=== PATIENT | female | born 1940 | race Caucasian/White ===

== ENCOUNTER 2020-05-26 18:16 | Observation (INO) | payer BC, OTHER ==
[2020-05-26 20:57] LABS: Absolute Lymphocytes (CBC) 1.5 K/uL (0.7-4.9); Basophils % 0.8 % (0-1.3); Hematocrit 36.3 % (36.0-45.0); MPV 7.6 fL (7.6-11.3); RBC Red Blood Cell Count 4.29 M/uL (3.86-4.86)
[2020-05-26 21:16] LABS: Albumin 3.5 g/dL (3.4-5.0); Bilirubin Direct 0.1 mg/dL (0-0.2); Bilirubin Total 0.4 mg/dL (0.2-1.0); Protein, Total 8.2 g/dL (6.4-8.2)
[2020-05-26 21:19] LABS: Potassium 2.5 mmol/L (3.5-5.1)
--- NOTE | 2020-05-26 21:36 | RAD REPORT ---
EXAM DESCRIPTION: RAD - Chest Single View - 05/26/2020 9:27 pm CLINICAL HISTORY: AMS Chest pain. COMPARISON: No comparisons FINDINGS: Portable technique limits examination quality. The lungs are emphysematous but grossly clear. The heart is normal in size. No displaced fractures. IMPRESSION: No acute intrathoracic process suspected.
[2020-05-26] MEDS ORDERED: POTASSIUM 25 MEQ EFFERV TAB ONE (21:40)
[2020-05-26] MEDS ORDERED: NA CHLORIDE 0.9% 500 ML ONE (21:41)
[2020-05-26] MEDS ORDERED: KCL 20 MEQ/100 mL IVPB 20 MEQ/100 ML BAG IV ONE (21:41)
[2020-05-26] MEDS ORDERED: carvediloL 6.25 MG TAB ONE (23:05)
[2020-05-26 23:08] LABS: Urine Blood TRACE (NEG); Urine Glucose NEGATIVE (NEG); Urine Protein TRACE (NEG); Urine Specific Gravity 1.025 (1.005-1.030)
[2020-05-26 23:11] LABS: Calcium Oxalate Crystals- Ur FEW (NONE SEEN); Urine Bacteria >50 /HPF (<20); Urine Culture Reflex Order REFLEXED; Urine Urothelial Cells <5 /HPF (NONE SEEN)
--- NOTE | 2020-05-26 23:26 | ER ---
Nurse's Notes [facility] Name: Jennifer Herrera Age: 79 yrs Sex: Female : 1940 Arrival Date: 05/26/2020 Time: 18:20 Bed 13 Private MD: Diagnosis: Hypokalemia;Urinary tract infection, site not specified;Altered mental status, unspecified Presentation: 05/26 18:43 Chief complaint: Patient states: Confusion, agitation for 3 weeks. Can't concentrate, ll1 unstable on feet, CRABTREE. Potassium 2.4 yesterday. Brought in by daughter. Coronavirus screen: Client denies travel out of the [place] in the last 14 days. At this time, the client does not indicate any symptoms associated with coronavirus-19. Ebola Screen: Patient denies travel to an Ebola-affected area in the 21 days before illness onset. Initial Sepsis Screen: Does the patient meet any 2 criteria? No. Patient's initial sepsis screen is negative. Does the patient have a suspected source of infection? No. Patient's initial sepsis screen is negative. Risk Assessment: Do you want to hurt yourself or someone else? Patient reports no desire to harm self or others. Onset of symptoms was May 07, 2020. 18:43 Method Of Arrival: Ambulatory ll1 18:43 Acuity: LATONIA 2 ll1 Historical: - Allergies: 18:48 Levaquin; ll1 - PMHx: 18:48 Anemia; Hypertension; narcolepsy; ll1 - PSHx: 18:48 ; cataract sx; ll1 - Immunization history:: Flu vaccine is not up to date. - Social history:: Smoking status: Patient denies any tobacco usage or history of. Screenin:15 Abuse screen: Denies threats or abuse. Denies injuries from another. Nutritional rr5 screening: No deficits noted. Tuberculosis screening: No symptoms or risk factors identified. Fall Risk IV access (20 points). Total Madrigal Fall Scale indicates No Risk (0-24 pts). Assessment: 20:15 General: Appears in no apparent distress. comfortable, Behavior is calm, cooperative, rr5 appropriate for age. 20:15 Pain: Denies pain. Neuro: Level of Consciousness is awake, alert, Oriented to person, rr5 place, time. Cardiovascular: Capillary refill < 3 seconds Patient's skin is warm and dry. Respiratory: Airway is patent Respiratory effort is even, unlabored, Respiratory pattern is regular, symmetrical. GI: Parent/caregiver reports the patient having epigastric pain, since K 2.4 MEQ result yesterday K 2.4. : No signs and/or symptoms were reported regarding the genitourinary system. EENT: No deficits noted. Derm: Skin is fragile, is thin, Skin temperature is warm. Musculoskeletal: Capillary refill < 3 seconds. 21:30 Reassessment: Patient appears in no apparent distress at this time. Patient is alert, rr5 oriented x 3, equal unlabored respirations, skin warm/dry/pink. awaiting for results. Vital Signs: 18:43 BP 203 / 105; Pulse 78; Resp 17; Temp 98.2; Pulse Ox 95% on R/A; Weight 43.09 kg; ll1 Height 5 ft. 4 in. (162.56 cm); Pain 0/10; 20:00 BP 195 / 101; Pulse 79; Resp 20; Pulse Ox 98% ; rr5 20:45 BP 201 / 112; Pulse 79; Resp 19; Pulse Ox 98% ; rr5 22:00 BP 201 / 97; Pulse 62; Resp 16; Pulse Ox 98% ; rr5 23:00 BP 173 / 82; Pulse 78; Resp 15; Pulse Ox 98% ; rr5 23:37 BP 169 / 90; Pulse 75; Resp 16; Pulse Ox 99% ; rr5 05/27 00:48 BP 154 / 89; Pulse 75; Resp 16; Pulse Ox 98% ; rr5 05/26 18:43 Body Mass Index 16.31 (43.09 kg, 162.56 cm) ll1 ED Course: 05/26 18:20 Patient arrived in ED. ds1 18:47 Triage completed. ll1 18:48 Arm band placed on. ll1 18:53 Notified Charge Nurse of confusion/low NA. em 20:05 Kike Sheffield, POPPY is Primary Nurse. rr5 20:05 Christofer Murillo NP is PHCP. pm1 20:05 Gary Schwarz MD is Attending Physician. pm1 20:55 Inserted saline lock: 20 gauge in left antecubital area, using aseptic technique. Blood jb5 collected. 21:03 Basic Metabolic Panel Sent. jb5 21:04 LFT's Sent. jb5 21:04 Magnesium Sent. jb5 21:14 Patient has correct armband on for positive identification. Bed in low position. Call rv light in reach. 21:14 Pulse ox on. NIBP on. rv 21:19 Notified Nurse Practitioner and/or Physician Circulation Representative of a critical lab result(s), dm5 Potassium 2.5. 21:27 XRAY Chest (1 view) In Process Unspecified. EDMS 21:35 CT Head Brain wo Cont In Process Unspecified. EDMS 23:25 Ramos Angel is Hospitalizing Provider. pm1 05/27 00:04 covid. rr5 03:00 No provider procedures requiring assistance completed. Patient admitted, IV remains in wh place. Administered Medications: 05/26 21:37 Drug: Potassium Effervescent Tablet 50 mEq Route: PO; rr5 22:30 Follow up: Response: No adverse reaction rr5 21:37 Drug: Potassium Chloride 20 mEq Route: IV; Rate: calculated rate; Site: left rr5 antecubital; 05/27 00:00 Follow up: Response: No adverse reaction; IV Status: Completed infusion; IV Intake: rr5 100ml 05/26 23:04 Drug: carvedilol 12.5 mg Route: PO; rr5 05/27 00:05 Follow up: Response: No adverse reaction; Blood pressure is lowered rr5 05/26 23:37 Drug: Rocephin 1 grams Route: IV; Rate: calculated rate; Site: left antecubital; rr5 05/27 00:30 Follow up: Response: No adverse reaction; IV Status: Completed infusion; IV Intake: [id number] Intake: 00:00 IV: 100ml; Total: 100ml. rr5 00:30 IV: 10ml; Total: 110ml. rr5 Outcome: 05/26 23:25 Decision to Hospitalize by Provider. pm1 05/27 03:00 Admitted to ER Hold. Please see [facility] for further documentation. Condition: stable Instructed on the need for admit. 14:56 Patient left the ED. em Addendum: 05/31/2020 14:16 Addendum: Culture Results: Positive urine culture. Bacteria is resistant to, has s v intermediate sensitivity, or is not tested against prescribed antibiotics. Report given to MATILDA for further evaluation and then to street cleaning equipment operator for follow up with patient. Phone call Attempt #1 left voicemail. 14:43 Addendum: Culture Results: No further action required. Phone call Attempt #2 pt called s v back and stated that she feels better and has f/u with Dr Cordova with no new prescriptions. Signatures: Dispatcher [employer] Ginger Kohler RN RN dm5 Jaja Brush RN Luigi Marshall RN RN em Sanford, Demi ds1 Christofer Murillo, RYLEY NOTCH GRINDER pm1 Ronel Motta jb5 Ada Alexander Ronaldo RN Kike Ahuja RN RN rr5 Gerda Almeida RN RN ll1
--- NOTE | 2020-05-26 23:26 | EDPHYS ---
Physician Documentation [facility] Name: Jennifer Herrera Age: 79 yrs Sex: Female : 1940 Arrival Date: 05/26/2020 Time: 18:20 Bed 13 Private MD: ED Physician Gary Schwarz HPI: 05/26 20:32 This 79 yrs old Female presents to ER via Ambulatory with complaints of Low pm1 Potassium. 20:32 Patient has been acting more irritated and altered for the past few days according to pm1 daughter. She got blood work last night that showed potassium 2.4 so she brought her to the ER for evaluation and treatment. She had a similar presentation the last time she was in the hospital many years ago and she had hypokalemia and a UTI. Onset: The symptoms/episode began/occurred 3 day(s) ago. Severity of symptoms: in the emergency department the symptoms are worse. The patient has experienced a previous episode, many years ago. The patient has not recently seen a physician, the patient's primary care provider is Dr. Cordova. Historical: - Allergies: 18:48 Levaquin; ll1 - PMHx: 18:48 Anemia; Hypertension; narcolepsy; ll1 - PSHx: 18:48 ; cataract sx; ll1 - Immunization history:: Flu vaccine is not up to date. - Social history:: Smoking status: Patient denies any tobacco usage or history of. ROS: 20:32 Constitutional: Negative for fever, chills, and weight loss, Eyes: Negative for injury, pm1 pain, redness, and discharge, ENT: Negative for injury, pain, and discharge, Neck: Negative for injury, pain, and swelling, Cardiovascular: Negative for chest pain, palpitations, and edema, Respiratory: Negative for shortness of breath, cough, wheezing, and pleuritic chest pain, Abdomen/GI: Negative for abdominal pain, nausea, vomiting, diarrhea, and constipation, Back: Negative for injury and pain, MS/Extremity: Negative for injury and deformity, Skin: Negative for injury, rash, and discoloration. 20:32 Neuro: Positive for altered mental status. 20:32 Psych: Positive for irritability. Exam: 20:32 Constitutional: This is a well developed, well nourished patient who is awake, alert, pm1 and in no acute distress. Head/Face: Normocephalic, atraumatic. Back: No spinal tenderness. No costovertebral tenderness. Full range of motion. Skin: Warm, dry with normal turgor. Normal color with no rashes, no lesions, and no evidence of cellulitis. MS/ Extremity: Pulses equal, no cyanosis. Neurovascular intact. Full, normal range of motion. 20:32 Cardiovascular: Exam negative for acute changes, Rate: normal, Rhythm: regular, Pulses: no pulse deficits are appreciated. 20:32 Respiratory: Exam negative for acute changes, respiratory distress, shortness of breath. 20:32 Abdomen/GI: Exam negative for acute changes, Inspection: abdomen appears normal, Palpation: abdomen is soft and non-tender, in all quadrants. Vital Signs: 18:43 BP 203 / 105; Pulse 78; Resp 17; Temp 98.2; Pulse Ox 95% on R/A; Weight 43.09 kg; ll1 Height 5 ft. 4 in. (162.56 cm); Pain 0/10; 20:00 BP 195 / 101; Pulse 79; Resp 20; Pulse Ox 98% ; rr5 20:45 BP 201 / 112; Pulse 79; Resp 19; Pulse Ox 98% ; rr5 22:00 BP 201 / 97; Pulse 62; Resp 16; Pulse Ox 98% ; rr5 23:00 BP 173 / 82; Pulse 78; Resp 15; Pulse Ox 98% ; rr5 23:37 BP 169 / 90; Pulse 75; Resp 16; Pulse Ox 99% ; rr5 05/27 00:48 BP 154 / 89; Pulse 75; Resp 16; Pulse Ox 98% ; rr5 05/26 18:43 Body Mass Index 16.31 (43.09 kg, 162.56 cm) ll1 MDM: 05/26 20:09 Patient medically screened. [facility] 23:23 Data reviewed: vital signs. Data interpreted: Pulse oximetry: on room air is 95 %. pm1 Interpretation: normal. Counseling: I had a detailed discussion with the patient and/or guardian regarding: the historical points, exam findings, and any diagnostic results supporting the discharge/admit diagnosis, lab results, radiology results, the need for further work-up and treatment in the hospital. 23:23 Physician consultation: Matt SHERMAN was called at 23:24, was contacted at 23:24, pm1 regarding admission, patient's condition, and will see patient admit observation to [facility]. 05/26 20:22 Order name: Basic Metabolic Panel; Complete Time: 22:36 pm1 05/26 20:22 Order name: CBC with Diff; Complete Time: 21:17 pm1 05/26 20:22 Order name: LFT's; Complete Time: 22:36 pm1 05/26 20:22 Order name: Magnesium; Complete Time: 22:36 pm1 05/26 20:22 Order name: Urine Microscopic Only; Complete Time: 23:13 pm1 05/26 22:31 Order name: Urine Dipstick--Ancillary (enter results); Complete Time: 23:13 mt 05/26 20:22 Order name: XRAY Chest (1 view); Complete Time: 22:36 pm1 05/26 23:12 Order name: Urine Culture EDNH 05/26 23:39 Order name: COVID-19 rr5 05/27 05:48 Order name: CBC with Automated Diff EDMS 05/27 06:06 Order name: Basic Metabolic Panel EDMS 05/27 06:06 Order name: T4 Free EDMS 05/27 06:06 Order name: Magnesium EDMS 05/27 06:06 Order name: Thyroid Stimulating Hormone EDMS 05/26 20:22 Order name: EKG; Complete Time: 20:23 pm1 05/26 20:22 Order name: Cardiac monitoring; Complete Time: 00:59 pm1 05/26 20:22 Order name: EKG - Nurse/Tech; Complete Time: 21:03 pm1 05/26 20:22 Order name: IV Saline Lock; Complete Time: 21:03 pm1 05/26 20:22 Order name: Labs collected and sent; Complete Time: 21:04 pm1 05/26 20:22 Order name: Urine Dipstick-Ancillary (obtain specimen); Complete Time: 23:34 pm1 05/26 21:18 Order name: CT Head Brain wo Cont pm1 Administered Medications: 21:37 Drug: Potassium Effervescent Tablet 50 mEq Route: PO; rr5 22:30 Follow up: Response: No adverse reaction rr5 21:37 Drug: Potassium Chloride 20 mEq Route: IV; Rate: calculated rate; Site: left rr5 antecubital; 05/27 00:00 Follow up: Response: No adverse reaction; IV Status: Completed infusion; IV Intake: rr5 100ml 05/26 23:04 Drug: carvedilol 12.5 mg Route: PO; rr5 05/27 00:05 Follow up: Response: No adverse reaction; Blood pressure is lowered rr5 05/26 23:37 Drug: Rocephin 1 grams Route: IV; Rate: calculated rate; Site: left antecubital; rr5 05/27 00:30 Follow up: Response: No adverse reaction; IV Status: Completed infusion; IV Intake: [id number] Disposition: 05/28 08:42 Co-signature as Attending Physician, Gary Schwarz MD I agree with the assessment and reji plan of care. Disposition: 05/26/20 23:25 Hospitalization ordered by Ramos nAgel for Observation. Preliminary diagnosis are Hypokalemia, Urinary tract infection, site not specified, Altered mental status, unspecified. - Bed requested for [facility] ER HOLD. - Status is Observation. em - Condition is Stable. - Problem is new. - Symptoms have improved. Signatures: Dispatcher [employer] Gary Dawson MD MD cha Munoz, Edgar, Jessica Mujica RN, RN RN cg Marinas, Patrick, RYLEY HEEL CEMENTER pm1 Kike Sheffield RN RN rr5 Gerda Almeida RN RN ll1 Corrections: (The following items were deleted from the chart) 05/27 01:11 05/26 23:25 Hospitalization Ordered by Ramos Angel for Observation. Preliminary cg diagnosis is Hypokalemia; Urinary tract infection, site not specified; Altered mental status, unspecified. Bed requested for Telemetry/MedSurg (observation). Status is Observation. Condition is Stable. Problem is new. Symptoms have improved. pm1 05/27 14:56 01:11 05/26/2020 23:25 Hospitalization Ordered by Ramos Angel for Observation. em Preliminary diagnosis is Hypokalemia; Urinary tract infection, site not specified; Altered mental status, unspecified. Bed requested for [facility] ER HOLD. Status is Observation. Condition is Stable. Problem is new. Symptoms have improved. cg
[2020-05-26] MEDS ORDERED: CEFTRIAXONE/SWI 1gm 1 GM/10 ML SYR ONE (23:35)
--- NOTE | 2020-05-27 00:22 | P.HP ---
Certification for Inpatient Patient admitted to: Observation With expected LOS: <2 Midnights Patient will require the following post-hospital care: None Practitioner: I am a practitioner with admitting privileges, knowledge of patient current condition, hospital course, and medical plan of care. Services: Services provided to patient in accordance with Admission requirements found in Title 42 Section 412.3 of the Code of Federal Regulations <Matt Wilkinson - Last Filed: 05/27/20 00:18> Patient History Date of Service: 05/27/20 Primary Care Provider: Dr. Cordova Reason for admission: UTI, hypokalemia History of Present Illness: 71-year-old female with history of hypertension, narcolepsy presents emergency department for reported altered mental status, weakness, unsteady gait. The family reports that patient had outpatient blood draw-a potassium of 2.4. Patient brought to the ER for further evaluation. During patient's evaluation in the emergency department patient was found to have urinary tract infection with mildly elevated white blood cell count at 11.8 and was hypokalemic with potassium 2.5. Family reports that patient has made multiple comments incorrectly identifying family members and they are concerned about her mental status as well. During my examination patient was alert, oriented x3, reports that she feels unsteady on her feet. ED provider wishes to admit patient under observation. - Past Medical/Surgical History Diabetic: No -: hypertension -: Narcolepsy -: 2 C sections -: catarct surgery bilaterally Psychosocial/ Personal History: Patient lives at home with her family - Family History Father -: Heart disease, Hypertension Notes: at 54, smoker Mother -: Hypertension, Kidney disease, Other (see notes) Notes: failure to thrive; lived to be 72, did not go to doctor regularly Brother Notes: no significant medical history Sister -: Cancer, Other (see notes) Notes: of a brain tumor - Social History Smoking Status: Never smoker Alcohol use: No CD- Drugs: No Caffeine use: Yes Place of Residence: Home <Matt Wilkinson - Last Filed: 05/27/20 00:18> Date of Service: 05/27/20 <klaudia mei - Last Filed: 05/27/20 11:49> Allergies No Known Drug Allergies Allergy (Verified 10/07/16 04:13) Unknown Home Medications: Benazepril HCl [Lotensin*] 20 mg PO DAILY 10/07/16 Dextroamphetamine/Amphetamine [Dextroamp-Amphet ER 5 mg Cap] 15 mg PO DAILY 10/07/16 Ferrous Sulfate [Iron] 325 mg PO DAILY 10/07/16 Vits A,C,E/Lutein/Minerals [Ocuvite with Lutein Tablet] 1 each PO DAILY 10/07/16 Potassium Chloride 10 meq PO DAILY #30 tablet.er 10/09/16 Cefdinir [Omnicef] 300 mg PO BID #14 capsule 05/27/20 Review of Systems 10-point ROS is otherwise unremarkable Genitourinary: Frequency <Matt Wilkinson - Last Filed: 05/27/20 00:18> Physical Examination - Physical Exam General: Alert, In no apparent distress, Oriented x3 HEENT: Atraumatic, Normocephalic, Other (Mucous membranes dry) Respiratory: Clear to auscultation bilaterally, Normal air movement Cardiovascular: Regular rate/rhythm, Normal S1 S2 Capillary refill: <2 Seconds Gastrointestinal: Normal bowel sounds, Hypoactive, Soft and benign Musculoskeletal: No contractures, No erythema, No tenderness Integumentary: No significant lesion, No tenderness/swelling, No erythema Neurological: Normal speech, Normal strength at 5/5 x4 extr, Normal tone, Sensation intact - Studies Laboratory Data (last 24 hrs) 05/26/20 20:42: WBC 11.8 H, Hgb 12.1, Hct 36.3, Plt Count 420 H 05/26/20 20:42: Sodium 144, Potassium 2.5 L*, BUN 15, Creatinine 0.91, Glucose 99, Magnesium 2.0, Total Bilirubin 0.4, AST 16, ALT 17, Alkaline Phosphatase 101 <Matt Wilkinson - Last Filed: 05/27/20 00:18> - Studies Laboratory Data (last 24 hrs) 05/26/20 20:42: WBC 11.8 H, Hgb 12.1, Hct 36.3, Plt Count 420 H 05/26/20 20:42: Sodium 144, Potassium 2.5 L*, BUN 15, Creatinine 0.91, Glucose 99, Magnesium 2.0, Total Bilirubin 0.4, AST 16, ALT 17, Alkaline Phosphatase 101 <klaudia mei - Last Filed: 05/27/20 11:49> Assessment and Plan - Plan Assessment Metabolic encephalopathy secondary to urinary tract infection Hypokalemia Hypertension Narcolepsy Fall risk Plan Metabolic encephalopathy secondary to urinary tract infection: Urine culture obtained, continue Rocephin at this time. Family reports mentation has improved to some degree already, on my exam patient was oriented x3. Patient does report feeling unsteady on her feet. DVT prophylaxis Lovenox 40 mg subcutaneous once daily. Hypokalemia: Potassium and magnesium protocol in place. Hypertension: Obtain and continue home medications, will need to see if patient is on diuretic, may need potassium supplementation. Narcolepsy: Obtain and continue home meds Fall risk: Will have patient evaluated by physical therapy. Discharge Plan: Home Plan to discharge in: 24 Hours - Advance Directives Does patient have a Living Will: No Does patient have a Durable POA for Healthcare: Yes - Code Status/Comfort Care Code Status Assessed: Yes (Full code) Critical Care: No Time Spent Managing Pts Care (In Minutes): 55 <Matt Wilkinson - Last Filed: 05/27/20 00:18> Physician Review: Patient Assessed, Agree with Above Assessment and Plan Physician Review Additional Text: UTI. Metabolic encephalopathy. Plan: Patient mental status is currently clear. Continue IV antibiotics. PT to assess. <klaudia mei - Last Filed: 05/27/20 11:49>
[2020-05-27 02:00] VITALS: BMI 16.2
[2020-05-27] MEDS ORDERED: ACETAMINOPHEN 500 MG TAB PO PRN (02:49)
[2020-05-27] MEDS ORDERED: ONDANSETRON 4 MG/2 ML VIAL IV PRN (02:49)
[2020-05-27] MEDS ORDERED: NA CHLORIDE 0.9% 1,000 ML IV SCH (02:49)
[2020-05-27] MEDS ORDERED: NA CHLORIDE 0.9% 1,000 ML ONE (03:41)
[2020-05-27 05:44] LABS: Absolute Lymphocytes (CBC) 1.5 K/uL (0.7-4.9); Basophils % 1.2 % (0-1.3); Hematocrit 30.5 % (36.0-45.0); Lymphocytes % 13.5 % (15.3-44.8); MPV 7.6 fL (7.6-11.3); RBC Red Blood Cell Count 3.63 M/uL (3.86-4.86)
[2020-05-27 06:02] LABS: Magnesium 1.8 mg/dL (1.8-2.4); Potassium 3.2 mmol/L (3.5-5.1); Thyroid Stimulating Hormone 1.17 uIU/mL (0.360-3.740)
[2020-05-27] MEDS ORDERED: MAGNESIUM SULFATE 1 gm IVPB 1 GM/100 ML BAG IV ONE ×2 (06:35→07:00)
[2020-05-27] MEDS ORDERED: POTASSIUM CL SA 10 MEQ TAB PO ONE ×2 (06:35→07:00)
[2020-05-27] MEDS ORDERED: CEFEPIME 1 GM/10 ML SYR IV ONE (09:00)
[2020-05-27] MEDS ORDERED: CEFTRIAXONE 1 GM/NS 50 ML 1 GM/50 ML BAG IV SCH (09:00)
[2020-05-27] MEDS: CEFTRIAXONE/SWI 1gm 1 GM/10 ML SYR IV SCH ×2 (09:00)
[2020-05-27] MEDS ORDERED: ENOXAPARIN 40 MG/0.4 ML SQ SCH (09:00)
[2020-05-27] MEDS ORDERED: PNEUMOCOCCAL VACCINE 0.5 ML IMVAC ONE (09:00)
[2020-05-27] MEDS: CEFEPIME 1 GM/10 ML SYR IV ONE ×2 (09:00→11:13)
[2020-05-27] MEDS ORDERED: ENOXAPARIN 40 MG/0.4 ML SQ ONE (09:12)
--- NOTE | 2020-05-27 11:47 | RAD REPORT ---
EXAM DESCRIPTION: CT - Head Brain Wo Cont - 05/27/2020 6:41 am CLINICAL HISTORY: 71-year-old female with headache. COMPARISON: None. TECHNIQUE: CT brain without contrast. This exam was performed according to our departmental dose opt imization program which includes use of automated exposure control, adjustment of the mA and/or kV ac cording to patient size and/or use of iterative reconstruction technique. FINDINGS: Multifocal regions of patchy hypoattenuation are present in a subcortical and periventricu lar deep white matter distribution, nonspecific; however, most likely represent small vessel ischemic disease, age indeterminate. The ventricles, and sulci are prominent compatible with underlying volume loss. The melgoza-white kaylee er differentiation is preserved. There is no mass effect, midline shift, intra- or extra-axial flui d collection/acute hemorrhage. The osseous structures are unremarkable. The paranasal sinuses and mastoid air cells are clear. IMPRESSION: 1. No acute intracranial abnormalities. Nonspecific white matter change most likely sm all vessel ischemic disease, age indeterminate. 2. CT is insensitive for early evaluation of acute stroke. If there is clinical concern for acute ischemia, an MRI may be considered. Electronically signed by: Krystle Ibrahim MD 05/26/2020 9:57 PM [facility] Due to temporary technical issues with the PACS/Fluency reporting system, reports are being signed by the in house radiologists without review as a courtesy to insure prompt reporting. The interpreting radiologist is fully responsible for the content of the report.
--- NOTE | 2020-05-27 11:58 | P.DS ---
Admission Date: 05/27/20 Discharge Date: 05/27/20 Primary Care Provider: Dr. Cordova Disposition: DC HOME/HOME HEALTH CARE Discharge Condition: FAIR Reason for Admission: UTI, hypokalemia Consultations: None Procedures: None Brief History of Present Illness: 79-year-old woman with a history of narcolepsy was brought to the emergency department with the concern for altered mental status and unsteady gait. Patient's potassium was 2.5 on presentation. UA suggested the presence of UTI. Patient mental status was clear on presentation per report. Urine and blood cultures were obtained. Patient was started on antibiotics hospitalized for further management. Hospital Course: Patient was given a shot of IV cefepime and treated with IV hydration. Her mental status was clear during the hospital stay. She did not meet criteria for sepsis. Her potassium level is now 3.2 after replacement. Patient is currently at baseline and will be discharged with oral antibiotics for UTI. Also recommended home health for PT and nursing. Vital Signs/Physical Exam: Temp Pulse Resp BP Pulse Ox 97.5 F 68 18 170/82 H 99 05/27/20 07:41 05/27/20 07:41 05/27/20 07:41 05/27/20 07:41 05/27/20 07:41 General: Alert, In no apparent distress HEENT: Mucous membr. moist/pink Neck: Supple, JVD not distended Respiratory: Clear to auscultation bilaterally, Normal air movement Cardiovascular: No edema, Regular rate/rhythm, Normal S1 S2 Gastrointestinal: Normal bowel sounds, Soft and benign, No tenderness Musculoskeletal: No swelling Integumentary: No rashes Neurological: Other (Nonfocal) Laboratory Data at Discharge: WBC 11.3 K/uL (4.3-10.9) H 05/27/20 05:20 Hgb 10.3 g/dL (12.0-15.0) L 05/27/20 05:20 Hct 30.5 % (36.0-45.0) L D 05/27/20 05:20 Plt Count 345 K/uL (152-406) 05/27/20 05:20 Sodium 144 mmol/L (136-145) 05/27/20 05:20 Potassium 3.2 mmol/L (3.5-5.1) L 05/27/20 05:20 BUN 15 mg/dL (7-18) 05/27/20 05:20 Creatinine 0.79 mg/dL (0.55-1.3) 05/27/20 05:20 Glucose 101 mg/dL (74-106) 05/27/20 05:20 Magnesium 1.8 mg/dL (1.8-2.4) 05/27/20 05:20 Total Bilirubin 0.4 mg/dL (0.2-1.0) 05/26/20 20:42 AST 16 U/L (15-37) 05/26/20 20:42 ALT 17 U/L (12-78) 05/26/20 20:42 Alkaline Phosphatase 101 U/L (45-117) 05/26/20 20:42 Home Medications: Benazepril HCl [Lotensin*] 20 mg PO DAILY 10/07/16 Dextroamphetamine/Amphetamine [Dextroamp-Amphet ER 5 mg Cap] 15 mg PO DAILY 10/07/16 Ferrous Sulfate [Iron] 325 mg PO DAILY 10/07/16 Vits A,C,E/Lutein/Minerals [Ocuvite with Lutein Tablet] 1 each PO DAILY 10/07/16 Potassium Chloride 10 meq PO DAILY #30 tablet.er 10/09/16 Cefdinir [Omnicef] 300 mg PO BID #14 capsule 05/27/20 New Medications: Cefdinir [Omnicef] 300 mg PO BID #14 capsule Diet: AHA Activity: Fall precautions Followup: Nathanael Cordova MD [Primary Care Provider] - 1 Week (Call to schedule an appointment)
--- NOTE | 2020-05-27 12:34 | EKG ---
Test Date: 2020-05-26 Test Time: 20:58:37 Industrial Plant Custodian: DIANA MEASUREMENT RESULTS: Intervals: Rate: 74 ME: 188 QRSD: 88 QT: 420 QTc: 466 [place]: P: 70 ME: 188 QRS: -43 T: 66 INTERPRETIVE STATEMENTS: Normal sinus rhythm Possible Left atrial enlargement Left axis deviation Left ventricular hypertrophy Abnormal ECG Compared to ECG 01/01/2015 16:29:37 Left-axis deviation now present T-wave abnormality no longer present Electronically Signed On 05-27-20 12:33:06 [employer] ATTENDANT by Dylan Lyon
[2020-05-27 14:20] VITALS: BP 149/61; TEMP 98.9
[2020-05-27 21:58] VITALS: O2SAT 98
== END 2020-05-27 14:17 | disposition home health service (06) ==
LOC: ER 18:16 → ERHOLD 05-27 00:05
PROVIDERS: ADMIT Internal Medicine; ATTEND Internal Medicine
DX: N39.0 Urinary tract infection, site not specified (principal); G93.41 Metabolic encephalopathy; E87.6 Hypokalemia; G47.419 Narcolepsy without cataplexy; I10 Essential (primary) hypertension; Z20.828 Contact with and (suspected) exposure to other viral communicable diseases; R94.31 Abnormal electrocardiogram [ECG] [EKG]
CPT/HCPCS: 96365; 93005; 87088; 85025 ×2; 87086; 80048 ×2; 36415; 83735 ×2; 80076; 84443; 87077 ×2; 87186 ×2; 84439; 70450; 71045; 99285; 96366; U0002; J3480; J1650; J3475; J0696; J0692; J7040; J7030; 81003; 81015

== ENCOUNTER 2020-07-24 21:10 | Inpatient (IN) | payer BC ==
[2020-07-24 21:54] VITALS: BMI 16.0
[2020-07-24] MEDS ORDERED: ACETAMINOPHEN 500 MG TAB PO PRN (22:17)
[2020-07-24] MEDS ORDERED: ONDANSETRON 4 MG/2 ML VIAL IV PRN (22:17)
[2020-07-24] MEDS: NA CHLORIDE 0.9% 1,000 ML IV SCH (22:59)
[2020-07-24] MEDS: HYDRALAZINE HCL 20 MG/ML VIAL IV PRN (22:59)
[2020-07-24 23:19] LABS: Absolute Lymphocytes (CBC) 1.5 K/uL (0.7-4.9); Basophils % 0.6 % (0-1.3); Hematocrit 31.7 % (36.0-45.0); Lymphocytes % 14.6 % (15.3-44.8); MPV 8.1 fL (7.6-11.3); RBC Red Blood Cell Count 3.71 M/uL (3.86-4.86)
[2020-07-24] MEDS ORDERED: Meropenem 1 GM/100 ML BAG ONE (23:43)
[2020-07-24] MEDS: Meropenem 1000 MG/VIAL IV SCH (23:46)
[2020-07-24 23:57] LABS: Potassium 2.6 mmol/L (3.5-5.1)
[2020-07-25] MEDS ORDERED: KCL 20 MEQ/100 mL IVPB 20 MEQ/100 ML BAG IV SCH (00:05)
[2020-07-25] MEDS: Meropenem 1000 MG/VIAL IV SCH (00:29)
[2020-07-25 00:43] LABS: Urine Appearance CLOUDY; Urine Bilirubin NEGATIVE (NEG); Urine Blood 3+ (NEG); Urine Color YELLOW; Urine Glucose NEGATIVE (NEG); Urine Protein 1+ (NEG); Urine Specific Gravity 1.015 (1.005-1.030)
[2020-07-25 00:58] LABS: Urine Bacteria LOADED /HPF (<20); Urine Mucus 1+ /HPF (NONE SEEN); Urine RBC TNTC /HPF (NONE SEEN)
--- NOTE | 2020-07-25 02:04 | P.HP ---
Certification for Inpatient Patient admitted to: Observation With expected LOS: <2 Midnights Patient will require the following post-hospital care: Home Health Services Practitioner: I am a practitioner with admitting privileges, knowledge of patient current condition, hospital course, and medical plan of care. Services: Services provided to patient in accordance with Admission requirements found in Title 42 Section 412.3 of the Code of Federal Regulations Patient History Date of Service: 07/25/20 Primary Care Provider: Art Reason for admission: ESBL- E. coli urinary tract infection History of Present Illness: This is a 80-year-old female that was direct admitted by myself after being consulted for a urinary tract infection that has been going on since mid May that has been resistant to antibiotics. Patient has had several cultures done reporting ESBL related E. coli. Patient has been complaining of urgency and increased agitation and periods of confusion. Patient has been seen by her primary care physician and was started on antibiotics initially and then re-cultured with a negative result but then continued to have problems and so was cultured again at outpatient lab facility where she again showed ESBL. Patient now admitted at this time to [facility] floor for antibiotic administration and PICC line placement for continued antibiotics over the next several days for beta lactamase resistant E. coli Allergies No Known Drug Allergies Allergy (Verified 10/07/16 04:13) Unknown Home medications list reviewed: Yes Home Medications: Benazepril HCl [Lotensin*] 20 mg PO DAILY 10/07/16 Dextroamphetamine/Amphetamine [Dextroamp-Amphet ER 5 mg Cap] 15 mg PO DAILY 10/07/16 Ferrous Sulfate [Iron] 325 mg PO DAILY 10/07/16 Vits A,C,E/Lutein/Minerals [Ocuvite with Lutein Tablet] 1 each PO DAILY 10/07/16 Potassium Chloride 10 meq PO DAILY #30 tablet.er 10/09/16 Cefdinir [Omnicef] 300 mg PO BID #14 capsule 05/27/20 - Past Medical/Surgical History Has patient received pneumonia vaccine in the past: Yes Diabetic: No -: Hypertension -: Narcolepsy -: Anemia -: Hypokalemia -: 2 C sections -: cataract surgery bilaterally Psychosocial/ Personal History: Patient lives at home with her family - Family History Father -: Heart disease, Hypertension Notes: at 54, smoker Mother -: Hypertension, Kidney disease, Other (see notes) Notes: failure to thrive; lived to be 72, did not go to doctor regularly Brother Notes: no significant medical history Sister -: Cancer, Other (see notes) Notes: of a brain tumor - Social History Smoking Status: Never smoker Smoking therapy provided: No Alcohol use: No CD- Drugs: No Caffeine use: No Place of Residence: Home Review of Systems General: Unremarkable Eyes: Unremarkable ENT: Unremarkable Respiratory: Unremarkable Cardiovascular: Unremarkable Gastrointestinal: Unremarkable Genitourinary: Urgency Musculoskeletal: Unremarkable Integumentary: Unremarkable Neurological: As per HPI Lymphatics: Unremarkable Physical Examination - Vital Signs Temperature: 97.5 F Blood Pressure: 170/90 Pulse: 80 Respirations: 16 Pulse Ox (%): 99 - Physical Exam General: Alert, In no apparent distress, Oriented x3, Cooperative HEENT: Mucous membr. moist/pink, EOMI Neck: Supple, 2+ carotid pulse no bruit, JVD not distended Respiratory: Clear to auscultation bilaterally, Normal air movement Cardiovascular: No edema, Normal pulses, Regular rate/rhythm, Normal S1 S2, Systolic murmur (Grade 2 systolic murmur over the aortic region present) Capillary refill: <2 Seconds Gastrointestinal: Normal bowel sounds, Soft and benign, Non-distended, No ascites, No tenderness, No masses, No rebound, No guarding Musculoskeletal: No clubbing, No swelling, No contractures, No erythema, No tenderness, No warmth Integumentary: No rashes, No breakdown, No significant lesion, No tenderness/swelling, No erythema, No warmth, No cyanosis Neurological: Normal speech, Normal strength at 5/5 x4 extr, Normal tone, Sensation intact, Cranial nerves 3-12 intact, Normal affect Lymphatics: No axilla or inguinal lymphadenopathy - Studies Laboratory Data (last 24 hrs) 07/24/20 22:46: Sodium 145, Potassium 2.6 L*, BUN 20 H, Creatinine 0.92, Glucose 86 07/24/20 22:46: WBC 10.0, Hgb 10.6 L, Hct 31.7 L, Plt Count 318 Assessment and Plan - Problems (Diagnosis) (1) ESBL (extended spectrum beta-lactamase) producing bacteria infection Current Visit: Yes Status: Acute (2) HTN (hypertension) Current Visit: No Status: Chronic Qualifiers: Hypertension type: essential hypertension (3) Hypokalemia Onset Date: 10/07/16 Current Visit: No Status: Acute (4) UTI (urinary tract infection) Onset Date: 10/07/16 Current Visit: No Status: Acute Qualifiers: Urinary tract infection type: acute cystitis Hematuria presence: without hematuria Qualified Code(s): N30.00 - Acute cystitis without hematuria - Plan 1. Patient admitted to [facility] floor we will continue to monitor her over the next 24 hr. 2. Labs will be drawn daily to assess stability of her hypokalemia 3. Patient put on potassium protocol and given potassium now 4. Patient be started on meropenem which is sensitive to her current infection. PICC line will be placed in the morning for continuation of outpatient antibiotics. Will consult social welfare research worker for outpatient administration of antibiotics via home health services Discharge Plan: Home Plan to discharge in: 24 Hours - Advance Directives Does patient have a Living Will: Yes Does patient have a Durable POA for Healthcare: Yes - Code Status/Comfort Care Code Status Assessed: No Critical Care: No Time Spent Managing Pts Care (In Minutes): 70
[2020-07-25] MEDS: KCL 20 MEQ/100 mL IVPB 20 MEQ/100 ML BAG IV SCH ×2 (03:51→06:22)
[2020-07-25] MEDS: HYDRALAZINE HCL 20 MG/ML VIAL IV PRN ×2 (06:54→16:12)
[2020-07-25] MEDS ORDERED: Meropenem 1,000 MG in NA CHLORIDE 0.9% 100 ML IV SCH (09:00)
[2020-07-25] MEDS ORDERED: Meropenem 1000 MG/VIAL IV SCH (09:00)
[2020-07-25] MEDS: NA CHLORIDE 0.9% 1,000 ML IV SCH (12:56)
[2020-07-25] MEDS: ERTAPENEM NA 0.5 GM in NA CHLORIDE 0.9% 100 ML IVPB SCH (13:37)
[2020-07-25] MEDS ORDERED: POTASSIUM CL SA 10 MEQ TAB PO ONE ×2 (14:00→20:25)
[2020-07-25] MEDS ORDERED: ERTAPENEM SODIUM 1 GM VIAL IVPB SCH (15:00)
[2020-07-25] MEDS ORDERED: DEXTROAMPHETAMINE PO SCH (21:00)
[2020-07-25] MEDS ORDERED: AMPHETAMINE PO SCH (21:00)
[2020-07-26] MEDS: NA CHLORIDE 0.9% 1,000 ML IV SCH ×3 (03:44→21:22)
[2020-07-26] MEDS: HOME MED 1 EA UNK PO SCH (05:16)
[2020-07-26 06:15] LABS: Absolute Lymphocytes (CBC) 1.2 K/uL (0.7-4.9); Basophils % 0.7 % (0-1.3); Hematocrit 33.1 % (36.0-45.0); Lymphocytes % 12.2 % (15.3-44.8); MPV 7.9 fL (7.6-11.3); RBC Red Blood Cell Count 3.85 M/uL (3.86-4.86)
[2020-07-26 06:30] LABS: Phosphorus 2.1 mg/dL (2.5-4.9); Potassium 3.7 mmol/L (3.5-5.1)
[2020-07-26] MEDS ORDERED: POTASSIUM CL SA 10 MEQ TAB PO ONE (08:00)
[2020-07-26] MEDS: FERROUS SULFATE 325 MG TAB PO SCH (08:53)
[2020-07-26] MEDS: VITAMIN D 1000 UNIT TAB PO SCH (08:53)
[2020-07-26] MEDS: CYANOCOBALAMIN 1,000 MCG TAB PO SCH (08:53)
[2020-07-26] MEDS: BENAZEPRIL 20 MG TAB PO SCH (08:53)
[2020-07-26] MEDS ORDERED: CYANOCOBALAMIN 2500 MCG SL SCH (09:00)
[2020-07-26] MEDS ORDERED: HOME MED 1 EA UNK PO SCH (09:00)
[2020-07-26] MEDS ORDERED: DEXTROAMPHETAMINE PO SCH (09:00)
[2020-07-26] MEDS ORDERED: AMPHETAMINE PO SCH (09:00)
[2020-07-26] MEDS ORDERED: HOME MED 1 EA UNK (Cyanocobalamin (Vitamin B-12) [Vitamin B12] 2,500 MCG Tab.Chew) SL SCH (09:00)
--- NOTE | 2020-07-26 09:38 | P.PN ---
Subjective Date of Service: 07/25/20 Patient is doing well with no new complaints. Awaiting for PICC line placement and then discharge home. Review of Systems 10-point ROS is otherwise unremarkable Physical Examination - Vital Signs Temperature: 98.4 F Blood Pressure: 143/76 Pulse: 78 Respirations: 18 Pulse Ox (%): 98 - Physical Exam General: Alert, In no apparent distress, Oriented x3 Respiratory: Clear to auscultation bilaterally, Normal air movement Cardiovascular: Regular rate/rhythm, Normal S1 S2, No murmurs Gastrointestinal: Normal bowel sounds, Soft and benign, Non-distended, No tenderness Musculoskeletal: No clubbing, No swelling, No tenderness Integumentary: No rashes Neurological: Sensation intact, Cranial nerves 3-12 intact - Studies Laboratory Data (last 24 hrs) 07/26/20 05:58: Sodium 144, Potassium 3.7, BUN 13, Creatinine 0.74, Glucose 90, Phosphorus 2.1 L, Magnesium 2.0 07/26/20 05:58: WBC 9.9, Hgb 11.1 L, Hct 33.1 L, Plt Count 332 07/25/20 19:12: Potassium 3.7 07/25/20 12:09: Potassium 3.1 L Microbiology Data (last 24 hrs): 07/25/20 00:05 Nasopharnyx Coronavirus COVID-19 PCR - Final Medications List Reviewed: Yes Assessment & Plan - Problems (Diagnosis) (1) ESBL (extended spectrum beta-lactamase) producing bacteria infection Current Visit: Yes Status: Acute (2) Weakness generalized Current Visit: No Status: Acute (3) HTN (hypertension) Current Visit: No Status: Chronic Qualifiers: Hypertension type: essential hypertension - Plan Plan: 1. PICC line placement 2. Outpatient IV antibiotics 3. Anticipate discharge home with home health 4. Outpatient Urology follow-up 5. GI and DVT prophylaxis Discharge Plan: Home Plan to discharge in: Greater than 2 days - Advance Directives Does patient have a Living Will: Yes Does patient have a Durable POA for Healthcare: Yes - Code Status/Comfort Care Code Status Assessed: Yes Code Status: Full Code Critical Care: No Time Spent Managing PTS Care (In Minutes): 30
[2020-07-26] MEDS ORDERED: NA CHLORIDE 0.9% 50 ML ONE (11:54)
--- NOTE | 2020-07-26 13:44 | RAD REPORT ---
EXAM DESCRIPTION: RAD - Chest Single View - 07/26/2020 1:18 pm CLINICAL HISTORY: PICC placement COMPARISON: Chest Single View dated 05/26/2020 FINDINGS: Portable chest was obtained following placement of a right upper extremity PICC line. The catheter tip projects over the SVC.
[2020-07-26] MEDS: ERTAPENEM NA 0.5 GM in NA CHLORIDE 0.9% 100 ML IVPB SCH (15:42)
[2020-07-26] MEDS: HYDRALAZINE HCL 20 MG/ML VIAL IV PRN (21:13)
[2020-07-27] MEDS: NA CHLORIDE 0.9% 1,000 ML IV SCH (02:55)
[2020-07-27 05:08] LABS: Potassium 3.7 mmol/L (3.5-5.1)
[2020-07-27] MEDS: HOME MED 1 EA UNK PO SCH (05:43)
[2020-07-27] MEDS ORDERED: POTASSIUM CL SA 10 MEQ TAB PO ONE (09:00)
[2020-07-27] MEDS: CYANOCOBALAMIN 1,000 MCG TAB PO SCH (09:02)
[2020-07-27] MEDS: BENAZEPRIL 20 MG TAB PO SCH (09:02)
[2020-07-27] MEDS: VITAMIN D 1000 UNIT TAB PO SCH (09:02)
[2020-07-27] MEDS: FERROUS SULFATE 325 MG TAB PO SCH (09:02)
[2020-07-27] MEDS: ERTAPENEM NA 0.5 GM in NA CHLORIDE 0.9% 100 ML IVPB SCH (14:30)
[2020-07-27 22:59] VITALS: O2SAT 99
[2020-07-28] MEDS: HOME MED 1 EA UNK PO SCH (06:00)
--- NOTE | 2020-07-28 07:12 | P.PN ---
Date of Service: 07/26/20 Subjective Patient is doing well with no new complaints. Awaiting for PICC line placement and then discharge home. Review of Systems 10-point ROS is otherwise unremarkable Physical Examination - Vital Signs REVIEWED - Physical Exam General: Alert, In no apparent distress, Oriented x3 Respiratory: Clear to auscultation bilaterally, Normal air movement Cardiovascular: Regular rate/rhythm, Normal S1 S2, No murmurs Gastrointestinal: Normal bowel sounds, Soft and benign, Non-distended, No tenderness Musculoskeletal: No clubbing, No swelling, No tenderness Integumentary: No rashes Neurological: Sensation intact, Cranial nerves 3-12 intact Assessment & Plan - Problems (Diagnosis) (1) ESBL (extended spectrum beta-lactamase) producing bacteria infection Current Visit: Yes Status: Acute (2) Weakness generalized Current Visit: No Status: Acute (3) HTN (hypertension) Current Visit: No Status: Chronic Qualifiers: Hypertension type: essential hypertension - Plan Plan: 1. PICC line placement today 2. Outpatient IV antibiotics arrangements 3. Anticipate discharge home with home health 4. Outpatient Urology follow-up 5. GI and DVT prophylaxis
--- NOTE | 2020-07-28 07:13 | P.PN ---
Date of Service: 07/27/20 Subjective Patient with no new complaints. Awaiting for arrangements with home health and she can be discharged for 10 more days of iv antibiotics Review of Systems 10-point ROS is otherwise unremarkable Physical Examination - Vital Signs REVIEWED - Physical Exam General: Alert, In no apparent distress, Oriented x3 Respiratory: Clear to auscultation bilaterally, Normal air movement Cardiovascular: Regular rate/rhythm, Normal S1 S2, No murmurs Gastrointestinal: Normal bowel sounds, Soft and benign, Non-distended, No tenderness Musculoskeletal: No clubbing, No swelling, No tenderness Integumentary: No rashes Neurological: Sensation intact, Cranial nerves 3-12 intact Assessment & Plan - Problems (Diagnosis) (1) ESBL (extended spectrum beta-lactamase) producing bacteria infection Current Visit: Yes Status: Acute (2) Weakness generalized Current Visit: No Status: Acute (3) HTN (hypertension) Current Visit: No Status: Chronic Qualifiers: Hypertension type: essential hypertension - Plan Plan: 1. PICC line done 2. Outpatient IV antibiotics arrangements 3. Anticipate discharge home with home health once completed-trying [facility] 4. Outpatient Urology follow-up 5. GI and DVT prophylaxis
--- NOTE | 2020-07-28 08:58 | P.DS ---
Admission Date: 07/25/20 Discharge Date: 07/28/20 Primary Care Provider: Dr. Cordova Disposition: ROUTINE DISCHARGE Discharge Condition: GOOD Reason for Admission: ESBL- E. coli urinary tract infection Consultations: none Procedures: Medical problem list: UTI, Urine culture positive for E. Coli-ESBL, failed outpatient therapy HTN History of narcolepsy Brief History of Present Illness: 80-year-old female presented to the emergency room as a direct admission due to failed outpatient therapy for UTI. Patient recently found to have urine culture positive for ESBL. Patient requires admission for treatment. Hospital Course: Patient presented to the hospital as a direct admission due to failed outpatient therapy for UTI. Patient was positive for E coli-ESBL. This was confirmed by culture. Patient was started on IV antibiotic therapy. Patient improved. PICC line was placed for outpatient IV antibiotic therapy. Arrangements for home IV antibiotic therapy was arranged. At discharge she is without significant complaints. Repeat urine culture was obtained prior to discharge. At discharge patient will continue with meropenem 1000 mg IV twice daily for 4 more days. Recommend to recheck lab-BMP twice this coming week. This can be done by [facility]. Recommend follow up with PCP within 1 week. At that time recommend to recheck urine culture. If urine culture negative then PICC line can be discontinued. UTI prevention and education provided. Patient with history of hypertension. This has remained stable. At discharge patient will continue with benazepril 20 mg pill daily. Recommend to maintain blood pressure less than 130/80. Further adjustment can be done by her PCP. Patient with history of narcolepsy. At discharge patient will continue with Adderall as directed. Patient will continue her other home medications including vitamin D3, vitamin-B 12, potassium supplementation, iron daily, and multi vitamin daily. Vital Signs/Physical Exam: Temp Pulse Resp BP Pulse Ox 98 F 88 20 143/81 H 99 07/28/20 08:00 07/28/20 08:00 07/28/20 08:00 07/28/20 08:00 07/28/20 08:00 General: Alert, In no apparent distress, Oriented x3, Cooperative HEENT: Atraumatic Neck: Supple Respiratory: Clear to auscultation bilaterally, Normal air movement Cardiovascular: Normal pulses, Regular rate/rhythm Gastrointestinal: No guarding Neurological: Normal speech, Normal strength at 5/5 x4 extr, Normal tone, Normal affect Laboratory Data at Discharge: WBC 9.9 K/uL (4.3-10.9) 07/26/20 05:58 Hgb 11.1 g/dL (12.0-15.0) L 07/26/20 05:58 Hct 33.1 % (36.0-45.0) L 07/26/20 05:58 Plt Count 332 K/uL (152-406) 07/26/20 05:58 Sodium 143 mmol/L (136-145) 07/27/20 04:40 Potassium 3.7 mmol/L (3.5-5.1) 07/27/20 04:40 BUN 13 mg/dL (7-18) 07/27/20 04:40 Creatinine 0.69 mg/dL (0.55-1.3) 07/27/20 04:40 Glucose 92 mg/dL (74-106) 07/27/20 04:40 Phosphorus 2.1 mg/dL (2.5-4.9) L 07/26/20 05:58 Magnesium 2.0 mg/dL (1.8-2.4) 07/26/20 05:58 Home Medications: Benazepril HCl [Lotensin*] 20 mg PO DAILY 10/07/16 Dextroamphetamine/Amphetamine [Dextroamp-Amphet ER 5 mg Cap] 5 mg PO TID 10/07/16 Ferrous Sulfate [Iron] 325 mg PO DAILY 10/07/16 Vits A,C,E/Lutein/Minerals [Ocuvite with Lutein Tablet] 1 each PO DAILY 10/07/16 Cholecalciferol (Vitamin D3) [Vitamin D3] 1 tab PO DAILY 07/25/20 Cyanocobalamin (Vitamin B-12) [Vitamin B12] 1,000 mcg PO DAILY 07/25/20 Potassium Gluconate [Potassium] 1 tab PO DAILY 07/25/20 Patient Discharge Instructions: Recommend follow up with PCP within 1 week to follow up this hospitalization. Patient presented to the hospital as a direct admission due to failed outpatient therapy for UTI. Patient was positive for E coli-ESBL. This was confirmed by culture. Patient was started on IV antibiotic therapy. Patient improved. PICC line was placed for outpatient IV antibiotic therapy. Arrangements for home IV antibiotic therapy was arranged. At discharge she is without significant complaints. Repeat urine culture was obtained prior to discharge. At discharge patient will continue with meropenem 1000 mg IV twice daily for 4 more days. Recommend to recheck lab-BMP twice this coming week. This can be done by [facility]. Recommend follow up with PCP within 1 week. At that time recommend to recheck urine culture. If urine culture negative then PICC line can be discontinued. UTI prevention and education provided. Patient with history of hypertension. This has remained stable. At discharge patient will continue with benazepril 20 mg pill daily. Recommend to maintain blood pressure less than 130/80. Further adjustment can be done by her PCP. Patient with history of narcolepsy. At discharge patient will continue with Adderall as directed. Patient will continue her other home medications including vitamin D3, vitamin-B 12, potassium supplementation, iron daily, and multi vitamin daily. Diet: AHA Activity: Fall precautions Followup: Nathanael Cordova MD [Primary Care Provider] - Time spent managing pt's care (in minutes): 55
[2020-07-28] MEDS: BENAZEPRIL 20 MG TAB PO SCH (10:07)
[2020-07-28] MEDS: FERROUS SULFATE 325 MG TAB PO SCH (10:08)
[2020-07-28] MEDS: CYANOCOBALAMIN 1,000 MCG TAB PO SCH (10:08)
[2020-07-28] MEDS: VITAMIN D 1000 UNIT TAB PO SCH (10:08)
[2020-07-28] MEDS: ERTAPENEM NA 0.5 GM in NA CHLORIDE 0.9% 100 ML IVPB SCH (11:08)
[2020-07-28 14:56] VITALS: BP 163/84; TEMP 97.4
== END 2020-07-28 15:23 | disposition home health service (06) | DRG 690 ==
LOC: INTOOBSV 21:10 → 2ND 21:10 → OBSVTOIN 07-25 11:22
PROVIDERS: ADMIT Hospitalist; ATTEND Family Medicine
PROC: 02HV33Z Insertion of Infusion Device into Superior Vena Cava, Percutaneous Approach (ICD-10-PCS; principal; 2020-07-26)
DX: N30.00 Acute cystitis without hematuria (principal); Z16.12 Extended spectrum beta lactamase (ESBL) resistance; Z16.20 Resistance to unspecified antibiotic; I10 Essential (primary) hypertension; E87.6 Hypokalemia; B96.20 Unspecified Escherichia coli [E. coli] as the cause of diseases classified elsewhere; Z79.899 Other long term (current) drug therapy; Z20.822 Contact with and (suspected) exposure to COVID-19
CPT/HCPCS: 36415; 36569; 71045; 80048; 81001; 83735; 83880; 84100; 84132; 84145; 85025; 87077; 87086; 87088; 87186; J0360; J1335; J2185; J3480; J7030; U0002

== ENCOUNTER 2020-12-09 17:30 | Inpatient (IN) | payer BC ==
[2020-12-09 21:31] LABS: Absolute Lymphocytes (CBC) 1.5 K/uL (0.7-4.9); Basophils % 0.6 % (0-1.3); Lymphocytes % 18.5 % (15.3-44.8); MPV 7.6 fL (7.6-11.3); RBC Red Blood Cell Count 3.44 M/uL (3.86-4.86)
[2020-12-09 21:32] LABS: Protime INR 1.06
[2020-12-09 21:52] LABS: ALT/SGPT 14 U/L (12-78); AST/SGOT 14 U/L (15-37); Albumin 3.6 g/dL (3.4-5.0); Alkaline Phosphatase 94 U/L (45-117); BUN Blood Urea Nitrogen 19 mg/dL (7-18); Bicarbonate 26 mmol/L (21-32); Bilirubin Direct < 0.1 mg/dL (0-0.2); Bilirubin Total 0.3 mg/dL (0.2-1.0); Glucose Level 105 mg/dL (74-106); Magnesium 1.9 mg/dL (1.8-2.4); NT PRO-BNP 1583 pg/mL (<450); Potassium 3.4 mmol/L (3.5-5.1); Protein, Total 7.5 g/dL (6.4-8.2); Sodium Level 143 mmol/L (136-145); Troponin (Emerg Dept Use Only) < 0.02 ng/mL (0.0-0.045)
[2020-12-09 23:02] LABS: Urine Blood 1+ (Negative); Urine Glucose Negative (Negative); Urine Protein 2+ (Negative); Urine Specific Gravity >=1.030 (1.005-1.030); Urine pH 5.5 (5.0-7.0)
[2020-12-09] MEDS ORDERED: NA CHLORIDE 0.9% 1,000 ML ONE (23:14)
[2020-12-09 23:21] LABS: Urine Bacteria >50 /HPF (<20)
[2020-12-09 23:22] LABS: Calcium Oxalate Crystals- Ur MODERATE (NONE SEEN); Urine RBC <5 /HPF (NONE SEEN)
--- NOTE | 2020-12-10 00:15 | ER ---
Nurse's Notes [facility] Name: Jennifer Herrera Age: 80 yrs Sex: Female : 1940 Arrival Date: 12/09/2020 Time: 17:54 Bed 25 Private MD: Diagnosis: Urinary tract infection, site not specified;Weakness Presentation: 12/09 18:43 Chief complaint: Patient's son or daughter states: UTI since May, epigastric pain jl7 and generalized weakness x 2 weeks and low potassium. Coronavirus screen: Client denies travel out of the [place] in the last 14 days. At this time, the client does not indicate any symptoms associated with coronavirus-19. Ebola Screen: No symptoms or risks identified at this time. Initial Sepsis Screen: Does the patient meet any 2 criteria? No. Patient's initial sepsis screen is negative. Does the patient have a suspected source of infection? No. Patient's initial sepsis screen is negative. Risk Assessment: Do you want to hurt yourself or someone else? Patient reports no desire to harm self or others. Onset of symptoms is unknown. Care prior to arrival: None. 18:43 Method Of Arrival: Ambulatory jl7 18:43 Acuity: LATONIA 3 jl7 Historical: - Allergies: 18:46 Levaquin; jl7 - PMHx: 18:46 Anemia; Hypertension; narcolepsy; jl7 - PSHx: 18:46 ; cataract sx; jl7 - Immunization history:: Adult Immunizations unknown, Client reports receiving the 2nd dose of the Covid vaccine. - Social history:: Smoking status: Patient denies any tobacco usage or history of. Screenin:18 Abuse screen: Denies threats or abuse. Nutritional screening: No deficits noted. vg1 Tuberculosis screening: No symptoms or risk factors identified. Fall Risk No fall in past 12 months (0 pts). No secondary diagnosis (0 pts). IV access (20 points). Ambulatory Aid- None/Bed Rest/Nurse Assist (0 pts). Gait- Normal/Bed Rest/Wheelchair (0 pts) Mental Status- Oriented to own ability (0 pts). Total Madrigal Fall Scale indicates No Risk (0-24 pts). Assessment: 21:00 General: Appears in no apparent distress. comfortable, Behavior is calm, cooperative. vg1 Pain: Denies pain. Complains of pain in Under the Right should that wraps around to the ABD near Epigastric area Pain currently is 0 out of 10 on a pain scale. Neuro: Level of Consciousness is awake, alert, obeys commands, Oriented to person, place, time, situation. Cardiovascular: Patient's skin is warm and dry. Respiratory: Airway is patent Respiratory effort is even, unlabored. GI: No signs and/or symptoms were reported involving the gastrointestinal system. : No signs and/or symptoms were reported regarding the genitourinary system. EENT: No signs and/or symptoms were reported regarding the EENT system. Derm: Skin is intact, Skin is pink, warm \T\ dry. Musculoskeletal: Circulation, motion, and sensation intact. 23:06 General: patient states that she visited dr Cordova's office, where she had a UA done. His ap3 office called her today and told her that her cultures were positive and to seek medical attention at the ER due to their offices being closed at this time. . 23:23 Reassessment: Patient and/or family updated on plan of care and expected duration. Pain ap3 level reassessed. Patient is alert, oriented x 3, equal unlabored respirations, skin warm/dry/pink. family member is at bedside. . 12/10 01:00 Reassessment: Patient appears in no apparent distress at this time. Patient and/or wh family updated on plan of care and expected duration. Pain level reassessed. Patient is alert, oriented x 3, equal unlabored respirations, skin warm/dry/pink. 02:30 Reassessment: Patient appears in no apparent distress at this time. Patient and/or wh family updated on plan of care and expected duration. Pain level reassessed. Patient is alert, oriented x 3, equal unlabored respirations, skin warm/dry/pink. Vital Signs: 12/09 18:43 BP 180 / 97; Pulse 85; Resp 17; Temp 97.9; Pulse Ox 100% ; Weight 38.56 kg (R); Pain jl7 0/10; 21:17 BP 166 / 87; Pulse 77; Resp 14; Pulse Ox 100% on R/A; vg1 23:27 Pulse 84; Pulse Ox 100% on R/A; Pain 0/10; ap3 23:30 BP 185 / 96 RA Sitting (auto/); ap3 12/10 01:00 BP 170 / 113; Pulse 83; Resp 18; Pulse Ox 98% on R/A; 03:00 BP 170 / 96; Pulse 81; Resp 18; Pulse Ox 100% on R/A; ED Course: 12/09 17:54 Patient arrived in ED. ds1 18:46 Triage completed. jl7 18:46 Arm band placed on right wrist. Patient placed in waiting room, Patient notified of jl7 wait time. 19:33 Chadwick Silva MD is Attending Physician. rn 19:35 Jordyn Cordova RN is Primary Nurse. ea 20:44 Gary Byers PA is PHCP. cp 20:44 Chadwick Silva MD is Attending Physician. cp 20:59 Primary Nurse role handed off by Jordyn Cordova RN vg1 20:59 Rosalba Euceda RN is Primary Nurse. vg1 21:14 Initial lab(s) drawn, by ED staff, sent to lab. Inserted saline lock: 22 gauge in left vg1 antecubital area, using aseptic technique. Blood collected. 21:18 Patient has correct armband on for positive identification. Bed in low position. Call vg1 light in reach. 21:42 XRAY Chest (1 view) In Process Unspecified. EDMS 12/10 00:11 CT Aorta for Dissection In Process Unspecified. EDMS 00:14 Ramos Angel is Hospitalizing Provider. cp 00:39 Liane Gottlieb MD is Hospitalizing Provider. cp 03:28 No provider procedures requiring assistance completed. Patient admitted, IV remains in place. 03:40 Primary Nurse role handed off by Rosalba Euceda RN 2 04:09 Ada Alexander RN is Primary Nurse. Administered Medications: 12/09 23:24 Drug: NS 0.9% 250 ml Route: IV; Rate: bolus; Site: left antecubital; [facility] 12/10 03:29 Follow up: Response: No adverse reaction; IV Status: Completed infusion 00:56 Drug: fentaNYL (PF) 25 mcg {Note: RASS 0.} Route: IVP; Site: right forearm; 03:29 Follow up: Response: No adverse reaction; Pain is decreased; RASS: Alert and Calm (0) 00:58 Drug: Potassium Effervescent Tablet 50 mEq Route: PO; 03:29 Follow up: Response: No adverse reaction 01:00 Drug: Meropenem 500 mg Route: IV; Rate: calculated rate; Site: right forearm; 03:29 Follow up: Response: No adverse reaction; IV Status: Completed infusion Outcome: 00:15 Decision to Hospitalize by Provider. 03:28 Admitted to ER Hold. Please see [facility] for further documentation. 03:28 Condition: stable 03:28 Instructed on the need for admit. 11:21 Patient left the ED. aa5 Signatures: Dispatcher [employer] EDNY Sandra Ramsay ds1 Chadwick Silva MD MD rn Calderon, Audri, RN RN aa5 Gary Byers PA PA cp Leal, Jahala, RN RN jl7 Jordyn Cordova, RN RN Ada Barron, RN POPPY Julieta Salomon RN RN ap3 [address]ie Lr 2 Rosalba Euceda, RN RN vg1
--- NOTE | 2020-12-10 00:16 | EDPHYS ---
Physician Documentation [facility] Name: Jennifer Herrera Age: 80 yrs Sex: Female : 1940 Arrival Date: 12/09/2020 Time: 17:54 Bed 25 Private MD: ED Physician Chadwick Silva HPI: 12/09 21:05 This 80 yrs old Female presents to ER via Ambulatory with complaints of cp Weakness. 21:05 The patient presents to the emergency department with weakness of the entire body, cp generalized weakness, that is mild. 21:05 Onset: The symptoms/episode began/occurred gradually, 2 week(s) ago. cp 21:05 Associated signs and symptoms: Pertinent negatives: fever. Severity of symptoms: in the cp emergency department the symptoms are unchanged despite home interventions. Patient's baseline: Neuro: alert and fully oriented, Motor: no deficits, Ambulation: walks without assistance, Speech: normal. Patient reports previously when she had similar symptoms of general weakness, mid back pain, epigastric pain she was diagnosed with low potassium level and uti. Patient reports she been leaving urine samples at primary care physician's office to check for infection, but has not received call concerning results. Historical: - Allergies: 18:46 Levaquin; jl7 - PMHx: 18:46 Anemia; Hypertension; narcolepsy; jl7 - PSHx: 18:46 ; cataract sx; jl7 - Immunization history:: Adult Immunizations unknown, Client reports receiving the 2nd dose of the Covid vaccine. - Social history:: Smoking status: Patient denies any tobacco usage or history of. ROS: 21:10 Constitutional: Negative for fever, poor PO intake. cp 21:10 Eyes: Negative for injury, pain, redness, and discharge. cp 21:10 ENT: Negative for ear pain, sore throat, difficulty swallowing, difficulty handling secretions. 21:10 Cardiovascular: Negative for chest pain, palpitations. 21:10 Respiratory: Negative for cough, shortness of breath, wheezing. 21:10 Abdomen/GI: Positive for abdominal pain, of the epigastric area, Negative for vomiting, diarrhea, constipation, black/tarry stool, rectal bleeding. 21:10 Back: Positive for pain at rest, of the mid back area. 21:10 : Negative for burning with urination. 21:10 Skin: Negative for cellulitis, rash. 21:10 Neuro: Positive for weakness, Negative for altered mental status, headache, syncope. 21:10 All other systems are negative. Exam: 21:06 ECG was reviewed by the Attending Physician. cp 21:15 Constitutional: The patient appears in no acute distress, alert, awake, cp non-diaphoretic, non-toxic, well developed, frail. 21:15 Head/Face: Normocephalic, atraumatic. cp 21:15 Eyes: Periorbital structures: appear normal, Conjunctiva: normal, no exudate, no injection, Sclera: no appreciated abnormality, Lids and lashes: appear normal, bilaterally. 21:15 ENT: External ear(s): are unremarkable, Nose: is normal, Mouth: Lips: moist, Oral mucosa: moist, Posterior pharynx: Airway: no evidence of obstruction, patent. 21:15 Neck: ROM/movement: is normal, is supple, without pain, no range of motions limitations. 21:15 Chest/axilla: Inspection: normal, Palpation: is normal, no crepitus, no tenderness. 21:15 Cardiovascular: Rate: normal, Rhythm: regular. 21:15 Respiratory: the patient does not display signs of respiratory distress, Respirations: normal, no use of accessory muscles, no retractions, labored breathing, is not present, Breath sounds: are clear throughout, no decreased breath sounds. 21:15 Abdomen/GI: Inspection: abdomen appears normal, Palpation: soft, in all quadrants, mild abdominal tenderness, in the epigastric area, rebound tenderness, is not appreciated, involuntary guarding, is not appreciated. 21:15 Back: CVA tenderness, is absent. 21:15 Skin: no rash present. 21:15 Neuro: Orientation: to person, place \T\ time. Mentation: is normal, Motor: moves all fours, strength is normal, Gait: is steady. Vital Signs: 18:43 BP 180 / 97; Pulse 85; Resp 17; Temp 97.9; Pulse Ox 100% ; Weight 38.56 kg (R); Pain jl7 0/10; 21:17 BP 166 / 87; Pulse 77; Resp 14; Pulse Ox 100% on R/A; vg1 23:27 Pulse 84; Pulse Ox 100% on R/A; Pain 0/10; ap3 23:30 BP 185 / 96 RA Sitting (auto/); ap3 02 01:00 BP 170 / 113; Pulse 83; Resp 18; Pulse Ox 98% on R/A; wh 03:00 BP 170 / 96; Pulse 81; Resp 18; Pulse Ox 100% on R/A; wh MDM: 12/09 19:33 Patient medically screened. rn 23:55 Data reviewed: vital signs, nurses notes, lab test result(s), EKG, radiologic studies, cp plain films, I have discussed the patient's presentation/case with the attending Emergency Department Physician;. 12/10 00:10 Physician consultation: Ramon SIBLEY was contacted at 00:10, regarding admission, to the medical/surgical unit. patient reports in the past she was treated for ESBL infection of urine with IV antibiotics through PICC line. Patient reports daughter received call from office of pcp earlier today that recent urine sample returned positive for ESBL bacteria. 12/09 20:45 Order name: Basic Metabolic Panel; Complete Time: 22:36 cp 12/09 22:36 Interpretation: Normal except: K 3.4; CL 111; BUN 19; GFR 65. cp 12/09 20:45 Order name: CBC with Diff; Complete Time: 21:51 cp 12/09 21:51 Interpretation: Normal except: RBC 3.44; HGB 10.1; HCT 30.0; RDW 16.2. cp 12/09 20:45 Order name: LFT's; Complete Time: 22:36 cp 12/09 20:45 Order name: Magnesium; Complete Time: 22:36 cp 12/09 20:45 Order name: NT PRO-BNP; Complete Time: 22:36 cp 12/09 20:45 Order name: PT-INR; Complete Time: 21:51 cp 12/09 21:51 Interpretation: Reviewed. cp 12/09 20:45 Order name: Troponin (emerg Dept Use Only); Complete Time: 22:36 cp 12/09 20:46 Order name: Urine Microscopic Only; Complete Time: 23:50 cp 12/09 23:50 Interpretation: Normal except: UWBC 10-20; UBACT >50; CAOX MODERATE. cp 12/09 23:01 Order name: Urine Dipstick-Ancillary; Complete Time: 23:09 EDMS 12/09 23:09 Interpretation: Normal except: UBLD 1+; UPROT 2+. / 23:24 Order name: Urine Culture EDMS 12/10 00:14 Order name: Blood Culture Adult (2) cp 12/10 00:14 Order name: Procalcitonin cp 12/10 00:14 Order name: Lactate 12/09 20:45 Order name: XRAY Chest (1 view) 12/09 20:45 Order name: EKG; Complete Time: 20:46 cp 12/09 20:45 Order name: Cardiac monitoring; Complete Time: 23:02 cp 12/09 20:45 Order name: EKG - Nurse/Tech; Complete Time: 21:02 cp 12/09 20:45 Order name: IV Saline Lock; Complete Time: 21:17 cp 12/09 20:45 Order name: Labs collected and sent; Complete Time: 21:17 cp 12/09 20:45 Order name: O2 Per Protocol; Complete Time: 20:46 cp 12/09 20:45 Order name: O2 Sat Monitoring; Complete Time: 20:46 12/09 22:37 Order name: CT Aorta for Dissection 12/10 02:36 Order name: SARS-COV-2 RT PCR EDMS 12/10 05:47 Order name: CBC with Automated Diff EDMS 12/10 05:53 Order name: Comprehensive Metabolic Panel EDMS 12/09 20:46 Order name: Urine Dipstick-Ancillary (obtain specimen); Complete Time: 23:02 cp EC/01 21:06 Rate is 78 beats/min. Rhythm is regular. NV interval is normal. QRS interval is normal. cp QT interval is normal. Interpreted by me. Reviewed by me. Administered Medications: 23:24 Drug: NS 0.9% 250 ml Route: IV; Rate: bolus; Site: left antecubital; ap3 02 03:29 Follow up: Response: No adverse reaction; IV Status: Completed infusion wh 00:56 Drug: fentaNYL (PF) 25 mcg {Note: RASS 0.} Route: IVP; Site: right forearm; 03:29 Follow up: Response: No adverse reaction; Pain is decreased; RASS: Alert and Calm (0) 00:58 Drug: Potassium Effervescent Tablet 50 mEq Route: PO; 03:29 Follow up: Response: No adverse reaction 01:00 Drug: Meropenem 500 mg Route: IV; Rate: calculated rate; Site: right forearm; 03:29 Follow up: Response: No adverse reaction; IV Status: Completed infusion Disposition: 19:07 Co-signature as Attending Physician, Chadwick Silva MD. rn Disposition: 12/10/20 00:15 Hospitalization ordered by Liane Gottlieb for Inpatient Admission. Preliminary diagnosis are Urinary tract infection, site not specified, Weakness. - Bed requested for Telemetry/MedSurg (Inpatient). - Status is Inpatient Admission. aa5 - Condition is Stable. - Problem is new. - Symptoms have improved. Signatures: Dispatcher [employer] ED[facility] Loly Bone Roman, MD MD rn Serjio, Negin, RN RN aa5 Gary Byers PA PA cp Garcia, Cindy, RN RN cg Leal, Jahala, RN RN jl7 Ada Alexander RN RN Julieta Salomon RN RN ap3 Corrections: (The following items were deleted from the chart) 00:39 00:15 Hospitalization Ordered by Ramos Angel for Inpatient Admission. Preliminary cp diagnosis is Urinary tract infection, site not specified; Weakness. Bed requested for Telemetry/MedSurg (Inpatient). Status is Inpatient Admission. Condition is Stable. Problem is new. Symptoms have improved. cp 01:54 00:15 CORONAVIRUS+MR.LAB.BRZ ordered. [facility] ED[facility] 02:27 00:39 12/10/2020 00:15 Hospitalization Ordered by Liane Gottlieb MD for Inpatient cg Admission. Preliminary diagnosis is Urinary tract infection, site not specified; Weakness. Bed requested for Telemetry/MedSurg (Inpatient). Status is Inpatient Admission. Condition is Stable. Problem is new. Symptoms have improved. cp 10:45 02:27 12/10/2020 00:15 Hospitalization Ordered by Liane Gottlieb MD for Inpatient bd Admission. Preliminary diagnosis is Urinary tract infection, site not specified; Weakness. Bed requested for [facility] ER HOLD. Status is Inpatient Admission. Condition is Stable. Problem is new. Symptoms have improved. cg 11:21 10:45 12/10/2020 00:15 Hospitalization Ordered by Liane Gottlieb MD for Inpatient aa5 Admission. Preliminary diagnosis is Urinary tract infection, site not specified; Weakness. Bed requested for Telemetry/MedSurg (Inpatient). Status is Inpatient Admission. Condition is Stable. Problem is new. Symptoms have improved. bd
[2020-12-10] MEDS ORDERED: POTASSIUM 25 MEQ EFFERV TAB ONE (01:46)
[2020-12-10] MEDS ORDERED: Meropenem 500 MG/100 ML BAG ONE (01:46)
[2020-12-10] MEDS ORDERED: FENTANYL CITR 100 MCG/2 ML ONE (01:46)
--- NOTE | 2020-12-10 04:22 | P.HP ---
Certification for Inpatient Patient admitted to: Inpatient With expected LOS: >2 Midnights Patient will require the following post-hospital care: None Practitioner: I am a practitioner with admitting privileges, knowledge of patient current condition, hospital course, and medical plan of care. Services: Services provided to patient in accordance with Admission requirements found in Title 42 Section 412.3 of the Code of Federal Regulations <Ramon Jackson - Last Filed: 12/10/20 04:17> Patient History Date of Service: 12/10/20 Primary Care Provider: Art Reason for admission: ESBL UTI History of Present Illness: Ms. Herrera is a 80 yo F with HTN, narcolepsy here today for ESBL + UTI. She said she had a feeling her UTI had returned because she was feeling dizzy, her BP was high, and she felt rundown and not interested in doing anything. She saidthe color of her urine changed to an orange almost rust color. She took a urine sample to her PCP and it returned positive for ESBL E coli today. She denies fever, N/V, dysuria, frequency, urgency. She had ESBL UTI in July and was treated with meropenem via PICC line. K 3.4. BNP 1583. Urine + for 1+ blood, 10- 20 WBCs, >50bcteria. - Past Medical/Surgical History Diabetic: No -: Hypertension -: Narcolepsy -: Anemia -: Hypokalemia -: 2 C sections -: cataract surgery bilaterally Psychosocial/ Personal History: Patient lives at home with her family - Family History Father -: Heart disease, Hypertension Notes: at 54, smoker Mother -: Hypertension, Kidney disease, Other (see notes) Notes: failure to thrive; lived to be 72, did not go to doctor regularly Brother Notes: no significant medical history Sister -: Cancer, Other (see notes) Notes: of a brain tumor - Social History Smoking Status: Never smoker Alcohol use: No CD- Drugs: No Caffeine use: No Place of Residence: Home <Oneida Jacksonjim Vazquez - Last Filed: 12/10/20 04:17> Date of Service: 12/10/20 <Liane Gottlieb - Last Filed: 12/12/20 10:33> Allergies No Known Drug Allergies Allergy (Verified 10/07/16 04:13) Unknown Home Medications: Benazepril HCl [Lotensin*] 40 mg PO DAILY 10/07/16 Dextroamphetamine/Amphetamine [Dextroamp-Amphet ER 5 mg Cap] 5 mg PO DAILY 10/07/16 Review of Systems 10-point ROS is otherwise unremarkable <Ramon Jackson - Last Filed: 12/10/20 04:17> Physical Examination - Physical Exam General: Alert, In no apparent distress, Oriented x3, Cooperative, Cachectic HEENT: Atraumatic, Normocephalic, PERRLA, Mucous membr. moist/pink, EOMI, Sclerae nonicteric Neck: Supple, 2+ carotid pulse no bruit, JVD not distended, No Thyromegaly, No LAD Respiratory: Clear to auscultation bilaterally, Normal air movement Cardiovascular: No edema, Normal pulses, Regular rate/rhythm, Normal S1 S2, No gallops, No rubs, No murmurs Capillary refill: <2 Seconds Gastrointestinal: Normal bowel sounds, Soft and benign, Non-distended, No ascites, No tenderness, No masses, No rebound, No guarding Musculoskeletal: No clubbing, No swelling, No contractures, No erythema, No tenderness, No warmth Integumentary: No rashes, No breakdown, No significant lesion, No te nderness/swelling, No erythema, No warmth, No cyanosis Neurological: Normal speech, Normal strength at 5/5 x4 extr, Normal tone, Sensation intact, Cranial nerves 3-12 intact, Normal affect Lymphatics: No axilla or inguinal lymphadenopathy - Studies Laboratory Data (last 24 hrs) 12/09/20 21:14: PT 12.2, INR 1.06 12/09/20 21:14: WBC 7.90, Hgb 10.1 L, Hct 30.0 L, Plt Count 365 12/09/20 21:14: Sodium 143, Potassium 3.4 L, BUN 19 H, Creatinine 0.84, Glucose 105, Magnesium 1.9, Total Bilirubin 0.3, AST 14 L, ALT 14, Alkaline Phosphatase 94 <Ramon Jackson - Last Filed: 12/10/20 04:17> - Studies Microbiology Data (last 24 hrs): 12/09/20 23:00 Clean Catch Urine [place] Count - Final >100,000 CFU/ML. 12/09/20 23:00 Clean Catch Urine - Final Klebsiella Pneumoniae Esbl Gram Neg Madhu <Liane Gottlieb - Last Filed: 12/12/20 10:33> Assessment and Plan - Plan Assessment ESBL ecoli UTI hypokalemia HTN narcolepsy Plan start IV meropenem, PICC line placement potassium replacement protocol reconcile and continue home medications IV hydalazine PRN for BP spikes pain management as needed repeat urine culture with sensitivities pendinig Discharge Plan: Home Plan to discharge in: 48 Hours - Advance Directives Does patient have a Living Will: Yes Does patient have a Durable POA for Healthcare: Yes - Code Status/Comfort Care Code Status Assessed: Yes (full code) Critical Care: No Time Spent Managing Pts Care (In Minutes): 70 <Ramon Jackson - Last Filed: 12/10/20 04:17> Date of Service: 12/10/20 Agree with plan of care as mentioned above. Continue IV antibiotic therapy Physical Examination Vitals: Afebrile vital signs are stable Cardiovascular: Regular rate rhythm no murmur Lungs: Clear bilaterally Abdomen: Soft, minimal tenderness on the right upper quadrant, nondistended Neuro: No focal deficits Diagnostic data has been reviewed ASST: 1. Multi-drug resistant urinary tract infection with the ESBL E coli 2. Abdominal discomfort PLAN: 1. Continue with current plan of care 2. Merrem IV in arrange for an is at discharge 3. Repeat UA with microscopy 4. Abdominal x-ray 5. GI and DVT prophylaxis <Liane Gottlieb - Last Filed: 12/12/20 10:33>
[2020-12-10 05:36] VITALS: BMI 15.4
[2020-12-10 05:47] LABS: Absolute Lymphocytes (CBC) 1.5 K/uL (0.7-4.9); Basophils % 0.8 % (0-1.3); Hematocrit 29.1 % (36.0-45.0); Lymphocytes % 17.8 % (15.3-44.8)
[2020-12-10 05:53] LABS: Albumin 3.2 g/dL (3.4-5.0); Bilirubin Total 0.3 mg/dL (0.2-1.0); Potassium 4.1 mmol/L (3.5-5.1)
--- NOTE | 2020-12-10 08:24 | RAD REPORT ---
EXAM DESCRIPTION: RAD - Chest Single View - 12/09/2020 9:42 pm CLINICAL HISTORY: general weakness Chest pain. COMPARISON: Chest Single View dated 07/26/2020; Chest Single View dated 05/26/2020 FINDINGS: Portable technique limits examination quality. The lungs are mildly emphysematous but grossly clear. The heart is normal in size. No displaced fract ures. IMPRESSION: Mild COPD.
[2020-12-10] MEDS: BENAZEPRIL 20 MG TAB PO SCH (08:39)
[2020-12-10] MEDS: Meropenem 1,000 MG in NA CHLORIDE 0.9% 100 ML IV SCH ×2 (08:39→20:51)
[2020-12-10] MEDS ORDERED: PNEUMOCOCCAL VACCINE 0.5 ML IMVAC ONE (09:00)
[2020-12-10] MEDS ORDERED: Meropenem 1000 MG/VIAL IV SCH (09:00)
--- NOTE | 2020-12-10 11:22 | RAD REPORT ---
EXAM DESCRIPTION: Angio Aorta For Dissection RadLex: CT CHEST ABDOMEN PELVIS ANGIOGRAPHY WITH IV CONTRAST CLINICAL HISTORY: Epigastric/back pain. COMPARISON: None. TECHNIQUE: CTA of the abdomen and pelvis was performed following intravenous administration of iodin ated contrast. Oral contrast was not administered. Axial, coronal, and sagittal soft tissue window re constructions were created and sent to PACS. 3D reconstructions were created on an independent workstation and sent to PACS for evaluation. This exam was performed according to our departmental dose-optimization program, which includes autom ated exposure control, adjustment of the mA and/or kV according to patient size and/or use of iterati ve reconstruction technique. FINDINGS: Vascular: No abdominal aortic aneurysm. No evidence of dissection. Mild to moderate athero sclerosis. The major visceral vessels are patent. Incidentally noted origin of the superior gastric a rtery directly from the aorta. Thoracic: No significant abnormality. Hepatobiliary: Tiny superior left hepatic lobe hypodensity, likely a cyst. No concerning hepatic lesi on identified. The hepatic and portal veins are patent. The gallbladder is unremarkable. No biliary d uctal dilatation. Pancreas: Unremarkable. Spleen: Unremarkable. Gastrointestinal: No evidence of bowel obstruction or perienteric inflammation. The appendix is roman l. Moderate to large amount of fecal material throughout the colon. Moderate sigmoid colon diverticul osis. Skin and soft tissue thickening about the uterus and urethra. No fluid collections identified. Adrenals: No abnormality identified in either adrenal gland. Renal: Mild diffuse renal cortical thinning. Bilateral renal hypodensities, the largest of which is a t the inferior pole of the left kidney, and measures 4.2 cm, with thin peripheral mural calcification s (Bosniak II). Nonobstructive calculus at the superior pole of the left kidney measures 0.5 cm. No c oncerning parenchymal abnormality in either kidney. No hydronephrosis bilaterally. Bladder/Reproductive: Unremarkable appearance of the urinary bladder by CT technique. Small rounded f luid structure measuring approximately 2.5 cm, with small posterior calcifications, located in the re gion of the urethra. Lymphatics: No lymphadenopathy identified by CT size criteria. Musculoskeletal: No concerning osseous lesion identified. Lumbar spine degenerative changes, most pro minent at L4-5. Osteopenia. Left proximal femur hardware. Fluid / peritoneum: No significant free fluid. No free intraperitoneal air identified. IMPRESSION: 1. No abdominal aortic aneurysm or dissection. Mild to moderate atherosclerosis. The m ajor visceral vessels are patent. 2. Skin and soft tissue thickening about the uterus and urethra. No fluid collections identified. C orrelate for infection/inflammation, possibly chronic. 3. Small rounded fluid structure in the region of the urethra. Correlate for a urethral diverticulu m, containing small stones versus posterior mural calcifications. 4. Moderate to large amount of fecal material throughout the colon. Moderate sigmoid colon divertic ulosis without evidence of acute diverticulitis. 5. Bilateral renal cysts. Nonobstructive left renal calculus. Electronically signed by: Eleanor Lewis MD 12/10/2020 12:54 AM CDT Due to temporary technical issues with the PACS/Fluency reporting system, reports are being signed by the in house radiologist without review as a courtesy to ensure prompt reporting. The interpreting r adiologist is fully responsible for the content of the report.
--- NOTE | 2020-12-10 11:55 | EKG ---
Test Date: 2020-12-09 Test Time: 20:57:30 Outside Upholsterer: ALEX MEASUREMENT RESULTS: Intervals: Rate: 78 OK: 180 QRSD: 86 QT: 384 QTc: 437 [place]: P: 71 OK: 180 QRS: -41 T: 46 INTERPRETIVE STATEMENTS: Normal sinus rhythm Left axis deviation Minimal voltage criteria for LVH, may be normal variant Cannot rule out Anterior infarct, age undetermined Abnormal ECG Compared to ECG 05/26/2020 20:58:37 Myocardial infarct finding now present Electronically Signed On 12-10-20 11:53:41 CDT by Dylan Lyon
[2020-12-10] MEDS: HYDRALAZINE HCL 20 MG/ML VIAL IV PRN (12:53)
[2020-12-10] MEDS ORDERED: Meropenem 1,000 MG in NA CHLORIDE 0.9% 100 ML IV SCH (13:00)
[2020-12-11 05:38] LABS: Hematocrit 30.3 % (36.0-45.0); RBC Red Blood Cell Count 3.44 M/uL (3.86-4.86)
[2020-12-11 05:39] LABS: Absolute Lymphocytes (CBC) 1.4 K/uL (0.7-4.9); Basophils % 0.9 % (0-1.3); Lymphocytes % 17.9 % (15.3-44.8); MPV 7.9 fL (7.6-11.3)
[2020-12-11 05:46] LABS: Albumin 3.2 g/dL (3.4-5.0); Bilirubin Total 0.4 mg/dL (0.2-1.0); Phosphorus 3.1 mg/dL (2.5-4.9); Potassium 3.7 mmol/L (3.5-5.1); Protein, Total 6.9 g/dL (6.4-8.2)
[2020-12-11 07:14] LABS: Urine Appearance CLOUDY (Clear); Urine Bilirubin NEGATIVE (Negative); Urine Blood NEGATIVE (Negative); Urine Color YELLOW (Yellow); Urine Glucose NEGATIVE (Negative); Urine Protein TRACE (Negative); Urine pH 7.5 (5.0-7.0)
[2020-12-11 07:22] LABS: Urine Microscopic Reflex ORDER UMIC
[2020-12-11 07:29] LABS: Urine Bacteria 20-50 /HPF (<20); Urine RBC <5 /HPF (NONE SEEN)
[2020-12-11 07:30] LABS: Urine Amorphous Sediment 2+ /HPF (NONE SEEN)
[2020-12-11] MEDS: ACETAMINOPHEN 500 MG TAB PO PRN ×2 (08:31→20:23)
[2020-12-11] MEDS: BENAZEPRIL 20 MG TAB PO SCH (08:31)
[2020-12-11] MEDS: Meropenem 1,000 MG in NA CHLORIDE 0.9% 100 ML IV SCH ×2 (08:32→20:23)
[2020-12-11] MEDS ORDERED: POTASSIUM CL SA 10 MEQ TAB PO ONE (09:00)
[2020-12-11] MEDS: MORPHINE 2 MG/ML SYR IV PRN (13:59)
[2020-12-11] MEDS ORDERED: MAGNES/ALUMIN/SIMET 30ML UCUP PO ONE (16:00)
[2020-12-11] MEDS ORDERED: HYDROMORPHONE HCL 0.5 MG/0.5 ML INJ IV ONE ×2 (16:00→21:22)
--- NOTE | 2020-12-11 16:15 | RAD REPORT ---
EXAM DESCRIPTION: RAD - Abdomen 1 View (KUB) - 12/11/2020 4:06 pm CLINICAL HISTORY: Abdominal pain Pain COMPARISON: <Comparisons> FINDINGS: There is a large amount of stool in the colon. Pneumoperitoneum not suspected. No suspicio us calcifications. Hardware is present proximal left femur. IMPRESSION: Severe constipation.
[2020-12-11] MEDS ORDERED: ENSURE ENLIVE 237 ML CAN PO SCH (17:00)
[2020-12-11] MEDS: ONDANSETRON 4 MG/2 ML VIAL IV PRN (20:23)
[2020-12-11] MEDS: HYDRALAZINE HCL 20 MG/ML VIAL IV PRN (20:51)
[2020-12-12] MEDS: MORPHINE 2 MG/ML SYR IV PRN ×3 (00:14→18:26)
[2020-12-12] MEDS ORDERED: POLYETHYL GLY 3350 17 GM/DOSE PO ONE (00:39)
[2020-12-12] MEDS ORDERED: HYDROCODONE/APAP 5/325 MG TAB PO ONE (00:43)
[2020-12-12] MEDS: HYDRALAZINE HCL 20 MG/ML VIAL IV PRN ×3 (00:45→19:25)
[2020-12-12] MEDS ORDERED: HYDROMORPHONE HCL 0.5 MG/0.5 ML INJ IV PRN (01:30)
[2020-12-12] MEDS: ONDANSETRON 4 MG/2 ML VIAL IV PRN ×2 (02:14→19:25)
[2020-12-12] MEDS: DEXTROAMPHETAMINE PO SCH (09:00)
[2020-12-12] MEDS: AMPHETAMINE PO SCH (09:00)
[2020-12-12] MEDS: BENAZEPRIL 20 MG TAB PO SCH (09:27)
[2020-12-12] MEDS: Meropenem 1,000 MG in NA CHLORIDE 0.9% 100 ML IV SCH ×2 (09:27→21:00)
--- NOTE | 2020-12-12 10:36 | P.PN ---
Subjective Date of Service: 12/11/20 Subjective: No new changes, No C/O voiced, Improving Review of Systems 10-point ROS is otherwise unremarkable Physical Examination - Vital Signs Temperature: 97 F Blood Pressure: 130/72 Pulse: 104 Respirations: 18 Pulse Ox (%): 99 - Physical Exam General: Alert, In no apparent distress, Oriented x3 Respiratory: Clear to auscultation bilaterally, Normal air movement Cardiovascular: Regular rate/rhythm, Normal S1 S2, No murmurs Gastrointestinal: Normal bowel sounds, Soft and benign, Non-distended, No tenderness Musculoskeletal: No clubbing, No swelling, No tenderness Neurological: Sensation intact, Cranial nerves 3-12 intact - Studies Microbiology Data (last 24 hrs): 12/09/20 23:00 Clean Catch Urine [place] Count - Final >100,000 CFU/ML. 12/09/20 23:00 Clean Catch Urine - Final Klebsiella Pneumoniae Esbl Gram Neg Madhu Medications List Reviewed: Yes Assessment & Plan - Problems (Diagnosis) (1) Abdominal pain Current Visit: Yes Status: Acute (2) ESBL (extended spectrum beta-lactamase) producing bacteria infection Current Visit: No Status: Acute (3) UTI (urinary tract infection) Onset Date: 10/07/16 Current Visit: No Status: Acute Qualifiers: Urinary tract infection type: acute cystitis Hematuria presence: without hematuria Qualified Code(s): N30.00 - Acute cystitis without hematuria (4) Weakness generalized Current Visit: No Status: Acute (5) HTN (hypertension) Current Visit: No Status: Chronic Qualifiers: Hypertension type: essential hypertension - Plan Plan: 1. Continue with IV antibiotics 2. Awaiting PICC line placement arrangement for outpatient antibiotics 3. KUB 4. Monitor hemodynamics 5. Pain control 6. GI and DVT prophylaxis Discharge Plan: Home Plan to discharge in: Greater than 2 days - Advance Directives Does patient have a Living Will: Yes Does patient have a Durable POA for Healthcare: Yes - Code Status/Comfort Care Code Status Assessed: Yes Code Status: Full Code Critical Care: No Time Spent Managing PTS Care (In Minutes): 35
[2020-12-12] MEDS ORDERED: MAGNESIUM CITRATE 300 ML BOT PO SCH (11:00)
--- NOTE | 2020-12-12 16:22 | P.PN ---
Date of Service: 12/12/20 Subjective Subjective: Patient abdominal pain has worsened. We did get the PICC line placed and are arranging for outpatient antibiotics today. However her and abdominal complaint are quite significant and we will get CT scan or x-ray to further evaluate Review of Systems 10-point ROS is otherwise unremarkable Physical Examination - Vital Signs reviewed - Physical Exam General: Alert, In no apparent distress, Oriented x3 Respiratory: Clear to auscultation bilaterally, Normal air movement Cardiovascular: Regular rate/rhythm, Normal S1 S2, No murmurs Gastrointestinal: Normal bowel sounds, Soft and benign, Non-distended, No tenderness Musculoskeletal: No clubbing, No swelling, No tenderness Neurological: Sensation intact, Cranial nerves 3-12 intact Assessment & Plan - Problems (Diagnosis) (1) Abdominal pain Current Visit: Yes Status: Acute (2) ESBL (extended spectrum beta-lactamase) producing bacteria infection Current Visit: No Status: Acute (3) UTI (urinary tract infection) Onset Date: 10/07/16 Current Visit: No Status: Acute Urinary tract infection type: acute cystitis Hematuria presence: without hematuria Qualified Code(s): N30.00 - Acute cystitis without hematuria (4) Weakness generalized Current Visit: No Status: Acute (5) HTN (hypertension) Current Visit: No Status: Chronic Qualifiers: Hypertension type: essential hypertension - Plan Plan: 1. Continue with IV antibiotics-invanz 1g daily 2. Will continue with laxatives 3. KUB 4. Monitor hemodynamics 5. Pain control 6. CT scan of the abdomen and pelvis 7. GI and DVT prophylaxis
--- NOTE | 2020-12-12 17:24 | RAD REPORT ---
EXAM DESCRIPTION: RAD - Chest Single View - 12/12/2020 4:59 pm CLINICAL HISTORY: Device placement PICC line placement . IMPRESSION: PICC line with its tip in the superior vena cava
[2020-12-12] MEDS: HYDROMORPHONE HCL 1 MG/ML INJ IV PRN (19:25)
[2020-12-13] MEDS: HYDROMORPHONE HCL 1 MG/ML INJ IV PRN ×2 (02:12→15:19)
[2020-12-13 06:50] LABS: Absolute Lymphocytes (CBC) 1.6 K/uL (0.7-4.9); Basophils % 0.4 % (0-1.3); Hematocrit 30.4 % (36.0-45.0); Lymphocytes % 11.8 % (15.3-44.8); MPV 7.8 fL (7.6-11.3); RBC Red Blood Cell Count 3.45 M/uL (3.86-4.86)
[2020-12-13 07:02] LABS: Potassium 4.4 mmol/L (3.5-5.1)
[2020-12-13] MEDS: DEXTROAMPHETAMINE PO SCH ×2 (08:36→09:25)
[2020-12-13] MEDS: AMPHETAMINE PO SCH ×2 (08:36→09:25)
[2020-12-13] MEDS: BENAZEPRIL 20 MG TAB PO SCH (08:45)
[2020-12-13] MEDS: Meropenem 1,000 MG in NA CHLORIDE 0.9% 100 ML IV SCH (08:50)
[2020-12-13 10:45] LABS: Blood Morphology Comment NOTED (NOT SEEN); Platelet Estimate ADEQ; Rouleau SLIGHT; White Blood Cell Scan OK (OK)
[2020-12-13] MEDS ORDERED: ERTAPENEM NA 1 GM in NA CHLORIDE 0.9% 100 ML IVPB ONE (14:00)
[2020-12-13] MEDS ORDERED: ERTAPENEM SODIUM 1 GM VIAL IVPB ONE (15:00)
[2020-12-13] MEDS: ONDANSETRON 4 MG/2 ML VIAL IV PRN (16:35)
--- NOTE | 2020-12-13 17:31 | RAD REPORT ---
EXAM DESCRIPTION: CTAbdomen Pelvis W Contrast - 12/13/2020 4:49 pm CLINICAL HISTORY: Abdominal pain. Abd pain COMPARISON: CT ABD PELVIS W CONTRAST dated 01/01/2015; Angio Aorta For Dissection dated 12/09/2020 TECHNIQUE: Biphasic CT imaging of the abdomen and pelvis was performed with 100 ml non-ionic IV cont rast. All CT scans are performed using dose optimization technique as appropriate and may include automated exposure control or mA/KV adjustment according to patient size. FINDINGS: The lower lung pichardo are emphysematous.Evidence of mild edema/ thickening of the distal e sophagus present. A hiatal hernia may be present. Small liver cyst is present in the left lobe. No aggressive liver lesion or biliary dilatation. The s pleen, adrenal glands and pancreas are within normal limits. Bilateral renal cysts are present with a small nonobstructing left renal calculus. No bowel obstruction, free air, free fluid or abscess. Quite significant fecal retention is present. Diverticulosis coli is noted throughout the sigmoid colon. The appendix is normal. No evidence of si gnificant lymphadenopathy. Hardware is noted in the proximal left femur. IMPRESSION: Advanced fecal retention throughout the colon. Mild edema of the distal esophagus noted with small hiatal hernia. Esophagitis would be a possibility . Nonobstructing left renal calculus.
[2020-12-13] MEDS ORDERED: MINERAL OIL 30 ML UCUP PO ONE (17:32)
[2020-12-14] MEDS: DOCUSATE NA 100 MG CAP PO PRN (01:37)
[2020-12-14] MEDS: HYDROMORPHONE HCL 1 MG/ML INJ IV PRN ×2 (01:37→22:31)
[2020-12-14] MEDS: ONDANSETRON 4 MG/2 ML VIAL IV PRN ×2 (01:38→20:44)
[2020-12-14] MEDS: BENAZEPRIL 20 MG TAB PO SCH (08:29)
[2020-12-14] MEDS: AMPHETAMINE PO SCH (08:30)
[2020-12-14] MEDS: DEXTROAMPHETAMINE PO SCH (08:30)
--- NOTE | 2020-12-14 13:50 | P.PN ---
Date of Service: 12/13/20 Subjective Subjective: Patient still having abdominal pain. I have done a CT scan which continues to show fecal impaction. However on exam patient had a rectal prolapse and will get General surgery evaluation. Review of Systems 10-point ROS is otherwise unremarkable Physical Examination - Vital Signs reviewed - Physical Exam General: Alert, In no apparent distress, Oriented x3 Respiratory: Clear to auscultation bilaterally, Normal air movement Cardiovascular: Regular rate/rhythm, Normal S1 S2, No murmurs Gastrointestinal: Normal bowel sounds, Soft and benign, Non-distended, bilateral lower quadrant tenderness; rectal prolapse Musculoskeletal: No clubbing, No swelling, No tenderness Neurological: Sensation intact, Cranial nerves 3-12 intact Assessment & Plan - Problems (Diagnosis) (1) Abdominal pain Current Visit: Yes Status: Acute (2) ESBL (extended spectrum beta-lactamase) producing bacteria infection Current Visit: No Status: Acute (3) UTI (urinary tract infection) Onset Date: 10/07/16 Current Visit: No Status: Acute Urinary tract infection type: acute cystitis Hematuria presence: without hematuria Qualified Code(s): N30.00 - Acute cystitis without hematuria (4) Weakness generalized Current Visit: No Status: Acute (5) HTN (hypertension) Current Visit: No Status: Chronic Qualifiers: Hypertension type: essential hypertension - Plan Plan: 1. Continue with IV antibiotics; arrange for Invanz as an outpatient 2. CT scan with findings as mentioned above. Continue with laxatives and will also give mineral oil 3. Rectal prolapse and will Consult general surgery 4. Monitor hemodynamics 5. Pain control 6. GI and DVT prophylaxis
--- NOTE | 2020-12-14 14:09 | P.PN ---
Date of Service: 12/14/20 Subjective Subjective: Patient is having some difficulty with her bowel movements. Continue mineral oil 30 cc every 12 hr. Will continue until patient has a bowel movement. Complain of dysphagia and difficulty swallowing so will get a CT of her neck and chest. Review of Systems 10-point ROS is otherwise unremarkable Physical Examination - Vital Signs reviewed - Physical Exam General: Alert, In no apparent distress, Oriented x3 Respiratory: Clear to auscultation bilaterally, Normal air movement Cardiovascular: Regular rate/rhythm, Normal S1 S2, No murmurs Gastrointestinal: Normal bowel sounds, Soft and benign, Non-distended, No tenderness Musculoskeletal: No clubbing, No swelling, No tenderness Neurological: Sensation intact, Cranial nerves 3-12 intact Assessment & Plan - Problems (Diagnosis) (1) Abdominal pain Current Visit: Yes Status: Acute (2) ESBL (extended spectrum beta-lactamase) producing bacteria infection Current Visit: No Status: Acute (3) UTI (urinary tract infection) Onset Date: 10/07/16 Current Visit: No Status: Acute Urinary tract infection type: acute cystitis Hematuria presence: without hematuria Qualified Code(s): N30.00 - Acute cystitis without hematuria (4) Weakness generalized Current Visit: No Status: Acute (5) HTN (hypertension) Current Visit: No Status: Chronic Qualifiers: Hypertension type: essential hypertension - Plan Plan: 1. Continue with IV antibiotics-invanz 1g daily 2. Will continue with laxatives 3. CT of the chest & the thorax 4. Monitor hemodynamics 5. Pain control 6. CT scan of the abdomen and pelvis showed fecal retention and we have been giving laxatives for assistance 7. GI and DVT prophylaxis
--- NOTE | 2020-12-14 16:57 | P.CNS ---
Date of Consult: 12/14/20 S: I have been asked to see this patient restarts to a prolapse of her rectum. O: Patient was not examined A: Apparently the bowel has been reduced. PE: I discussed this case with the hospitalist. He told me I did no longer require Dc the patient he just reduce the colon back in to the patient. I told him I would be available should he have any questions or problems.
--- NOTE | 2020-12-14 17:58 | RAD REPORT ---
EXAM DESCRIPTION: CT - Soft Tissue Neck Wo Contr - 12/14/2020 5:12 pm CLINICAL HISTORY: Dysphagia COMPARISON: None TECHNIQUE: Computed axial tomography of the neck was obtained. IV contrast was not requested. Coron al and sagittal reconstruction was performed. All CT scans are performed using dose optimization technique as appropriate and may include automated exposure control or mA/KV adjustment according to patient size. FINDINGS: The pharynx, tongue base, larynx and subglottic trachea appear unremarkable The parotid, submandibular and thyroid glands appear unremarkable. No lymphadenopathy is seen Fluid within the sinuses/mastoids is not seen. The esophagus is dilated Slight anterior subluxation C3 on C4. Mild posterior subluxation C4 on C5 IMPRESSION: Dilated esophagus. Please refer to the CT chest report on the same
--- NOTE | 2020-12-14 17:58 | RAD REPORT ---
EXAM DESCRIPTION: CT - Thorax Wo Gallo - 12/14/2020 5:12 pm CLINICAL HISTORY: Dysphagia COMPARISON: none TECHNIQUE: Computed axial tomography of the chest was obtained. Contrast was not requested. All CT scans are performed using dose optimization technique as appropriate and may include automated exposure control or mA/KV adjustment according to patient size. FINDINGS: The evaluation of mediastinum, christina and vessels is limited secondary to lack of IV contras t administration. The lungs are clear. Lungs are moderately hyperaerated. No mediastinal or hilar lymphadenopathy is seen. Minimal left pleural effusion. No pericardial effusion. Wall of the distal esophagus is markedly thickened. Remainder of the esophagus is dilated. IMPRESSION: Marked thickening of the wall of the distal esophagus with the remainder of the esophagu s being dilated. This may be an esophageal neoplasm. Direct visualization recommended
[2020-12-14] MEDS: POLYETHYL GLY 3350 17 GM/DOSE PO PRN (20:44)
[2020-12-14] MEDS ORDERED: ERTAPENEM SODIUM 1 GM VIAL IVPB SCH (22:00)
[2020-12-14] MEDS ORDERED: ERTAPENEM SODIUM 1 GM VIAL ONE (23:12)
[2020-12-14] MEDS ORDERED: NA CHLORIDE 0.9% 100 ML ONE (23:38)
[2020-12-14] MEDS ORDERED: SODIUM CHLORIDE 0.9% 10ML INJ IV PRN (23:48)
[2020-12-15 04:58] LABS: Absolute Lymphocytes (CBC) 1.5 K/uL (0.7-4.9); Basophils % 0.7 % (0-1.3); Hematocrit 28.3 % (36.0-45.0); Lymphocytes % 15.5 % (15.3-44.8); MPV 8.4 fL (7.6-11.3); RBC Red Blood Cell Count 3.21 M/uL (3.86-4.86)
[2020-12-15 05:07] LABS: Magnesium 2.6 mg/dL (1.8-2.4); Potassium 4.1 mmol/L (3.5-5.1)
[2020-12-15] MEDS: BENAZEPRIL 20 MG TAB PO SCH (07:40)
[2020-12-15] MEDS: DEXTROAMPHETAMINE PO SCH (07:41)
[2020-12-15] MEDS: AMPHETAMINE PO SCH (07:41)
[2020-12-15] MEDS: PANTOPRAZOLE 40 MG INJ IVP SCH ×2 (07:42→20:02)
--- NOTE | 2020-12-15 09:19 | RAD REPORT ---
EXAM DESCRIPTION: RAD - Abdomen 1 View (KUB) - 12/15/2020 9:07 am CLINICAL HISTORY: Abdomen pain. FINDINGS: The bowel gas pattern is unremarkable. Large amount of stool is present throughout the colon. Contrast from a previous CT scan is present th roughout the colon.
[2020-12-15] MEDS: LACTULOSE 20 GM/30 ML UCUP PO PRN ×2 (12:02→20:09)
[2020-12-15] MEDS: DOCUSATE NA 100 MG CAP PO PRN (12:02)
[2020-12-15] MEDS: POLYETHYL GLY 3350 17 GM/DOSE PO PRN (12:02)
--- NOTE | 2020-12-15 13:19 | P.PN ---
Subjective Date of Service: 12/15/20 Primary Care Provider: Art Chief Complaint: ESBL UTI Subjective: Improving, Other (Still with no significant bowel movement.) Physical Examination - Vital Signs Temperature: 97.9 F Blood Pressure: 110/58 Pulse: 92 Respirations: 16 Pulse Ox (%): 98 - Studies Microbiology Data (last 24 hrs): 12/10/20 00:43 Blood - Blood Aerobic Blood Culture - Final No growth in 5 days. 12/10/20 00:43 Blood - Blood Anaerobic Blood Culture - Final No growth in 5 days. 12/10/20 00:50 Blood - Blood Aerobic Blood Culture - Final No growth in 5 days. 12/10/20 00:50 Blood - Blood Anaerobic Blood Culture - Final No growth in 5 days. Medications List Reviewed: Yes Assessment & Plan Discharge Plan: Home Plan to discharge in: 48 Hours Physician Review Additional Text: Physical exam: Patient alert, cooperative. Heart: Regular rate rhythm Lungs: Clear to auscultation Abdomen: Soft nontender nondistended. No significant pain with palpation. Extremities: Good range of motion to upper lower extremities Impression: UTI, urine culture positive for Klebsiella-ESBL Hypertension Abdominal pain secondary to constipation with noted rectal prolapse, reduced Plan: UTI, urine culture positive for Klebsiella ESBL: Continue with in advance for 7 days. Arrangements for IV antibiotic therapy at home has been arranged to continue for 7 days. Anticipate home once patient able to have good bowel movement. Likely within the next 1-2 days. Hypertension: Continue medication Abdominal pain secondary to constipation with noted rectal prolapse, reduced: Rectal prolapse was reduced by surgery. Continue with medication for constipation. Once with good bowel movement then will plan for discharge. DVT prophylaxis: Lovenox Code status: Patient full code Advanced care planning:-30 min: Home with IV antibiotic therapy for treatment of ESBL at discharge. Time Spent Managing Pts Care (In Minutes): 55
[2020-12-15] MEDS ORDERED: ERTAPENEM NA 1 GM in NA CHLORIDE 0.9% 100 ML IVPB SCH (17:00)
[2020-12-16 06:40] VITALS: BP 106/58; TEMP 97.4
[2020-12-16] MEDS: LACTULOSE 20 GM/30 ML UCUP PO PRN (07:34)
[2020-12-16] MEDS: DOCUSATE NA 100 MG CAP PO PRN (07:34)
[2020-12-16] MEDS: POLYETHYL GLY 3350 17 GM/DOSE PO PRN (07:34)
[2020-12-16] MEDS: DEXTROAMPHETAMINE PO SCH (07:36)
[2020-12-16] MEDS: PANTOPRAZOLE 40 MG INJ IVP SCH (07:36)
[2020-12-16] MEDS: BENAZEPRIL 20 MG TAB PO SCH (07:36)
[2020-12-16] MEDS: AMPHETAMINE PO SCH (07:36)
--- NOTE | 2020-12-16 07:59 | P.DS ---
Admission Date: 12/10/20 Discharge Date: 12/16/20 Primary Care Provider: Dr. Cordova Disposition: DC HOME/HOME HEALTH CARE Discharge Condition: GOOD Reason for Admission: ESBL UTI Consultations: Surgery-Dr. Coleman Procedures: COVID: Negative CT Dissection: FINDINGS: Vascular: No abdominal aortic aneurysm. No evidence of dissection. Mild to moderate atherosclerosis. The major visceral vessels are patent. Incidentally noted origin of the superior gastric artery directly from the aorta. Thoracic: No significant abnormality. Hepatobiliary: Tiny superior left hepatic lobe hypodensity, likely a cyst. No concerning hepatic lesion identified. The hepatic and portal veins are patent. The gallbladder is unremarkable. No biliary ductal dilatation. Pancreas: Unremarkable. Spleen: Unremarkable. Gastrointestinal: No evidence of bowel obstruction or perienteric inflammation. The appendix is normal. Moderate to large amount of fecal material throughout the colon. Moderate sigmoid colon diverticulosis. Skin and soft tissue thickening about the uterus and urethra. No fluid collections identified. Adrenals: No abnormality identified in either adrenal gland. Renal: Mild diffuse renal cortical thinning. Bilateral renal hypodensities, the largest of which is at the inferior pole of the left kidney, and measures 4.2 cm, with thin peripheral mural calcifications (Bosniak II). Nonobstructive calculus at the superior pole of the left kidney measures 0.5 cm. No concerning parenchymal abnormality in either kidney. No hydronephrosis bilaterally. Bladder/Reproductive: Unremarkable appearance of the urinary bladder by CT technique. Small rounded fluid structure measuring approximately 2.5 cm, with small posterior calcifications, located in the region of the urethra. Lymphatics: No lymphadenopathy identified by CT size criteria. Musculoskeletal: No concerning osseous lesion identified. Lumbar spine degenerative changes, most prominent at L4-5. Osteopenia. Left proximal femur hardware. Fluid / peritoneum: No significant free fluid. No free intraperitoneal air identified. IMPRESSION: 1. No abdominal aortic aneurysm or dissection. Mild to moderate atherosclerosis. The major visceral vessels are patent. 2. Skin and soft tissue thickening about the uterus and urethra. No fluid collections identified. Correlate for infection/inflammation, possibly chronic. 3. Small rounded fluid structure in the region of the urethra. Correlate for a urethral diverticulum, containing small stones versus posterior mural calcifications. 4. Moderate to large amount of fecal material throughout the colon. Moderate sigmoid colon diverticulosis without evidence of acute diverticulitis. 5. Bilateral renal cysts. Nonobstructive left renal calculus. CT Ab: FINDINGS: The lower lung pichardo are emphysematous.Evidence of mild edema/ thickening of the distal esophagus present. A hiatal hernia may be present. Small liver cyst is present in the left lobe. No aggressive liver lesion or biliary dilatation. The spleen, adrenal glands and pancreas are within normal limits. Bilateral renal cysts are present with a small nonobstructing left renal calculus. No bowel obstruction, free air, free fluid or abscess. Quite significant fecal retention is present. Diverticulosis coli is noted throughout the sigmoid colon. The appendix is normal. No evidence of significant lymphadenopathy. Hardware is noted in the proximal left femur. IMPRESSION: Advanced fecal retention throughout the colon. Mild edema of the distal esophagus noted with small hiatal hernia. Esophagitis would be a possibility. Nonobstructing left renal calculus. CT Chest: FINDINGS: The evaluation of mediastinum, christina and vessels is limited secondary to lack of IV contrast administration. The lungs are clear. Lungs are moderately hyperaerated. No mediastinal or hilar lymphadenopathy is seen. Minimal left pleural effusion. No pericardial effusion. Wall of the distal esophagus is markedly thickened. Remainder of the esophagus is dilated. IMPRESSION: Marked thickening of the wall of the distal esophagus with the remainder of the esophagus being dilated. This may be an esophageal neoplasm. Direct visualization recommended CT Neck: FINDINGS: The pharynx, tongue base, larynx and subglottic trachea appear unremarkable The parotid, submandibular and thyroid glands appear unremarkable. No lymphadenopathy is seen Fluid within the sinuses/mastoids is not seen. The esophagus is dilated Slight anterior subluxation C3 on C4. Mild posterior subluxation C4 on C5 IMPRESSION: Dilated esophagus. 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 Patient with prior UTIs in the past. Urine culture positive recently with PCP showed ESBL in July. She was treated with meropenem at that time. Patient admitted for further evaluation and treatment. Hospital Course: Patient presented with UTI. Patient with prior history of ESBL. Patient admitted for further treatment. Patient found to have urine culture positive for KlebsiellaESBL. 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 Patient has done well. PICC line was placed for outpatient IV antibiotic therapy. Social work has arranged for IV antibiotic therapyInvanz 1 g daily for 7 days. At discharge she will continue with Invanz 1 g daily IV for 7 days. Patient will also continue with lactobacillus 1 pill 3 times a day. Repeat urine culture obtained. Recommend follow-up with PCP within 1 week to follow-up hospitalization. Case discussed with her PCP prior to discharge. If urine culture negative then PICC line and antibiotics can be discontinued. 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 Patient with underlying hypertension. This is remained stable. At discharge she will continue with benazepril 40 mg daily. Recommend to maintain blood pressure less than 130/80. Further adjustment can be done by her PCP. Patient with narcolepsy. Patient takes dextroamphetamine/amphetamine 5 mg daily. Recommend follow-up with her PCP to further monitor and adjust medication. Patient with abdominal pain. Patient found to have increased stool. Patient had mild rectal prolapse. This was reduced without difficulty. At discharge patient may continue with docusate daily as a stool softener. Patient may continue with lactulose twice daily as needed for constipation. Encourage oral intake. Patient will be provided Ensure 1 can 3 times a day to ensure hydration. Recommend follow-up with GI as an outpatient to further monitor and evaluate further. Patient would benefit with colonoscopy as an outpatient to further evaluate. Patient also reported some problems swallowing. CT scan revealed mild edema to the esophagus with small hiatal hernia. Dilated esophagus was suspected. Patient with history of GERD in the past. At discharge she will continue with Protonix 40 mg daily. Recommend follow-up with GI in 1 to 2 weeks to follow-up hospitalization. Patient will need EGD for direct visualization and further evaluation with possible treatment. Vital Signs/Physical Exam: Temp Pulse Resp BP Pulse Ox 97.4 F 89 18 106/58 L 95 12/16/20 04:00 12/16/20 04:00 12/16/20 04:00 12/16/20 04:00 12/16/20 04:00 General: Alert, In no apparent distress, Oriented x3, Cooperative HEENT: Atraumatic Neck: Supple Respiratory: Clear to auscultation bilaterally, Normal air movement Cardiovascular: Normal pulses, Regular rate/rhythm Gastrointestinal: Normal bowel sounds, No tenderness, No masses, No rebound, No guarding Musculoskeletal: No erythema, No tenderness, No warmth Integumentary: No tenderness/swelling Neurological: Normal speech, Normal strength at 5/5 x4 extr, Normal tone, Normal affect Laboratory Data at Discharge: WBC Cancelled 12/16/20 06:46 Hgb Cancelled 12/16/20 06:46 Hct Cancelled 12/16/20 06:46 Plt Count Cancelled 12/16/20 06:46 PT 12.2 SECONDS (9.5-12.5) 12/09/20 21:14 INR 1.06 12/09/20 21:14 Sodium Cancelled 12/16/20 06:46 Potassium Cancelled 12/16/20 06:46 BUN Cancelled 12/16/20 06:46 Creatinine Cancelled 12/16/20 06:46 Glucose Cancelled 12/16/20 06:46 Phosphorus 3.0 mg/dL (2.5-4.9) 12/15/20 04:21 Magnesium 2.6 mg/dL (1.8-2.4) H D 12/15/20 04:21 Total Bilirubin 0.4 mg/dL (0.2-1.0) 12/11/20 04:54 AST 13 U/L (15-37) L 12/11/20 04:54 ALT 12 U/L (12-78) 12/11/20 04:54 Alkaline Phosphatase 85 U/L (45-117) 12/11/20 04:54 Home Medications: Benazepril HCl [Lotensin*] 40 mg PO DAILY 10/07/16 Dextroamphetamine/Amphetamine [Dextroamp-Amphet ER 5 mg Cap] 5 mg PO DAILY 10/07/16 Docusate [Colace Cap*] 100 mg PO DAILY PRN #30 cap 12/16/20 Ensure Enlive 237 ml PO TID #90 can 12/16/20 Lactobacillus Acidophilus [Acidophilus Lactobacilli] 1 each PO TID #90 capsule 12/16/20 Lactulose [Cephulac*] 30 ml PO BID PRN #1 bottle 12/16/20 Pantoprazole [Protonix Tab] 40 mg PO DAILY #30 tab 12/16/20 New Medications: Lactobacillus Acidophilus [Acidophilus Lactobacilli] 1 each PO TID #90 capsule Lactulose [Cephulac*] 30 ml PO BID PRN #1 bottle PRN Reason: Constipation Docusate [Colace Cap*] 100 mg PO DAILY PRN #30 cap PRN Reason: Constipation Ensure Enlive 237 ml PO TID #90 can Pantoprazole [Protonix Tab] 40 mg PO DAILY #30 tab Physician Discharge Instructions: Patient presented with UTI. Patient with prior history of ESBL. Patient admitted for further treatment. Patient found to have urine culture positive for KlebsiellaESBL. 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 Patient has done well. PICC line was placed for outpatient IV antibiotic therapy. Social work has arranged for IV antibiotic therapyInvanz 1 g daily for 7 days. At discharge she will continue with Invanz 1 g daily IV for 7 days. Patient will also continue with lactobacillus 1 pill 3 times a day. Repeat urine culture obtained. Recommend follow-up with PCP within 1 week to follow-up hospitalization. Case discussed with her PCP prior to discharge. If urine culture negative then PICC line and antibiotics can be discontinued. 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 Patient with underlying hypertension. This is remained stable. At discharge she will continue with benazepril 40 mg daily. Recommend to maintain blood pressure less than 130/80. Further adjustment can be done by her PCP. Patient with narcolepsy. Patient takes dextroamphetamine/amphetamine 5 mg daily. Recommend follow-up with her PCP to further monitor and adjust medication. Patient with abdominal pain. Patient found to have increased stool. Patient had mild rectal prolapse. This was reduced without difficulty. At discharge patient may continue with docusate daily as a stool softener. Patient may continue with lactulose twice daily as needed for constipation. Encourage oral intake. Patient will be provided Ensure 1 can 3 times a day to ensure hydration. Recommend follow-up with GI as an outpatient to further monitor and evaluate further. Patient would benefit with colonoscopy as an outpatient to further evaluate. Patient also reported some problems swallowing. CT scan revealed mild edema to the esophagus with small hiatal hernia. Dilated esophagus was suspected. Patient with history of GERD in the past. At discharge she will continue with Protonix 40 mg daily. Recommend follow-up with GI in 1 to 2 weeks to follow-up hospitalization. Patient will need EGD for direct visualization and further evaluation with possible treatment. Diet: AHA Activity: Fall precautions Followup: Nathanael Cordova MD [Primary Care Provider] - Time spent managing pt's care (in minutes): 55
[2020-12-16] MEDS ORDERED: LACTOBACILLUS/ACIDOPHILUS TAB PO SCH (09:00)
[2020-12-16 09:46] VITALS: O2SAT 98
== END 2020-12-16 09:13 | disposition home health service (06) | DRG 690 ==
LOC: ER 17:30 → ERHOLD 12-10 02:48 → 4TH 12-10 11:06
PROVIDERS: ADMIT Hospitalist; ATTEND Family Medicine
PROC: 02HV33Z Insertion of Infusion Device into Superior Vena Cava, Percutaneous Approach (ICD-10-PCS; principal; 2020-12-12)
DX: N30.00 Acute cystitis without hematuria (principal); Z16.12 Extended spectrum beta lactamase (ESBL) resistance; R64 Cachexia; Z68.1 Body mass index [BMI] 19.9 or less, adult; Z16.24 Resistance to multiple antibiotics; I10 Essential (primary) hypertension; E87.6 Hypokalemia; G47.419 Narcolepsy without cataplexy; K59.00 Constipation, unspecified; K62.3 Rectal prolapse; N36.1 Urethral diverticulum; K22.8 Other specified diseases of esophagus; K21.9 Gastro-esophageal reflux disease without esophagitis; K44.9 Diaphragmatic hernia without obstruction or gangrene; B96.1 Klebsiella pneumoniae [K. pneumoniae] as the cause of diseases classified elsewhere; B96.20 Unspecified Escherichia coli [E. coli] as the cause of diseases classified elsewhere; Z88.1 Allergy status to other antibiotic agents; Z79.899 Other long term (current) drug therapy; Z20.822 Contact with and (suspected) exposure to COVID-19
CPT/HCPCS: 36415; 36569; 70490; 71045; 71250; 71275; 74018; 74175; 74177; 80048; 80053; 80076; 81003; 81015; 83605; 83615; 83735; 83880; 84100; 84132; 84145; 84484; 85025; 85610; 87040; 87077; 87086; 87088; 87186; 93005; 94760; 97116; 97161; 99285; C9113; J0360; J1170; J1335; J2185; J2270; J2405; J3010; J7030; Q9967; U0003

== ENCOUNTER 2023-08-11 01:36 | Inpatient (IN) | payer OTHER ==
--- OUTSIDE RECORDS SUMMARY | 2023-08-11 01:38 | XMS REPORT | Continuity of Care Document ---
Author Name Unknown Address [address] [facility] [address] [place] [address] [facility] thconnect Address [address] [facility] [address] [place] [address] Care Team Providers Care Laborer [employer] Name Role Phone LORI COSBY Primary Care Physician Unav ailable GC_GCBZW_Hoa_S Attending Clinician UnavailPriscila Alexander Attending Clinician Unavailable Nicholas Sandra Attending Clinician Unavailable KOBELLOEV_T Attending Clinician Unavailable [facility] Attending Clinician Unavailable Noraoctober Attending Clinician [phone] Sweta Winkler Attending Clinician [phone] Attending Clinician Unavailable GC_GCBZW_Kadiyala_S Admitting Clinician UnavailPriscila Alexander Admitting Clinician Unavailable Lori Cosby Admitting Clinician Unavailable KLAUDIA_Liam Admitting Clinician Unavailable Payers Payer Name Policy Type Policy Number Effective Date Expirati on Date Source [employer]ET[employer] [id number] 2012 00:00:00 [employer] MEDICARE OUT OF NETWORK [id number] 2012 00:00:00 Problems Condition Name Condition Details Condition Category Status Onset Date Resolution Date Last Treatment Date Treating Clinician Comments Source No known active problems No known active problems Disease [facility] Allergies, Adverse Reactions, Alerts Allergy Name Allergy Type Status Severity Reaction(s) Onset Date Inactive Date Treating Clinician Comments Source No Known Allergie s DA Active U 03[facility]11 00:00: [facility] NO KNOWN ALLERGIE S Drug Class Active [facility] Social History Social Habit Start Date Stop Date Quantity Comments Source Exposure to SARS-CoV-2 (event) Not sure [facility] Tobacco use and exposure 2021-05-04 00:00:00 2021-05-04 00:00:00 Never used [facility] Sex Assigned At 1940 00:00:00 1940 00:[birth year]:00 [facility] Smoking Status Start Date Stop Date Source Never smoker [facility] Medications Ordered Medication Name Filled Medication Name Start Date Stop Date Current Medication? Ordering Clinician Indication Dosage Frequency Signature (SIG) Comments Components Source dextroamphe tamine 5 mg 24 hr capsule 2020-07 10:24: 45 Yes dextroamph etamine ER 5 mg capsule,ex tended release [facility] Nitrofurant oin&Nit. Macrocryst 100 mg capsule 2020-07 00:00: 00 Yes [facility] benazepriL 20 mg tablet 2019-07 00:00: 00 Yes benazepril 20 mg tablet [facility] Vital Signs Vital Name Observation Time Observation Value Comments S saran Systolic blood pressure 2021-05-04 15:21:00 204 mm[facility]Hg[facility] Diastolic blood pressure 2021-05-04 15:21:00 120 mm[Hg] [facility] Heart rate 2021-05-04 15:21:00 94 /min [facility] Body temperature 2021-05-04 15:21:00 36.61 Kimberley [facility] Respiratory rate 2021-05-04 15:21:00 18 /min [facility] Body height 2021-05-04 15:21:00 162.6 cm [facility] Body weight 2021-05-04 15:21:00 38.919 kg [facility] BMI 2021-05-04 15:21:00 14.73 kg/m2 [facility] Procedures Procedure Date / Time Performed Performing Clinicia n Source [id number] 2023-03-15 00:00:00 YAN [facility] [id number] 2023-03-15 00:00:00 YAN [facility] [id number] 2023-03-15 00:00:00 KDA [facility] Encounters Start Date/Time End Date/Time Encounter Type Admission Type Attending Clinicians Care Facility Care Department Encounter ID Source 2021-08-12 14:35:01 Outpatient [facility] [id number] [facility] 2021-08-05 14:05:23 [facility] [id number] [facility] 2021-08-05 13:30:40 [facility] [id number] [facility] 2023-05-10 00:00:00 2023-05-10 00:00:00 Outpatient GC_GCBZW_Ka diyala_S MAN [facility] [id number] [facility] 2023-03-15 05:26:00 2023-03-17 13:22:00 Inpatient Priscila Ho [facility] INTE [id number] [facility] 2023-03-11 08:00:00 2023-03-11 09:00:00 Outpatient Nicholas Hagen [facility] 3DAY [id number] [facility] 2023-02-22 09:25:00 2023-02-22 09:25:00 Outpatient Nicholas [facility] [id number] [facility] 2021-07-31 11:57:00 2021-07-31 11:57:00 Outpatient KLAUDIA_T [facility] [id number] 2021-05-04 11:30:47 2021-05-04 11:51:05 Land Use Planner Visit [facility] [id number] [facility] 2021-05-04 09:33:24 2021-05-04 10:33:24 Office Visit Sweta Guzman [facility] [id number] [facility] 2021-05-04 10:00:00 2021-05-04 10:00:00 Outpatient R [facility] [id number] [facility] 2021-05-04 10:00:00 2021-05-04 10:00:00 Outpatient R [facility] [id number] [facility] 2021-05-04 10:00:00 2021-05-04 10:00:00 Outpatient R [facility] [id number] [facility] Results Test Description Test Time Test Comments Results Result Co mments Source BASIC METABOLIC [id number] 04:43:00* Test Item Value Reference Range Interpretation Comme nts SODIUM (test code = NA) 143 mEq/L 134-147 N POTASSIUM (test code = K) 4.5 mEq/L 3.4-5.0 CHLORIDE (test code = CL) 114 mEq/L 100-108 H CARBON DIOXIDE (test code = CO2) 24 mEq/l 21-33 N ANION GAP (test code = GAP) 10 0-20 N GLUCOSE (test code = GLU) 79 mg/dL 77-141 N NOTE: NEW NORMAL RANGE BLOOD UREA NITROGEN (test code = BUN) 12 mg/dL 7-25 N NOTE: NEW NORM AL RANGE GLOMERULAR FILTRATION RATE (test code = GFR) 64.2 70-80 L The Glomerular Filtration Rate is a calculated parameterbased on serum Creatinine, patient age and sex. GFR valuesless than 60 mL/min/1.73 square meters are indicative ofChronic Kidney Disease. Values less than 15 mL/min/1.73square meters indicate Kidney failure. The calculation forGFR is based on the CKD-EPI (2020) calculation. This formulais race indifferent and is the recommended formula for GFRby the National Kidney Foundation for Adults.The GFR will not calculate if the sex is unknown or if thepatient's age is <18 years. CREATININE (test code = CREAT) 0.9 mg/dL 0.6-1.3 N CALCIUM (test code = CA) 8.7 mg/dL 8.0-10.5 N [id number] 04:43:00* Test Item Value Reference Range Interpretation Comme nts MAGNESIUM (test code = MAG) 1.81 mg/dL 1.6-2.6 N NOTE: NEW NORMAL RANGE CBC W/AUTO [id number] 00:43:00* Test Item Value Reference Range Interpretation Comme nts WHITE BLOOD CELL (test code = WBC) 12.8 x10 3/uL 4.5-11.0 H RED BLOOD CELL (test code = RBC) 3.03 x10 6/uL 3.54-5.02 L HEMOGLOBIN (test code = HGB) 8.5 g/dL 11.0-15.0 L HEMATOCRIT (test code = HCT) 27.5 % 33.0-45.0 L MEAN CELL VOLUME (test code = MCV) 90.8 fL 81.0-99.0 N MEAN CELL HGB (test code = MCH) 28.1 pg 27.0-33.0 N MEAN CELL HGB CONCETRATION (test code = MCHC) 30.9 g/dL 33.0-37.0 L RED CELL DISTRIBUTION WIDTH CV (test code = RDW) 17.0 % 11.5-14.5 H RED CELL DISTRIBUTION WIDTH SD (test code = RDW-SD) 56.1 fL 37.0-54.0 H PLATELET COUNT (test code = PLT) 254 x10 3/uL 150-400 N MEAN PLATELET VOLUME (test c ode = MPV) 9.7 fL 7.0-9.0 H NEUTROPHIL % (test code = NT%) 76.5 % 56.0-77.0 N IMMATURE GRANULOCYTE % (test code = IG%) 2.1 % 0.0-2.0 H LYMPHOCYTE % (test code = LY%) 8.9 % 14.0-32.0 L MONOCYTE % (test code = MO%) 10.3 % 4.8-9.0 H EOSINOPHIL % (test code = EO%) 1.9 % 0.3-3.7 N BASOPHIL % (test code = BA%) 0.3 % 0.0-2.0 N NUCLEATED RBC % (test code = NRBC%) 0.0 % 0-0 N NEUTROPHIL # (test code = NT#) 9.76 x10 3/uL 2.0-7.6 H IMMATURE GRANULOCYTE # (test code = IG#) 0.27 x10 3/uL 0.00-0.03 H LYMPHOCYTE # (test code = LY#) 1.14 x10 3/uL 1.0-3.8 N MONOCYTE # (test code = MO#) 1.32 x10 3/uL 0.1-0.8 H EOSINOPHIL # (test code = EO#) 0.24 x10 3/uL 0.0-0.2 H BASOPHIL # (test code = BA#) 0.04 x10 3/uL 0.0-0.2 N NUCLEATED RBC # (test code = NRBC#) 0.00 x10 3/uL 0.0-0.1 N MANUAL DIFF REQUIRED (test c ode = MDIFF) NO CBC W/AUTO [id number] 19:24:00* Test Item Value Reference Range Interpretation Comme nts WHITE BLOOD CELL (test code = WBC) 13.6 x10 3/uL 4.5-11.0 H RED BLOOD CELL (test code = RBC) 3.20 x10 6/uL 3.54-5.02 L HEMOGLOBIN (test code = HGB) 8.9 g/dL 11.0-15.0 L HEMATOCRIT (test code = HCT) 28.2 % 33.0-45.0 L MEAN CELL VOLUME (test code = MCV) 88.1 fL 81.0-99.0 N MEAN CELL HGB (test code = MCH) 27.8 pg 27.0-33.0 N MEAN CELL HGB CONCETRATION (test code = MCHC) 31.6 g/dL 33.0-37.0 L RED CELL DISTRIBUTION WIDTH CV (test code = RDW) 16.9 % 11.5-14.5 H RED CELL DISTRIBUTION WIDTH SD (test code = RDW-SD) 54.5 fL 37.0-54.0 H PLATELET COUNT (test code = PLT) 284 x10 3/uL 150-400 N MEAN PLATELET VOLUME (test code = MPV) 9.8 fL 7.0-9.0 H NEUTROPHIL % (test code = NT%) 77.9 % 56.0-77.0 H IMMATURE GRANULOCYTE % (test code = IG%) 0.6 % 0.0-2.0 N LYMPHOCYTE % (test code = LY%) 8.9 % 14.0-32.0 L MONOCYTE % (test code = MO%) 10.3 % 4.8-9.0 H EOSINOPHIL % (test code = EO%) 1.8 % 0.3-3.7 N BASOPHIL % (test code = BA%) 0.5 % 0.0-2.0 N NUCLEATED RBC % (test code = NRBC%) 0.0 % 0-0 N NEUTROPHIL # (test code = NT#) 10.55 x10 3/uL 2.0-7.6 H IMMATURE GRANULOCYTE # (test code = IG#) 0.08 x10 3/uL 0.00-0.03 H LYMPHOCYTE # (test code = LY#) 1.21 x10 3/uL 1.0-3.8 N MONOCYTE # (test code = MO#) 1.40 x10 3/uL 0.1-0.8 H EOSINOPHIL # (test code = EO#) 0.24 x10 3/uL 0.0-0.2 H BASOPHIL # (test code = BA#) 0.07 x10 3/uL 0.0-0.2 N NUCLEATED RBC # (test code = NRBC#) 0.00 x10 3/uL 0.0-0.1 N MANUAL DIFF REQUIRED (test code = MDIFF) NO HGB [id number] 14:21:00* Test Item Value Reference Range Interpretation Comme nts HEMOGLOBIN (test code = HGB) 9.2 g/dL 11.0-15.0 L HEMATOCRIT (test code = HCT) 29.6 % 33.0-45.0 L - DUP LE ART [id number] 12:44:00 [facility] 1940 Sex: FName: KYRA HERRERA [facility] Alanis Haas : 1940 Age/S: 82 / F [address] [place] [address] Blvd Unit #: [id number] Loc: [place] [address] Phys: Ronel Givens Acct: [id number] Dis Date: Status: ADM IN PHONE #: [phone] Exam Date: 03/16/2023 1222 FAX #: [phone] Reason: eval for SFA thrombus/clot EXAMS: CPT CODE: [id number] DUP LE ART IVET [id number] HISTORY: TECHNIQUE: Grayscale B-mode, color-flow, and spectral Doppler analysis of the lower extremity arterial vasculature was performed. COMPARISON: None available time of interpretation. FINDINGS: Right lower extremity: Scattered atherosclerotic plaque is demonstrated. Triphasic and biphasic waveforms are noted throughout the right lower extremity arterial structures. Left lower extremity: Scattered atherosclerotic plaque is demonstrated. Triphasic and biphasic waveforms are noted throughout the left lower extremity arterialstructures. IMPRESSION: 1. Evidence of flow-limiting stenosis or short segment occlusion. Scattered atherosclerotic calcified plaque is noted. at 1244 Reported and signed by: Angelo Rangel M.D. CC: Lori Cosby MD; Ronel Sandra MD Technologist: Yojana Sosa RDMS() Trnscb Date/Time: 03/16/2023 (1244) [id number] Orig Print D/T: S: 03/16/2023 (3768) Probe: PAGE 1 Signed [id number] 02:50:00* Test Item Value Reference Range Interpretation Comme nts MAGNESIUM (test code = MAG) 1.67 mg/dL 1.6-2.6 N NOTE: NEW NORMAL RANGE BASIC METABOLIC [id number] 02:32:00* Test Item Value Reference Range Interpretation Comme nts SODIUM (test code = NA) 145 mEq/L 134-147 N POTASSIUM (test code = K) 3.0 mEq/L 3.4-5.0 L CHLORIDE (test code = CL) 112 mEq/L 100-108 H CARBON DIOXIDE (test code = CO2) 25 mEq/l 21-33 N ANION GAP (test code = GAP) 11 0-20 N GLUCOSE (test code = GLU) 81 mg/dL 77-141 N NOTE: NEW NORMAL RANGE BLOOD UREA NITROGEN (test code = BUN) 16 mg/dL 7-25 N NOTE: NEW NORM AL RANGE GLOMERULAR FILTRATION RATE (test code = GFR) 64.2 70-80 L The Glomerular Filtration Rate is a calculated parameterbased on serum Creatinine, patient age and sex. GFR valuesless than 60 mL/min/1.73 square meters are indicative ofChronic Kidney Disease. Values less than 15 mL/min/1.73square meters indicate Kidney failure. The calculation forGFR is based on the CKD-EPI (2020) calculation. This formulais race indifferent and is the recommended formula for GFRby the National Kidney Foundation for Adults.The GFR will not calculate if the sex is unknown or if thepatient's age is <18 years. CREATININE (test code = CREAT) 0.9 mg/dL 0.6-1.3 N CALCIUM (test code = CA) 8.3 mg/dL 8.0-10.5 N CBC W/AUTO [id number] 02:19:00* Test Item Value Reference Range Interpretation Comme nts WHITE BLOOD CELL (test code = WBC) 12.1 x10 3/uL 4.5-11.0 H RED BLOOD CELL (test code = RBC) 3.11 x10 6/uL 3.54-5.02 L HEMOGLOBIN (test code = HGB) 8.7 g/dL 11.0-15.0 L HEMATOCRIT (test code = HCT) 27.4 % 33.0-45.0 L MEAN CELL VOLUME (test code = MCV) 88.1 fL 81.0-99.0 N MEAN CELL HGB (test code = MCH) 28.0 pg 27.0-33.0 N MEAN CELL HGB CONCETRATION (test code = MCHC) 31.8 g/dL 33.0-37.0 L RED CELL DISTRIBUTION WIDTH CV (test code = RDW) 17.0 % 11.5-14.5 H RED CELL DISTRIBUTION WIDTH SD (test code = RDW-SD) 54.5 fL 37.0-54.0 H PLATELET COUNT (test code = PLT) 257 x10 3/uL 150-400 N MEAN PLATELET VOLUME (test c ode = MPV) 9.6 fL 7.0-9.0 H NEUTROPHIL % (test code = NT%) 78.1 % 56.0-77.0 H IMMATURE GRANULOCYTE % (test code = IG%) 0.4 % 0.0-2.0 N LYMPHOCYTE % (test code = LY%) 9.5 % 14.0-32.0 L MONOCYTE % (test code = MO%) 10.3 % 4.8-9.0 H EOSINOPHIL % (test code = EO%) 1.2 % 0.3-3.7 N BASOPHIL % (test code = BA%) 0.5 % 0.0-2.0 N NUCLEATED RBC % (test code = NRBC%) 0.0 % 0-0 N NEUTROPHIL # (test code = NT#) 9.42 x10 3/uL 2.0-7.6 H IMMATURE GRANULOCYTE # (test code = IG#) 0.05 x10 3/uL 0.00-0.03 H LYMPHOCYTE # (test code = LY#) 1.14 x10 3/uL 1.0-3.8 N MONOCYTE # (test code = MO#) 1.24 x10 3/uL 0.1-0.8 H EOSINOPHIL # (test code = EO#) 0.14 x10 3/uL 0.0-0.2 N BASOPHIL # (test code = BA#) 0.06 x10 3/uL 0.0-0.2 N NUCLEATED RBC # (test code = NRBC#) 0.00 x10 3/uL 0.0-0.1 N MANUAL DIFF REQUIRED (test c ode = MDIFF) NO [id number] 21:50:00* Test Item Value Reference Range Interpretation Comme nts POTASSIUM (test code = K) 3.0 mEq/L 3.4-5.0 L [id number] 21:50:00* Test Item Value Reference Range Interpretation Comme nts MAGNESIUM (test code = MAG) 1.60 mg/dL 1.6-2.6 N NOTE: NEW NORMAL RANGE [id number] 11:57:00* Test Item Value Reference Range Interpretation Comme nts ACT-ISTAT (test code = ACTI) 257 SEC 74-137 H Performed by cer tified french folding machine operator at [facility] [id number] 11:39:00* Test Item Value Reference Range Interpretation Comme nts ACT-ISTAT (test code = ACTI) 263 SEC 74-137 H Performed by cer tified french folding machine operator at [facility] [id number] 11:03:00* Test Item Value Reference Range Interpretation Comme nts ACT-ISTAT (test code = ACTI) 317 SEC 74-137 H Performed by cer tified french folding machine operator at [facility] BASIC METABOLIC [id number] 09:26:00* Test Item Value Reference Range Interpretation Comme nts SODIUM (test code = NA) 144 mEq/L 134-147 N POTASSIUM (test code = K) 3.2 mEq/L 3.4-5.0 L CHLORIDE (test code = CL) 108 mEq/L 100-108 N CARBON DIOXIDE (test code = CO2) 30 mEq/l 21-33 N ANION GAP (test code = GAP) 9 0-20 N GLUCOSE (test code = GLU) 84 mg/dL 77-141 N NOTE: NEW NORMAL RANGE BLOOD UREA NITROGEN (test code = BUN) 17 mg/dL 7-25 N NOTE: NEW NORM AL RANGE GLOMERULAR FILTRATION RATE (test code = GFR) 64.2 70-80 L The Glomerular Filtration Rate is a calculated parameterbased on serum Creatinine, patient age and sex. GFR valuesless than 60 mL/min/1.73 square meters are indicative ofChronic Kidney Disease. Values less than 15 mL/min/1.73square meters indicate Kidney failure. The calculation forGFR is based on the CKD-EPI (202) calculation. This formulais race indifferent and is the recommended formula for GFRby the National Kidney Foundation for Adults.The GFR will not calculate if the sex is unknown or if thepatient's age is <18 years. CREATININE (test code = CREAT) 0.9 mg/dL 0.6-1.3 N CALCIUM (test code = CA) 9.5 mg/dL 8.0-10.5 N [id number] 13:43:00* Test Item Value Reference Range Interpretation Comme nts ALBUMIN (test code = ALB) 3.40 g/dL 3.4-5.0 N BASIC METABOLIC [id number] 13:43:00* Test Item Value Reference Range Interpretation Comme nts SODIUM (test code = NA) 140 mEq/L 134-147 N POTASSIUM (test code = K) 2.8 mEq/L 3.4-5.0 LL Critical result called to Mychla HORNER GRupinderLAB.[facility] at 1341 03/11/23Nurse read back resut and tech confirmed it's correct? YES CHLORIDE (test code = CL) 105 mEq/L 100-108 N CARBON DIOXIDE (test code = CO2) 30 mEq/l 21-33 N ANION GAP (test code = GAP) 8 0-20 N GLUCOSE (test code = GLU) 88 mg/dL 77-141 N NOTE: NEW NORMAL RANGE BLOOD UREA NITROGEN (test code = BUN) 17 mg/dL 7-25 N NOTE: NEW NORM AL RANGE GLOMERULAR FILTRATION RATE (test code = GFR) 56.6 70-80 L The Glomerular Filtration Rate is a calculated parameterbased on serum Creatinine, patient age and sex. GFR valuesless than 60 mL/min/1.73 square meters are indicative ofChronic Kidney Disease. Values less than 15 mL/min/1.73square meters indicate Kidney failure. The calculation forGFR is based on the CKD-EPI (2020) calculation. This formulais race indifferent and is the recommended formula for GFRby the National Kidney Foundation for Adults.The GFR will not calculate if the sex is unknown or if thepatient's age is <18 years. CREATININE (test code = CREAT) 1.0 mg/dL 0.6-1.3 N CALCIUM (test code = CA) 9.5 mg/dL 8.0-10.5 N THROMBOPLASTIN TIME [id number] 13:24:00* Test Item Value Reference Range Interpretation Comme nts THROMBOPLASTIN TIME PARTIAL (test code = PTT) 35.5 Seconds 25.0-39.5 N Therapeutic Rang e: 50.4 - 88.3 Seconds Effective 10/24/2018 PROTHROMBIN [id number] 13:13:00* Test Item Value Reference Range Interpretation Comme [facility] PROTHROMBIN TIME PATIENT (test code = PTP) 14.1 SECONDS 9.3-12.9 H INTERNATIONAL NORMAL RATIO (test code = INR) 1.3 0.8-1.2 H TARGET INR BY INDICATION Indication INR1. Prophylaxis of venous thrombosis 2.0 - 3.0 (orthopedic surgery), Prophylaxis of venous thrombosis (other than high-risk surgery), Treatment of Deep Vein Thrombosis/Pulmonary Embolism, Prevention of systemic embolism - Tissue heart valves, Acute Myocardial Infarction (to prevent systemic embolism), Valvular heart disease, Atrial Fibrillation, Bileaflet mechanical valve in aortic position.2. Mechanical prosthetic valves (high risk), 2.5 - 3.5 Presence of Lupus Anticoagulant or Antiphospholipid Antibodies, Prevention of systemic embolism - Acute Myocardial Infarction (to prevent recurrent infarct). B-TYPE NATRIURETIC [id number] 12:21:00* Test Item Value Reference Range [facility]ation [facility] NATRIURETIC PEPTIDE ( test code = BNP) 742.0 PG/ML 0-100 H COVID 19 Asymptomatic IH [id number] 12:14:00* Test Item Value Reference Range Interpretation Comme [facility] COVID 19 Asymptomatic IH AG (test code = COVNONPUIAG) Negative Negative A negative resul t is presumptive and should be confirmedwith an FDA authorized molecular assay, if necessary forpatient management.A positive result does not rule out co-infections withother pathogens.This test detects both viable (live) and non-viable,SARS-CoV, and SARS-CoV-2. Test performance depends on theamount of virus (antigen) in the sample.This test has not been FDA cleared or approved; the test hasbeen authorized by FDA under an Emergency Use Authorization(EUA) for use by laboratories certified under the CLIA thatmeet the requirements to perform moderate, high or waivedcomplexity tests. CBC W/AUTO [id number] 12:04:00* Test Item Value Reference Range Interpretation Comme nts WHITE BLOOD CELL (test code = WBC) 14.8 x10 3/uL 4.5-11.0 H RED BLOOD CELL (test code = RBC) 4.02 x10 6/uL 3.54-5.02 N HEMOGLOBIN (test code = HGB) 11.3 g/dL 11.0-15.0 N HEMATOCRIT (test code = HCT) 35.6 % 33.0-45.0 N MEAN CELL VOLUME (test code = MCV) 88.6 fL 81.0-99.0 N MEAN CELL HGB (test code = MCH) 28.1 pg 27.0-33.0 N MEAN CELL HGB CONCETRATION (test code = MCHC) 31.7 g/dL 33.0-37.0 L RED CELL DISTRIBUTION WIDTH CV (test code = RDW) 16.6 % 11.5-14.5 H RED CELL DISTRIBUTION WIDTH SD (test code = RDW-SD) 53.7 fL 37.0-54.0 N PLATELET COUNT (test code = PLT) 141 x10 3/uL 150-400 L MEAN PLATELET VOLUME (test code = MPV) 11.6 fL 7.0-9.0 H NEUTROPHIL % (test code = NT%) 85.2 % 56.0-77.0 H IMMATURE GRANULOCYTE % (test code = IG%) 0.3 % 0.0-2.0 N LYMPHOCYTE % (test code = LY%) 6.2 % 14.0-32.0 L MONOCYTE % (test code = MO%) 7.2 % 4.8-9.0 N EOSINOPHIL % (test code = EO%) 0.7 % 0.3-3.7 N BASOPHIL % (test code = BA%) 0.4 % 0.0-2.0 N NUCLEATED RBC % (test code = NRBC%) 0.0 % 0-0 N NEUTROPHIL # (test code = NT#) 12.57 x10 3/uL 2.0-7.6 H IMMATURE GRANULOCYTE # (test code = IG#) 0.05 x10 3/uL 0.00-0.03 H LYMPHOCYTE # (test code = LY#) 0.92 x10 3/uL 1.0-3.8 L MONOCYTE # (test code = MO#) 1.06 x10 3/uL 0.1-0.8 H EOSINOPHIL # (test code = EO#) 0.10 x10 3/uL 0.0-0.2 N BASOPHIL # (test code = BA#) 0.06 x10 3/uL 0.0-0.2 N NUCLEATED RBC # (test code = NRBC#) 0.00 x10 3/uL 0.0-0.1 N MANUAL DIFF REQUIRED (test code = MDIFF) NO - XR CHEST 2 [id number] 12:00:00 [facility] : 1940 Sex: FFAX: Lori Tatum MD [phone] [place]: St: PRE FAX: Nicholas Ellington MD [phone] Name: KYRA HERRERA [facility] : 1940 Age/S: 82/F [address] [place] [address] Unit #: [id number] Loc: [place] [address] Phys: Nicholas Sandra MD Acct: [id number] Dis Date: Status: PRE IN PHONE #: [phone] Exam Date: 03/11/2023 1144 FAX #: [phone] Reason: PREOP EXAMS: CPT CODE: [id number] XR CHEST 2 V [id number] EXAM: - XR CHEST 2 V CLINICAL HISTORY: PREOP TECHNIQUE: Frontal and Lateral views. COMPARISON: CTA chest 02/22/2023 LOCATION: C4 FINDINGS: The trachea appears normal. The mediastinum and cardiac silhouette are within normal limits for size. Minimal streaky bibasilar airspace opacities, favoring atelectasis. No large pleural effusions. Visualized soft tissues and osseous structures are grossly unremarkable. IMPRESSION: Minimal bibasilar atelectasis. No confluent airspace opacities. at 1200 Reported and signed by: Micheal Ferguson D.O. CC: Lori Cosby MD; Nicholas Sandra MD Technologist: Shahid Adrian, RT(R); Mitzy Polk RT(R) Trnscrd Date/Time/By: 03/11/2023 (1200) : By: [email or web address] Orig Print D/T: S: 03/11/2023 (4702) PAGE 1 Signed Report- CTA ABD PEL W CONT 2023-02-24 00:00:00 [facility] : 1940 Sex: F Name: KYRA HERRERA [facility] : 1940 Age/S: 82 / F [address] [place] [address] Blvd Unit #: [id number] Loc: [facility] [address] Phys: Nicholas Sandra MD Acct: [id number] Dis Date: Status: DEP CLI PHONE #: [phone] Exam Date: 02/22/2023 1138 FAX #: [phone] Reason: AORTIC STENOSIS EXAMS: CPT CODE: [id number] CTA ABD PEL W CONT [id number] PROCEDURE INFORMATION: Exam: CTA Heart And Coronary Arteries With Contrast Exam date and time: 02/22/2023 11:15 AM Age: 82 years old Clinical indication: Condition or disease; Other: Aortic stenosis TECHNIQUE: Imaging protocol: CT angiography of theheart, coronary arteries, and bypass grafts (when present) with contrast including 3D image postprocessing. Standard prospective cardiac-gated CAC scoring protocol was used for image acquisition. Following intravenous contrast administration, ECG gated CTA was performed. 3D rendering (Not supervised by radiologist): MIP and/or 3D reconstructed images were created by the technologist. Cardiac gating: Retrospective Gating Radiation optimization: All CT scans at this facility use at least one ofthese dose optimization techniques: automated exposure control; mA and/or kV adjustment per patientsize (includes targeted exams where dose is matched to clinical indication); or iterative reconstruction. Contrast material: ISOUVE 370; Contrast volume: 100 ml; Contrast route: INTRAVENOUS (IV); Pha rmacological intervention: None. REPORTING DATA: Count of CT and Cardiac NM exams in prior 12 months: This patient has received 0 known CTs and 0 known cardiac nuclear medicine studies in the 12 months prior to the current study. COMPARISON: No relevant prior studies available. FINDINGS: PHASE OF CARDIAC CYCLE MEASUREMENTS OBTAINED: 30% of the R-R interval Aortic valve morphology: Tricuspid Valvecalcification: Severe burden. Aortic valve calcium score: 1693. AORTIC ANNULAR MEASUREMENTS: Annular area: 393 mm2 Perimeter: 71 mm Max diameter: 24 mm Min diameter: 22 mm Annular/Subannular calcification: None Mitral annular calcification: Mild burden Height of left main above annular plane: 14 mm Height of RCA above annular plane: 16 mm PAGE 1 Signed Report (CONTINUED) Name: KYRA HERRERA [facility] : 1940 Age/S: 82 / F [address] [place] [address] Blvd Unit #: [id number] Loc: [place] [address] Phys: Nicholas Sandra MD Acct: [id number] Dis Date: Status: DEP CLI PHONE #: [phone] Exam Date: 02/22/2023 1135 FAX #: [phone] Reason: AORTIC STENOSIS EXAMS: CPT CODE: [id number] CTA ABD PEL W CONT 64648 (Continued) Height of ST ridge above annular plane: 22 mm Sinus of Valsalva (left): 35 mm Sinus of Valsalva (right): 33 mm Sinus of Valsalva (noncoronary): 35 mm Mid ascending aorta diameter: 31 mm LA chamber size: Mildly dilated. Myocardium: No calcification or fatty metaplasia to suggest prior infarct. Coronary arteries: Moderate burden of calcified coronary plaque. Pericardium: The small pericardial effusion. IMPRESSION: Aortic root measurements provided for TAVR abram cruz. Aortic annular area: 393 mm2 High risk aortic root features: None. PROCEDURE INFORMATION: Exam: CTA Chest With Contrast CTA Abdomen and Pelvis With Contrast Exam date and time: 02/22/2023 11:15 AM Age: 82 years old Clinical indication: Condition or disease; Other: Aortic stenosis TECHNIQUE: Imaging protocol: Computed tomographic angiography of the chest with contrast. Exam focused on the arteries. Computed tomographic angiography of the abdomen and pelvis with contrast. Exam focused on the arteries. 3D rendering (Not supervised by radiologist): MIP and/or 3D reconstructed images were created by the technologist. Cardiac gating: Retrospective Gating Radiation optimization: All CT scans at this facility use at least one of these dose optimization techniques: automated exposure control; mA and/or kV adjustment per patient size (includes targeted exams where dose is matched to clinical indication); or iterative reconstruction. Contrast material: [id number]; Contrast volume: 100 ml; Contrast route: INTRAVENOUS (IV); REPORTING DATA: Count of CT and Cardiac NM exams in prior 12 months: This patient has received 0 known CTs and 0 known cardiac nuclearmedicine studies in the 12 months prior to the current study. COMPARISON: No relevant prior studies available. PAGE 2 Signed Report (CONTINUED) Name: KYRA HERRERA [facility] : 1940 Age/S: 82 / F [address] [place] [address] Blvd Unit #: [id number] Loc: [place] [address] Phys: Nicholas Sandra MD Acct: [id number] Dis Date: Status: DEP CLI PHONE #: [phone] Exam Date: 02/22/2023 1131 FAX #: [phone] Reason: AORTIC STENOSIS EXAMS: CPT CODE: [id number] CTA ABD PEL W CONT 92714 (Continued) FINDINGS: VASCULATURE: Pulmonary arteries: Normal. No pulmonary emboli. Aorta: There is moderate tortuosity of the abdominal aorta. No aortic aneurysm. No aortic dissection. Celiac trunk and mesenteric arteries: No occlusion or significant stenosis. Renal arteries: Moderate stenosis at the ostium of the right renal artery, approximately 50% narrowing. Right iliofemoral arteries: No occlusionor significant stenosis. Left iliofemoral arteries: No occlusion or significant stenosis. CHEST: Lungs: No suspicious pulmonary nodules. Emphysematous changes are present. No masses. Pleural spaces: U nremarkable. No pneumothorax. No pleural effusion. Mediastinum: Diffusely patulous esophagus. No lymphadenopathy by CT size criteria. The thyroid gland is unremarkable. ABDOMEN AND PELVIS: Liver: No mass. Gallbladder and bile ducts: No calcified stones. No ductal dilation. Pancreas: Unremarkable. No mass. No ductal dilation. Spleen: Unremarkable. No splenomegaly. Adrenal glands: Unremarkable. No mass. Kidneys and ureters: Exophytic cysts arise from the left kidney which measure up to 3.8 cm in diameter.. No solid mass. No hydronephrosis. Stomach and bowel: The stomach and proximal small bowelare mildly distended with intraluminal fluid. No evidence of high-grade bowel obstruction. No mucosal thickening. Intraperitoneal space: Unremarkable. No free air. No significant fluid collection. Urinary bladder: There appears to be prolapse of the inferior urinary bladder. No mass. Reproductive: Unremarkable as visualized. Lymph nodes: Unremarkable. No enlarged lymph nodes. Bones/joints: Moderate degenerative disc disease at L4-L5. No acute fracture. Soft tissues: Unremarkable. IMPRESSION: 1.No occlusion or significant stenosis of the bilateral iliofemoral arteries. There is moderate tortuosity of the PAGE 3 Signed Report (CONTINUED) Name: KYRA HERRERA [facility] : 1940 Age/S: 82 / F [address] [place], [place] [address]vd Unit #: [id number] Loc: [place] [address] Phys: Nicholas Sandra MD Acct: [id number] Dis Date: Status: DEP CLI PHONE #: [phone] Exam Date: 02/22/2023 1134 FAX #: [phone] Reason: AORTIC STENOSIS EXAMS: CPT CODE: [id number] CTA ABD PEL W CONT 68491 (Continued) abdominal aorta. 2. Moderate stenosis at the ostium of the right renal artery, approximately 50% narrowing. 3. Diffusely patulous esophagus. The stomach and proximal small bowel are mild mildly distended with intraluminal fluid. No evidence of high-grade bowel obstruction. 4. Apparent prolapse of the inferior urinary bladder. COMMENTS: Unless otherwise specified, incidental findings do not require dedicated imaging and follow-up. at 0451 Reported and signed by: Jeffrey Greco M.D. CC: Lori Cosby MD;Nicholas Sandra MD Technologist:Alejandro Rogers Jr, RT(R)(CT) CTDI: DLP: Trnscb Date/Time: 02/24/2023 (450) [email or web address] Orig Print D/T: S: 02/24/2023 (450) PAGE 4 Signed Report- CT ANGIO [id number] 00:00:00 [facility] 1940 Sex: FName: KYRA HERRERA [facility] : 1940 Age/S: 82 / F [address] [place] [address] Unit #: [id number] Loc: [place] [address] Phys: Nicholas Sandra MD Acct: [id number] Dis Date: Status: DEPCLI PHONE #: [phone] Exam Date: 02/22/20231132 FAX #: [phone] Reason: AORTIC STENOSIS EXAMS: CPT CODE: [id number] CT ANGIO CHEST 17224 PROCEDURE INFORMATION: Exam: CTA Heart And Coronary Arteries With Contrast Exam date and time: 02/22/2023 11:15 AM Age: 82 years old Clinical indication:Condition or disease; Other: Aortic stenosis TECHNIQUE: Imaging protocol: CT angiography of the heart, coronary arteries, and bypass grafts (when present) with contrast including 3D image postprocessing. Standard prospective cardiac-gated CAC scoring protocol was used for image acquisition. Following intravenous contrast administration, ECG gated CTA was performed. 3D rendering (Not supervised byradiologist): MIP and/or 3D reconstructed images were created by the technologist. Cardiac gating: R etrospective Gating Radiation optimization: All CT scans at this facility use at least one of thesedose optimization techniques: automated exposure control; mA and/or kV adjustment per patient size (includes targeted exams where dose is matched to clinical indication); or iterative reconstruction.Contrast material: ISOUVE 370; Contrast volume: 100 ml; Contrast route: INTRAVENOUS (IV); Pharmacological intervention: None. REPORTING DATA: Count of CT and Cardiac NM exams in prior 12 months: Thispatient has received 0 known CTs and 0 known cardiac nuclear medicine studies in the 12 months prior to the current study. COMPARISON: No relevant prior studies available. FINDINGS: PHASE OF CARDIAC C YCLE MEASUREMENTS OBTAINED: 30% of the R-R interval Aortic valve morphology: Tricuspid Valve calcification: Severe burden. Aortic valve calcium score: 1693. AORTIC ANNULAR MEASUREMENTS: Annular area:393 mm2 Perimeter: 71 mm Max diameter: 24 mm Min diameter: 22 mm Annular/Subannular calcification: None Mitral annular calcification: Mild burden Height of left main above annular plane: 14 mm Heightof RCA above annular plane: 16 mm PAGE 1 Signed Report (CONTINUED) Name: KYRA HERRERA [facility] : 1940 Age/S: 82 / F [address] [place] [address] Blvd Unit #: [id number] Loc: [place] [address] Phys: Nicholas Sandra MD Acct: [id number] Dis Date: Status: DEP CLI PHONE #: [phone] Exam Date: 02/22/2023 1133 FAX #: [phone] Reason: AORTIC STENOSIS EXAMS: CPT CODE: [id number] CT ANGIO CHEST 12024 (Continued) Height of ST ridge above annular plane: 22 mm Sinus of Valsalva (left): 35 mm Sinus of Valsalva (right): 33 mm Sinus of Valsalva (noncoronary): 35 mm Mid ascending aorta diameter: 31 mm LA chamber size: Mildly dilated. Myocardium: No calcification or fatty metaplasia to suggest prior infarct. Coronary arteries: Moderate burden of calcified coronary plaque. Pericardium:The small pericardial effusion. IMPRESSION: Aortic root measurements provided for TAVR planning. Aortic annular area: 393 mm2 High risk aortic root features: None. PROCEDUREINFORMATION: Exam: CTA Chest With Contrast CTA Abdomen and Pelvis With Contrast Exam date and time:02/22/2023 11:15 AM Age: 82 years old Clinical indication: Condition or disease; Other: Aortic stenosis TECHNIQUE: Imaging protocol: Computed tomographic angiography of the chest with contrast. Exam focused on the arteries. Computed tomographic angiography of the abdomen and pelvis with contrast. Exam focused on the arteries. 3D rendering (Not supervised by radiologist): MIP and/or 3D reconstructed images were created by the technologist. Cardiac gating: Retrospective Gating Radiation optimization: All CT scans at this facility use at least one of these dose optimization techniques: automated exposure control; mA and/or kV adjustment per patient size (includes targeted exams where dose is matched to clinical indication); or iterative reconstruction. Contrast material: ISOUVE 370; Contrast volume: 100 ml; Contrast route: INTRAVENOUS (IV); REPORTING DATA: Count of CT and Cardiac NM examsin prior 12 months: This patient has received 0 known CTs and 0 known cardiac nuclear medicine studies in the 12 months prior to the current study. COMPARISON: No relevant prior studies available. PAGE 2 Signed Report (CONTINUED) Name: KYRA HERRERA [facility] : 1940 Age/S: 82 / F [address] [place] [address] Unit #: [id number] Loc: [place] [address] Phys: Nicholas Sandra MD Acct: [id number] Dis Date: Status: DEP CLI PHONE #: [phone] Exam Date: 02/22/2023 1138 FAX #: [phone] Reason: AORTIC STENOSIS EXAMS: CPT CODE: [id number] CT ANGIO CHEST 56788 (Continued) FINDINGS: VASCULATURE: Pulmonary arteries: Normal. No pulmonary emboli. Aorta: There is moderate tortuosity of the abdominal aorta. No aortic aneurysm. No aortic dissection. Celiac trunk and mesenteric arteries: No occlusion or significant stenosis. Renal arteries: Moderate stenosis at the ostium of the right renal artery, approximately 50% narrowing. Right iliofemoral arteries: No occlusion or significant stenosis. Left iliofemoral arteries: No occlusion or significant stenosis. CHEST: Lungs: No suspicious pulmonary nodules. Emphysematous changes are present. No masses. Pleural spaces: Unremarkable. No pneumothorax. No pleural effusion. Mediastinum: Diffusely patulous esophagus. No lymphadenopathy by CT size criteria. The thyroid gland is unremarkable. ABDOMEN AND PELVIS: Liver: No mass. Gallbladder and bile ducts: No calcified stones. No ductal dilation. Pancreas: Unremarkable. No mass. No ductal dilation. Spleen: Unremarkable. No splenomegaly. Adrenal glands: Unremarkable. No mass. Kidneys and ureters: Exophytic cysts arise from the left kidney which measure up to 3.8 cm in diameter.. Nosolid mass. No hydronephrosis. Stomach and bowel: The stomach and proximal small bowel are mildly distended with intraluminal fluid. No evidence of high-grade bowel obstruction. No mucosal thickening. Intraperitoneal space: Unremarkable. No free air. No significant fluid collection. Urinary bladder: There appears to be prolapse of the inferior urinary bladder. No mass. Reproductive: Unremarkable as visualized. Lymph nodes: Unremarkable. No enlarged lymph nodes. Bones/joints: Moderate degenerative disc disease at L4-L5. No acute fracture. Soft tissues: Unremarkable. IMPRESSION: 1. No occlusion or significant stenosis of the bilateral iliofemoral arteries. There is moderate tortuosity of thePAGE 3 Signed Report (CONTINUED) Name: KYRA HERRERA [facility] : 1940 Age/S: 82 /F [address] [place] [address] Unit #: [id number] Loc: [place] [address] Phys: Nicholas Sandra MD Acct: [id number] Dis Date: Status: DEP CLI PHONE #: [phone] Exam Date: 02/22/2023 1133 FAX #: [phone] Reason: AORTIC STENOSIS EXAMS: CPT CODE: [id number] CT ANGIO CHEST 23282 (Continued) abdominalaorta. 2. Moderate stenosis at the ostium of the right renal artery, approximately 50% narrowing. 3. Diffusely patulous esophagus. The stomach and proximal small bowel are mild mildly distended with i ntraluminal fluid. No evidence of high-grade bowel obstruction. 4. Apparent prolapse of the inferior urinary bladder. COMMENTS: Unless otherwise specified, incidental findings do not require dedicated imaging and follow-up. at 0451 Reported and signed by: Jeffrey Greco M.D. CC: Lori Cosby MD; Nicholas Sandra MD Technologist:Alejandro Rogers Jr, RT(R)(CT) CTDI: DLP: Trnscb Date/Time: 02/24/2023 (450) [email or web address] Orig Print D/T: S: 02/24/2023 (045) PAGE 4 Signed Report- CTA HEART W CN ART/[id number] 00:00:00 [facility] 1940 Sex: FName: KYRA HERRERA [facility] : 1940 Age/S: 82 / F [address] [place] [address] Unit #: [id number] Loc: [place] [address] Phys: Nicholas Sandra MD Acct: [id number] Dis Date: Status: DEP CLI PHONE #: [phone] Exam Date: 02/22/2023 1133 FAX #: [phone] Reason: EXAMS: CPT CODE:[id number] CTA HEART W CN ART/GRAFTS 65766 PROCEDURE INFORMATION: Exam: CTA Heart And Coronary Arteries With Contrast Exam date and time: 02/22/2023 11:15 AM Age: 82 years old Clinical indication: Condition or disease; Other: Aortic stenosis TECHNIQUE: Imaging protocol: CT angiography of the heart,coronary arteries, and bypass grafts (when present) with contrast including 3D image postprocessing. Standard prospective cardiac-gated CAC scoring protocol was used for image acquisition. Following intravenous contrast administration, ECG gated CTA was performed. 3D rendering (Not supervised by radiologist): MIP and/or 3D reconstructed images were created by the technologist. Cardiac gating: Retrospective Gating Radiation optimization: All CT scans at this facility use at least one of these dose optimization techniques: automated exposure control; mA and/or kV adjustment per patient size (includes targeted exams where dose is matched to clinical indication); or iterative reconstruction. Contrast material: ISOUVE 370; Contrast volume: 100 ml; Contrast route: INTRAVENOUS (IV); Pharmacological intervention: None. REPORTING DATA: Count of CT and Cardiac NM exams in prior 12 months: This patient has received 0 known CTs and 0 known cardiac nuclear medicine studies in the 12 months prior to the current study. COMPARISON: No relevant prior studies available. FINDINGS: PHASE OF CARDIAC CYCLE MEASUREMENTS OBTAINED: 30% of the R-R interval Aortic valve morphology: Tricuspid Valve calcification: Severe burden. Aortic valve calcium score: 1693. AORTIC ANNULAR MEASUREMENTS: Annular area: 393 mm2 Perimeter: 71 mm Max diameter: 24 mm Min diameter: 22 mm Annular/Subannular calcification: None Mitral annular calcification: Mild burden Height of left main above annular plane: 14 mm Height of RCA above annular plane: 16 mm PAGE 1 Signed Report (CONTINUED) Name: KYRA HERRERA [facility] : 1940 Age/S: 82 / F [address] [place], [place] [address] Unit #: [id number] Loc: [place] [address] Phys: Nicholas Sandra MD Acct: [id number] Dis Date: Status: DEP CLI PHONE #: [phone] Exam Date: 02/22/2023 1139 FAX #: [phone] Reason: EXAMS: CPT CODE: [id number] CTA HEART W CN ART/GRAFTS 42267 (Continued) Height of ST ridge above annular plane: 22 mm Sinus of Valsalva (left): 35 mm Sinus of Valsalva (right): 33 mm Sinus of Valsalva (noncoronary): 35 mm Mid ascending aorta diameter:31 mm LA chamber size: Mildly dilated. Myocardium: No calcification or fatty metaplasia to suggest prior infarct. Coronary arteries: Moderate burden of calcified coronary plaque. Pericardium: The small pericardial effusion. IMPRESSION: Aortic root measurements provided for TAVR planning. Aortic annular area: 393 mm2 High risk aortic root features: None. PROCEDURE INFORMATION: Exam: CTA Chest With Contrast CTA Abdomen and Pelvis With Contrast Exam date and time: 02/22/2023 11:15 AM Age: 82 years old Clinical indication: Condition or disease; Other: Aortic stenosis TECHNIQUE: Imaging protocol: Computed tomographic angiography of the chest with contrast. Exam focused on the arteries. Computed tomographic angiography of the abdomen and pelvis with contrast. Exam focused on the arteries. 3D rendering (Not supervised by radiologist): MIP and/or 3D reconstructed imageswere created by the technologist. Cardiac gating: Retrospective Gating Radiation optimization: All C T scans at this facility use at least one of these dose optimization techniques: automated exposurecontrol; mA and/or kV adjustment per patient size (includes targeted exams where dose is matched toclinical indication); or iterative reconstruction. Contrast material: ISOUVE 370; Contrast volume: 100 ml; Contrast route: INTRAVENOUS (IV); REPORTING DATA: Count of CT and Cardiac NM exams in prior 12 months: This patient has received 0 known CTs and 0 known cardiac nuclear medicine studies in the12 months prior to the current study. COMPARISON: No relevant prior studies available. PAGE 2 Signed Report (CONTINUED) [facility] 1940 Age/S: 82 / F [address] [place] [address] Unit #: [id number] Loc: [place] [address] Phys: Nicholas Sandra MD Acct: [id number] Dis Date: Status: DEP CLI PHONE #: [phone] Exam Date: 02/22/2023 1133 FAX #: [phone] Reason: EXAMS: CPT CODE: [id number] CTA HEART W CN ART/GRAFTS 64170 (Continued) FINDINGS: VASCULATURE: Pulmonary arteries: Normal. No pulmonary emboli. Aorta: There is moderate tortuosity of the abdominal aorta. No aortic aneurysm. No aortic dissection. Celiac trunk and mesenteric arteries: No occlusion or significant stenosis. Renal arteries: Moderate stenosis at the ostium of the right renal artery, approximately 50% narrowing. Right iliofemoral arteries: No occlusion or significant stenosis. Left iliofemoral arteries: No occlusion or significant stenosis. CHEST: Lungs: No suspicious pulmonary nodules. Emphysematous changes are present. No masses. Pleural spaces: Unremarkable. No pneumothorax. No pleural effusion. Mediastinum: Diffusely patulous esophagus. No lymphadenopathy by CT size criteria. The thyroid gland is unremarkable. ABDOMEN AND PELVIS: Liver: No mass. Gallbladder and bile ducts: No calcified stones. No ductal dilation. Pancreas: Unremarkable. No mass. No ductal dilation. Spleen: Unremarkable. No splenomegaly. Adrenal glands: Unremarkable. No mass. Kidneys and ureters: Exophytic cysts arise from the left kidney which measure up to 3.8 cm in diameter.. No solid mass. No hyd ronephrosis. Stomach and bowel: The stomach and proximal small bowel are mildly distended with intraluminal fluid. No evidence of high-grade bowel obstruction. No mucosal thickening. Intraperitoneal space: Unremarkable. No free air. No significant fluid collection. Urinary bladder: There appears aaron prolapse of the inferior urinary bladder. No mass. Reproductive: Unremarkable as visualized. Lymph nodes: Unremarkable. No enlarged lymph nodes. Bones/joints: Moderate degenerative disc disease atL4-L5. No acute fracture. Soft tissues: Unremarkable. IMPRESSION: 1. No occlusion or significant stenosis of the bilateral iliofemoral arteries. There is moderate tortuosity of the PAGE 3 Signed Report (CONTINUED) Name: KYRA HERRERA [facility] : 1940 Age/S: 82 / F [address] [place] [address] Unit #: [id number] Loc: [place] [address] Phys: Nicholas Sandra MD Acct: [id number] Dis Date: Status: DEP CLI PHONE #: [phone] Exam Date: 02/22/2023 1131 FAX #: [phone] Reason: EXAMS: CPT CODE: [id number] CTA HEART W CN ART/GRAFTS 08143 (Continued) abdominal aorta. 2. Moderate stenosis at the ostium of the right renal artery, approximately 50% narrowing. 3. Diffusely patulous esophagus. The stomach and proximal small bowel are mild mildly distended with intraluminal fluid. No ev idence of high-grade bowel obstruction. 4. Apparent prolapse of the inferior urinary bladder. COMMENTS: Unless otherwise specified, incidental findings do not require dedicated imaging and follow-up. at 0451 Reported and signed by: Jeffrey Greco M.D. CC: Lori Cosby MD; Nicholas Sandra MD Technologist:Alejandro Rogers Jr, RT(R)(CT) CTDI: DLP: Trnscb Date/Time: 02/24/2023 (045) [email or web address] Orig Print D/T: S: 02/24/2023 (5121) PAGE 4 Signed Report COVID 19 Asymptomatic IH [id number] 14:08:00* Test Item Value Reference Range Interpretation Comme nts COVID 19 Asymptomatic IH AG (test code = COVNONPUIAG) Negative Negative A negative resul t is presumptive and should be confirmedwith an FDA authorized molecular assay, if necessary forpatient management.A positive result does not rule out co-infections withother pathogens.This test detects both viable (live) and non-viable,SARS-CoV, and SARS-CoV-2. Test performance depends on theamount of virus (antigen) in the sample.This test has not been FDA cleared or approved; the test hasbeen authorized by FDA under an Emergency Use Authorization(EUA) for use by laboratories certified under the CLIA thatmeet the requirements to perform moderate, high or waivedcomplexity tests. COMPREHENSIVE METABOLIC [id number] 14:04:00* Test Item Value Reference Range Interpretation Comme nts SODIUM (test code = NA) 141 mEq/L 134-147 N POTASSIUM (test code = K) 3.3 mEq/L 3.4-5.0 L CHLORIDE (test code = CL) 103 mEq/L 100-108 N CARBON DIOXIDE (test code = CO2) 30 mEq/l 21-33 N ANION GAP (test code = GAP) 12 0-20 N GLUCOSE (test code = GLU) 99 mg/dL 70-110 N BLOOD UREA NITROGEN (test code = BUN) 17 mg/dL 7-18 N GLOMERULAR FILTRATION RATE (test code = GFR) 56.6 70-80 L The Glomerular Filtration Rate is a calculated parameterbased on serum Creatinine, patient age and sex. GFR valuesless than 60 mL/min/1.73 square meters are indicative ofChronic Kidney Disease. Values less than 15 mL/min/1.73square meters indicate Kidney failure. The calculation forGFR is based on the CKD-EPI (202) calculation. This formulais race indifferent and is the recommended formula for GFRby the National Kidney Foundation for Adults.The GFR will not calculate if the sex is unknown or if thepatient's age is <18 years. CREATININE (test code = CREAT) 1.0 mg/dL 0.6-1.3 N TOTAL PROTEIN (test code = PROT) 7.9 g/dL 6.4-8.2 N ALBUMIN (test code = ALB) 3.20 g/dL 3.4-5.0 L CALCIUM (test code = CA) 10.0 mg/dL 8.0-10.5 N BILIRUBIN TOTAL (test code = BILT) 0.40 mg/dL 0.0-1.0 N SGOT/AST (test code = AST) 18 IUnit/L 15-37 N SGPT/ALT (test code = ALT) < 7 IUnit/L 30-65 L ALKALINE PHOSPHATASE TOTAL (test code = ALKP) 97 IUnit/L 20-125 N CBC W/AUTO [id number] 13:54:00* Test Item Value Reference Range Interpretation Comme nts WHITE BLOOD CELL (test code = WBC) 8.3 x10 3/uL 4.5-11.0 N RED BLOOD CELL (test code = RBC) 4.15 x10 6/uL 3.54-5.02 N HEMOGLOBIN (test code = HGB) 11.4 g/dL 11.0-15.0 N HEMATOCRIT (test code = HCT) 35.9 % 33.0-45.0 N MEAN CELL VOLUME (test code = MCV) 86.5 fL 81.0-99.0 N MEAN CELL HGB (test code = MCH) 27.5 pg 27.0-33.0 N MEAN CELL HGB CONCETRATION (test code = MCHC) 31.8 g/dL 33.0-37.0 L RED CELL DISTRIBUTION WIDTH CV (test code = RDW) 17.1 % 11.5-14.5 H RED CELL DISTRIBUTION WIDTH SD (test code = RDW-SD) 53.7 fL 37.0-54.0 N PLATELET COUNT (test code = PLT) 358 x10 3/uL 150-400 N MEAN PLATELET VOLUME (test c ode = MPV) 9.3 fL 7.0-9.0 H NEUTROPHIL % (test code = NT%) 64.9 % 56.0-77.0 N IMMATURE GRANULOCYTE % (test code = IG%) 0.2 % 0.0-2.0 N LYMPHOCYTE % (test code = LY%) 18.7 % 14.0-32.0 N MONOCYTE % (test code = MO%) 9.1 % 4.8-9.0 H EOSINOPHIL % (test code = EO%) 6.4 % 0.3-3.7 H BASOPHIL % (test code = BA%) 0.7 % 0.0-2.0 N NUCLEATED RBC % (test code = NRBC%) 0.0 % 0-0 N NEUTROPHIL # (test code = NT#) 5.35 x10 3/uL 2.0-7.6 N IMMATURE GRANULOCYTE # (test code = IG#) 0.02 x10 3/uL 0.00-0.03 N LYMPHOCYTE # (test code = LY#) 1.54 x10 3/uL 1.0-3.8 N MONOCYTE # (test code = MO#) 0.75 x10 3/uL 0.1-0.8 N EOSINOPHIL # (test code = EO#) 0.53 x10 3/uL 0.0-0.2 H BASOPHIL # (test code = BA#) 0.06 x10 3/uL 0.0-0.2 N NUCLEATED RBC # (test code = NRBC#) 0.00 x10 3/uL 0.0-0.1 N MANUAL DIFF REQUIRED (test c ode = MDIFF) NO Notes Date/Time Note Provider Source 2023-03-17 15:21:00 [id number] vEbRcpzov8yKIWT2u2XmaQsVube+O XlbDQwn/2sJNYk31wbt7fg7cRGp1124-78-29P89:21:00 [facility] ([facility])Cardiology Progress NoteREPORT#:[id number] REPORT STATUS: SignedDATE:03/17/23 TIME: 152 PATIENT: KYRA HERRERA UNIT #: [id number]#: [id number] ROOM/BED: 2203-1DOB: [birth year] AGE: 82 SEX: F ATTEND: Priscila Hoffman [facility] AUTHOR: Ronel Givens AGACNP * ALL edits or amendments must be made on the electronic/computer document * SubjectivePatient reports:No: complaints. Objective GeneralVS/I O:24 hour I O ending at 0700: 03/17 0700 03/16 1900 Intake Total 240 790 Output Total 300 Balance -60 790 Intake, Oral 240 790 Number 1 Bowel Movements Number 3 4 Incontinent Voids Output, Urine 300 Patient 38.8 kg Weight Weight Chair scale Measurement Method Vital Signs: Date Time Temp Pulse Resp B/P B/P Pulse O2 O2 Flow FiO2 Mean Ox Delivery Rate 03/17 1306 66 168/74 107 09/ 1000 70 173/88 122 / 0900 66 170/79 113 09/ 0830 63 171/79 113 100 / 0800 36.7 Room air / 0730 62 163/77 110 99 09/07 0600 37.2 Room air / 0300 66 158/74 107 98 09/07 0230 63 163/71 102 98 09/07 0200 61 163/72 104 99 09/07 0130 63 165/74 107 99 09/07 0100 65 158/75 108 99 09/07 0031 68 167/74 106 99 09/07 0013 63 98 09/07 0000 36.5 Room air 09/07 0000 65 162/78 112 98 09/06 2330 61 158/70 101 98 09/06 2315 62 96 09/06 2300 62 164/72 103 98 09/06 2245 62 99 09/06 2230 65 154/71 102 100 09/06 2200 64 157/72 104 09/06 2130 68 168/80 115 09/06 2100 37.2 Room air / 2100 69 156/74 107 /06 2030 72 168/81 116 98 09/06 2015 69 100 09/06 2000 Nasal 2 cannula / 1945 70 100 /06 1930 72 168/77 110 94 09/06 1900 70 180/81 116 91 09/06 1800 64 177/78 112 98 09/ 1730 68 158/75 108 09/06 1700 77 165/121 137 03/16 1630 68 169/77 111 85 03/16 1600 36.1 Room air 03/16 1530 63 179/79 114 98 PATIENT WEIGHT: Weight (lb): 85Weight (oz): 8.63Weight (kg): 38.555 Medications:Active Meds + DC'd Last 24 HrsPantoprazole (PROTONIX) 40 MG DAILY PO (DCD) Sodium Chloride (SODIUM CHLORIDE) 20 ML ASDIR IV (DCD) Amlodipine Besylate (NORVASC) 5 MG DAILY PO (DCD) Magnesium Sulfate (MAGNESIUM SULFATE 2GM/SWFI 50ML) 50 ML ONCE ONE IV (DC) Pantoprazole Sodium (PROTONIX) 40 MG Q12HR IV (DC) Sodium Chloride (SODIUM CHLORIDE) 10 ML ASDIR PRN IV (DC) Mupirocin (BACTROBAN 2% 22 GM OINTMENT) 1 APPLIC BID NASAL (DCD) Aspirin (ASPIRIN) 81 MG DAILY PO (DCD) Cefazolin Sodium (KEFZOL OR ANCEF) 2 GM PREOP ONCALL IV (DCD) Cefuroxime Axetil (CEFTIN) 250 MG Q12H PO (DCD) Clopidogrel Bisulfate (Plavix) 75 MG DAILY PO (DCD) Nebivolol (BYSTOLIC) 5 MG DAILY PO (DCD) Sodium Chloride (SODIUM CHLORIDE) 20 ML ASDIR IV (DCD) Atorvastatin Calcium (LIPITOR) 40 MG BEDTIME PO (DCD) Acetaminophen (TYLENOL) 650 MG Q6H PRN PRN PO (DCD) Nicardipine HCl (niCARdipine HCl) 25 MG TITRATE IV (DCD) Sodium Chloride (Sodium Chloride 50ML) 50 MLHydralazine HCl (APRESOLINE) 10 MG Q6H PRN PRN IV (DCD) Atropine Sulfate (ATROPINE SULFATE 0.1MG/ML SYR) 0.5 MG ASDIR PRN IV (DCD) Sodium Chloride (SODIUM CHLORIDE 0.9%) 500 ML ASDIR PRN IV (DCD) Atropine Sulfate (ATROPINE SULFATE 0.1MG/ML SYR) 0.5 MG ASDIR PRN IV (DCD) Sodium Chloride (SODIUM CHLORIDE 0.9%) 500 ML ASDIR PRN IV (DCD) Acetaminophen (TYLENOL EXTRA STRENGTH) 1,000 MG PREOP ONCALL PO (DCD) Gabapentin (NEURONTIN) 200 MG PREOP ONCALL PO (DCD) Lactated Ringer's (LACTATED RINGERS) 1,000 ML PREOP ONCALL IV (DCD) Lidocaine HCl (LIDOCAINE HCL/PF) 2 ML PREOP ONCALL LOCAL (DCD) Lidocaine HCl (LIDOCAINE HCL/PF) 2 ML PREOP ONCALL LOCAL (DCD) Sodium Chloride (SODIUM CHLORIDE 0.9%) 500 ML PREOP ONCALL IV (DCD) Sodium Chloride (SODIUM CHLORIDE 0.9%) 500 ML PREOP ONCALL IV (DCD) Sodium Chloride (SODIUM CHLORIDE 0.9%) 1,000 ML PREOP ONCALL IV (DCD) Sodium Chloride (SODIUM CHLORIDE) 5 ML ASDIR PRN IV (DCD) Sodium Chloride (SODIUM CHLORIDE) 10 ML ASDIR PRN IV (DCD) Sodium Chloride (SODIUM CHLORIDE 0.9%) 250 ML ASDIR PRN IV (DCD) Physical ExamGeneral appearance: alert, awakeNeck: non-tender, no JVDCardiovascular: CV assessment: regular rate and rhythmRespiratory: clear to auscultation, no distressAbdomen: soft, non-tender, normal bowel sounds, no distentionGenitourinary: no flank pain, no urinary catheterUpper extremity: UE assessment: normal temperature, 2+ peripheral pulsesLower extremity: Left groin site: intact, no bleeding, no bruit, no drainage Right groin site: intact, no bleeding, no bruit, no drainageMusculoskeletal: normal inspectionNeuro/ANGLE DOZER OPERATOR: alert, normal speechSkin: lesion, poor skin turgor, rash (generalized rash)Psychiatry: anxious, normal affect, normal mood ResultsFindings/Data:Laboratory Tests 03/17 0347 Chemistry Sodium (134 - 147 mEq/L) 143 Potassium (3.4 - 5.0 mEq/L) 4.5 Chloride (100 - 108 mEq/L) 114 H Carbon Dioxide (21 - 33 mEq/l) 24 Anion Gap (0 - 20) 10 BUN (7 - 25 mg/dL) 12 Creatinine (0.6 - 1.3 mg/dL) 0.9 Glomerular Filtr Rate (70 - 80) 64.2 L Glucose (77 - 141 mg/dL) 79 Calcium (8.0 - 10.5 mg/dL) 8.7 Magnesium (1.6 - 2.6 mg/dL) 1.81 Laboratory Tests 03/17 03/17 03/16 0706 0019 1845 Hematology WBC (4.5 - 11.0 x10 3/uL) 12.3 H 12.8 H 13.6 H RBC (3.54 - 5.02 x10 6/uL) 3.47 L 3.03 L 3.20 L Hgb (11.0 - 15.0 g/dL) 9.8 L 8.5 L 8.9 L Hct (33.0 - 45.0 %) 31.5 L 27.5 L 28.2 L MCV (81.0 - 99.0 fL) 90.8 90.8 88.1 MCH (27.0 - 33.0 pg) 28.2 28.1 27.8 MCHC (33.0 - 37.0 g/dL) 31.1 L 30.9 L 31.6 L RDW (11.5 - 14.5 %) 17.2 H 17.0 H 16.9 H Plt Count (150 - 400 x10 3/uL) 278 254 284 MPV (7.0 - 9.0 fL) 10.1 H 9.7 H 9.8 H Neut % (Auto) (56.0 - 77.0 %) 79.2 H 76.5 77.9 H Lymph % (Auto) (14.0 - 32.0 %) 8.4 L 8.9 L 8.9 L Woodson % (Auto) (4.8 - 9.0 %) 9.7 H 10.3 H 10.3 H Eos % (Auto) (0.3 - 3.7 %) 1.6 1.9 1.8 Baso % (Auto) (0.0 - 2.0 %) 0.5 0.3 0.5 Neut # (Auto) (2.0 - 7.6 x10 3/uL) 9.77 H 9.76 H 10.55 H Lymph # (Auto) (1.0 - 3.8 x10 3/uL) 1.03 1.14 1.21 Woodson # (Auto) (0.1 - 0.8 x10 3/uL) 1.19 H 1.32 H 1.40 H Eos # (Auto) (0.0 - 0.2 x10 3/uL) 0.20 0.24 H 0.24 H Baso # (Auto) (0.0 - 0.2 x10 3/uL) 0.06 0.04 0.07 Abs Immat Gran (auto) (0.00 - 0.03 x10 3/uL) 0.07 H 0.27 H 0.08 H Add Manual Diff NO NO NO Immature Gran % (0.0 - 2.0 %) 0.6 2.1 H 0.6 Nucleated RBC % (0 - 0 %) 0.0 0.0 0.0 Nucleated RBCs # (Man) (0.0 - 0.1 x10 3/uL) 0.00 0.00 0.00 Laboratory Tests 03/17 0347 Chemistry Magnesium (1.6 - 2.6 mg/dL) 1.81 Results: labs reviewed, vital signs reviewed, rhythm personally rev'dTelemetry Interpretation:sinus rhythm Diagnosis, Assessment PlanPlan discussed with: patient, admitting physician, consultants, nurse Free Text DxA P NotesFree Text DxA P Notes:82 YO female with MHx of Hypertension, symptomatic aortic valve stenosis. She underwent successful transaortic valve replacement. Bilateral groin access stable. Post TAVR EKG reviewed. 1. Symptomatic aortic valve stenosis s/p TAVR* Bilateral groin access stable* continue Plavix, ASA, statin* post TAVR echo reviewed* post TAVR EKG sinus rhythm 2. Hypertension* hypertensive* continue amlodipine 5 mg daily and and Bystolic 5 mg daily* Monitor blood pressure closely 3. Postoperative drop in hemoglobin* Bilateral groin access stable, no bleeding, no hematoma* HH stable hovering between 8.7-9.8 4. SFA haziness* Vascular surgery input noted - "patient has ostial right SFA flap that is not flow limiting recommend outpatient surveillance with imaging, likely to heal onits own" RN report black stool. However patient takes iron supplement daily. Patient is hemodynamically stable. HH stable. Okay to DC home from cardiology.Outpatient follow-up with Dr. Sandra. MDM by Dr. Hoffman at 1530 at 1112 RPT #:[id number] OF REPORTPRProgress [id number]:21:00G.[id number] able for patient mxqrIIOPAEDARPKGSF7116-75-61V59:30:17 [facility] 2023-03-17 11:12:00 [id number] 5p4OzDmkg2ewlTiTATOAjSDKXlnG7 ABO54+PMyx7V9uNr2fLgQU19prL6715-67-60B82:12:00 [facility] ([facility])Cardiothoracic Surgery ProgREPORT#:[id number] REPORT STATUS: SignedREPORT INITIALIZATION DATE:03/17/23 TIME: 1111 PATIENT: KYRA HERRERA UNIT #: [id number]#: [id number] [address] [birth year] AGE: 82 SEX: F ATTEND: Priscila Hoffman MDADM AUTHOR: Savanna Hendrix PhysicREPT SERVICE DT/TIME: 03/17/23 1112* ALL edits or amendments must be made on the electronic/computer document * GeneralPost-op: day 2Status post:TAVR SubjectiveChief complaint:Patient doing well denies complaintsWants to go home Review of SystemsConstitutional:Denies: fever, generalized weakness. Allergy/Immun:Denies: itching, rhinorrhea. Respiratory:Denies: ARCOS (dyspnea on exertion), hemoptysis. Cardiovascular:Denies: chest pain, ARCOS (dyspnea on exertion). All systems rev neg: except as marked Objective GeneralVS/I OLast Documented: Result Date Time O2 Delivery Room air 03/17 0800 Temp 98.0 03/17 0800 Pulse Ox 98 03/17 0300 B/P 158/74 03/17 0300 B/P Mean 107 03/17 0300 Pulse 66 03/17 0300 O2 Flow Rate 2 03/16 2000 Resp 23 03/15 2201 24 hour I O ending at 0700: 03/17 0700 03/16 1900 Intake Total 240 790 Output Total 300 Balance -60 790 Intake, Oral 240 790 Number 1 Bowel Movements Number 3 4 Incontinent Voids Output, Urine 300 Patient 38.8 kg Weight Weight Chair scale Measurement Method PATIENT WEIGHT: Weight (lb): 85Weight (oz): 8.63Weight (kg): 38.800 Physical ExamGeneral appearance: alert, awake, orientedNeck: full range of motion, non-tenderCardiovascular: BP/pulses equal bilat., regular rate rhythmRespiratory: aerating well, clear to auscultationAbdomen: soft, non-tenderExtremities: dry, moves allMusculoskeletal: full range of motionSkin: dry, intact Diagnosis, Assessment PlanFree Text A P: This is a very pleasant thin appearing 82-year-old female with past medical history of hypertension who has been experiencing increased shortness of breath over the past several months. She was seen by her physiologist and found to havesignificant aortic valve stenosis by echocardiogram. Echocardiogram revealed a mean gradient of 41 mmHg with a peak gradient of 79 mmHg. DORENE max 4 0.463 cm2. Patient had a left heart catheterization showing minimal coronary artery disease on 01/26/2023. She has had appropriate CTA scans. The patient does report symptoms of shortness of breath with exertion for the past several months The patient was present in the structural heart conference and determined to be a good candidate for TAVR Assessment/plan1. Severe aortic valve stenosis2. Hypertension Patient was present in the structural heart conference. She was determined to be a good candidate for TAVR.This was discussed with the patient and the patient's family. Patient was seen and examined by Dr. Payton risk of the procedure including stroke, , bleeding, infection, heart attack, prolonged ICU stay, pneumonia, tracheostomy etc. was discussed with the patient and the patient's family. Patient's questions were answered and patient agreed to proceed with the procedure 03/16/23Patient resting comfortable denies wvjthbobhjCOWb4Ae room airRemains sinus rhythmNo neurologic defectsBilateral groins soft no hematomaPatient to get out of bed today.Discharge planning in progressPatient seen and examined with Dr. Youssef 03/17/23Patient doing well. PMRa8Fzlv stools reported by nurse last night. HGB stable. Patient reports she takes home iron and reports dark stools regularly. She is followed by her PCP for anemia. on room air. Sinus rhythm Patient out of bed with PT Daughter at bedside, she will be present with patient at home. Patinet encouraged to use walker. okay to DC patient home at 1128 at 1743 RPT #:[id number] OF REPORTPRProgress [id number]:12:00G.[id number] able for patient tuuuVRUATPKSYBILPQ8109-84-97U90:29:35 [facility] 2023-03-17 10:14:00 [id number]/[id number] r9tXQLPMsSp5eBLo0TdoZHfI2yDPo Q5GSUydFUx/TiCS7eFKSq5HjIKE4162-36-57W52:14:00 [facility] ([facility])Discharge SummaryREPORT#:[id number] REPORT STATUS: SignedDATE:03/17/23 TIME: 1014 PATIENT: KYRA HERRERA UNIT #: [id number]#: [id number] [address] AGE: 82 SEX: F ATTEND: rPiscila Hoffman [facility] AUTHOR: Miguelangel Trujillo SENIOR RUBY DEVELOPER * ALL edits or amendments must be made on the electronic/computer document * PCP PCPDischarge to: home General InformationFree Text A P:1. Symptomatic aortic valve stenosis s/p TAVRBilateral groin access stable without bleeding/hematoma.continue Plavix, ASA, statinEchocardiogram reviewed by Cardiology and no evidence of dysfunction.Telemetry shows sinus rhythm without dysrhythmias. 2. HypertensionBlood pressures are reasonable.Continue home regimen and maintain BP log. 3. Postoperative drop in hemoglobinBilateral groin access stable, no bleeding, no hematomaHH stable hovering between 8.7-9.8.Patient on chronic iron supplementation. 4. SFA hazinessVascular surgery has evaluated and no intervention required at this time.Non limited flap noted to the right SFA.Discharge date: 03/17/23Discharge diagnosis:Severe Symptomatic Aortic Stenosis.Hospital course:This is a 82 year old female that presented for elective transcatheter aortic valve replacement and underwent successful implant of a 23mm [place] S3 Ultra valve. Patient was noted to have right SFA flap noted that was not flow limiting and vascular evaluated the patient. the The patient was monitored overnight and did well. Patient was noted to hav a dark stool and drop in hemoglobin, but GI evaluated the patient and she is on chronic iron supplementation and hemoglobin will be monitored with no overt bleeding noted. The labs and vital signs reviewed bilateral groins CDI without bleeding or hematoma. Med Rec PCPPCP:PCP: Lori Cosby MD Med RecDischarge meds:Continue taking these medications:NITROFURANTOIN MACROCRYSTAL (MACRODANTIN) 100 MG CAP 100 MILLIGRAM ORAL TWICE DAILY. CEFUROXIME AXETIL (CEFTIN) 250 MG TAB 250 MILLIGRAM ORAL EVERY 12 HOURS. PHYTONADIONE (VITAMIN K) 100 MCG TAB 100 MICROGRAM ORAL ONE TIME ONLY. CRANBERRY EXTRACT (CRANBERRY EXTRACT) 250 MG CAP 250 MILLIGRAM ORAL DIRECTED PHENAZOPYRIDINE (AZO STANDARD) 97.5 MG TAB 97.5 MILLIGRAM ORAL DIRECTED. VIT C/E/ZN/COPPR/LUTEIN/ZEAXAN (OCUVITE LUTEIN) 60 MG-13.5 MG-15 MG-2 MG-6 MG CAP 1 CAPSULE ORAL DAILY. NEBIVOLOL (BYSTOLIC) 5 MG TAB 5 MILLIGRAM ORAL DAILY. FERROUS FUMARATE (HEMOCYTE) 324 MG (106 MG IRON) TAB 324 MILLIGRAM ORAL DAILY. POTASSIUM GLUCONATE (POTASSIUM) 595 MG (99 MG) TAB 99 MILLIGRAM ORAL DAILY. Start taking the following new medications:CLOPIDOGREL (PLAVIX) 75 MG TAB 75 MILLIGRAM ORAL DAILY. Days = 90 Qty = 90 Refills = 3 ASPIRIN EC (ECOTRIN) 81 MG TAB.EC 81 MILLIGRAM ORAL DAILY. Days = 90 Qty = 90 Refills = 3 ATORVASTATIN (LIPITOR) 40 MG TAB 40 MILLIGRAM ORAL BEDTIME. Days = 90 Qty = 90 Refills = 3 ObjectiveVS/I OLast Documented: Result Date Time B/P 168/74 03/17 1306 B/P Mean 107 03/17 1306 Pulse 66 03/17 1306 Pulse Ox 100 03/17 0830 O2 Delivery Room air 09/07 0800 Temp 36.7 03/17 800 O2 Flow Rate 2 03/16 2000 Resp 23 03/15 2201 PATIENT WEIGHT: Weight (lb): 85Weight (oz): 8.63Weight (kg): 38.555 General appearance: frail, alert, awake, oriented, no acute distressHead/Eyes: atraumatic, clear corneaENT: normal dentition, normal ear left, normal ear right, normal noseNeck: full range of motion, non-tenderCardiovascular: normal capillary refill, regular rate rhythm, normal heart sounds, BP/pulses equal bilat., no ectopyRespiratory: clear to auscultation, no distress, no tenderness, aerating wellGenitourinary: not indicatedExtremities: moves all, no edema-all extremitiesMusculoskeletal: full range of motion, normal inspection, no CVA tendernessNeuro/ANGLE DOZER OPERATOR: alert, oriented X 3Skin: dry, some skin small circumscribed red diffuse spots on bilateral lower extremities noted.Wound/incision: Location:bilateral groin sites CDI without bleeding/hematoma Discharge Instructions PCPPCP:PCP: Lori Cosby MD Discharge InstructionsAdditional Discharge Routines: None, Attending Follow-Up, Blacksmith Helper Follow-Up at 1116 at 1408 RPT #:[id number] OF REPORTDSDischarge cdliasg9406-41-67Q50:14:00G.[id number] ailable for patient xdxlRAJLBCOAGPXCPP8738-01-21T64:16:41 [facility] 2023-03-16 16:32:00 [id number] KO00pRGFVzpToWsPb/6SQ+jaDhn2S HfXj0mG6Fhh31xDTHTSbzut+5q88720-76-47H02:32:00 [facility])Cardiothoracic Surgery ProgREPORT#:[id number] REPORT STATUS: SignedREPORT INITIALIZATION DATE:03/16/23 TIME: 1632 PATIENT: KYRA HERRERA UNIT #: [id number]#: [id number] [place] [facility] [place]DOB: [birth year] AGE: 82 SEX: F ATTEND: Priscila Hoffman [facility] AUTHOR: Svaanna Hendrix PhysicREPT SERVICE DT/TIME: 03/16/23 1632* ALL edits or amendments must be made on the electronic/computer document * GeneralPost-op: day 1Status post:TAVR SubjectiveChief complaint:Patient doing well denies complaints Review of SystemsConstitutional:Denies: fever, generalized weakness. Allergy/Immun:Denies: itching, rhinorrhea. Respiratory:Denies: ARCOS (dyspnea on exertion), hemoptysis. Cardiovascular:Denies: chest pain, ARCOS (dyspnea on exertion). All systems rev neg: except as marked Objective GeneralVS/I OLast Documented: Result Date Time O2 Delivery Room air 03/16 1600 Temp 97.0 03/16 1600 B/P 176/78 03/16 1400 B/P Mean 112 03/16 1400 Pulse 68 03/16 1400 Pulse Ox 100 03/16 0800 Resp 23 03/15 2201 O2 Flow Rate 6 03/15 1242 24 hour I O ending at 0700: 03/16 0700 03/15 1900 Intake Total 537.50 325.00 Output Total Balance 537.50 325.00 Intake, IV 57.50 325.00 Intake, Oral 480 Number 2 1 Incontinent Voids Patient 39.5 kg 40.909 kg Weight Weight Bed scale Stated/Reported Measurement Method PATIENT WEIGHT: Weight (lb): 87Weight (oz): 1.32Weight (kg): 39.500 Physical ExamGeneral appearance: alert, awake, oriented, thin appearingNeck: full range of motion, non-tenderCardiovascular: BP/pulses equal bilat., regular rate rhythmRespiratory: aerating well, clear to auscultationAbdomen: soft, non-tenderExtremities: dry, moves allMusculoskeletal: full range of motionSkin: dry, intact Diagnosis, Assessment PlanFree Text A P: This is a very pleasant thin appearing 82-year-old female with past medical history of hypertension who has been experiencing increased shortness of breath over the past several months. She was seen by her physiologist and found to havesignificant aortic valve stenosis by echocardiogram. Echocardiogram revealed a mean gradient of 41 mmHg with a peak gradient of 79 mmHg. DORENE max 4 0.463 cm2. Patient had a left heart catheterization showing minimal coronary artery disease on 01/26/2023. She has had appropriate CTA scans. The patient does report symptoms of shortness of breath with exertion for the past several months The patient was present in the structural heart conference and determined to be a good candidate for TAVR Assessment/plan1. Severe aortic valve stenosis2. Hypertension Patient was present in the structural heart conference. She was determined to be a good candidate for TAVR.This was discussed with the patient and the patient's family. Patient was seen and examined by Dr. Payton risk of the procedure including stroke, , bleeding, infection, heart attack, prolonged ICU stay, pneumonia, tracheostomy etc. was discussed with the patient and the patient's family. Patient's questions were answered and patient agreed to proceed with the procedure 03/16/23Patient resting comfortable denies ckzylulzkjWHIl4Ny room airRemains sinus rhythmNo neurologic defectsBilateral groins soft no hematomaPatient to get out of bed today.Discharge planning in progressPatient seen and examined with Dr. Youssef at 1635 at 1743 RPT #:[id number] OF REPORTPRProgress rwzb0984-04-49K16:32:00G.[id number] able for patient odnfDPIUXOHCZVZFOW7354-63-79E21:35:48 [facility] 2023-03-16 14:33:00 [id number] EqQuH7HrbFkSiMfcLjjriZQhgL9/9 biidkiRNKVM/TPOFbcJVi9WVMs77015-64-94M89:33:00 [facility] ([facility])GE Consultation NoteREPORT#:[id number] REPORT STATUS: SignedDATE:03/16/23 TIME: 1433 PATIENT: KYRA HERRERA #: [id number]#: [id number] [address] [birth year] AGE: 82 SEX: F ATTEND: Priscila Hoffman [facility] AUTHOR: Marlon De Leon * ALL edits or amendments must be made on the electronic/computer document * Marlon De Leon 03/16/23 1433:History of Present IllnessHPI:Patient is an 82 year old female with a PMHx of hypertension who was experiencing worsening shortness of breath, found to have symptomatic aortic stenosis, and underwent TAVR on 03/15/23. GI consulted for melena. Per patient andnurse, she had two episodes of dark stools, one last night and one this morning.She denies any nausea, vomiting, abdominal pain, hematochezia, hematemesis, or coffee ground emesis. She denies any prior history of gi bleeding or blood transfusions. No excess nsaid use. She was started on aspirin and Plavix during this hospitalization, but denies taking any blood thinners or antiplatelet medications prior. Currently, appears stable, vitals show elevated blood pressure, heart rate ok. Labs today show hgb 8.7, hct 27.4, and mcv 88.1. Repeathgb this afternoon appears stable. History - Adult longitudinalAlcohol use: Denies EtOH useDrug use: Denies recreational drugsSmoking status for patients 13 years old or older: Never SmokerMedications:Home Medications:Medication Dose/Rte/Freq Days Qty Entered Last Max Daily Dose Reviewed NITROFURANTOIN 100 MG PO BID 03/11/23 03/15/23 MACROCRYSTAL 1054 0911 (MACRODANTIN)Strength: 100 MG CAP CEFUROXIME AXETIL 250 MG PO Q12H 03/11/23 03/15/23 (CEFTIN) 1055 0911Strength: 250 MG TAB PHYTONADIONE (VITAMIN K) 100 MCG PO ONCE 03/11/23 03/15/23Strength: 100 MCG TAB 1055 0911 CRANBERRY EXTRACT 250 MG PO UD 03/11/23 03/15/23Strength: 250 MG CAP 1056 0911 PHENAZOPYRIDINE 97.5 MG PO ASDIR 03/11/23 03/15/23 (AZO STANDARD) 1056 0911Strength: 97.5 MG TAB VIT 1 CAP PO DAILY 03/11/23 03/15/23 C/E/ZN/COPPR/LUTEIN/ZEAXAN 1056 0911 (OCUVITE LUTEIN)Strength: 60 MG-13.5 MG-15MG-2 MG-6 MG CAP NEBIVOLOL (BYSTOLIC) 5 MG PO DAILY 03/11/23 03/15/23Strength: 5 MG TAB 1056 0911 FERROUS FUMARATE 324 MG PO DAILY 03/11/23 03/15/23 (HEMOCYTE) 1057 0911Strength: 324 MG (106 MGIRON) TAB POTASSIUM GLUCONATE 99 MG PO DAILY 03/15/23 03/15/23 (POTASSIUM) 09 09Strength: 595 MG (99 MG) TAB ASPIRIN EC (ECOTRIN) 81 MG PO DAILY 90 90 03/15/23Strength: 81 MG TAB.EC 1122 ATORVASTATIN (LIPITOR) 40 MG PO BEDTIME 90 03/15/23Strength: 40 MG TAB 1122 CLOPIDOGREL (PLAVIX) 75 MG PO DAILY 90 90 03/15/23Strength: 75 MG TAB 1409 Allergies:Coded Allergies:No Known Allergies (03/11/23) Review of SystemsAdditional notes:10 point ros neg except hpi Objective Physical ExamVS/I O:Last Documented: Result Date Time O2 Delivery Room air 03/16 1600 Temp 97.0 03/16 1600 B/P 176/78 03/16 1400 B/P Mean 112 03/16 1400 Pulse 68 03/16 1400 Pulse Ox 100 03/16 0800 Resp 23 03/15 2201 O2 Flow Rate 6 03/15 1242 24 hour I O ending at 0700: 03/16 0700 03/15 1900 Intake Total 537.50 325.00 Output Total Balance 537.50 325.00 Intake, IV 57.50 325.00 Intake, Oral 480 Number 2 1 Incontinent Voids Patient 39.5 kg 40.909 kg Weight Weight Bed scale Stated/Reported Measurement Method PATIENT WEIGHT: Weight (lb): 87Weight (oz): 1.32Weight (kg): 39.500 Medications:Active Meds + DC'd Last 24 HrsSodium Chloride (SODIUM CHLORIDE) 20 ML ASDIR IV Amlodipine Besylate (NORVASC) 5 MG DAILY PO Pantoprazole Sodium (PROTONIX) 40 MG Q12HR IV Sodium Chloride (SODIUM CHLORIDE) 10 ML ASDIR PRN IV Amlodipine Besylate (NORVASC) 5 MG ONCE ONE PO (DC) Hydralazine HCl (APRESOLINE) 10 MG ONCE ONE IV (DC) Mupirocin (BACTROBAN 2% 22 GM OINTMENT) 1 APPLIC BID NASAL Aspirin (ASPIRIN) 81 MG DAILY PO Cefazolin Sodium (KEFZOL OR ANCEF) 2 GM PREOP ONCALL IV (CKD) Cefuroxime Axetil (CEFTIN) 250 MG Q12H PO Clopidogrel Bisulfate (Plavix) 75 MG DAILY PO Nebivolol (BYSTOLIC) 5 MG DAILY PO Sodium Chloride (SODIUM CHLORIDE) 20 ML ASDIR IV Magnesium Sulfate (MAGNESIUM SULFATE 2GM/SWFI 50ML) 50 ML ONCE ONE IV (DC) Potassium Chloride (POTASSIUM CHLORIDE 20MEQ TAB.ER) 40 MEQ ONCE ONE PO (DC) Potassium Chloride (POTASSIUM CHLORIDE 20MEQ TAB.ER) 40 MEQ ONCE ONE PO (DC) Atorvastatin Calcium (LIPITOR) 40 MG BEDTIME PO Acetaminophen (TYLENOL) 650 MG Q6H PRN PRN PO Nicardipine HCl (niCARdipine HCl) 25 MG TITRATE IV (CKD) Sodium Chloride (Sodium Chloride 50ML) 50 MLHydralazine HCl (APRESOLINE) 10 MG Q6H PRN PRN IV Atropine Sulfate (ATROPINE SULFATE 0.1MG/ML SYR) 0.5 MG ASDIR PRN IV Sodium Chloride (SODIUM CHLORIDE 0.9%) 1,000 ML .[id number] ONE IV (DC) Sodium Chloride (SODIUM CHLORIDE 0.9%) 500 ML ASDIR PRN IV Atropine Sulfate (ATROPINE SULFATE 0.1MG/ML SYR) 0.5 MG ASDIR PRN IV Sodium Chloride (SODIUM CHLORIDE 0.9%) 1,000 ML .Q10H ONE IV (DC) Sodium Chloride (SODIUM CHLORIDE 0.9%) 500 ML ASDIR PRN IV Fentanyl Citrate (SUBLIMAZE) 50 MCG PACU Q10MIN PRN PRN IV (DC) Fentanyl Citrate (SUBLIMAZE) 25 MCG PACU Q10MIN PRN PRN IV (DC) Hydralazine HCl (APRESOLINE) 5 MG PACU Q10MIN PRN PRN IV (DC) Hydromorphone HCl (DILAUDID) 0.5 MG PACU Q10MIN PRN PRN IV (DC) Hydromorphone HCl (DILAUDID) 0.25 MG PACU Q5MIN PRN PRN IV (DC) Labetalol HCl (LABETALOL HCL) 5 MG PACU Q10MIN PRN PRN IV (DC) Meperidine HCl (MEPERIDINE HCL/PF) 12.5 MG PACU ONCE PRN IV (DC) Morphine Sulfate (morphine SULFATE) 2 MG PACU Q10MIN PRN PRN IV (DC) Ondansetron HCl (ZOFRAN) 4 MG PACU ONCE PRN IV (DC) Sodium Chloride (SODIUM CHLORIDE 0.9%) 1,000 ML .Q24H IV (DC) Acetaminophen (TYLENOL EXTRA STRENGTH) 1,000 MG PREOP ONCALL PO (CKD) Gabapentin (NEURONTIN) 200 MG PREOP ONCALL PO (CKD) Lactated Ringer's (LACTATED RINGERS) 1,000 ML PREOP ONCALL IV Lidocaine HCl (LIDOCAINE HCL/PF) 2 ML PREOP ONCALL LOCAL Lidocaine HCl (LIDOCAINE HCL/PF) 2 ML PREOP ONCALL LOCAL Sodium Chloride (SODIUM CHLORIDE 0.9%) 500 ML PREOP ONCALL IV Sodium Chloride (SODIUM CHLORIDE 0.9%) 500 ML PREOP ONCALL IV Sodium Chloride (SODIUM CHLORIDE 0.9%) 1,000 ML PREOP ONCALL IV Sodium Chloride (SODIUM CHLORIDE) 5 ML ASDIR PRN IV Sodium Chloride (SODIUM CHLORIDE) 10 ML ASDIR PRN IV Sodium Chloride (SODIUM CHLORIDE 0.9%) 250 ML ASDIR PRN IV General appearance: alert, awakeHEENT: atraumatic, normocephalicNeck: non-tenderCardiovascular: normal heart sounds, regular rate rhythmRespiratory: no distressAbdomen: non-tender, normal bowel sounds, soft, no distentionExtremities: decreased range of motionNeuro/ANGLE DOZER OPERATOR: alert, oriented X 3Skin: dry, intact ResultsFindings/Data:Laboratory Tests 03/16/23 1330:[Embedded Image Not Available] 03/16/23 0154:[Embedded Image Not Available] 03/15/23 2112:[Embedded Image Not Available]Laboratory Tests 03/16 03/16 03/15 0154 0154 2 Chemistry Sodium (134 - 147 mEq/L) 145 Potassium (3.4 - 5.0 mEq/L) 3.0 L 3.0 L Chloride (100 - 108 mEq/L) 112 H Carbon Dioxide (21 - 33 mEq/l) 25 Anion Gap (0 - 20) 11 BUN (7 - 25 mg/dL) 16 Creatinine (0.6 - 1.3 mg/dL) 0.9 Glomerular Filtr Rate (70 - 80) 64.2 L Glucose (77 - 141 mg/dL) 81 Calcium (8.0 - 10.5 mg/dL) 8.3 Magnesium (1.6 - 2.6 mg/dL) 1.67 1.60 Laboratory Tests 03/16 03/16 1330 0154 Hematology WBC (4.5 - 11.0 x10 3/uL) 12.1 H RBC (3.54 - 5.02 x10 6/uL) 3.11 L Hgb (11.0 - 15.0 g/dL) 9.2 L 8.7 L Hct (33.0 - 45.0 %) 29.6 L 27.4 L MCV (81.0 - 99.0 fL) 88.1 MCH (27.0 - 33.0 pg) 28.0 MCHC (33.0 - 37.0 g/dL) 31.8 L RDW (11.5 - 14.5 %) 17.0 H Plt Count (150 - 400 x10 3/uL) 257 MPV (7.0 - 9.0 fL) 9.6 H Neut % (Auto) (56.0 - 77.0 %) 78.1 H Lymph % (Auto) (14.0 - 32.0 %) 9.5 L Woodson % (Auto) (4.8 - 9.0 %) 10.3 H Eos % (Auto) (0.3 - 3.7 %) 1.2 Baso % (Auto) (0.0 - 2.0 %) 0.5 Neut # (Auto) (2.0 - 7.6 x10 3/uL) 9.42 H Lymph # (Auto) (1.0 - 3.8 x10 3/uL) 1.14 Woodson # (Auto) (0.1 - 0.8 x10 3/uL) 1.24 H Eos # (Auto) (0.0 - 0.2 x10 3/uL) 0.14 Baso # (Auto) (0.0 - 0.2 x10 3/uL) 0.06 Abs Immat Gran (auto) (0.00 - 0.03 x10 3/uL) 0.05 H Add Manual Diff NO Immature Gran % (0.0 - 2.0 %) 0.4 Nucleated RBC % (0 - 0 %) 0.0 Nucleated RBCs # (Man) (0.0 - 0.1 x10 3/uL) 0.00 Radiology data:Recent Impressions:ULTRASOUND - DUP LE ART IVET 03/16 1222 Report Impression - Status: SIGNED Entered: 03/16/2023 1248 IMPRESSION:1. Evidence of flow-limiting stenosis or short segment occlusion. Scattered atherosclerotic calcified plaque is noted.Impression By: [email or web address] - Angelo Rangel M.D. Diagnosis, Assessment Plan Free Text DxA P NotesFree Text DxA P Notes:Assessment aortic stenosis, s/p TAVR anemia ? melena on DAPT Plan:- monitor h/h, transfuse as needed- monitor for further bleeding- monitor hemodynamics- ppi therapy - diet as tolerated - will continue to monitor, patient declines egd for further evaluation at this time Cristhian Gutierrez 03/19/23 1312:Attestations Physician AttestationAgree w/findings plan:Agree with the findings and plan as documented by Moises SIBLEY; at 1850 at 1312 RPT #:[id number] OF [id number]:33:00G.PDOC2 [id number] for patient [id number]:50:43 [facility] 2023-03-16 14:19:00 [id number] [id number]:19:00 [facility] ([facility])Vascular Surgery Consult NoteREPORT#:[id number] REPORT STATUS: SignedDATE:03/16/23 TIME: 1419 PATIENT: KYRA HERRERA UNIT #: [id number]#: [id number] ROOM/BED: 2203-1DOB: [birth year] AGE: 82 SEX: F ATTEND: Priscila Hoffman [facility] AUTHOR: Parag Peña MD * ALL edits or amendments must be made on the electronic/computer document * History of Present IllnessRequesting Clinician: Dr. Bentley for consult:Right superficial femoral artery ostial flapChief complaint:shortness of breathHPI: 82-year-old female with past medical history of hypertension who has been experiencing increased shortness of breath over the past several months with significant aortic valve stenosis by echocardiogram. Patient had a left heart catheterization showing minimal coronary artery disease on 01/26/2023. After completion of catheterization there was flap noted at the ostiu of the right superficial femoral artery that was not there on access images. The flap is noteflow limiting. The patient is asymptomatic. History - Adult longitudinalAlcohol use: Denies EtOH useDrug use: Denies recreational drugsSmoking status for patients 13 years old or older: Never SmokerMedications:Home Medications:Medication Dose/Rte/Freq Days Qty Entered Last Max Daily Dose Reviewed NITROFURANTOIN 100 MG PO BID 03/11/23 03/15/23 MACROCRYSTAL 1054 0911 (MACRODANTIN)Strength: 100 MG CAP CEFUROXIME AXETIL 250 MG PO Q12H 03/11/23 03/15/23 (CEFTIN) 1055 0911Strength: 250 MG TAB PHYTONADIONE (VITAMIN K) 100 MCG PO ONCE 03/11/23 03/15/23Strength: 100 MCG TAB 1055 0911 CRANBERRY EXTRACT 250 MG PO UD 03/11/23 03/15/23Strength: 250 MG CAP 1056 0911 PHENAZOPYRIDINE 97.5 MG PO ASDIR 03/11/23 03/15/23 (AZO STANDARD) 1056 0911Strength: 97.5 MG TAB VIT 1 CAP PO DAILY 03/11/23 03/15/23 C/E/ZN/COPPR/LUTEIN/ZEAXAN 1056 0911 (OCUVITE LUTEIN)Strength: 60 MG-13.5 MG-15MG-2 MG-6 MG CAP NEBIVOLOL (BYSTOLIC) 5 MG PO DAILY 03/11/23 03/15/23Strength: 5 MG TAB 1056 0911 FERROUS FUMARATE 324 MG PO DAILY 03/11/23 03/15/23 (HEMOCYTE) 1057 0911Strength: 324 MG (106 MGIRON) TAB POTASSIUM GLUCONATE 99 MG PO DAILY 03/15/23 03/15/23 (POTASSIUM) 09910Strength: 595 MG (99 MG) TAB ASPIRIN EC (ECOTRIN) 81 MG PO DAILY 03/15/23Strength: 81 MG TAB.EC 1122 ATORVASTATIN (LIPITOR) 40 MG PO BEDTIME 03/15/23Strength: 40 MG TAB 1122 CLOPIDOGREL (PLAVIX) 75 MG PO DAILY 03/15/23Strength: 75 MG TAB 1409 Current Hospital Medications:Anti-Infective Agents Sig/Ro Start time Last Medication Dose Route Stop Time Status Admin Cefazolin Sodium 2 GM PREOP ONCALL 03/16 900 CKD (KEFZOL OR ANCEF) IV 03/22 1259 Cefuroxime Axetil 250 MG Q12H 03/16 900 AC 03/16 (CEFTIN) PO 03/18 08 0920 Autonomic Drugs Sig/Ro Start time Last Medication Dose Route Stop Time Status Admin Atropine Sulfate 0.5 MG ASDIR PRN 03/15 1300 AC (ATROPINE SULFATE IV 04/14 1259 0.1MG/ML SYR) Atropine Sulfate 0.5 MG ASDIR PRN 03/15 1130 AC (ATROPINE SULFATE IV 04/14 1129 0.1MG/ML SYR) Blood Formation,Coagulation Sig/Ro Start time Last Medication Dose Route Stop Time Status Admin Clopidogrel Bisulfate 75 MG DAILY 03/16 900 AC 03/16 (Plavix) PO 04/15 0859 0921 Cardiovascular Drugs Sig/Ro Start time Last Medication Dose Route Stop Time Status Admin Amlodipine Besylate 5 MG DAILY 03/17 900 AC (NORVASC) PO 06/15 08 Amlodipine Besylate 5 MG ONCE ONE 03/16 1045 DC 03/16 (NORVASC) PO 03/16 1046 1208 Hydralazine HCl 10 MG ONCE ONE 03/16 1030 DC 03/16 (APRESOLINE) IV 03/16 1031 1042 Nebivolol 5 MG DAILY 03/16 0900 AC 03/16 (BYSTOLIC) PO 04/15 0859 0924 Atorvastatin Calcium 40 MG BEDTIME 03/15 2100 AC 03/15 (LIPITOR) PO 04/14 Nicardipine HCl 25 MG TITRATE 03/15 170 CKD 03/15 (niCARdipine HCl) IV 04/14 165 1711 Sodium Chloride 50 ML (Sodium Chloride 50ML) Hydralazine HCl 10 MG Q6H PRN PRN 03/15 1545 AC 03/16 (APRESOLINE) IV 04/14 154 0643 Hydralazine HCl 5 MG PACU Q10MIN PRN PRN 03/15 1100 DC (APRESOLINE) IV 03/15 2058 Labetalol HCl 5 MG PACU Q10MIN PRN PRN 03/15 1100 DC (LABETALOL HCL) IV 03/15 2058 Lidocaine HCl 2 ML PREOP ONCALL 03/11 1130 AC (LIDOCAINE HCL/PF) LOCAL 04/10 2359 Lidocaine HCl 2 ML PREOP ONCALL 03/11 1130 AC (LIDOCAINE HCL/PF) LOCAL 04/10 2359 Central Nervous System Agents Sig/Ro Start time Last Medication Dose Route Stop Time Status Admin Aspirin 81 MG DAILY 03/16 900 AC 03/16 (ASPIRIN) PO 04/15 0859 0919 Magnesium Sulfate 50 ML ONCE ONE 03/16 0315 DC 03/16 (MAGNESIUM SULFATE IV 03/16 05 0341 2GM/SWFI 50ML) Acetaminophen 650 MG Q6H PRN PRN 03/15 1730 AC 03/15 (TYLENOL) PO 04/14 1729 1731 Fentanyl Citrate 50 MCG PACU Q10MIN PRN PRN 03/15 1100 DC (SUBLIMAZE) IV 03/15 2058 Fentanyl Citrate 25 MCG PACU Q10MIN PRN PRN 03/15 1100 DC (SUBLIMAZE) IV 03/15 2058 Hydromorphone HCl 0.5 MG PACU Q10MIN PRN PRN 03/15 1100 DC (DILAUDID) IV 03/15 2058 Hydromorphone HCl 0.25 MG PACU Q5MIN PRN PRN 03/15 1100 DC (DILAUDID) IV 03/15 2058 Meperidine HCl 12.5 MG PACU ONCE PRN 03/15 1100 DC (MEPERIDINE HCL/PF) IV 03/15 2058 Morphine Sulfate 2 MG PACU Q10MIN PRN PRN 03/15 1100 DC (morphine SULFATE) IV 03/15 2058 Acetaminophen 1,000 MG PREOP ONCALL 03/11 113 CKD (TYLENOL EXTRA PO 04/10 2359 STRENGTH) Gabapentin 200 MG PREOP ONCALL 03/11 113 CKD (NEURONTIN) PO 04/10 2359 Electrolytic, Caloric, And Malik Sig/Ro Start time Last Medication Dose Route Stop Time Status Admin Sodium Chloride 20 ML ASDIR 03/18 0500 AC (SODIUM CHLORIDE) IV 04/17 0459 Sodium Chloride 10 ML ASDIR PRN 03/16 1215 AC (SODIUM CHLORIDE) IV 06/14 1214 Sodium Chloride 20 ML ASDIR 03/16 0900 AC (SODIUM CHLORIDE) IV 04/14 1259 Potassium Chloride 40 MEQ ONCE ONE 03/16 0315 DC 03/16 (POTASSIUM CHLORIDE PO 03/16 031 0341 20MEQ TAB.ER) Potassium Chloride 40 MEQ ONCE ONE 03/15 2215 DC 03/15 (POTASSIUM CHLORIDE PO 03/15 2216 2229 20MEQ TAB.ER) Sodium Chloride 1,000 ML .[id number] ONE 03/15 1300 DC 03/15 (SODIUM CHLORIDE IV 03/16 0219 1300 0.9%) Sodium Chloride 500 ML ASDIR PRN 03/15 1300 AC (SODIUM CHLORIDE IV 04/14 1259 0.9%) Sodium Chloride 1,000 ML .Q10H ONE 03/15 113 DC (SODIUM CHLORIDE IV 03/15 2129 0.9%) Sodium Chloride 500 ML ASDIR PRN 03/15 1130 AC (SODIUM CHLORIDE IV 04/14 1129 0.9%) Sodium Chloride 1,000 ML .Q24H 03/15 1100 DC (SODIUM CHLORIDE IV 03/15 2058 0.9%) Lactated Ringer's 1,000 ML PREOP ONCALL 03/11 1130 AC (LACTATED RINGERS) IV 04/10 2359 Sodium Chloride 500 ML PREOP ONCALL 03/11 1130 AC (SODIUM CHLORIDE IV 10/01 2359 0.9%) Sodium Chloride 500 ML PREOP ONCALL 03/11 1130 AC (SODIUM CHLORIDE IV 04/10 2359 0.9%) Sodium Chloride 1,000 ML PREOP ONCALL 03/11 1130 AC (SODIUM CHLORIDE IV 04/10 2359 0.9%) Sodium Chloride 5 ML ASDIR PRN 03/11 1130 AC (SODIUM CHLORIDE) IV 04/10 1129 Sodium Chloride 10 ML ASDIR PRN 03/11 1130 AC (SODIUM CHLORIDE) IV 04/10 1129 Sodium Chloride 250 ML ASDIR PRN 03/11 1130 AC (SODIUM CHLORIDE IV 04/10 1129 0.9%) Gastrointestinal Drugs Sig/Ro Start time Last Medication Dose Route Stop Time Status Admin Pantoprazole Sodium 40 MG Q12HR 03/16 1215 AC 03/16 (PROTONIX) IV 06/14 2059 1325 Ondansetron HCl 4 MG PACU ONCE PRN 03/15 1100 DC (ZOFRAN) IV 03/15 2058 Skin And Mucous Membrane Agent Sig/Ro Start time Last Medication Dose Route Stop Time Status Admin Mupirocin 1 APPLIC BID 03/16 0909 AC 03/16 (BACTROBAN 2% 22 GM NASAL 03/20 210 0936 OINTMENT) Review of systems:Constitutional: Negative for fever, chills, weight loss Skin: Negative for rash, negative for swelling negative for any laceration HEENT: Denies hearing loss denies any ear ringing denies any earache denies any sore throat denies any throat pain Respiratory: Positive for dyspnea on exertionCardiac: Denies chest pain, denies palpitations denies orthopnea GI: Denies constipation denies diarrhea : Denies hematuria denies dysuria denies flank pain Musculoskeletal: Denies any joint pain denies any joint swelling denies any myalgia Hematologic: Denies any easy bruising, denies any bleeding Endocrine: denies any night sweats, denies polyuria polydipsia Neurologic: Denies any lightheaded denies any headache denies any confusion denies any dizziness Allergies:Coded Allergies:No Known Allergies (03/11/23) ObjectiveVS/I O:Last Documented: Result Date Time O2 Delivery Room air 03/16 08 Temp 97.3 03/16 08 Pulse Ox 100 03/16 08 B/P 153/70 03/16 0800 B/P Mean 101 09/06 0800 Pulse 67 03/16 0800 Resp 23 03/15 2201 O2 Flow Rate 6 03/15 1242 24 hour I O ending at 0700: 03/16 0700 03/15 1900 Intake Total 537.50 325.00 Output Total Balance 537.50 325.00 Intake, IV 57.50 325.00 Intake, Oral 480 Number 2 1 Incontinent Voids Patient 39.5 kg 40.909 kg Weight Weight Bed scale Stated/Reported Measurement Method PATIENT WEIGHT: Weight (lb): 87Weight (oz): 1.32Weight (kg): 39.500 Physical Exam:General: Thin appearing elderly womanHEENT: conjunctiva clear, extraocular movement intact, PER, sclera anicteric. normal dentitionNeck: no, JVD, trachea midline, no, lymphadenopathy, neck supple, normal ROM. Respiratory: symmetrical chest rise, no distress. Cardiovascular: regular rate and rhythmAbdomen: Soft, non tender. No rebound. No guarding Extremities: dry, moves all. Musculoskeletal: no CVA tenderness, no muscle spasm no edemaSkin: warm, dry, no, lesions, rash. Neurologic: Alert and oriented x3. Psychiatric: affect and demeanor normal Findings/Data:Laboratory Tests 03/16 03/16 03/15 0154 0154 2112 Chemistry Sodium (134 - 147 mEq/L) 145 Potassium (3.4 - 5.0 mEq/L) 3.0 L 3.0 L Chloride (100 - 108 mEq/L) 112 H Carbon Dioxide (21 - 33 mEq/l) 25 Anion Gap (0 - 20) 11 BUN (7 - 25 mg/dL) 16 Creatinine (0.6 - 1.3 mg/dL) 0.9 Glomerular Filtr Rate (70 - 80) 64.2 L Glucose (77 - 141 mg/dL) 81 Calcium (8.0 - 10.5 mg/dL) 8.3 Magnesium (1.6 - 2.6 mg/dL) 1.67 1.60 Laboratory Tests 03/16 03/16 1330 0154 Hematology WBC (4.5 - 11.0 x10 3/uL) 12.1 H RBC (3.54 - 5.02 x10 6/uL) 3.11 L Hgb (11.0 - 15.0 g/dL) 9.2 L 8.7 L Hct (33.0 - 45.0 %) 29.6 L 27.4 L MCV (81.0 - 99.0 fL) 88.1 MCH (27.0 - 33.0 pg) 28.0 MCHC (33.0 - 37.0 g/dL) 31.8 L RDW (11.5 - 14.5 %) 17.0 H Plt Count (150 - 400 x10 3/uL) 257 MPV (7.0 - 9.0 fL) 9.6 H Neut % (Auto) (56.0 - 77.0 %) 78.1 H Lymph % (Auto) (14.0 - 32.0 %) 9.5 L Woodson % (Auto) (4.8 - 9.0 %) 10.3 H Eos % (Auto) (0.3 - 3.7 %) 1.2 Baso % (Auto) (0.0 - 2.0 %) 0.5 Neut # (Auto) (2.0 - 7.6 x10 3/uL) 9.42 H Lymph # (Auto) (1.0 - 3.8 x10 3/uL) 1.14 Woodson # (Auto) (0.1 - 0.8 x10 3/uL) 1.24 H Eos # (Auto) (0.0 - 0.2 x10 3/uL) 0.14 Baso # (Auto) (0.0 - 0.2 x10 3/uL) 0.06 Abs Immat Gran (auto) (0.00 - 0.03 x10 3/uL) 0.05 H Add Manual Diff NO Immature Gran % (0.0 - 2.0 %) 0.4 Nucleated RBC % (0 - 0 %) 0.0 Nucleated RBCs # (Man) (0.0 - 0.1 x10 3/uL) 0.00 Radiology data:Recent Impressions:ULTRASOUND - DUP LE ART IVET 03/16 1222 Report Impression - Status: SIGNED Entered: 03/16/2023 5354 IMPRESSION:1. Evidence of flow-limiting stenosis or short segment occlusion. Scattered atherosclerotic calcified plaque is noted.Impression By: [email or web address] - Angelo Rangel M.D. I reviewed images above. No evidence of flow lmiting stenosis or flap on those images. Diagnosis, Assessment PlanFree Text A P:Patient has a ostial right SFA flap that is not flow limiting. Can follow up as outpatient for surveillance with imaging. It will likely heal on its own with low risk of future stenosis. Thank you for the consult. at 1150 RPT #:[id number] OF [id number]:19:00G.PDOC2 [id number] for patient bqqlNOKKNLQZZMIWAU4706-79-88Z44:50:20 [facility] 2023-03-16 13:09:00 [id number] mdXgpVsWEz+ebzaBds+V9szJeDo3w KVu9MHPxCgZEkP5IouH1tC2+[id number]:09:44928 6-0048 [place] [address] PATIENT NAME: KYRA HERRERA ADMIT DATE: 03/15/23ACCOUNT NO: [id number] ROOM NO: [facility] [place] AGE: 82 REPORT TYPE: eECHOCARDIOGRAM REPORT SEX: F ADMITTING PHYSICIAN:Nicholas Sandra MD ATTENDING PHYSICIAN:Nicholas Sandra MD *[place], [place] [address]Phone: Dcc: [phone] Limited Transthoracic Echocardiogram Patient: Alex Herreraudy Date: 03/15/2023 BP: Location: COCCLURN: [id number] : 1940 Age: 82 Height: 62 in / 157.5 cmAccession#: [id number] Gender: F Weight: 89.8 lb / 40.8 kgBMI/BSA: 16.5 kg/m 2 / 1.32 m 2 *Ordering Physician: * Nicholas Sandra *Interpreting Physician: * Priscila Hoffman MD*Insurance Billing Clerk: * Marie Smith [facility] Indications: TAVR. Study data: Transthoracic echocardiogram, limited study. Procedure:Transthoracic echocardiography was performed. Images were obtained usinga [employer] cardiac ultrasound machine. Image quality was good. Limited 2D andlimited spectral Doppler. Location: Catheterization laboratory. Findings Left ventricle: The cavity size is normal. Systolic function is normal.Right ventricle: The cavity size is normal. Systolic function isnormal.Left atrium: The atrium is at the upper limits of normal in size.Right atrium: The atrium is normal in size.Aortic valve:PATIENT NAME: KYRA HERRERA Pre TAVR: The LVOT diameter is 1.9 cm. The peak gradient is 77.7 mmHg.The mean gradient is 42.9 mmHg. The LVOT VTI is 23.1 cm. The AV VTI is94 cm. The aortic valve area is 0.6 cm 2. The peak jet velocity is 4.4m/sec. There is mild aortic regurgitation. There is severe aorticstenosis.Post TAVR: There is a [place] SEAN 3, 23 mm transcatheter valve thatis well seated in the aortic valve position. The LVOT diameter is 2 cm.The peak aortic gradient is 7.3 mmHg. The mean aortic gradient is 3.9mmHg. The LVOT VTI is 20.3 cm. The AV VTI is 27.3 cm. The aortic valvearea is 2 cm 2. The peak jet velocity is 1.4 m/sec. There is noperivalular leak.Mitral valve: The annulus is mildly calcified. There is mildregurgitation.Tricuspid valve: There is mild regurgitation.Pulmonic valve: There is mild regurgitation.Pericardium: There is no pericardial effusion. Measurements Left ventricle Value 02/22/2023 Ref ADILENE, LAX 4.2 cm 4.4 3.8 - 5.2 ESD, LAX 2.9 cm 3.0 2.2 - 3.5 ESD/bsa, 2.2 cm/m 2 2.2 1.3 LAX - 2.1 FS, LAX 14 % 31 27 - 45 ESD/bsa 5.6 cm/m 2 4.6 ---- major ax, A4C ADILENE/bsa 5.6 cm/m 2 4.6 ---- minor ax, A4C ADILENE major 8.1 cm 7.7 ---- ax, A2C ADILENE/bsa 6.1 cm/m 2 5.5 ---- major ax, A2C PW, ED 1.1 cm 1.0 0.6 - 0.9 IVS/PW, ED 1.1 1.14 ---- EF 29 % 58 54 - 74 LVOT Value 02/22/2023 Ref Diam, S 2.01 cm 1.44 ---- Area 3.2 cm 2 1.6 ---- Peak antony, 0.79 m/sec 1.26 ----PATIENT NAME: KYRA HERRERA S Mean antony, 0.61 m/sec 1.11 ---- S VTI, S 17.4 cm 22.8 ---- Peak grad, 3 mm Hg 6 ---- S Mean grad, 2 mm Hg 5 ---- S SV 55 ml 37 ---- Qs 9.02 L/min 5.99 ---- Qs/bsa 6.8 L/(min-m 2) 4.3 ---- SV/bsa 42 ml/m 2 27 ---- Ventricular septum Value 02/22/2023 Ref IVS, ED 1.2 cm 1.1 0.6 - 0.9 Right ventricle Value 02/22/2023 Ref TAPSE, MM 2.5 cm 1.5 1.7 - 3.1 Left atrium Value 02/22/2023 Ref AP dim, ES 3.32 cm 3.72 2.70 - 3.80 Vol/bsa, 33 ml/m 2 39 11 - ES, 1-p 40 A4C Vol/bsa, 33 ml/m 2 42 16 - ES, A/L 34 Aortic valve Value 02/22/2023 Ref Peak v, S 1.35 m/sec 4.45 ---- Mean v, S 0.93 m/sec 3.13 ---- VTI, S 27.3 cm 89.4 ---- Mean grad, 3.9 mm Hg 41.8 ---- S Peak grad, 7.3 mm Hg 79.2 ---- S LVOT/AV, 0.64 0.26 ---- VTI ratio DORENE, VTI 2.15 cm 2 0.43 ---- LVOT/AV, 0.59 0.28 ---- Vpeak ratio DORENE, Vmax 2.01 cm 2 0.46 ---- Pulmonic valve Value 02/22/2023 Ref DE v, ED 1.63 m/sec 1.62 ---- DE grad, 11 mm Hg 10 ---- ED PATIENT NAME: KYRA HERRERA Aortic root Value 02/22/2023 Ref Root diam 3.5 cm 2.5 <3.6 Conclusions Summary: 1. Left ventricle: The cavity size is normal. Systolic function is normal.2. Mitral valve: The annulus is mildly calcified. Prepared and electronically signed by Priscila Hoffman MD03/16/2023 13:08 at 1309 PATIENT NAME: KYRA HERRERA :09:0 [id number] for patient [id number]:09:33 [facility] 2023-03-16 13:07:00 [id number] [address] [id number] PATIENT NAME: KYRA HERRERA ADMIT DATE: 03/15/23ACCOUNT NO: [id number] ROOM NO: G.2203 AGE: 82 REPORT TYPE: eECHOCARDIOGRAM REPORT SEX: F ADMITTING PHYSICIAN:Nicholas Sandra MD ATTENDING PHYSICIAN:Nicholas Sandra MD *[place], [place] [address]Phone: Nyf: [phone] Transthoracic Echocardiogram Patient: Alex Herreraudy Date: 03/16/2023 BP: 149 / 69 Location: [place]: [id number] : 1940 Age: 82 Height: 62 in / 157.5 cmAccession#: [id number] Gender: F Weight: 89.8 lb / 40.8 kgBMI/BSA: 16.5 kg/m 2 / 1.36 m 2 *Ordering Physician: * Tamela Patrick NP *Interpreting Physician: * Priscila Hoffman MD*Insurance Billing Clerk: * Ledy Reich Indications: POST TAVR. Study data: Transthoracic echocardiogram. Procedure: Transthoracicechocardiography was performed. Image quality was adequate. [id number], complete spectral Doppler, and color Doppler. Location: Bedside.Patient status: Inpatient. Patient room number: 2207. Study status:DEJAH. Findings Left ventricle: The cavity size is normal. Wall thickness is mildlyincreased. Systolic function is normal. The estimated ejection fractionis 55-60%. Wall motion is normal; there are no regional wall motionabnormalities. Doppler parameters are consistent with abnormal leftventricular relaxation (grade 1 diastolic dysfunction).PATIENT NAME: KYRA HERRERA Right ventricle: The cavity size is normal. Systolic function is lownormal. TAPSE 1.5 cmLeft atrium: The atrium is mildly dilated.Right atrium: The atrium is normal in size.Aorta: Aortic root: The aortic root is normal in size.Aortic valve: There is a bioprosthetic valve.Post TAVR: There is a [place] SEAN 3, 23 mm transcatheter valve thatis well seated in the aortic valve position. The LVOT diameter is 2 cm.The peak aortic gradient is 11.5 mmHg. The mean aortic gradient is 5.5mmHg. The LVOT VTI is 30.2 cm. The AV VTI is 37.1 cm. The aortic valvearea is 2.6 cm 2. The peak jet velocity is 1.7 m/sec. There is noperivalvular leak noted. There is no evidence of stenosis. There isno significant regurgitation.Mitral valve: The valve is structurally normal. There is noevidence of stenosis. There is mild regurgitation.Tricuspid valve: The valve is structurally normal. RVSP ijwwkwxvmw95.00 mmHg. There is trivial regurgitation.Pulmonic valve: The valve is structurally normal. There is mildregurgitation.Pericardium: There is no pericardial effusion.Pulmonary arteries:Main pulmonary artery: The artery is of normal size.Systemic veins:Inferior vena cava: The vessel is normal in size. Measurements Left ventricle Value 02/22/2023 Ref ADILENE, LAX 4.5 cm 4.4 3.8 - 5.2 ESD, LAX 3.1 cm 3.0 2.2 - 3.5 ESD/bsa, 2.3 cm/m 2 2.2 1.3 LAX - 2.1 FS, LAX 30 % 31 27 - 45 ESD/bsa 4.3 cm/m 2 4.6 ---- major ax, A4C ADILENE/bsa 4.3 cm/m 2 4.6 ---- minor ax, A4C ADILENE major 6.3 cm 7.7 ---- ax, A2C ADILENE/bsa 4.6 cm/m 2 5.5 ---- major ax, A2C PW, ED 1.2 cm 1.0 0.6 - 0.9PATIENT NAME: KYRA HERRERA IVS/PW, ED 1.05 1.14 ---- EF 57 % 58 54 - 74 E', lat 5.7 cm/sec 4.4 >=10 zana, TDI .0 E/e', lat 16 17 ---- zana, TDI E', med 3.8 cm/sec 3.8 >=7. zana, TDI 0 E/e', med 24 20 ---- zana, TDI E', avg, 4.8 cm/sec 4.1 ---- TDI E/e', avg, 20 18 <=14 TDI LVOT Value 02/22/2023 Ref Diam, S 2.02 cm 1.44 ---- Area 3.2 cm 2 1.6 ---- Peak antony, S 1.45 m/sec 1.26 ---- Mean antony, S 0.84 m/sec 1.11 ---- VTI, S 30.2 cm 22.8 ---- Peak grad, 8 mm Hg 6 ---- S Mean grad, 3 mm Hg 5 ---- S SV 97 ml 37 ---- Qs 6.63 L/min 5.99 ---- Qs/bsa 4.9 L/(min-m 2) 4.3 ---- SV/bsa 71 ml/m 2 27 ---- Ventricular septum Value 02/22/2023 Ref IVS, ED 1.3 cm 1.1 0.6 - 0.9 Right ventricle Value 02/22/2023 Ref ADILENE, LAX 2.9 cm 2.4 ---- Pressure, S 20 mm Hg 30 ---- RVOT Value 02/22/2023 Ref Peak v, S 0.75 m/sec ---- Peak grad, 2 mm Hg ---- S Left atrium Value 02/22/2023 Ref Vol/bsa, 29 ml/m 2 39 11 - ES, 1-p A4C 40 Vol, ES, 46 ml 64 ---- 2-p Vol/bsa, 34 ml/m 2 46 16 - ES, 2-p 34 Vol/bsa, 31 ml/m 2 42 16 - ES, A/L 34PATIENT NAME: KYRA HERRERA AP dim, ES 3.5 cm 2.7 MM - 3.8 LA/Ao root 1.11 ---- ratio, MM Aortic valve Value 02/22/2023 Ref Leaflet 1.51 cm ---- sep, MM Peak v, S 1.7 m/sec 4.45 ---- Mean v, S 1.09 m/sec 3.13 ---- VTI, S 37.1 cm 89.4 ---- Mean grad, 5.5 mm Hg 41.8 ---- S Peak grad, 11.5 mm Hg 79.2 ---- S LVOT/AV, 0.82 0.26 ---- VTI ratio DORENE, VTI 2.61 cm 2 0.43 ---- LVOT/AV, 0.85 0.28 ---- Vpeak ratio DORENE, Vmax 2.73 cm 2 0.46 ---- Mitral valve Value 02/22/2023 Ref E-septal 0.7 cm ---- separation E-F slope 0.06 m/sec ---- Peak E 0.05 m/sec 0.75 ---- Peak A 1.46 m/sec 1.23 ---- Decel time 177 ms 329 ---- PHT 51 ms 100 ---- Peak E/A 0.64 0.62 ---- ratio MVA, PHT 4.3 cm 2 2.2 ---- Pulmonic valve Value 02/22/2023 Ref DE v, ED 0.69 m/sec 1.62 ---- Tricuspid valve Value 02/22/2023 Ref TR peak v 1.6 m/sec 2 <=2. 8 Peak RV-RA 10 mm Hg 16 ---- grad, S Aortic root Value 02/22/2023 Ref Root diam, 3.10 cm ---- ED MM Pulmonary artery Value 02/22/2023 Ref Pressure, S 16.9 mm Hg 20.0 ---- Systemic veins Value 02/22/2023 Ref Estimated 10 mm Hg 10 ---- CVPPATIENT NAME: HERRERAKYRA Conclusions Summary: 1. Left ventricle: The cavity size is normal. Wall thickness is mildly increased. Systolic function is normal. The estimated ejection fraction is 55-60%. Wall motion is normal; there are no regional wall motion abnormalities. Doppler parameters are consistent with abnormal left ventricular relaxation (grade 1 diastolic dysfunction).2. Right ventricle: The RV pressure during systole by Doppler is 20 mm Hg.3. Left atrium: The atrium is mildly dilated.4. Aortic valve: There is a bioprosthetic valve. There is a [place] SEAN 3, 23 mm transcatheter valve that is well seated in the aortic valve position. There is no perivalvular leak noted. The peak systolic velocity is 1.7 m/sec. The mean systolic gradient is 5.5 mm Hg. The valve area by the velocity-time integral method is 2.61 cm 2. Prepared and electronically signed by Priscila Hoffman MD03/16/2023 13:07 at 1307 PATIENT NAME: KYRA HERRERA :07:0 0G.[id number] for patient ztjfOGVWDWEBVHWTCM8608-06-59R37:08:13 [facility] 2023-03-16 12:19:00 [id number] Q+WAkSfcWHa/OtyM+psdbHTt8wXF1 8cQ3wSPH222JiYLadVMIni2lNo30394-67-09N66:19:26308 6-[address] [place] [address] PATIENT NAME: KYRA HERRERA ADMIT DATE: 03/15/23ACCOUNT NO: [id number] ROOM NO: G.2203 AGE: 82 REPORT TYPE: eELECTROCARDIOGRAM REPORT SEX: F ADMITTING PHYSICIAN:Nicholas Sandra MD ATTENDING PHYSICIAN:Nicholas Sandra MD Order:[id number] Reason : S/P TAVR Test Date/Time Stamp:TueMar 16 2023 12:19:03Blood Pressure : / mmHGVent. Rate : 073 BPM Atrial Rate : 073 BPM P-R Int : 198 ms QRS Dur : 114 ms QT Int : 442 ms P-R-T Axes : 003 119 -44 degrees QTc Int : 486 ms Normal sinus rhythmLeft posterior fascicular blockSeptal infarct (cited on or before 16-MAR-2023)T wave abnormality, consider inferior ischemiaAbnormal ECGWhen compared with ECG of 16-MAR-2023 03:36,No changesConfirmed by MD FIGUEROA GERARD ([id number]) on 03/16/2023 5:04:56 PM Referred By: Nicholas Sandra Confirmed by:JAMIE FIGUEROA MD at 1704 PATIENT NAME: KYRA HERRERA .[id number] AVAvailable for patient fjhnATIDUBVSTAJKAE6246-99-15D84:05:23 [facility] 2023-03-16 10:11:00 [id number] 2jhiPeXfLhW9KJ09ofOFYNsdm6vR6 lLv+s03dFkZn9rYu03oO1QXI5fQ0622-72-76Y88:11:00 [facility] Progress NoteREPORT#:[id number] REPORT STATUS: SignedDATE:03/16/23 TIME: 1011 PATIENT: KYRA HERRERA UNIT #: [id number]#: [id number] [address] AGE: 82 SEX: F ATTEND: Prisicla Hoffman [facility] AUTHOR: Ronel Givens AGACNP * ALL edits or amendments must be made on the electronic/computer document * SubjectiveComments:Hypertensive. Objective GeneralVS/I O:24 hour I O ending at 0700: 03/16 0700 09/05 1900 Intake Total 537.50 325.00 Output Total Balance 537.50 325.00 Intake, IV 57.50 325.00 Intake, Oral 480 Number 2 1 Incontinent Voids Patient 39.5 kg 40.909 kg Weight Weight Bed scale Stated/Reported Measurement MethodVital Signs Date Temp Pulse Resp B/P B/P Mean Pulse Ox FiO2 03/15-03/16 35.6-36.8 55-77 13-32 107-197/41-83 65-127 88-100 PATIENT WEIGHT: Weight (lb): 87Weight (oz): 1.32Weight (kg): 39.500 Medications:Active Meds + DC'd Last 24 HrsCefazolin Sodium (KEFZOL OR ANCEF) 2 GM PREOP ONCALL IV (CAN) Sodium Chloride (SODIUM CHLORIDE) 20 ML ASDIR IV Mupirocin (BACTROBAN 2% 22 GM OINTMENT) 1 APPLIC BID NASAL Aspirin (ASPIRIN) 81 MG DAILY PO Cefazolin Sodium (KEFZOL OR ANCEF) 2 GM PREOP ONCALL IV (CKD) Cefuroxime Axetil (CEFTIN) 250 MG Q12H PO Clopidogrel Bisulfate (Plavix) 75 MG DAILY PO (CAN) Clopidogrel Bisulfate (Plavix) 75 MG DAILY PO Nebivolol (BYSTOLIC) 5 MG DAILY PO Sodium Chloride (SODIUM CHLORIDE) 20 ML ASDIR IV Ticagrelor (BRILINTA) 90 MG BID PO (CAN) Magnesium Sulfate (MAGNESIUM SULFATE 2GM/SWFI 50ML) 50 ML ONCE ONE IV (DC) Potassium Chloride (POTASSIUM CHLORIDE 20MEQ TAB.ER) 40 MEQ ONCE ONE PO (DC) Potassium Chloride (POTASSIUM CHLORIDE 20MEQ TAB.ER) 40 MEQ ONCE ONE PO (DC) Atorvastatin Calcium (LIPITOR) 40 MG BEDTIME PO Acetaminophen (TYLENOL) 650 MG Q6H PRN PRN PO Nicardipine HCl (niCARdipine HCl) 25 MG TITRATE IV (CKD) Sodium Chloride (Sodium Chloride 50ML) 50 MLHydralazine HCl (APRESOLINE) 10 MG Q6H PRN PRN IV Potassium Chloride (POTASSIUM CHLORIDE 20MEQ TAB.ER) 20 MEQ ONCE ONE PO (DC) Atropine Sulfate (ATROPINE SULFATE 0.1MG/ML SYR) 0.5 MG ASDIR PRN IV Sodium Chloride (SODIUM CHLORIDE 0.9%) 1,000 ML .B24Q13R ONE IV (DC) Sodium Chloride (SODIUM CHLORIDE 0.9%) 500 ML ASDIR PRN IV Hydralazine HCl (APRESOLINE) 0 .STK-MED ONE .ROUTE (DC) Heparin Sodium (HEPARIN SODIUM) 0 .STK-MED ONE .ROUTE (DC) Atropine Sulfate (ATROPINE SULFATE 0.1MG/ML SYR) 0.5 MG ASDIR PRN IV Sodium Chloride (SODIUM CHLORIDE 0.9%) 1,000 ML .Q10H ONE IV (DC) Sodium Chloride (SODIUM CHLORIDE 0.9%) 500 ML ASDIR PRN IV Protamine Sulfate (PROTAMINE SULFATE) 0 .STK-MED ONE IV (DC) Fentanyl Citrate (SUBLIMAZE) 50 MCG PACU Q10MIN PRN PRN IV (DC) Fentanyl Citrate (SUBLIMAZE) 25 MCG PACU Q10MIN PRN PRN IV (DC) Hydralazine HCl (APRESOLINE) 5 MG PACU Q10MIN PRN PRN IV (DC) Hydromorphone HCl (DILAUDID) 0.5 MG PACU Q10MIN PRN PRN IV (DC) Hydromorphone HCl (DILAUDID) 0.25 MG PACU Q5MIN PRN PRN IV (DC) Labetalol HCl (LABETALOL HCL) 5 MG PACU Q10MIN PRN PRN IV (DC) Meperidine HCl (MEPERIDINE HCL/PF) 12.5 MG PACU ONCE PRN IV (DC) Morphine Sulfate (morphine SULFATE) 2 MG PACU Q10MIN PRN PRN IV (DC) Ondansetron HCl (ZOFRAN) 4 MG PACU ONCE PRN IV (DC) Sodium Chloride (SODIUM CHLORIDE 0.9%) 1,000 ML .Q24H IV (DC) Dexmedetomidine HCl (PRECEDEX) 0 .STK-MED ONE IV (DC) Norepinephrine Bitartrate (LEVOPHED BITARTATE) 0 .STK-MED ONE IV (DC) Sodium Chloride (SODIUM CHLORIDE 0.9%) 250 ML .STK-MED ONE IV (DC) Sodium Chloride (SODIUM CHLORIDE 0.9%) 100 ML .STK-MED ONE IV (DC) Acetaminophen (TYLENOL EXTRA STRENGTH) 1,000 MG PREOP ONCALL PO (CKD) Gabapentin (NEURONTIN) 200 MG PREOP ONCALL PO (CKD) Lactated Ringer's (LACTATED RINGERS) 1,000 ML PREOP ONCALL IV Lidocaine HCl (LIDOCAINE HCL/PF) 2 ML PREOP ONCALL LOCAL Lidocaine HCl (LIDOCAINE HCL/PF) 2 ML PREOP ONCALL LOCAL Sodium Chloride (SODIUM CHLORIDE 0.9%) 500 ML PREOP ONCALL IV Sodium Chloride (SODIUM CHLORIDE 0.9%) 500 ML PREOP ONCALL IV Sodium Chloride (SODIUM CHLORIDE 0.9%) 1,000 ML PREOP ONCALL IV Sodium Chloride (SODIUM CHLORIDE) 5 ML ASDIR PRN IV Sodium Chloride (SODIUM CHLORIDE) 10 ML ASDIR PRN IV Sodium Chloride (SODIUM CHLORIDE 0.9%) 250 ML ASDIR PRN IV Status post:TAVR Physical ExamGeneral appearance: frail, alert, awakeNeck: non-tender, no JVDCardiovascular: CV assessment: regular rate and rhythmRespiratory: clear to auscultation, no distressAbdomen: soft, non-tender, normal bowel sounds, no distentionGenitourinary: no flank pain, no urinary catheterUpper extremity: UE assessment: normal temperature, 2+ peripheral pulsesLower extremity: Left groin site: intact, no bleeding, no bruit, no drainage Right groin site: intact, no bleeding, no bruit, no drainageMusculoskeletal: normal inspectionNeuro/ANGLE DOZER OPERATOR: alert, normal speechSkin: lesion, poor skin turgor, rash (generalized rash)Psychiatry: anxious ResultsFindings/Data:Laboratory Tests 03/16 03/16 03/15 9914 [id number] 1962 Chemistry Sodium (134 - 147 mEq/L) 145 Potassium (3.4 - 5.0 mEq/L) 3.0 L 3.0 L Chloride (100 - 108 mEq/L) 112 H Carbon Dioxide (21 - 33 mEq/l) 25 Anion Gap (0 - 20) 11 BUN (7 - 25 mg/dL) 16 Creatinine (0.6 - 1.3 mg/dL) 0.9 Glomerular Filtr Rate (70 - 80) 64.2 L Glucose (77 - 141 mg/dL) 81 Calcium (8.0 - 10.5 mg/dL) 8.3 Magnesium (1.6 - 2.6 mg/dL) 1.67 1.60 Laboratory Tests 03/15 03/15 03/15 1143 1117 1057 Coagulation Activated Coag Time (74 - 137 SEC) 257 H 263 H 317 H Laboratory Tests 03/16 154 Hematology WBC (4.5 - 11.0 x10 3/uL) 12.1 H RBC (3.54 - 5.02 x10 6/uL) 3.11 L Hgb (11.0 - 15.0 g/dL) 8.7 L Hct (33.0 - 45.0 %) 27.4 L MCV (81.0 - 99.0 fL) 88.1 MCH (27.0 - 33.0 pg) 28.0 MCHC (33.0 - 37.0 g/dL) 31.8 L RDW (11.5 - 14.5 %) 17.0 H Plt Count (150 - 400 x10 3/uL) 257 MPV (7.0 - 9.0 fL) 9.6 H Neut % (Auto) (56.0 - 77.0 %) 78.1 H Lymph % (Auto) (14.0 - 32.0 %) 9.5 L Woodson % (Auto) (4.8 - 9.0 %) 10.3 H Eos % (Auto) (0.3 - 3.7 %) 1.2 Baso % (Auto) (0.0 - 2.0 %) 0.5 Neut # (Auto) (2.0 - 7.6 x10 3/uL) 9.42 H Lymph # (Auto) (1.0 - 3.8 x10 3/uL) 1.14 Woodson # (Auto) (0.1 - 0.8 x10 3/uL) 1.24 H Eos # (Auto) (0.0 - 0.2 x10 3/uL) 0.14 Baso # (Auto) (0.0 - 0.2 x10 3/uL) 0.06 Abs Immat Gran (auto) (0.00 - 0.03 x10 3/uL) 0.05 H Add Manual Diff NO Immature Gran % (0.0 - 2.0 %) 0.4 Nucleated RBC % (0 - 0 %) 0.0 Nucleated RBCs # (Man) (0.0 - 0.1 x10 3/uL) 0.00 Laboratory Tests 03/16 2112 Chemistry Magnesium (1.6 - 2.6 mg/dL) 1.67 1.60 Results: labs reviewed, vital signs reviewed, rhythm personally rev'dEKG Interpretation: normal sinus rhythm (LPFB)Telemetry Interpretation:sinus rhythm. Diagnosis, Assessment PlanPlan discussed with: patient, collaborating MD, nurse Free Text DxA P NotesFree Text DxA P Notes:82 YO female with MHx of Hypertension, symptomatic aortic valve stenosis. She underwent successful transaortic valve replacement. Bilateral groin access stable. Post TAVR EKG reviewed. 1. Symptomatic aortic valve stenosis s/p TAVR* Bilateral groin access stable* continue Plavix, ASA, statin* repeat echo and EKG 2. Hypertension* hypertensive* give hydralazine 10 mg IV push x1* Start amlodipine 5 mg daily, first dose now* Continue Bystolic 5 mg daily* Monitor blood pressure closely 3. Postoperative drop in hemoglobin* Bilateral groin access stable, no bleeding, no hematoma* Repeat H H at noon 4. SFA haziness* Vascular surgery consultation* Lower extremity arterial study Hold discharge, keep for one more day. MDM by Dr. Hoffman at 1247 at 1112 RPT #:[id number] OF REPORTPRProgress [id number]:11:00G.[id number] able for patient wabeQIIVIZYAQUEXAM9860-77-78N21:47:49 [facility] 2023-03-16 09:51:00 [id number] na7TSJYBJZtK+8vuh+GxUmfidhjth NSRxld2UW7CZuq0EUo+MCiCpBfu2750-65-77Y67:51:00 [facility] ([facility])Structural Heart Post ProgressREPORT#:[id number] REPORT STATUS: SignedDATE:03/16/23 TIME: 950 PATIENT: KYRA HERRERA UNIT #: [id number]#: [id number] [address] AGE: 82 SEX: F ATTEND: Nicholas Sandra [facility] AUTHOR: Miguelangel Trujillo NP * ALL edits or amendments must be made on the electronic/computer document * History of Present Illness HPIProcedure date: 03/15/23TAVR procedure: Valve type: [place] Sean S3HPI:This is a 82 year old female that presented for elective transcatheter aortic valve replacement and underwent successful implant of a 23 mm Sean S3 Ultra valve. The patient was monitored overnight and did well. The labs and vital signs reviewed bilateral groins CDI without bleeding or hematoma. HistoryAlcohol use: Denies EtOH useDrug use: Denies recreational drugsSmoking status for patients 13 years old or older: Never Smoker Medication/Allergy-Vaccine HxAllergies:Coded Allergies:No Known Allergies (03/11/23) Objective Vital SignsNursing documented vitals:Last Documented: Result Date Time O2 Delivery Room air 03/16 0800 Temp 36.3 03/16 0800 Pulse Ox 100 03/16 0800 B/P 153/70 03/16 0800 B/P Mean 101 03/16 0800 Pulse 67 / 0800 Resp 23 03/15 2201 O2 Flow Rate 6 03/15 1242 Physical ExamMedications:Active Meds + DC'd Last 24 HrsCefazolin Sodium (KEFZOL OR ANCEF) 2 GM PREOP ONCALL IV (CAN) Sodium Chloride (SODIUM CHLORIDE) 20 ML ASDIR IV Amlodipine Besylate (NORVASC) 5 MG DAILY PO Pantoprazole Sodium (PROTONIX) 40 MG Q12HR IV (UNVr) Sodium Chloride (SODIUM CHLORIDE) 10 ML ASDIR PRN IV (UNV) Amlodipine Besylate (NORVASC) 5 MG ONCE ONE PO (DC) Hydralazine HCl (APRESOLINE) 10 MG ONCE ONE IV (DC) Mupirocin (BACTROBAN 2% 22 GM OINTMENT) 1 APPLIC BID NASAL Aspirin (ASPIRIN) 81 MG DAILY PO Cefazolin Sodium (KEFZOL OR ANCEF) 2 GM PREOP ONCALL IV (CKD) Cefuroxime Axetil (CEFTIN) 250 MG Q12H PO Clopidogrel Bisulfate (Plavix) 75 MG DAILY PO (CAN) Clopidogrel Bisulfate (Plavix) 75 MG DAILY PO Nebivolol (BYSTOLIC) 5 MG DAILY PO Sodium Chloride (SODIUM CHLORIDE) 20 ML ASDIR IV Ticagrelor (BRILINTA) 90 MG BID PO (CAN) Magnesium Sulfate (MAGNESIUM SULFATE 2GM/SWFI 50ML) 50 ML ONCE ONE IV (DC) Potassium Chloride (POTASSIUM CHLORIDE 20MEQ TAB.ER) 40 MEQ ONCE ONE PO (DC) Potassium Chloride (POTASSIUM CHLORIDE 20MEQ TAB.ER) 40 MEQ ONCE ONE PO (DC) Atorvastatin Calcium (LIPITOR) 40 MG BEDTIME PO Acetaminophen (TYLENOL) 650 MG Q6H PRN PRN PO Nicardipine HCl (niCARdipine HCl) 25 MG TITRATE IV (CKD) Sodium Chloride (Sodium Chloride 50ML) 50 MLHydralazine HCl (APRESOLINE) 10 MG Q6H PRN PRN IV Potassium Chloride (POTASSIUM CHLORIDE 20MEQ TAB.ER) 20 MEQ ONCE ONE PO (DC) Atropine Sulfate (ATROPINE SULFATE 0.1MG/ML SYR) 0.5 MG ASDIR PRN IV Sodium Chloride (SODIUM CHLORIDE 0.9%) 1,000 ML .[id number] ONE IV (DC) Sodium Chloride (SODIUM CHLORIDE 0.9%) 500 ML ASDIR PRN IV Atropine Sulfate (ATROPINE SULFATE 0.1MG/ML SYR) 0.5 MG ASDIR PRN IV Sodium Chloride (SODIUM CHLORIDE 0.9%) 1,000 ML .Q10H ONE IV (DC) Sodium Chloride (SODIUM CHLORIDE 0.9%) 500 ML ASDIR PRN IV Fentanyl Citrate (SUBLIMAZE) 50 MCG PACU Q10MIN PRN PRN IV (DC) Fentanyl Citrate (SUBLIMAZE) 25 MCG PACU Q10MIN PRN PRN IV (DC) Hydralazine HCl (APRESOLINE) 5 MG PACU Q10MIN PRN PRN IV (DC) Hydromorphone HCl (DILAUDID) 0.5 MG PACU Q10MIN PRN PRN IV (DC) Hydromorphone HCl (DILAUDID) 0.25 MG PACU Q5MIN PRN PRN IV (DC) Labetalol HCl (LABETALOL HCL) 5 MG PACU Q10MIN PRN PRN IV (DC) Meperidine HCl (MEPERIDINE HCL/PF) 12.5 MG PACU ONCE PRN IV (DC) Morphine Sulfate (morphine SULFATE) 2 MG PACU Q10MIN PRN PRN IV (DC) Ondansetron HCl (ZOFRAN) 4 MG PACU ONCE PRN IV (DC) Sodium Chloride (SODIUM CHLORIDE 0.9%) 1,000 ML .Q24H IV (DC) Acetaminophen (TYLENOL EXTRA STRENGTH) 1,000 MG PREOP ONCALL PO (CKD) Gabapentin (NEURONTIN) 200 MG PREOP ONCALL PO (CKD) Lactated Ringer's (LACTATED RINGERS) 1,000 ML PREOP ONCALL IV Lidocaine HCl (LIDOCAINE HCL/PF) 2 ML PREOP ONCALL LOCAL Lidocaine HCl (LIDOCAINE HCL/PF) 2 ML PREOP ONCALL LOCAL Sodium Chloride (SODIUM CHLORIDE 0.9%) 500 ML PREOP ONCALL IV Sodium Chloride (SODIUM CHLORIDE 0.9%) 500 ML PREOP ONCALL IV Sodium Chloride (SODIUM CHLORIDE 0.9%) 1,000 ML PREOP ONCALL IV Sodium Chloride (SODIUM CHLORIDE) 5 ML ASDIR PRN IV Sodium Chloride (SODIUM CHLORIDE) 10 ML ASDIR PRN IV Sodium Chloride (SODIUM CHLORIDE 0.9%) 250 ML ASDIR PRN IV General appearance: alert, awake, oriented, no acute distressWound/incision: Location: bilateral groin sites CDI without bleedingHEENT: anictericCardiovascular: BP/pulses equal bilat., normal heart sounds, regular rate rhythm, no ectopyRespiratory: aerating well, clear to auscultationAbdomen: soft, non-tenderExtremities: dry, moves allMusculoskeletal: full range of motionNeuro/ANGLE DOZER OPERATOR: alert, oriented X 3 Diagnosis, Assessment Plan Diagnosis, Assessment PlanFree Text A P:1. Severe Symptomatic Aortic StenosisS/p TAVR 23 mm [place] Sean S3, successful implant.Patient monitored overnight.Groin sites CDI, sinus rhythm no bleeding noted.Labs and vital signs reviewed.Patient on aspirin and plavix.Cardiology reviewed echocardiogram F/u in clinic with Cardiology and we will follow with Structural Heart team.Patient able to ambulate today. at 1239 RPT #:[id number] OF REPORTPRProgress [id number]:51:00G.[id number] able for patient wqkmVHBCPHGIYQBGVV7056-79-96E05:39:37 [facility] 2023-03-16 03:36:00 [id number]+ GW6M9clrQUN79OKOEjfAX3bHvLZt8 j4KcVBqOuk588SSuFHsrkB88ezS1085-11-04M34:36:33317 6-[address] [place] [address] PATIENT NAME: KYRA HERRERA ADMIT DATE: 03/15/23ACCOUNT NO: [id number] ROOM NO: [facility] [place] AGE: 82 REPORT TYPE: eELECTROCARDIOGRAM REPORT SEX: F ADMITTING PHYSICIAN:Nicholas Sandra MD ATTENDING PHYSICIAN:Nicholas Sandra MD Order:[id number] Reason : TAVR POD 1 Test Date/Time Stamp:TueMar 16 2023 03:36:41Blood Pressure : / mmHGVent. Rate : 066 BPM Atrial Rate : 066 BPM P-R Int : 204 ms QRS Dur : 122 ms QT Int : 476 ms P-R-T Axes : 017 116 -48 degrees QTc Int : 499 ms Normal sinus rhythmLeft posterior fascicular blockLeft ventricular hypertrophy with QRS widening and repolarization abnormality (Rancho product )Abnormal ECGWhen compared with ECG of 15-MAR-2023 12:52,No changesConfirmed by MD KIMBERLEY, JAMIE ([id number]) on 03/16/2023 6:53:11 AM Referred By: Nicholas Sandra Confirmed by:JAMIE FIGUEROA MD at 0653 PATIENT NAME: KYRA HERRERA .[id number] AVAvailable for patient agiuTWERJGTPITZQDU9248-20-52I73:53:32 [facility] 2023-03-15 17:53:00 [id number] Cdf4XcZZjRd+KN3uBbVFMcSvQNO1K /R/L8jL4XXBbNo16JRbqMoFptZ40380-53-00V53:53:00 [facility] ([facility])DT Operative NoteREPORT#:[id number] REPORT STATUS: SignedDATE:03/15/23 TIME: 1752 PATIENT: KYRA HERRERA UNIT #: [id number]#: [id number] [address] AGE: 82 SEX: F ATTEND: Nicholas Sandra AUTHOR: Bryan Youssef MD * ALL edits or amendments must be made on the electronic/computer document * Operative Report Operative NoteNote:Preoperative diagnosis: Severe symptomatic aortic stenosis Postoperative diagnosis: Severe symptomatic aortic stenosis Procedure: 1.Transcatheter aortic valve replacement (TAVR) utilizing # 23 [place]'s Sean S3 Ultra pericardial valve via transfemoral approach with MAC. 2. Ascending aortogram 3. Placement of temporary pacing wire 4. Pro-glide x2 closure of right common femoral artery 5. Pro-glide x1 closure of the left femoral artery 6. Pro-glide x1 closure of left common femoral vein Surgeon: Loreta Youssef MD Housekeeping Room Inspector: MD Nicholas Peña MD Anaesthesia: MAC Estimated blood loss: 20 cc Indication: Ms Herrera is a pleasant 82-year-old, male with severe symptomatic aortic stenosis. She was investigated and was found to be a suitable candidate for TAVR. After do preop counseling she was brought to the hybrid room today for TAVR Findings: 1. Severe calcification of aortic valve 2. The delivery system was passed without difficulty into the left ventricular outflow tract for deployment. 3. A 23 mm Sean S3 Ultra valve was required 4. Post replacement TTE revealed no paravalvular leak 5. Patient had good Doppler signals in both lower extremities following the procedure. Procedure in detail: Further details will be dictated by Dr. Sandra as he was the campus president. The patient was brought into the hybrid room. A timeout procedure was performed which confirmed the patient's name medical record number and the procedure to be performed. The patient was placed supine on the operating table.The chest, abdomen, and groins were prepped and draped in standard surgical fashion. 1% lidocaine was used to anesthetize the area over the right femoral artery, and left femoral artery and vein. After placement of appropriate sheath patient was heparinized, to maintain and a ACT more than 250 second. An aortic root shot was performed, noting the optimal angle for deployment of the valve. This confirmed the position already determined by CT angiogram 3D reconstruction. Subsequently, the 23 mm [place] S3 Ultra transcatheter valve was placed into the sheath in the right femoral artery and brought up through the aortic valve and placed in the correct position. This was confirmedby the heart valve team. Subsequently the rapid ventricular pacing was performed and the valve was deployed in the aortic annulus appropriately. The Cordis and sheath were pulled back. Postplacement transthoracic echo revealed good placement of the valve with no aortic insufficiency. The mean gradient was minimal. Subsequently, the sheaths were removed, the right common femoral artery was closed with a ProGlide device x2 and the left common femoral artery was closed using Pro-glide device x1. The left common femoral vein was closed with ProGlide device x1. Sterile dressings were applied. I was present as co-surgeon in conjunction with Dr Lovett and Dr. Sanrda. Dr. Sandra will dictate his portion in detail. The patient tolerated the procedure well and was taken to the coronary care unit in stable condition. Sponge, needle and instrument count were correct. at 1757 RPT #:[id number] OF REPORTOPOperative [id number]:53:00G.[id number] ilable for patient [id number]:57:53 [facility] 2023-03-15 15:35:00 [id number] s/dr1PXx49NkXxeWV52WwSerHdMED [id number]29-49-30A12:35:00 [facility] CenterCardiothor[facility] ConsultREPORT#:[id number] REPORT STATUS: SignedREPORT INITIALIZATION DATE:03/15/23 TIME: 1535 PATIENT: KYRA HERRERA UNIT #: [id number]#: [id number] [place]OM[place] [facility] [place]DOB: [birth year] AGE: 82 SEX: F ATTEND: Priscila Hoffman [facility] AUTHOR: Savanna Hendrix PhysicREPT SERVICE DT/TIME: 03/15/23 1535* ALL edits or amendments must be made on the electronic/computer document * Savanna Hendrix 03/15/23 1535:History of Present Illness HPIChief complaint:Aortic stenosis Requesting ClinicianDr RaslanHPI: This is a very pleasant thin appearing 82-year-old female with past medical history of hypertension who has been experiencing increased shortness of breath over the past several months. She was seen by her physiologist and found to havesignificant aortic valve stenosis by echocardiogram. Echocardiogram revealed a mean gradient of 41 mmHg with a peak gradient of 79 mmHg. DORENE max 4 0.463 cm2. Patient had a left heart catheterization showing minimal coronary artery disease on 01/26/2023. She has had appropriate CTA scans. The patient does report symptoms of shortness of breath with exertion for the past several months The patient was present in the structural heart conference and determined to be a good candidate for TAVR HistoryAlcohol Use Denies EtOH useDrug Use Denies recreational drugsSmoking status for patients 13 years old or older: Never SmokerAllergies:Coded Allergies:No Known Allergies (03/11/23) Review of Systems Free Text ROS NotesFree Text ROS Notes:Constitutional: Negative for fever, chills, weight loss Skin: Negative for rash, negative for swelling negative for any laceration HEENT: Denies hearing loss denies any ear ringing denies any earache denies any sore throat denies any throat pain Respiratory: Positive for dyspnea on exertionCardiac: Denies chest pain, denies palpitations denies orthopnea GI: Denies constipation denies diarrhea : Denies hematuria denies dysuria denies flank pain Musculoskeletal: Denies any joint pain denies any joint swelling denies any myalgia Hematologic: Denies any easy bruising, denies any bleeding Endocrine: denies any night sweats, denies polyuria polydipsia Neurologic: Denies any lightheaded denies any headache denies any confusion denies any dizziness Objective Physical ExamVS/I O:Last Documented: Result Date Time Pulse Ox 98 03/15 1415 B/P 138/70 03/15 1415 O2 Delivery Room air 03/15 1415 Pulse 60 03/15 1415 Resp 15 03/15 1415 O2 Flow Rate 6 03/15 1242 Temp 97.4 03/15 1242 PATIENT WEIGHT: Weight (lb): 90Weight (oz): 3.02Weight (kg): 40.909 Free Text Obj NotesFree Text Obj Notes:General: Thin appearing elderly womanHEENT: conjunctiva clear, extraocular movement intact, PERRLA, sclera anicteric.normal dentition, gums, normal, oral mucosa without pallor or cyanosis. Neck: no, JVD, trachea midline, no, lymphadenopathy, neck supple, normal ROM. Respiratory: Clear to auscultation, no distress. Cardiovascular: regular rate and rhythm, 3/6 systolic ejection murmur Abdomen: Soft, non tender. No rebound. No guarding Extremities: dry, moves all. Musculoskeletal: no CVA tenderness, no muscle spasm no edemaSkin: warm, dry, no, lesions, rash. Neurologic: Alert and oriented x3. Psychiatric: affect and demeanor normal Diagnosis, Assessment PlanFree Text A P: This is a very pleasant thin appearing 82-year-old female with past medical history of hypertension who has been experiencing increased shortness of breath over the past several months. She was seen by her physiologist and found to havesignificant aortic valve stenosis by echocardiogram. Echocardiogram revealed a mean gradient of 41 mmHg with a peak gradient of 79 mmHg. DORENE max 4 0.463 cm2. Patient had a left heart catheterization showing minimal coronary artery disease on 01/26/2023. She has had appropriate CTA scans. The patient does report symptoms of shortness of breath with exertion for the past several months The patient was present in the structural heart conference and determined to be a good candidate for TAVR Assessment/plan1. Severe aortic valve stenosis2. Hypertension Patient was present in the structural heart conference. She was determined to be a good candidate for TAVR.This was discussed with the patient and the patient's family. Patient was seen and examined by Dr. Payton risk of the procedure including stroke, , bleeding, infection, heart attack, prolonged ICU stay, pneumonia, tracheostomy etc. was discussed with the patient and the patient's family. Patient's questions were answered and patient agreed to proceed with the procedure Sonia Youssef 04/06/238:Attestations Physician AttestationAgree w/findings plan:I have seen and examined Ms. Herrera. I agree with the findings and plan as documented by MARYJO Swartz. Briefly, 82-year-old female with severe aortic stenosis. She was presented in the structural heart conference and found to be suitable candidate. She is being admitted to the hospital today for the procedure. Procedure, risk, benefit, alternatives, STS risk score, complications were explained to the patient. at 1538 at 2141 RPT #:[id number] OF REPORTSYJcbiumshbyno1984-47-53T00:35:00G.PDOC2 [id number] for patient nnaqJCEBFIXDKHZCHI2156-50-96Q80:39:14 [facility] 2023-03-15 12:52:00 [id number]kVRM KrGyyd2QtyJ8yqPxnHEjJrgyRLc5404-56-59Q21:52:02084 6-0001 [place] [address] PATIENT NAME: KYRA HERRERA ADMIT DATE: 03/15/23ACCOUNT NO: [id number] [place]OM NO: [facility] [place] AGE: 82 REPORT TYPE: eELECTROCARDIOGRAM REPORT SEX: F ADMITTING PHYSICIAN:Nicholas Sandra MD ATTENDING PHYSICIAN:Nicholas Sandra MD Order:[id number] Reason : EG Test Date/Time Stamp:TueMar 15 2023 12:52:54Blood Pressure : / mmHGVent. Rate : 067 BPM Atrial Rate : 067 BPM P-R Int : 228 ms QRS Dur : 122 ms QT Int : 498 ms P-R-T Axes : 053 -61 099 degrees QTc Int : 526 ms Sinus rhythm with 1st degree AV blockLeft anterior fascicular blockLeft ventricular hypertrophy with QRS widening and repolarization abnormalityAbnormal ECGWhen compared with ECG of 11-MAR-2023 11:16,No changesConfirmed by MD FIGUEROA GERARD ([id number]) on 03/16/2023 6:52:52 AM Referred By: Nicholas Sandra Confirmed by:JAMIE FIGUEROA MD at 0652 PATIENT NAME: KYRA HERRERA .[id number] AVAvailable for patient xihlWLLXABCVJMRFMW7426-80-94A90:53:12 [facility] 2023-03-11 11:16:00 [id number] WUrrmM7ECcdQq/MRfl6bQhDEfaI2083-43-63C85:16:29054 -0038 [place] [address] PATIENT NAME: KYRA HERRERA ADMIT DATE: ACCOUNT NO: [id number] ROOM NO: AGE: 82 REPORT TYPE: eELECTROCARDIOGRAM REPORT SEX: F ADMITTING PHYSICIAN:Nicholas Sandra MD ATTENDING PHYSICIAN:Nicholas Sandra MD Order:[id number] Reason : PREOP Test Date/Time Stamp:TueMar 11 2023 11:16:42Blood Pressure : / mmHGVent. Rate : 065 BPM Atrial Rate : 065 BPM P-R Int : 180 ms QRS Dur : 090 ms QT Int : 440 ms P-R-T Axes : 058 -36 074 degrees QTc Int : 457 ms Normal sinus rhythmLeft axis deviationLeft ventricular hypertrophy with repolarization abnormalityOtherwise normal ECGNo previous ECGs availableConfirmed by MD FIGUEROA GERARD ([id number]) on 03/11/2023 1:01:06 PM Referred By: Nicholas Sandra Confirmed by:JAMIE FIGUEROA MD at 1301 PATIENT NAME: KYRA HERRERA .[id number] AVAvailable for patient psjsSSUEJQQGYOTXPM0188-81-50W27:01:23 [facility] 2023-02-24 08:04:00 [id number]/d9EZO1Trphe2YfgGlCS8+L2OSLG 12t/p5nxQG5X1LERPQvWzV3H7GS6407-71-61B45:04:37059 7-0016 [place] [address] PATIENT NAME: KYRA HERRERA ADMIT DATE: 02/22/23ACCOUNT NO: [id number] ROOM NO: AGE: 82 REPORT TYPE: PULMONARY FUNCTION REPORT SEX: F ADMITTING PHYSICIAN: ATTENDING PHYSICIAN:Nicholas Sandra MD STUDY DATE: 02/22/2023 FULL PULMONARY FUNCTION TEST INTERPRETATION SPIROMETRY: FVC is 105% predicted. FEV1 is 112% predicted. Ratio is 79. No response to bronchodilator. TLC is 87. Diffusion capacity 70%, corrected to the volume. FULL PULMONARY FUNCTION TEST: Within normal limits. Dictated By: Doriat Berkowitz MD Date Dictated: 02/24/2023 08:04:17Date Transcribed: 02/24/2023 08:35:39MD/AKYJob #: [id number] ID: [id number] by DORITA BERKOWITZ MD On 02/24/2023 11:20:27 AM at 1120 PATIENT NAME: KYRA HERRERA iyoz6300-66-39T72:35:00G.[id number] ble for patient ecgkSSKUWRQYEKPKYV8450-95-37A09:21:12 [facility] 2023-02-23 07:14:00 [id number] zpzJapkttdSzZc266ft3QkaQwhCVI 5opUSC68jnRVU7S8hj/5QU2X24Q7482-03-31S51:14:15186 6-0004 [place] [address] PATIENT NAME: KYRA HERRERA ADMIT DATE: 02/22/23ACCOUNT NO: [id number] ROOM NO: AGE: 82 REPORT TYPE: eECHOCARDIOGRAM REPORT SEX: F ADMITTING PHYSICIAN: ATTENDING PHYSICIAN:Nicholas Sandra MD *[address] [address]Gblgh: [phone]: [phone] Transthoracic Echocardiogram Patient: Alex Herreraudy Date: 02/22/2023 BP: [id number] 1940 Age: 82 Height: 64 in / 162.6 cmAccession#: [id number] Gender: F Weight: 89.8 lb / 40.8 kgBMI/BSA: 15.4 kg/m 2 / 1.39 m 2 *Ordering Physician: * Nicholas Sandra *Interpreting Physician: * Priscila Hoffman MD*Insurance Billing Clerk: * Silvia Cabral Indications: . Study data: Transthoracic echocardiogram. Procedure: Transthoracicechocardiography was performed. Image quality was fair. Complete 2D,complete spectral Doppler, and color Doppler. Location: Bedside.Patient status: Outpatient. Study status: Routine. Findings Left ventricle: The cavity size is normal. Wall thickness is normal.Systolic function is normal. The estimated ejection fraction is 55-60%.Wall motion is normal; there are no regional wall motion abnormalities.Doppler parameters are consistent with abnormal left ventricularrelaxation (grade 1 diastolic dysfunction).Right ventricle: TAPSE 1.5 cmPATIENT NAME: KYRA HERRERA The cavity size is normal. Systolic function is low normal. Systolicpressure is mildly increased.Left atrium: The atrium is dilated.Right atrium: The atrium is normal in size.Aorta: Aortic root: The aortic root is normal in size.Aortic valve: The leaflets are moderately thickened. The findings areconsistent with severe stenosis. There is mild regurgitation.Mitral valve: The valve is structurally normal. There is noevidence of stenosis. There is mild regurgitation.Tricuspid valve: RVSP calculated 28.00 mmHg. The valve is structurallynormal. There is mild regurgitation.Pulmonic valve: The valve is structurally normal. There is mildregurgitation.Pericardium: A trivial pericardial effusion is identified.Pulmonary arteries:The main pulmonary artery is normal-sized.Systemic veins:Inferior vena cava: The vessel is normal in size. Measurements Left ventricle Value Ref ADILENE, LAX 4.4 cm 3.8 - 5.2 ESD, LAX 3.0 cm 2.2 - 3.5 ESD/bsa, LAX 2.2 cm/m 2 1.3 - 2.1 FS, LAX 31 % 27 - 45 ESD/bsa major 4.6 cm/m 2 --------- ax, A4C ADILENE/bsa minor 4.6 cm/m 2 --------- ax, A4C ADILENE major ax, 7.7 cm --------- A2C ADILENE/bsa major 5.5 cm/m 2 --------- ax, A2C PW, ED 1.0 cm 0.6 - 0.9 IVS/PW, ED 1.14 --------- EF 58 % 54 - 74 E', lat zana, TDI 4.4 cm/sec >=10.0 E/e', lat zana, 17 --------- TDI E', med zana, TDI 3.8 cm/sec >=7.0 E/e', med zana, 20 --------- TDI E', avg, TDI 4.1 cm/sec --------- E/e', avg, TDI 18 <=14 LVOT Value Ref Diam, S 1.44 cm --------- Area 1.6 cm 2 --------- Peak antony, S 1.26 m/sec --------- Mean antony, S 1.11 m/sec --------- VTI, S 22.8 cm --------- Peak grad, S 6 mm Hg ---------PATIENT NAME: KYRA HERRERA Mean grad, S 5 mm Hg --------- SV 37 ml --------- Qs 5.99 L/min --------- Qs/bsa 4.3 L/(min-m 2) --------- SV/bsa 27 ml/m 2 --------- Ventricular septum Value Ref IVS, ED 1.1 cm 0.6 - 0.9 Right ventricle Value Ref ADILENE, LAX 2.4 cm --------- TAPSE, MM 1.5 cm 1.7 - 3.1 Pressure, S 30 mm Hg --------- Left atrium Value Ref AP dim, ES 3.72 cm 2.70 - 3.80 Vol/bsa, ES, 1-p 39 ml/m 2 11 - 40 A4C Vol, ES, 2-p 64 ml --------- Vol/bsa, ES, 2-p 46 ml/m 2 16 - 34 Vol/bsa, ES, A/L 42 ml/m 2 16 - 34 Aortic valve Value Ref Peak v, S 4.45 m/sec --------- Mean v, S 3.13 m/sec --------- VTI, S 89.4 cm --------- Mean grad, S 41.8 mm Hg --------- Peak grad, S 79.2 mm Hg --------- LVOT/AV, VTI 0.26 --------- ratio DORENE, VTI 0.43 cm 2 --------- LVOT/AV, Vpeak 0.28 --------- ratio DORENE, Vmax 0.46 cm 2 --------- AR peak v 3.29 m/sec --------- AR decel 260 cm/s 2 --------- AR peak grad 43 mm Hg --------- Mitral valve Value Ref Peak E 0.75 m/sec --------- Peak A 1.23 m/sec --------- Mean v, D 0.79 m/sec --------- VTI leaflet 40.0 cm --------- coapt Decel time 329 ms --------- PHT 100 ms --------- Mean grad, D 2.8 mm Hg --------- Peak grad, D 8.6 mm Hg --------- Peak E/A ratio 0.62 --------- MVA, PHT 2.2 cm 2 --------- Pulmonic valve Value Ref DE peak v 1.41 m/sec ---------PATIENT NAME: KYRA HERRERA DE peak grad 8 mm Hg --------- DE v, ED 1.62 m/sec --------- DE grad, ED 10 mm Hg --------- Tricuspid valve Value Ref TR peak v 2 m/sec <=2.8 Peak RV-RA grad, 16 mm Hg --------- S Aortic root Value Ref Root diam 2.5 cm <3.7 Ascending aorta Value Ref AAo AP diam, S 3.2 cm --------- AAo AP diam/bsa, 2.3 cm/m 2 --------- S Pulmonary artery Value Ref Pressure, S 20.0 mm Hg --------- Systemic veins Value Ref Estimated CVP 10 mm Hg --------- Conclusions Summary: 1. Left ventricle: The cavity size is normal. Wall thickness is normal. Systolic function is normal. The estimated ejection fraction is 55-60%. Wall motion is normal; there are no regional wall motion abnormalities. Doppler parameters are consistent with abnormal left ventricular relaxation (grade 1 diastolic dysfunction).2. Right ventricle: Systolic pressure is mildly increased.3. Left atrium: The atrium is dilated.4. Aortic valve: The findings are consistent with severe stenosis. There is mild regurgitation. The peak systolic velocity is 4.45 m/sec. The mean systolic gradient is 41.8 mm Hg. The peak systolic gradient is 79.2 mm Hg. The valve area by the peak velocity method is 0.46 cm 2.5. Mitral valve: There is mild regurgitation.6. Tricuspid valve: RVSP calculated 28.00 mmHg. There is mild regurgitation.7. Pulmonic valve: There is mild regurgitation.8. Pericardium, extracardiac: A trivial pericardial effusion is identified. Prepared and electronically signed by Priscila Hoffman MD02/23/2023 07:14 PATIENT NAME: KYRA HERRERA at 0714 PATIENT NAME: MARIAN HERRERAERINE :14:0 0G.[id number] for patient zehfKWLOSAFRGYQUOF9074-75-63T74:15:01 HCACL
--- NOTE | 2023-08-11 03:47 | P.HP ---
Certification for Inpatient Patient admitted to: Inpatient With expected LOS: >2 Midnights Practitioner: I am a practitioner with admitting privileges, knowledge of patient current condition, hospital course, and medical plan of care. Services: Services provided to patient in accordance with Admission requirements found in Title 42 Section 412.3 of the Code of Federal Regulations Patient History Date of Service: 08/11/23 Reason for admission: Urinary tract infection, NSTEMI, hypokalemia. 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 She reported that you decided to smell funny and she began to go to the bathroom more frequently and her urine has changed color. She denied overt episode of fever, chills, night sweats. She denied, diarrhea. She was evaluated at emergency room and [place] found to have a low potassium of 2.9 with elevated troponin and UA was very concerning for urinary tract infection. She was transferred to [facility] for higher level of cardiac secondary to abnormal cardiac enzyme. She denies chest pain, shortness of breath episode. Allergies No Known Drug Allergies Allergy (Verified 01/21/23 14:18) Unknown Home Medications: Aspirin [Aspirin EC] 81 mg PO DAILY 08/11/23 Cefuroxime [Ceftin] 250 mg PO BID 08/11/23 Clopidogrel Bisulfate [Plavix] 75 mg PO DAILY 08/11/23 Ferrous Gluconate 324 mg PO DAILY 08/11/23 Furosemide 20 mg PO DAILY PRN 08/11/23 Mv-Mn/Om3/Dha/Epa/Fish/Lut/Ronni [Ocuvite Adult 50 Plus Softgel] 1 pill PO DAILY 08/11/23 Nebivolol HCl 5 mg PO DAILY 08/11/23 Nitrofurantoin Monohyd/M-Cryst [Nitrofurantoin Schuyler-Mcr 100 mg] 1 cap PO BID* 08/11/23 Potassium Citrate [Potassium] 99 mg PO DAILY 08/11/23 - Past Medical/Surgical History Has patient received pneumonia vaccine in the past: No Diabetic: No -: Hypertension -: Narcolepsy -: Anemia -: Hypokalemia -: 2 C sections -: cataract surgery bilaterally Psychosocial/ Personal History: Patient lives at home with her family - Family History Father -: Heart disease, Hypertension Notes: at 54, smoker Mother -: Hypertension, Kidney disease, Other (see notes) Notes: failure to thrive; lived to be 72, did not go to doctor regularly Brother Notes: no significant medical history Sister -: Cancer, Other (see notes) Notes: of a brain tumor - Social History Smoking Status: Never smoker Alcohol use: No CD- Drugs: No Caffeine use: Yes Place of Residence: Home Review of Systems General: Malaise Eyes: Unremarkable ENT: Unremarkable Respiratory: Unremarkable Cardiovascular: Unremarkable Gastrointestinal: Unremarkable Genitourinary: Dysuria, Frequency Musculoskeletal: Unremarkable Integumentary: Unremarkable Neurological: Unremarkable Lymphatics: Unremarkable Physical Examination - Vital Signs Temperature: 98 F Blood Pressure: 166/68 Pulse: 64 Respirations: 19 Pulse Ox (%): 100 - Physical Exam General: Alert, Oriented x3 HEENT: Atraumatic Neck: Supple Respiratory: Normal air movement Cardiovascular: Regular rate/rhythm, Normal S1 S2 Gastrointestinal: Soft and benign Musculoskeletal: No swelling Neurological: Normal speech, Normal strength at 5/5 x4 extr Assessment and Plan - Plan UTI: Clinical symptoms and prior urine analysis is very concerning. Will continue routine care with urine culture, empiric antibiotic therapy with Rocephin. Will monitor culture reports for adjustment to antibiotic therapy. NSTEMI: Prior troponin drawn at [facility] was 213. Will repeat troponin trend every 4 hours x 3. Cardiology has been consulted for management recommendation based on prior history. Hypertension: We will monitor vital signs per unit protocol and continue outpatient antihypertensive medication. Hypokalemia: Potassium is low at 2.9 in outside hospital, will replete and repeat labs to confirm. Will have him on scheduled oral dose of potassium for repletion secondary to history of chronic hypokalemia. Failure to thrive: Deemed severe from protein/calorie malnutrition. Patient is significantly cachectic. Will continue on regular diet, have nutritional supplement with boost 3 times daily. Will consult nutrition for assessment. Prophylaxis: Lovenox for DVT prophylaxis. CODE STATUS: Full code. Disposition: We will treat her multiple medical issues and she will be discharged once she is deemed clinically stable and plan of care is finalized. - Advance Directives Does patient have a Living Will: Yes Does patient have a Durable POA for Healthcare: Yes
[2023-08-11] MEDS ORDERED: NA CHLORIDE 0.9% 1,000 ML ONE (04:11)
[2023-08-11 04:22] LABS: Absolute Lymphocytes (CBC) 1.1 K/uL (0.7-4.9); Hematocrit 27.2 % (36.0-45.0); MCV 84.3 fL (80-100); MPV 7.1 fL (7.6-11.3); Platelets 276 thou/uL (152-406); RBC Red Blood Cell Count 3.23 M/uL (3.86-4.86)
[2023-08-11] MEDS: NA CHLORIDE 0.9% 1,000 ML IV SCH (04:40)
[2023-08-11 04:49] LABS: Potassium 2.8 mEq/L (3.5-5.1)
[2023-08-11 05:00] LABS: Magnesium 1.9 mg/dL (1.6-2.4)
[2023-08-11 05:09] LABS: Blood Morphology Comment NOT SEEN (NOT SEEN); Platelet Estimate ADEQ
[2023-08-11] MEDS ORDERED: KCL 20 MEQ/100 mL IVPB 100 ML IV ONE ×3 (05:09→12:12)
[2023-08-11] MEDS: KCL 20 MEQ/100 mL IVPB 20 MEQ/100 ML BAG IV SCH (05:10)
[2023-08-11 05:35] LABS: Specific Gravity > 1.030 (1.005-1.030); Urine Bacteria None Seen /HPF (<20); Urine Bilirubin NEGATIVE (Negative); Urine Blood Negative (Negative); Urine Clarity Clear (Clear); Urine Color Light-Yellow (Yellow); Urine Glucose NEGATIVE (Negative); Urine Protein 2+ (Negative); Urine RBC <5 /HPF (None Seen); Urine Urobilinogen Normal (Normal); Urine pH 7.5 (5.0-7.0)
[2023-08-11] MEDS ORDERED: CEFTRIAXONE 1000 MG/VIAL ONE (09:00)
[2023-08-11] MEDS ORDERED: ENOXAPARIN 40 MG/0.4 ML SQ ONE (09:01)
[2023-08-11] MEDS ORDERED: POTASSIUM CL SA 10 MEQ TAB PO ONE ×2 (09:01→12:12)
[2023-08-11] MEDS ORDERED: NA CHLORIDE 0.9% 50 ML ONE (09:02)
[2023-08-11] MEDS: CEFTRIAXONE 1,000 MG in NA CHLORIDE 0.9% 50 ML IVPB SCH (09:05)
[2023-08-11] MEDS: ENOXAPARIN 40 MG/0.4 ML SQ SCH (09:05)
[2023-08-11] MEDS: POTASSIUM CL SA 10 MEQ TAB PO SCH (09:05)
--- NOTE | 2023-08-11 10:14 | P.PN ---
Subjective Date of Service: 08/11/23 Chief Complaint: Urinary tract infection, NSTEMI, hypokalemia. Pt is resting comfortably in bed. She is AAOx3. Will replete potassium. Waiting for Cardiology eval. No other complaints. Review of Systems Unremarkable General: Unremarkable Eyes: Unremarkable ENT: Unremarkable Respiratory: Unremarkable Cardiovascular: Unremarkable Gastrointestinal: Unremarkable Genitourinary: Unremarkable Musculoskeletal: Unremarkable Integumentary: Unremarkable Neurological: Unremarkable Lymphatics: Unremarkable Physical Examination - Vital Signs Temperature: 98 F Blood Pressure: 165/68 Pulse: 67 Respirations: 16 Pulse Ox (%): 99 - Physical Exam General: In no apparent distress, Oriented x3 HEENT: Atraumatic, Normocephalic, PERRLA Neck: Supple, 2+ carotid pulse no bruit Respiratory: Clear to auscultation bilaterally, Normal air movement Cardiovascular: No edema, Normal pulses, Regular rate/rhythm, Normal S1 S2 Capillary refill: <2 Seconds Gastrointestinal: Normal bowel sounds, Soft and benign, Non-distended Musculoskeletal: No clubbing, No swelling Integumentary: No rashes, No breakdown Neurological: Normal gait, Normal speech, Normal strength at 5/5 x4 extr, Normal tone, Sensation intact, Cranial nerves 3-12 intact Lymphatics: No axilla or inguinal lymphadenopathy - Studies Laboratory Data (last 24 hrs) 08/11/23 08/11/23 04:05 04:05 WBC 22.20 H Hgb 9.0 L Hct 27.2 L Plt Count 276 Sodium 143 Potassium 2.8 L BUN 17 Creatinine 0.93 Glucose 99 Magnesium 1.9 Assessment And Plan - Plan UTI: Will continue rocephin and follow up urine cx. NSTEMI: Troponin is 169. It was 213 at an outside facility. Consulted Cardiology. Will trend troponin Q6h. Will continue aspirin, plavix, and nebivolol. Will check lipid panel. Hypertension: continue nebivolol with prn hydralazine. Hypokalemia: Potassium is low at 2.8 <- 2.9. Will replete and monitor. Mag is 1.9. Failure to thrive/ Severe malnutrition: Deemed severe from protein/calorie malnutrition. Patient is significantly cachectic. Will continue on regular diet, have nutritional supplement with boost 3 times daily. Consulted senior examiner. DVT prophylaxis: lovenox. CODE STATUS: Full code. Disposition: Pending hospital course.
[2023-08-11] MEDS: NEBIVOLOL HCL 5 MG TAB PO ONE (12:13)
--- NOTE | 2023-08-11 16:36 | CON ---
Date of Consultation: 08/11/2023 Reason For Consultation: Elevated troponin. History Of Present Illness: 83-year-old female, very well known to me, has history of hypertension, recent mitral valve repair and recent coronary angiogram with very mild coronary artery disease, pres ented to the emergency room with the urinary frequency and generalized fatigue and tiredness. Denies having any chest pain. No shortness of breath. No orthopnea or cough. No nausea, vomiting, or erica rrhea. Past Medical History: As outlined above in the HPI. Medications: Refer to reconciliation sheet for detailed list. Allergies: NO KNOWN DRUG ALLERGIES. Family History: No premature coronary artery disease or cancer. Social History: She does not smoke or drink. Does not use any drugs. Review of Systems: All systems reviewed and they were negative except as mentioned in the HPI. Physical Examination: Vital Signs: Reviewed. Head and Neck: Pupils are equal, reactive to light. Intact eye movements. No JVD. No cervical lym phadenopathy. Neck is supple. Thyroid is not enlarged. Lungs: Clear to auscultation bilaterally. No rhonchi, wheezing, or crackles. No accessory muscle u se. Heart: Regular rate and rhythm. No extra sounds. Abdomen: Soft, nontender. Bowel sounds positive. No organomegaly. No masses or hernia. No rigidi ty or rebound. Extremities: No edema, clubbing, or cyanosis. Intact pulses. Skin: No rash or nodule. Neurologic: Alert, awake, oriented x3. No acute focal deficits appreciated. Lymph Nodes: No cervical or axillary lymphadenopathy. Investigations: Troponin 169 and then 174. BUN 17, creatinine 0.93, and hemoglobin is 9.0. White b lood count and urinalysis showing less than 5 white blood cells. Assessment And Recommendations: 1.Elevated troponin. No chest pain. She had a coronary angiogram a few months back before her hear t surgery and very mild coronary artery disease present. This is demand ischemia due to the septic c ondition that she is in. Continue aspirin and no further cardiac workup is needed at this point. I will follow this patient at the office postdischarge. 2.Hypertension. Blood pressure is controlled. Continue current management. 3.Leukocytosis. The patient has sepsis and on wide-spectrum antibiotics infection. SR/MODL Voice ID: [id number] Report ID: [id number]
[2023-08-11] MEDS: ENSURE CLEAR 200 ML CAN PO SCH (21:00)
[2023-08-11] MEDS: LOSARTAN POTASSIUM 50 MG TABLET PO SCH (21:15)
[2023-08-12] MEDS ORDERED: HYDRALAZINE HCL 20 MG/ML VIAL ONE (01:02)
[2023-08-12] MEDS ORDERED: NA CHLORIDE 0.9% 1,000 ML ONE (01:02)
[2023-08-12] MEDS: HYDRALAZINE HCL 20 MG/ML VIAL IV ONE (01:04)
[2023-08-12] MEDS ORDERED: ONDANSETRON 4 MG/2 ML VIAL ONE (04:28)
[2023-08-12] MEDS: ONDANSETRON 4 MG/2 ML VIAL IV PRN (04:30)
[2023-08-12 04:53] LABS: Absolute Lymphocytes (CBC) 0.7 K/uL (0.7-4.9); Hematocrit 27.7 % (36.0-45.0); Lymphocytes % 4.6 % (15.3-44.8); MCV 84.9 fL (80-100); MPV 7.3 fL (7.6-11.3); Platelets 308 thou/uL (152-406); RBC Red Blood Cell Count 3.26 M/uL (3.86-4.86)
[2023-08-12 05:10] LABS: Magnesium 1.8 mg/dL (1.6-2.4); Potassium 4.1 mEq/L (3.5-5.1)
[2023-08-12] MEDS ORDERED: CLOPIDOGREL 75 MG TABLET ONE (08:10)
[2023-08-12] MEDS ORDERED: CEFTRIAXONE 1000 MG/VIAL ONE (08:10)
[2023-08-12] MEDS ORDERED: NA CHLORIDE 0.9% 50 ML ONE (08:10)
[2023-08-12] MEDS ORDERED: ASPIRIN EC 81 MG TAB PO ONE (08:12)
[2023-08-12] MEDS: NEBIVOLOL HCL 5 MG TAB PO SCH (08:24)
[2023-08-12] MEDS: FERROUS GLUCONATE 324 MG TAB PO SCH (08:25)
[2023-08-12] MEDS: CLOPIDOGREL 75 MG TABLET PO SCH (08:25)
[2023-08-12] MEDS: ASPIRIN EC 81 MG TAB PO SCH (08:25)
[2023-08-12 08:49] LABS: Blood Morphology Comment NOT SEEN (NOT SEEN); Platelet Estimate ADEQ; White Blood Cell Scan OK (OK)
[2023-08-12] MEDS ORDERED: NEBIVOLOL HCL 5 MG TAB PO SCH (09:00)
[2023-08-12] MEDS ORDERED: LABETALOL 20 MG/4ML SYRINGE IV ONE ×3 (09:28→17:29)
[2023-08-12] MEDS ORDERED: PANTOPRAZOLE 40MG TABLET PO ONE (09:28)
[2023-08-12] MEDS: PANTOPRAZOLE 40MG TABLET PO SCH (09:29)
[2023-08-12] MEDS: LABETALOL 20 MG/4ML SYRINGE IV PRN (09:29)
--- NOTE | 2023-08-12 10:12 | P.PN ---
Subjective Date of Service: 08/12/23 Chief Complaint: Urinary tract infection, NSTEMI, hypokalemia. Pt is resting comfortably in bed. She is AAOx3. BP is uncontrolled. Will give iv labetalol. No other complaints. Review of Systems Unremarkable General: Unremarkable Eyes: Unremarkable ENT: Unremarkable Respiratory: Unremarkable Cardiovascular: Unremarkable Gastrointestinal: Unremarkable Genitourinary: Unremarkable Musculoskeletal: Unremarkable Integumentary: Unremarkable Neurological: Unremarkable Lymphatics: Unremarkable Physical Examination - Vital Signs Temperature: 98.2 F Blood Pressure: 202/102 Pulse: 86 Respirations: 20 Pulse Ox (%): 96 - Physical Exam General: Alert, In no apparent distress, Oriented x3 HEENT: Atraumatic, Normocephalic, PERRLA Neck: Supple, 2+ carotid pulse no bruit Respiratory: Clear to auscultation bilaterally, Normal air movement Cardiovascular: Normal pulses, Regular rate/rhythm, Normal S1 S2 Capillary refill: <2 Seconds Gastrointestinal: Normal bowel sounds, Soft and benign, Non-distended Musculoskeletal: No clubbing, No swelling Integumentary: No rashes, No breakdown Neurological: Normal speech, Normal strength at 5/5 x4 extr, Normal tone Lymphatics: No axilla or inguinal lymphadenopathy - Studies Laboratory Data (last 24 hrs) 08/12/23 08/12/23 08/11/23 04:35 04:35 17:03 WBC 14.80 H Hgb 9.3 L Hct 27.7 L Plt Count 308 Sodium 140 Potassium 4.1 4.3 D BUN 15 Creatinine 0.94 Glucose 105 Magnesium 1.8 Triglycerides 129 Cholesterol 154 HDL Cholesterol 32 L Cholesterol/HDL Ratio 4.81 Microbiology Data (last 24 hrs): 08/11/23 13:33 Blood - Blood Anaerobic Blood Culture - Final Assessment And Plan - Plan UTI: Will continue rocephin and follow up urine cx. WBC is trending down (14 <- 22) Elevated troponn/NSTEMI: Troponin is 174<- 169. It was 213 at an outside facility. Likely due to demand ischemia from sepsis. Cardiology evaluated pt. No furtehr cardiac work up. . Will trend troponin Q6h. Will continue aspirin, plavix, and nebivolol. Will check lipid panel. Hypertensive urgency: Continue nebivolol 10mg po daily and losartan 100mg po daily with prn labetalol. Low threshold to start cardene drip. Will check for metanephrine, aldosterone, renin, and f/u renal ultrasound. Hypokalemia: Potassium is low at 4.1<- 2.8 <- 2.9. Will replete and monitor. Mag is 1.9. Failure to thrive/ Severe malnutrition: Deemed severe from protein/calorie malnutrition. Patient is significantly cachectic. Will continue on regular diet, have nutritional supplement with boost 3 times daily. Consulted slitter creaser slotter helper. DVT prophylaxis: lovenox. CODE STATUS: Full code. Disposition: Pending hospital course.
[2023-08-12] MEDS ORDERED: MAGNESIUM SULFATE 1 gm IVPB 1 GM/100 ML BAG IV ONE (15:14)
[2023-08-12] MEDS: MAGNESIUM SULFATE 1 gm IVPB 1 GM/100 ML BAG IV ONE (15:15)
[2023-08-13 05:04] LABS: Absolute Lymphocytes (CBC) 0.7 K/uL (0.7-4.9); Hematocrit 24.3 % (36.0-45.0); Lymphocytes % 8.4 % (15.3-44.8); MPV 7.6 fL (7.6-11.3); Platelets 250 thou/uL (152-406); RBC Red Blood Cell Count 2.86 M/uL (3.86-4.86)
[2023-08-13 05:49] LABS: Magnesium 2.1 mg/dL (1.6-2.4); Potassium 3.9 mEq/L (3.5-5.1)
[2023-08-13] MEDS ORDERED: CEFTRIAXONE 1000 MG/VIAL ONE (07:48)
[2023-08-13] MEDS ORDERED: CLOPIDOGREL 75 MG TABLET ONE (07:48)
[2023-08-13] MEDS ORDERED: POTASSIUM 25 MEQ EFFERV TAB ONE (07:49)
[2023-08-13] MEDS ORDERED: LOSARTAN POTASSIUM 50 MG TABLET ONE (07:49)
[2023-08-13] MEDS ORDERED: AMLODIPINE 10 MG TAB ONE (07:49)
[2023-08-13] MEDS ORDERED: METOPROLOL XL 50 MG TAB PO ONE (07:49)
[2023-08-13] MEDS ORDERED: ASPIRIN EC 81 MG TAB PO ONE (07:49)
[2023-08-13] MEDS ORDERED: ENOXAPARIN 40 MG/0.4 ML SQ ONE (07:50)
[2023-08-13] MEDS ORDERED: NA CHLORIDE 0.9% 50 ML ONE (07:50)
[2023-08-13] MEDS: POTASSIUM 25 MEQ EFFERV TAB PO ONE (08:13)
[2023-08-13] MEDS: LOSARTAN POTASSIUM 50 MG TABLET PO SCH (08:15)
--- NOTE | 2023-08-13 08:15 | RAD REPORT ---
EXAM DESCRIPTION: US - Abdomen Pelvis Scan US - 08/13/2023 6:49 am CLINICAL HISTORY: Abnormal lab values renal artery stenosis COMPARISON: No comparisons FINDINGS: Both kidneys appear significantly echogenic suggesting underlying medical renal disease. Aortic velocity: 92 cm/second Right proximal renal artery: 42 cm/second Right mid renal artery: 68 cm/second Right distal renal artery: 106 cm/second Right renal arcuate artery resistive index: 0.7 Right renal artery / aorta ratio: 1.2 Left proximal renal artery: 20 cm/second Left mid renal artery: 25 cm/second Left distal renal artery: 23 cm/second Left renal arcuate artery resistive index: Unable to visualize Left renal artery/aorta ratio: 0.3 Mild debris is seen in the urinary bladder. Two left renal cyst. IMPRESSION: No evidence of significant renal artery stenosis. Highly echogenic kidneys noted compatible with medical renal disease.
[2023-08-13] MEDS: AMLODIPINE 10 MG TAB PO SCH (08:16)
[2023-08-13] MEDS: METOPROLOL XL 25 MG TAB PO SCH (08:18)
--- NOTE | 2023-08-13 08:52 | P.PN ---
Subjective Date of Service: 08/13/23 Chief Complaint: Urinary tract infection, NSTEMI, hypokalemia. Pt is resting comfortably in bed. She is AAOx3. BP is improving. Abd ultrasound is negative for renal artery stenosis. It shows medical renal disease. Will optmize BP regimen. No other complaints. Review of Systems Unremarkable General: Unremarkable Eyes: Unremarkable ENT: Unremarkable Respiratory: Unremarkable Cardiovascular: Unremarkable Gastrointestinal: Unremarkable Genitourinary: Unremarkable Musculoskeletal: Unremarkable Integumentary: Unremarkable Neurological: Unremarkable Lymphatics: Unremarkable Physical Examination - Vital Signs Temperature: 98.4 F Blood Pressure: 171/84 Pulse: 74 Respirations: 20 Pulse Ox (%): 100 - Physical Exam General: Alert, In no apparent distress, Oriented x3 HEENT: Atraumatic, Normocephalic, PERRLA Neck: Supple, 2+ carotid pulse no bruit Respiratory: Clear to auscultation bilaterally, Normal air movement Cardiovascular: No edema, Normal pulses, Regular rate/rhythm, Normal S1 S2 Capillary refill: <2 Seconds Gastrointestinal: Normal bowel sounds, Soft and benign, Non-distended Musculoskeletal: No clubbing, No swelling Integumentary: No rashes, No breakdown Neurological: Normal speech, Normal strength at 5/5 x4 extr, Normal tone, Sensation intact, Cranial nerves 3-12 intact Lymphatics: No axilla or inguinal lymphadenopathy - Studies Laboratory Data (last 24 hrs) 08/13/23 08/13/23 08/12/23 04:06 04:06 04:35 WBC 8.40 14.80 H Hgb 8.1 L D 9.3 L Hct 24.3 L 27.7 L Plt Count 250 308 Sodium 142 Potassium 3.9 BUN 19 H Creatinine 1.15 H Glucose 89 Magnesium 2.1 Microbiology Data (last 24 hrs): 08/11/23 13:33 Blood - Blood Anaerobic Blood Culture - Final Assessment And Plan - Plan UTI: Will continue rocephin and follow up urine cx. WBC is trending down (8.4<- 14 <- 22) Elevated troponn/NSTEMI: Troponin is 174<- 169. It was 213 at an outside facility. Likely due to demand ischemia from sepsis. Cardiology evaluated pt. No furtehr cardiac work up. . Will trend troponin Q6h. Will continue aspirin, plavix, and metoprolol. Will check lipid panel. Hypertensive urgency: Will optimize BP regimen. Continue amlodipine 10mg po d aily and metoprolol xl 25mg po daily, and losartan 100mg po daily with prn labetalol. Low threshold to start cardene drip. Will check for metanephrine, aldosterone, renin. Renal ultrasound is negative for renal artery stenosis. It shows renal medical disease. Hypokalemia: Potassium is low at 3.9<- 4.1<- 2.8 <- 2.9. Will replete and monitor. Mag is 1.9. Anemia: Pt takes iron supplement. She had black stool yesterday. Hgb is 8.1 <- 9. Will hold lovenox. Continue SCD. Monitor H/H. Failure to thrive/ Severe malnutrition: Deemed severe from protein/calorie malnutrition. Patient is significantly cachectic. Will continue on regular diet, have nutritional supplement with boost 3 times daily. Consulted natural resources professor. DVT prophylaxis: lovenox. CODE STATUS: Full code. Disposition: Pending hospital course.
[2023-08-13] MEDS ORDERED: LABETALOL 20 MG/4ML SYRINGE IV ONE ×2 (09:20→16:14)
[2023-08-13] MEDS ORDERED: NA CHLORIDE 0.9% 1,000 ML ONE (15:49)
[2023-08-14] MEDS ORDERED: NA CHLORIDE 0.9% 1,000 ML ONE (03:14)
[2023-08-14 04:56] LABS: Absolute Lymphocytes (CBC) 0.8 K/uL (0.7-4.9); Hematocrit 26.3 % (36.0-45.0); Lymphocytes % 6.4 % (15.3-44.8); MCV 84.7 fL (80-100); MPV 7.5 fL (7.6-11.3); Platelets 293 thou/uL (152-406); RBC Red Blood Cell Count 3.11 M/uL (3.86-4.86)
[2023-08-14 05:03] LABS: Potassium 3.5 mEq/L (3.5-5.1)
[2023-08-14] MEDS ORDERED: POTASSIUM 25 MEQ EFFERV TAB ONE (07:40)
[2023-08-14] MEDS ORDERED: PANTOPRAZOLE 40MG TABLET PO ONE (07:40)
[2023-08-14] MEDS ORDERED: CLOPIDOGREL 75 MG TABLET ONE (08:36)
[2023-08-14] MEDS ORDERED: ASPIRIN EC 81 MG TAB PO ONE (08:37)
[2023-08-14] MEDS: POTASSIUM 25 MEQ EFFERV TAB PO ONE (08:41)
[2023-08-14] MEDS: PANTOPRAZOLE 40MG TABLET PO SCH (08:41)
[2023-08-14] MEDS: ENOXAPARIN 30 MG/0.3 ML SQ SCH (08:41)
--- NOTE | 2023-08-14 09:18 | P.PN ---
Subjective Date of Service: 08/14/23 Chief Complaint: Urinary tract infection, NSTEMI, hypokalemia. Pt is resting comfortably in bed. She is AAOx3. BP is improving. Abd ultrasound is negative for renal artery stenosis. It shows medical renal disease. Blood culture from [facility] is growing MRSA. Will add iv vanc and follow up Echo. No other complaints. Review of Systems Unremarkable General: Unremarkable Eyes: Unremarkable ENT: Unremarkable Respiratory: Unremarkable Cardiovascular: Unremarkable Gastrointestinal: Unremarkable Genitourinary: Unremarkable Musculoskeletal: Unremarkable Integumentary: Unremarkable Neurological: Unremarkable Lymphatics: Unremarkable Physical Examination - Vital Signs Temperature: 98.6 F Blood Pressure: 158/91 Pulse: 68 Respirations: 17 Pulse Ox (%): 97 - Physical Exam General: Alert, In no apparent distress, Oriented x3 HEENT: Atraumatic, Normocephalic, PERRLA Neck: Supple, 2+ carotid pulse no bruit Respiratory: Clear to auscultation bilaterally, Normal air movement Cardiovascular: No edema, Normal pulses, Regular rate/rhythm, Normal S1 S2 Capillary refill: <2 Seconds Gastrointestinal: Normal bowel sounds, Soft and benign, Non-distended Musculoskeletal: No clubbing, No swelling Integumentary: No rashes, No breakdown Neurological: Normal speech, Normal strength at 5/5 x4 extr, Normal tone, Sensation intact, Cranial nerves 3-12 intact Lymphatics: No axilla or inguinal lymphadenopathy - Studies Laboratory Data (last 24 hrs) 08/14/23 08/14/23 03:43 03:43 WBC 12.30 H Hgb 8.6 L Hct 26.3 L Plt Count 293 Sodium 141 Potassium 3.5 BUN 19 H Creatinine 0.97 Glucose 88 Assessment And Plan - Plan UTI: Will continue rocephin and follow up urine cx. WBC is trending down (12.3<- 8.4<- 14 <- 22) MRSA bacteremia: Per blood cx from [facility]. Will continue iv vanc and follo wup blood cx. Will follow up Echo. Elevated troponn/NSTEMI: Troponin is 174<- 169. It was 213 at an outside facility. Likely due to demand ischemia from sepsis. Cardiology evaluated pt. No furtehr cardiac work up. . Will trend troponin Q6h. Will continue aspirin, plavix, and metoprolol. Will check lipid panel. Hypertensive urgency: Will optimize BP regimen. Continue amlodipine 10mg po daily and metoprolol xl 25mg po daily, and losartan 100mg po daily with prn labetalol. Low threshold to start cardene drip. Will check for metanephrine, aldosterone, renin. Renal ultrasound is negative for renal artery stenosis. It shows renal medical disease. Hypokalemia: Potassium is low at 3.5<- 3.9<- 4.1<- 2.8 <- 2.9. Will replete and monitor. Mag is 1.9. Anemia: Pt takes iron supplement. She had black stool yesterday. Hgb is 8.6<- 8.1 <- 9. Will hold lovenox. Continue SCD. Monitor H/H. Failure to thrive/ Severe malnutrition: Deemed severe from protein/calorie malnutrition. Patient is significantly cachectic. Will continue on regular diet, have nutritional supplement with boost 3 times daily. Consulted bed bug exterminator. DVT prophylaxis: lovenox. CODE STATUS: Full code. Disposition: Pending hospital course.
[2023-08-14] MEDS: VANCOMYCIN 1.25 GM in NA CHLORIDE 0.9% 250 ML IVPB ONE (11:07)
[2023-08-15] MEDS ORDERED: MAGNES/ALUMIN/SIMET 30ML UCUP ONE (03:58)
[2023-08-15] MEDS: MAGNES/ALUMIN/SIMET 30ML UCUP PO ONE (03:58)
[2023-08-15] MEDS ORDERED: ONDANSETRON 4 MG/2 ML VIAL ONE (04:52)
[2023-08-15] MEDS ORDERED: LABETALOL 20 MG/4ML SYRINGE IV ONE (04:52)
[2023-08-15] MEDS ORDERED: NA CHLORIDE 0.9% 1,000 ML ONE (05:05)
[2023-08-15 06:16] LABS: Absolute Lymphocytes (CBC) 0.6 K/uL (0.7-4.9); Hematocrit 32.9 % (36.0-45.0); Lymphocytes % 3.7 % (15.3-44.8); MCV 84.9 fL (80-100); MPV 7.3 fL (7.6-11.3); Platelets 383 thou/uL (152-406); RBC Red Blood Cell Count 3.87 M/uL (3.86-4.86)
[2023-08-15 06:28] LABS: Potassium 3.5 mEq/L (3.5-5.1)
--- NOTE | 2023-08-15 07:28 | P.PN ---
Subjective Date of Service: 08/15/23 Chief Complaint: Urinary tract infection, NSTEMI, hypokalemia. No reported fever, chest pain, scheduled for echo today, elevated WBCs, positive bacteremia, infectious disease consulted - Physical Exam General: Alert, In no apparent distress, Oriented x3 HEENT: Atraumatic, Normocephalic, PERRLA Neck: Supple, 2+ carotid pulse no bruit Respiratory: Clear to auscultation bilaterally, Normal air movement Cardiovascular: No edema, Normal pulses, Regular rate/rhythm, Normal S1 S2 Capillary refill: <2 Seconds Gastrointestinal: Normal bowel sounds, Soft and benign, Non-distended Musculoskeletal: No clubbing, No swelling Integumentary: No rashes, No breakdown Neurological: Normal speech, Normal strength at 5/5 x4 extr, Normal tone, Sensation intact, Cranial nerves 3-12 intact Lymphatics: No axilla or inguinal lymphadenopathy Review of Systems per [facility] Physical Examination - Vital Signs Temperature: 99.7 F Blood Pressure: 166/88 Pulse: 71 Respirations: 23 Pulse Ox (%): 96 - Studies Laboratory Data (last 24 hrs) 08/15/23 08/15/23 06:05 06:05 WBC 16.40 H Hgb 10.9 L D Hct 32.9 L Plt Count 383 D Sodium 139 Potassium 3.5 BUN 14 Creatinine 0.92 Glucose 119 H Assessment And Plan - Plan Assessment plan NSTEMI Elevated troponin Troponin is 174<- 169. It was 213 at an outside facility. Likely due to demand ischemia from sepsis. Cardiology evaluated pt. No furtehr cardiac work up. . Will trend troponin Q6h. Will continue aspirin, plavix, and metoprolol. Hypertensive urgency Telemetry, as needed antihypertensive Continue amlodipine 10mg po daily and metoprolol xl 25mg po daily, and losartan 100mg po daily with prn labetalol. Low threshold to start cardene drip. Will check for metanephrine, aldosterone, renin. Renal ultrasound is negative for renal artery stenosis. It shows renal medical disease. MRSA bacteremia Leukocytosis Infectious disease consult Per blood cx from [facility]. Will continue iv vanc and follo wup blood cx. Will follow up Echo. Hypokalemia improved Trend electrolytes replace as needed 3.5<- 3.9<- 4.1<- 2.8 <- 2.9. Will replete and monitor. Mag is 1.9. GI bleed? Anemia Trend H&H, DC anticoagulation She had black stool yesterday. Hgb is 8.6<- 8.1 <- 9. Will hold lovenox. Continue SCD. Monitor H/H. Failure to thrive Protein calorie malnutrition Deemed severe from protein/calorie malnutrition. Patient is significantly cachectic. Will continue on regular diet, have nutritional supplement with boost 3 times daily. Consulted custodial laborer. Full code Diet cardiac Dispo acute rehab Discharge Plan: Other - Code Status/Comfort Care Code Status: Full Code Critical Care: No
[2023-08-15] MEDS: LACTOBACILLUS/ACIDOPHILUS TAB PO SCH (09:17)
--- NOTE | 2023-08-15 09:21 | P.PN ---
Subjective Date of Service: 08/15/23 Chief Complaint: Urinary tract infection, NSTEMI, hypokalemia. Pt is resting comfortably in bed. She is AAOx3. BP was elevated this am. Blood culture from [facility] is growing MRSA. Will continue iv vanc and follow up Echo. No other complaints. Review of Systems Unremarkable General: Unremarkable Eyes: Unremarkable ENT: Unremarkable Respiratory: Unremarkable Cardiovascular: Unremarkable Gastrointestinal: Unremarkable Genitourinary: Unremarkable Musculoskeletal: Unremarkable Integumentary: Unremarkable Neurological: Unremarkable Lymphatics: Unremarkable Physical Examination - Vital Signs Temperature: 99.7 F Blood Pressure: 166/88 Pulse: 71 Respirations: 23 Pulse Ox (%): 96 - Physical Exam General: Alert, In no apparent distress, Oriented x3, Cachectic HEENT: Atraumatic, Normocephalic, PERRLA Neck: Supple, 2+ carotid pulse no bruit Respiratory: Clear to auscultation bilaterally, Normal air movement Cardiovascular: No edema, Normal pulses, Regular rate/rhythm, Normal S1 S2 Capillary refill: <2 Seconds Gastrointestinal: Normal bowel sounds, Soft and benign, Non-distended Musculoskeletal: No clubbing, No swelling Integumentary: No rashes, No breakdown Neurological: Normal speech, Normal strength at 5/5 x4 extr, Normal tone, Sensation intact, Cranial nerves 3-12 intact Lymphatics: No axilla or inguinal lymphadenopathy - Studies Laboratory Data (last 24 hrs) 08/15/23 08/15/23 06:05 06:05 WBC 16.40 H Hgb 10.9 L D Hct 32.9 L Plt Count 383 D Sodium 139 Potassium 3.5 BUN 14 Creatinine 0.92 Glucose 119 H Assessment And Plan - Plan UTI: Will continue rocephin and follow up urine cx. WBC is trending down (12.3<- 8.4<- 14 <- 22) MRSA bacteremia: Per blood cx from [facility]. Will continue iv vanc and follow up blood cx. Will follow up Echo. Elevated troponn/NSTEMI: Troponin is 174<- 169. It was 213 at an outside facility. Likely due to demand ischemia from sepsis. Cardiology evaluated pt. No furtehr cardiac work up. Will trend troponin Q6h. Will continue aspirin, plavix, and metoprolol. Will check lipid panel. Hypertensive urgency: Will optimize BP regimen. Continue amlodipine 10mg po daily and metoprolol xl 25mg po daily, and losartan 100mg po daily with prn labetalol. Low threshold to start cardene drip. Will check for metanephrine, aldosterone, renin. Renal ultrasound is negative for renal artery stenosis. It shows renal medical disease. Hypokalemia: Potassium is low at 3.5<- 3.9<- 4.1<- 2.8 <- 2.9. Will replete and monitor. Mag is 1.9. Anemia: Pt takes iron supplement. She had black stool yesterday. Hgb is 8.6<- 8.1 <- 9. Will hold lovenox. Continue SCD. Monitor H/H. Failure to thrive/ Severe malnutrition: Deemed severe from protein/calorie malnutrition. Patient is significantly cachectic. Will continue on regular diet, have nutritional supplement with boost 3 times daily. Consulted door slinger. Deconditioning: will consult PT. DVT prophylaxis: lovenox. CODE STATUS: Full code. Disposition: Pending hospital course.
--- NOTE | 2023-08-15 09:30 | P.CNS ---
Date of Consult: 08/15/23 Reason for Consult: MRSA bacteremia Chief Complaint: Urinary tract infection, NSTEMI, hypokalemia. History of Present Illness: Patient is an 83-year-old female with a past medical history of hypertension, chronic hypokalemia, failure to thrive who initially presented to the ED in [facility] due to dysuria and urinary frequency. At [facility], she was found to have hypokalemia and elevated troponin, UA was concerning for urinary tract infection. She was transferred to [facility] for higher level of care. Blood cultures from [facility] were reported to be growing MRSA. Patient is currently on Rocephin and vancomycin. Infectious disease was consulted. Allergies No Known Drug Allergies Allergy (Verified 01/21/23 14:18) Unknown Home medications list reviewed: Yes Home Medications: Aspirin [Aspirin EC] 81 mg PO DAILY 08/11/23 Cefuroxime [Ceftin] 250 mg PO BID 08/11/23 Clopidogrel Bisulfate [Plavix] 75 mg PO DAILY 08/11/23 Ferrous Gluconate 324 mg PO DAILY 08/11/23 Furosemide 20 mg PO DAILY PRN 08/11/23 Mv-Mn/Om3/Dha/Epa/Fish/Lut/Ronni [Ocuvite Adult 50 Plus Softgel] 1 pill PO DAILY 08/11/23 Nebivolol HCl 5 mg PO DAILY 08/11/23 Nitrofurantoin Monohyd/M-Cryst [Nitrofurantoin Sterling-Mcr 100 mg] 1 cap PO BID* 08/11/23 Potassium Citrate [Potassium] 99 mg PO DAILY 08/11/23 - Past Medical/Surgical History Diabetic: No -: Hypertension -: Narcolepsy -: Anemia -: Hypokalemia -: 2 C sections -: cataract surgery bilaterally Psychosocial/ Personal History: Patient lives at home with her family - Family History Father Medical History: Heart disease, Hypertension Notes: at 54, smoker Mother Medical History: Hypertension, Kidney disease, Other (see notes) Notes: failure to thrive; lived to be 72, did not go to doctor regularly Brother Notes: no significant medical history Sister Medical History: Cancer, Other (see notes) Notes: of a brain tumor - Social History Alcohol use: No CD- Drugs: No Caffeine use: Yes Place of Residence: Home Review of Systems General: Weakness Gastrointestinal: Nausea, Vomiting, Other (abdominal pain described as "burning/ feels like acid reflux") Genitourinary: Dysuria, Frequency Physical Examination Temp Pulse Resp BP Pulse Ox 99.7 F 71 23 H 166/88 H 96 08/15/23 09:20 08/15/23 09:20 08/15/23 09:20 08/15/23 09:20 08/15/23 09:20 General: Alert, In no apparent distress, Oriented x3, Cachectic HEENT: Atraumatic, Normocephalic Respiratory: Normal air movement, Diminished, Other (unlabored respirations on room air) Cardiovascular: No edema, Regular rate/rhythm Gastrointestinal: Normal bowel sounds, Tenderness (mild ) Integumentary: No rashes Neurological: Normal speech, Normal tone, Normal affect Laboratory Data (last 24 hrs) 08/15/23 08/15/23 06:05 06:05 WBC 16.40 H Hgb 10.9 L D Hct 32.9 L Plt Count 383 D Sodium 139 Potassium 3.5 BUN 14 Creatinine 0.92 Glucose 119 H Microbiology data -Reviewed Imagings Data: -Reviewed Conclusions/Impression: Problem list NSTEMI MRSA bacteremia Hypokalemia Anemia Failure to thrive Severe protein calorie malnutrition bladder prolapse History of recurrent UTI History of ESBL UTI MRSA Bacteremia s/p mitral valve repair March 2023 - Blood cultures from [facility] growing MRSA - repeat blood cultures 08/11: no growth to date - Currently on Rocephin (started 08/11) and vancomycin (started 08/14) - TTE: pending Recommendations -Given MRSA bacteremia, recommend obtaining echocardiogram to evaluate for vegetation - Continue vancomycin for 2 weeks following negative blood culture (08/11- 08/24) -UTI: Patient reports recurrent UTI treated for E.coli ESBL with meropenem. Given history of ESBL, recommend discontinuing Rocephin and starting on Meropenem. -Monitor WBC and fever trends -Nutritional supplementation -Continue supportive care Case discussed with Roseanne Lin
[2023-08-15] MEDS ORDERED: CLOPIDOGREL 75 MG TABLET ONE (09:39)
[2023-08-15] MEDS ORDERED: ASPIRIN EC 81 MG TAB PO ONE (09:40)
[2023-08-15] MEDS: SUCRALFATE 1GM/10ML UCUP FT SCH (09:47)
[2023-08-15] MEDS ORDERED: KCL 20 MEQ/100 mL IVPB 100 ML IV ONE (11:01)
[2023-08-15] MEDS: KCL 20 MEQ/100 mL IVPB 20 MEQ/100 ML BAG IV SCH (11:07)
[2023-08-15] MEDS: ACETAMINOPHEN 325 MG TABLET PO PRN (15:28)
[2023-08-15] MEDS: VANCOMYCIN 500 MG/VIAL ONE (22:32)
[2023-08-15] MEDS: NA CHLORIDE 0.9% 250 ML IV ONE (22:41)
[2023-08-15] MEDS: VANCOMYCIN 0.75 GM in NA CHLORIDE 0.9% 150 ML IVPB SCH (22:41)
--- NOTE | 2023-08-16 07:12 | ECHO ---
HEIGHT: 5 ft 4 in WEIGHT: 92 lb 12.8 oz DATE OF STUDY: 08/15/[address]: Jaime Maxwell MD 2-DIMENSIONAL: YES M.MODE: YES DOPPLER: YES COLOR FLOW: YES TDS: PORTABLE: YES DEFINITY: BUBBLE STUDY: DIAGNOSIS: BACTERMIA CARDIAC HISTORY: CATHERIZATION: SURGERY: PROSTHETIC VALVE: PACEMAKER: MEASUREMENTS (cm) DIASTOLIC (NORMALS) SYSTOLIC (NORMALS) IVSd 1.0 (0.6-1.2) LA Diam 2.8 (1.9-4.0) LVEF 52% LVIDd 4.1 (3.5-5.7) LVIDs 3.0 (2.0-3.5) %FS 26% LVPWd 1.2 (0.6-1.2) Ao Diam 2.5 (2.0-3.7) 2 DIMENSIONAL ASSESSMENT: RIGHT ATRIUM: NORMAL LEFT ATRIUM: NORMAL RIGHT VENTRICLE: NORMAL LEFT VENTRICLE: LEFT VENTRICULAR HYPERTROPHY TRICUSPID VALVE: TRACE TRICUSPID REGURGITATION MITRAL VALVE: MILD MITRAL REGURGITATION PULMONIC VALVE: MILD PULMONIC INSUFFICIENCY AORTIC VALVE: BIOPROSTHESIS IS PRESENT PERICARDIAL EFFUSION: SMALL AORTIC ROOT: NORMAL LEFT VENTRICULAR WALL MOTION: NORMAL DOPPLER/COLOR FLOW: SEE BELOW COMMENTS: 1. NORMAL LEFT VENTRICULAR EJECTION FRACTION 50-55% 2. MILD CONCENTRIC LEFT VENTRICULAR HYPERTROPHY 3. AORTIC VALVE BIOPROSTHESIS IS PRESENT FUNCTIONING WELL 4. NO CLEAR VEGETATION IS SEEN, RECOMMEND TRASNESOPHAGEAL ECHOCARDIOGRAM, IF CLINICALLY INDICATED. 5. TRACE PERICARDIAL EFFUSION TECHNOLOGIST: NONA CUNHA
--- NOTE | 2023-08-16 09:32 | P.PN ---
Date of Service: 08/16/23 Chief Complaint: Urinary tract infection, NSTEMI, hypokalemia. Subjective: Improving. In no apparent distress. No acute events overnight. Patient reports she is feeling much better today. No nausea or abdominal pain today. Physical Examination Temp Pulse Resp BP Pulse Ox 98.3 F 67 14 145/66 H 96 08/16/23 08:00 08/16/23 08:00 08/16/23 08:00 08/16/23 08:00 08/16/23 08:00 General: Alert, In no apparent distress, Oriented x3. Thin, frail. HEENT: Atraumatic, Normocephalic. Poor dentition. Respiratory: Diminished. Unlabored respirations on room air. Cardiovascular: Regular rate and rhythm. No edema. Gastrointestinal: Normal bowel sounds, flat. Non-tender. Integumentary: No rashes. Ecchymosis scattered bilateral upper and lower extremities. Neurological: Normal speech, Normal tone, Normal affect Laboratory Data - Reviewed Microbiology data -Reviewed Imagings Data: -Reviewed - TTE 08/15: "1. NORMAL LEFT VENTRICULAR EJECTION FRACTION 50-55%. 2. MILD CONCENTRIC LEFT VENTRICULAR HYPERTROPHY. 3. AORTIC VALVE BIOPROSTHESIS IS PRESENT FUNCTIONING WELL. 4. NO CLEAR VEGETATION IS SEEN, RECOMMEND TRASNESOPHAGEAL ECHOCARDIOGRAM, IF CLINICALLY INDICATED. 5. TRACE PERICARDIAL EFFUSION" Medications List: Reviewed Assessment and Plan Problem list NSTEMI MRSA bacteremia Hypokalemia Anemia Severe protein calorie malnutrition bladder prolapse History of recurrent UTI History of ESBL UTI MRSA Bacteremia s/p mitral valve repair March 2023 - Blood cultures from [facility] growing MRSA - repeat blood cultures 08/11: no growth to date - On Vancomycin (started 08/14) - TTE: no clear vegetation seen Leukocytosis improving. Afebrile. Urinary Tract Infection - reported UTI from [facility] - on Rocephin (started 08/11) Recommendations -MRSA Bacteremia: Continue vancomycin for 2 weeks following negative blood culture (08/11-08/24). -UTI: Continue Rocephin x 7 days (08/11-08/17) -Monitor WBC and fever trends -Nutritional supplementation -Continue supportive care Case discussed with Roseanne Lin
[2023-08-16 11:41] LABS: Absolute Lymphocytes (CBC) 0.8 K/uL (0.7-4.9); Hematocrit 28.3 % (36.0-45.0); Lymphocytes % 5.5 % (15.3-44.8); MCV 85.5 fL (80-100); MPV 7.3 fL (7.6-11.3); Platelets 340 thou/uL (152-406); RBC Red Blood Cell Count 3.31 M/uL (3.86-4.86)
[2023-08-16 11:47] LABS: Potassium 3.7 mEq/L (3.5-5.1)
[2023-08-17 04:11] VITALS: BMI 16.0
--- NOTE | 2023-08-17 09:39 | P.PN ---
Date of Service: 08/17/23 Chief Complaint: Urinary tract infection, NSTEMI, hypokalemia. Subjective: Improving. Patient denies any new or worsening complaints at this time. No nausea, vomiting, diarrhea or abdominal pain. No cough, shortness of breath or chest pain. + generalized weakness Plan of care discussed with patient and daughter at bedside. Physical Examination Temp Pulse Resp BP Pulse Ox 98.4 F 71 18 164/68 H 98 08/17/23 04:00 08/17/23 09:19 08/17/23 04:00 08/17/23 09:19 08/17/23 04:00 General: In no apparent distress, oriented to person, place, time, situation. Thin, frail. HEENT: Atraumatic, Normocephalic. Poor dentition. Respiratory: Diminished. Unlabored respirations on room air. Cardiovascular: Regular rate and rhythm. No edema. Gastrointestinal: Normal bowel sounds. Abdomen flat, non-tender, non-distended. Integumentary: Ecchymosis scattered bilateral upper and lower extremities. Skin warm and dry. No rashes. Neurological: Normal speech, Normal tone, Normal affect Laboratory Data - Reviewed Microbiology data -Reviewed Imagings Data: -Reviewed - TTE 08/15: "1. NORMAL LEFT VENTRICULAR EJECTION FRACTION 50-55%. 2. MILD CONCENTRIC LEFT VENTRICULAR HYPERTROPHY. 3. AORTIC VALVE BIOPROSTHESIS IS PRESENT FUNCTIONING WELL. 4. NO CLEAR VEGETATION IS SEEN, RECOMMEND TRASNESOPHAGEAL ECHOCARDIOGRAM, IF CLINICALLY INDICATED. 5. TRACE PERICARDIAL EFFUSION" Medications List: Reviewed Assessment and Plan Problem list NSTEMI MRSA bacteremia Hypokalemia Anemia Severe protein calorie malnutrition bladder prolapse History of recurrent UTI History of ESBL UTI MRSA Bacteremia - Blood cultures from [facility] growing MRSA - Negative blood culture obtained 08/11 - s/p mitral valve repair March 2023 - TTE 08/15: no clear vegetation seen - On Vancomycin (started 08/14) Leukocytosis improving. Afebrile. Urinary Tract Infection - reported UTI from [facility] - on Rocephin (started 08/11) Recommendations -MRSA Bacteremia: Continue vancomycin for 2 weeks following negative blood culture (08/11-08/24). -UTI: Continue Rocephin x 7 days (08/11-08/17). On day 7/7. -Monitor WBC and fever trends -Nutritional supplementation -Continue supportive care Case discussed with Roseanne Lin
[2023-08-17] MEDS: VANCOMYCIN 1 GM in NA CHLORIDE 0.9% 250 ML IVPB SCH (12:12)
[2023-08-17] MEDS: dexAMETHasone 4 MG/ML VIAL IV ONE (18:36)
--- NOTE | 2023-08-18 07:38 | P.PN ---
Subjective Date of Service: 08/18/23 Chief Complaint: Urinary tract infection, NSTEMI, hypokalemia. Blood cultures positive for MRSA, echo ordered, IV antibiotics vancomycin - Physical Exam General: Alert, In no apparent distress, Oriented x3 HEENT: Atraumatic, Normocephalic, PERRLA Neck: Supple, 2+ carotid pulse no bruit Respiratory: Clear to auscultation bilaterally, Normal air movement Cardiovascular: No edema, Normal pulses, Regular rate/rhythm, Normal S1 S2 Capillary refill: <2 Seconds Gastrointestinal: Normal bowel sounds, Soft and benign, Non-distended Musculoskeletal: No clubbing, No swelling Integumentary: No rashes, No breakdown Neurological: Normal speech, Normal strength at 5/5 x4 extr, Normal tone, Sensation intact, Cranial nerves 3-12 intact Lymphatics: No axilla or inguinal lymphadenopathy Review of Systems per [facility] Physical Examination - Vital Signs Temperature: 97.6 F Blood Pressure: 148/63 Pulse: 67 Respirations: 16 Pulse Ox (%): 97 Assessment And Plan - Plan Assessment plan NSTEMI Telemetry Cardiology consult Echo TTE 08/15: "1. NORMAL LEFT VENTRICULAR EJECTION FRACTION 50-55%. 2. MILD CONCENTRIC LEFT VENTRICULAR HYPERTROPHY. 3. AORTIC VALVE BIOPROSTHESIS IS PRESENT FUNCTIONING WELL. 4. NO CLEAR VEGETATION IS SEEN, RECOMMEND TRASNESOPHAGEAL ECHOCARDIOGRAM, IF CLINICALLY INDICATED. 5. TRACE PERICARDIAL EFFUSION" MRSA bacteremia Leukocytosis improving Blood cultures from [facility] growing MRSA - Negative blood culture obtained 08/11 - s/p mitral valve repair March 2023 - TTE 08/15: no clear vegetation seen - On Vancomycin (started 08/14) -Infectious disease consult recommendation Continue vancomycin for 2 weeks following negative blood culture (08/11-08/24). -UTI: Continue Rocephin x 7 days (08/11-08/17). On day 7/7. Hypokalemia Trend electrolytes replace as needed Severe protein calorie malnutrition -reported UTI from [facility] - on Rocephin (started 08/11) History of recurrent UTI History of ESBL of the urine Anemia Disposition inpatient rehab versus swing the swing bed - Code Status/Comfort Care Code Status: Full Code Critical Care: No Time Spent Managing PTS Care (In Minutes): 35
--- NOTE | 2023-08-18 09:28 | P.PN ---
Date of Service: 08/18/23 Chief Complaint: Urinary tract infection, NSTEMI, hypokalemia. Subjective: In no apparent distress. No acute events overnight. Physical therapy working with patient in room at this time. patient denies any new or worsening complaints. Physical Examination Temp Pulse Resp BP Pulse Ox 96.5 F L 67 18 157/71 H 97 08/18/23 08:00 08/18/23 08:00 08/18/23 08:00 08/18/23 08:00 08/18/23 07:48 General: In no apparent distress, oriented to person, place, time, situation. Thin, frail. HEENT: Atraumatic, Normocephalic. Poor dentition. Respiratory: Diminished. Unlabored respirations on room air. Cardiovascular: Regular rate and rhythm. No edema. Gastrointestinal: Normal bowel sounds. Abdomen flat, non-tender, non-distended. Integumentary: Ecchymosis scattered bilateral upper and lower extremities. Skin warm and dry. No rashes. Neurological: Normal speech, Normal tone, Normal affect Laboratory Data - Reviewed Microbiology data -Reviewed Imagings Data: -Reviewed - TTE 08/15: "1. NORMAL LEFT VENTRICULAR EJECTION FRACTION 50-55%. 2. MILD CONCENTRIC LEFT VENTRICULAR HYPERTROPHY. 3. AORTIC VALVE BIOPROSTHESIS IS PRESENT FUNCTIONING WELL. 4. NO CLEAR VEGETATION IS SEEN, RECOMMEND TRASNESOPHAGEAL ECHOCARDIOGRAM, IF CLINICALLY INDICATED. 5. TRACE PERICARDIAL EFFUSION" Medications List: Reviewed Assessment and Plan Problem list NSTEMI MRSA bacteremia Hypokalemia Anemia Severe protein calorie malnutrition bladder prolapse History of recurrent UTI History of ESBL UTI MRSA Bacteremia - Blood cultures from [facility] growing MRSA - Negative blood culture obtained 08/11 - s/p mitral valve repair March 2023 - TTE 08/15: no clear vegetation seen - On Vancomycin (started 08/14) - bactroban nasal ointment BID x 5 days Leukocytosis improving. Afebrile. Urinary Tract Infection - reported UTI from [facility] - Completed 7 days Rocephin IV (08/11-08/18) Recommendations -MRSA Bacteremia: Continue vancomycin for 2 weeks following negative blood culture (08/11-08/24). -UTI: Completed 7 days Rocephin IV (08/11-08/18). -Monitor WBC and fever trends -Nutritional supplementation -Continue supportive care - Physical Therapy Case discussed with Roseanne Lin
[2023-08-18] MEDS: Mupirocin NASAL 2 APPL/1 GM TUBE NAS SCH (09:46)
[2023-08-18 10:40] LABS: Absolute Lymphocytes (CBC) 0.9 K/uL (0.7-4.9); Hematocrit 27.9 % (36.0-45.0); Lymphocytes % 9.9 % (15.3-44.8); MCV 84.8 fL (80-100); MPV 7.2 fL (7.6-11.3); Platelets 405 thou/uL (152-406)
[2023-08-18 11:19] LABS: Potassium 2.9 mEq/L (3.5-5.1)
--- NOTE | 2023-08-18 15:34 | RAD REPORT ---
EXAM DESCRIPTION: RAD - Chest Single View - 08/18/2023 2:40 pm CLINICAL HISTORY: Device placement PICC line placement . IMPRESSION: PICC line with its tip in the mid superior vena cava
[2023-08-19 06:44] LABS: Potassium 2.7 mEq/L (3.5-5.1)
[2023-08-19] MEDS: KCL 20 MEQ/100 mL IVPB 20 MEQ/100 ML BAG IV SCH (07:25)
--- NOTE | 2023-08-19 08:15 | P.PN ---
Subjective Date of Service: 08/19/23 Chief Complaint: Urinary tract infection, NSTEMI, hypokalemia. no reported fevers, Blood cultures positive for MRSA, echo ordered, IV antibiotics vancomycin - Physical Exam General: Alert, In no apparent distress, Oriented x3 HEENT: Atraumatic, Normocephalic, PERRLA Neck: Supple, 2+ carotid pulse no bruit Respiratory: Clear to auscultation bilaterally, Normal air movement Cardiovascular: No edema, Normal pulses, Regular rate/rhythm, Normal S1 S2 Capillary refill: <2 Seconds Gastrointestinal: Normal bowel sounds, Soft and benign, Non-distended Musculoskeletal: No clubbing, No swelling Integumentary: No rashes, No breakdown Neurological: Normal speech, Normal strength at 5/5 x4 extr, Normal tone, Sensation intact, Cranial nerves 3-12 intact Lymphatics: No axilla or inguinal lymphadenopathy Review of Systems per [facility] Physical Examination - Vital Signs Temperature: 98.2 F Blood Pressure: 172/81 Pulse: 71 Respirations: 16 Pulse Ox (%): 99 - Studies Laboratory Data (last 24 hrs) 08/19/23 08/18/23 08/18/23 05:29 10:23 10:23 WBC 9.50 Hgb 9.6 L Hct 27.9 L Plt Count 405 Sodium 139 141 Potassium 2.7 L 2.9 L BUN 14 16 Creatinine 0.81 1.04 H Glucose 88 103 Assessment And Plan - Plan Assessment plan NSTEMI improved Telemetry Cardiology consult Echo TTE 08/15: "1. NORMAL LEFT VENTRICULAR EJECTION FRACTION 50-55%. 2. MILD CONCENTRIC LEFT VENTRICULAR HYPERTROPHY. 3. AORTIC VALVE BIOPROSTHESIS IS PRESENT FUNCTIONING WELL. 4. NO CLEAR VEGETATION IS SEEN, RECOMMEND TRASNESOPHAGEAL ECHOCARDIOGRAM, IF CLINICALLY INDICATED. 5. TRACE PERICARDIAL EFFUSION" Abdominal ultrasound IMPRESSION: No evidence of significant renal artery stenosis.Highly echogenic kidneys noted compatible with medical renal disease. MRSA bacteremia Leukocytosis improving Blood cultures from [facility] growing MRSA - Negative blood culture obtained 08/11 - s/p mitral valve repair March 2023 - TTE 08/15: no clear vegetation seen - On Vancomycin (started 08/14) -Infectious disease consult recommendation Continue vancomycin for 2 weeks following negative blood culture (08/11-08/24). -UTI: Continue Rocephin x 7 days (08/11-08/17). On day 7/7. Hypokalemia improved Trend electrolytes replace as needed with electrolyte protocol Severe protein calorie malnutrition -reported UTI from [facility] - on Rocephin (started 08/11) History of recurrent UTI History of ESBL of the urine Completed Rocephin IV Anemia stable Hemoglobin 9.4, 9.6 Disposition inpatient rehab versus swing the swing bed Discharge Plan: Home - Code Status/Comfort Care Code Status: Full Code Critical Care: No Time Spent Managing PTS Care (In Minutes): 35
--- NOTE | 2023-08-19 08:30 | P.DS ---
Admission Date: 08/11/23 Discharge Date: 08/21/23 Reason for Admission: Urinary tract infection, NSTEMI, hypokalemia. Brief History of Present Illness: 83-year-old female patient was medical history significant for hypertension, chronic hypokalemia on oral replacement, failure to thrive and recently had issues with burning micturition or frequency of urination. She reported that you decided to smell funny and she began to go to the bathroom more frequently and her urine has changed color. She denied overt episode of fever, chills, night sweats. She denied, diarrhea. She was evaluated at emergency room and [facility] found to have a low potassium of 2.9 with elevated troponin and UA was very concerning for urinary tract infection. She was transferred to [facility] for higher level of cardiac secondary to abnormal cardiac enzyme. She denies chest pain, shortness of breath episode. - Physical Exam General: Alert, Oriented x3 HEENT: Atraumatic Neck: Supple Respiratory: Normal air movement Cardiovascular: Regular rate/rhythm, Normal S1 S2 Gastrointestinal: Soft and benign Musculoskeletal: No swelling Neurological: Normal speech, Normal strength at 5/5 x4 extr Hospital Course: 73-zx[age]-[id number]-old female patient presented with past medical history of hypertension, chronic hypokalemia, failure to thrive, was noted to have urinary tract infection, elevated troponins, hypokalemia, bacteremia. She was treated with IV antibiotics, received an echo, no clear vegetation seen on valves. Was treated with IV vancomycin for bacteremia, Rocephin for urinary tract infection. Condition improved with IV antibiotics, electrolyte replacement, supplemental nutrition Patient tolerating diet, stable for discharge to home with follow-up appointment with primary care physician.. Stable to discharge to [facility] swing bed for IV antibiotics for bacteremia, versus inpatient rehab for discharge plan [facility] versus inpatient rehab [address] [place] [id number] P:[phone]/F:[phone] PROBLEM: Bacteremia s/p mitral valve repair March 2023 Recurrent cystitis Hypokalemia Failure to thrive Protein calorie malnutrition Anorexia Per infectious disease plan to continue vancomycin Continue vancomycin for 2 weeks following negative blood culture (08/11-08/24). Vancomycin 1 g every 36 hours bactroban nasal ointment BID x 5 days Routine blood work Echo TTE 08/15: "1. NORMAL LEFT VENTRICULAR EJECTION FRACTION 50-55%. 2. MILD CONCENTRIC LEFT VENTRICULAR HYPERTROPHY. 3. AORTIC VALVE BIOPROSTHESIS IS PRESENT FUNCTIONING WELL. 4. NO CLEAR VEGETATION IS SEEN, RECOMMEND TRASNESOPHAGEAL ECHOCARDIOGRAM, IF CLINICALLY INDICATED. 5. TRACE PERICARDIAL EFFUSION" Continue home medicines as previously prescribed GOAL: Clear understanding of disease process INSTRUCTIONS: Physician Discharge Instructions: -Follow-up with PCP in 1 to 2 weeks after discharge -Please call if any questions regarding hospital stay -Please call nursing station at [phone] if any nursing or medication questions -Return to the emergency room if symptoms worsen Diet: ADA, low sodium Activity: Fall precautions DME: Date Ordered: Name of Company: [employer] Services Needed: None Date or Referral: IMMUNIZATION Influenza Vaccine Indicated: Influenza Vaccine Given: Date Given: Pneumonia Vaccine Indicated: Pneumonia Vaccine Given: Date Given <Nelly Garcia - Last Filed: 08/21/23 11:01> Admission Date: 08/11/23 Discharge Date: 08/24/23 Consultations: Dr. Trejo/Salma Power NP - Problems (1) Non-ST elevated myocardial infarction (non-STEMI) Status: Acute (2) Hypokalemia Onset Date: 10/07/16 Status: Acute (3) Failure to thrive in adult Status: Acute (4) DENNY (acute kidney injury) Status: Acute <Olimpia Cotto - Last Filed: 08/24/23 16:16> Admission Date: 08/11/23 Discharge Date: 08/25/23 <Jaime Maxwell - Last Filed: 08/25/23 17:35> Disposition: TRANSFER TO INPATIENT REHAB Discharge Condition: GOOD Vital Signs/Physical Exam: Temp Pulse Resp BP Pulse Ox 98.2 F 71 16 172/81 H 99 08/19/23 08:15 08/19/23 08:15 08/19/23 08:15 08/19/23 08:15 08/19/23 08:15 Laboratory Data at Discharge: WBC 9.50 thou/uL (4.3-10.9) 08/18/23 10:23 Hgb 9.6 g/dL (12.0-15.0) L 08/18/23 10:23 Hct 27.9 % (36.0-45.0) L 08/18/23 10:23 Plt Count 405 thou/uL (152-406) 08/18/23 10:23 Sodium 139 mEq/L (136-145) 08/19/23 05:29 Potassium 2.7 mEq/L (3.5-5.1) L 08/19/23 05:29 BUN 14 mg/dL (7-18) 08/19/23 05:29 Creatinine 0.81 mg/dL (0.55-1.02) 08/19/23 05:29 Glucose 88 mg/dL (74-106) 08/19/23 05:29 Magnesium 2.1 mg/dL (1.6-2.4) 08/13/23 04:06 Triglycerides 129 mg/dL (<150) 08/12/23 04:35 Cholesterol 154 mg/dL (<200) 08/12/23 04:35 HDL Cholesterol 32 mg/dL (40-60) L 08/12/23 04:35 Cholesterol/HDL Ratio 4.81 08/12/23 04:35 <Nelly Garcia - Last Filed: 08/21/23 11:01> Vital Signs/Physical Exam: Temp Pulse Resp BP Pulse Ox 97.4 F 66 20 134/69 98 08/24/23 12:00 08/24/23 12:00 08/24/23 12:00 08/24/23 12:00 08/24/23 12:00 General: Alert, In no apparent distress, Oriented x3 HEENT: Atraumatic, Normocephalic Neck: Supple, 2+ carotid pulse no bruit Respiratory: Clear to auscultation bilaterally, Normal air movement Cardiovascular: No edema, Normal pulses Capillary refill: <2 Seconds Gastrointestinal: Normal bowel sounds Musculoskeletal: No clubbing Integumentary: No rashes Neurological: Normal speech, Normal tone Lymphatics: No axilla or inguinal lymphadenopathy External genitalia: Deferred Rectal: Deferred Laboratory Data at Discharge: WBC 10.10 thou/uL (4.3-10.9) 08/24/23 02:30 Hgb 8.5 g/dL (12.0-15.0) L 08/24/23 02:30 Hct 25.9 % (36.0-45.0) L 08/24/23 02:30 Plt Count 497 thou/uL (152-406) H 08/24/23 02:30 Sodium 141 mEq/L (136-145) 08/24/23 02:30 Potassium 3.5 mEq/L (3.5-5.1) 08/24/23 02:30 BUN 16 mg/dL (7-18) 08/24/23 02:30 Creatinine 0.99 mg/dL (0.55-1.02) 08/24/23 02:30 Glucose 94 mg/dL (74-106) 08/24/23 02:30 Magnesium 1.7 mg/dL (1.6-2.4) 08/24/23 02:30 Total Bilirubin 0.2 mg/dL (0.2-1.0) 08/21/23 06:16 AST 11 U/L (15-37) L 08/21/23 06:16 ALT 12 U/L (13-56) L 08/21/23 06:16 Alkaline Phosphatase 73 U/L (45-117) 08/21/23 06:16 Triglycerides 129 mg/dL (<150) 08/12/23 04:35 Cholesterol 154 mg/dL (<200) 08/12/23 04:35 HDL Cholesterol 32 mg/dL (40-60) L 08/12/23 04:35 Cholesterol/HDL Ratio 4.81 08/12/23 04:35 <Cotto,Olimpia - Last Filed: 08/24/23 16:16> Vital Signs/Physical Exam: Temp Pulse Resp BP Pulse Ox 97.4 F 66 20 134/69 98 08/24/23 12:00 08/24/23 12:00 08/24/23 12:00 08/24/23 12:00 08/24/23 12:00 Laboratory Data at Discharge: WBC 10.10 thou/uL (4.3-10.9) 08/24/23 02:30 Hgb 8.5 g/dL (12.0-15.0) L 08/24/23 02:30 Hct 25.9 % (36.0-45.0) L 08/24/23 02:30 Plt Count 497 thou/uL (152-406) H 08/24/23 02:30 Sodium 141 mEq/L (136-145) 08/24/23 02:30 Potassium 3.5 mEq/L (3.5-5.1) 08/24/23 02:30 BUN 16 mg/dL (7-18) 08/24/23 02:30 Creatinine 0.99 mg/dL (0.55-1.02) 08/24/23 02:30 Glucose 94 mg/dL (74-106) 08/24/23 02:30 Magnesium 1.7 mg/dL (1.6-2.4) 08/24/23 02:30 Total Bilirubin 0.2 mg/dL (0.2-1.0) 08/21/23 06:16 AST 11 U/L (15-37) L 08/21/23 06:16 ALT 12 U/L (13-56) L 08/21/23 06:16 Alkaline Phosphatase 73 U/L (45-117) 08/21/23 06:16 Triglycerides 129 mg/dL (<150) 08/12/23 04:35 Cholesterol 154 mg/dL (<200) 08/12/23 04:35 HDL Cholesterol 32 mg/dL (40-60) L 08/12/23 04:35 Cholesterol/HDL Ratio 4.81 08/12/23 04:35 <Jaime Maxwell - Last Filed: 08/25/23 17:35> Diet: Low sodium Activity: Weight bearing as tolerated Time spent managing pt's care (in minutes): 55 <Nelly Garcia - Last Filed: 08/21/23 11:01> <Olimpia Cotto - Last Filed: 08/24/23 16:16> Physician Review: Patient Assessed, Agree with Above Assessment and Plan (Pt seen and examined. I agree with the note by the [facility]. ok to discharge pt to the rehab) <Jaime Maxwell - Last Filed: 08/25/23 17:35> Home Medications: Aspirin [Aspirin EC] 81 mg PO DAILY 08/11/23 Clopidogrel Bisulfate [Plavix*] 75 mg PO DAILY 08/11/23 Ferrous Gluconate 324 mg PO DAILY 08/11/23 Furosemide 20 mg PO DAILY PRN 08/11/23 Mv-Mn/Om3/Dha/Epa/Fish/Lut/Ronni [Ocuvite Adult 50 Plus Softgel] 1 pill PO DAILY 08/11/23 Nebivolol HCl 5 mg PO DAILY 08/11/23 Potassium Citrate [Potassium] 99 mg PO DAILY 08/11/23 Amlodipine [Norvasc*] 5 mg PO BID #60 tab 08/24/23 Losartan Potassium [Cozaar*] 50 mg PO BID 30 Days #60 tablet 08/24/23 Metoprolol Succinate [Toprol Xl] 25 mg PO BID #60 tab 08/24/23 Pantoprazole [Protonix Tab] 40 mg PO AC #30 tab 08/24/23 Spironolactone [Aldactone] 25 mg PO BID 30 Days #60 tab 08/24/23 rifAMPin [Rifadin*] 300 mg PO DAILY #30 cap 08/24/23 New Medications: Spironolactone [Aldactone] 25 mg PO BID 30 Days #60 tab Losartan Potassium [Cozaar*] 50 mg PO BID 30 Days #60 tablet Amlodipine [Norvasc*] 5 mg PO BID #60 tab Pantoprazole [Protonix Tab] 40 mg PO AC #30 tab rifAMPin [Rifadin*] 300 mg PO DAILY #30 cap Metoprolol Succinate [Toprol Xl] 25 mg PO BID #60 tab Physician Discharge Instructions: 38-yboq-kjizrk[age]-old female patient presented with past medical history of hypertension, chronic hypokalemia, failure to thrive, was noted to have urinary tract infection, elevated troponins, hypokalemia, bacteremia. She was treated with IV antibiotics, received an echo, no clear vegetation seen on valves. Was treated with IV vancomycin for bacteremia, Rocephin for urinary tract infection. Condition improved with IV antibiotics, electrolyte replacement, supplemental nutrition Patient tolerating diet, stable for discharge to home with follow-up appointment with primary care physician.. Stable to discharge to Inpatient rehab for IV antibiotics for bacteremia. PROBLEM: Bacteremia s/p mitral valve repair March 2023 Recurrent cystitis Hypokalemia Failure to thrive Protein calorie malnutrition Per infectious disease plan to continue vancomycin Continue vancomycin for 2 weeks following negative blood culture (08/11-08/24). Vancomycin 1 g every 36 hours bactroban nasal ointment BID x 5 days Routine blood work Echo TTE 08/15: "1. NORMAL LEFT VENTRICULAR EJECTION FRACTION 50-55%. 2. MILD HOSSEIN NTRIC LEFT VENTRICULAR HYPERTROPHY. 3. AORTIC VALVE BIOPROSTHESIS IS PRESENT FUNCTIONING WELL. 4. NO CLEAR VEGETATION IS SEEN, RECOMMEND TRASNESOPHAGEAL ECHOCARDIOGRAM, IF CLINICALLY INDICATED. 5. TRACE PERICARDIAL EFFUSION" Continue home medicines as previously prescribed GOAL: Clear understanding of disease process INSTRUCTIONS: Physician Discharge Instructions: -DC IV and DC home -Follow-up with PCP in 1 to 2 weeks -Please call Dr. Gottlieb at [phone] if any questions regarding hospital stay -Please call nursing station at [phone] if any nursing or medication questions -Return to the emergency room if symptoms worsen Followup: Aspen White [Primary Care Provider] -
--- NOTE | 2023-08-19 08:38 | P.PN ---
Date of Service: 08/19/23 Chief Complaint: Urinary tract infection, NSTEMI, hypokalemia. Subjective: Continues to improve. No acute events overnight. In no apparent distress. Patient denies any new or worsening complaints. Physical Examination Temp Pulse Resp BP Pulse Ox 98.2 F 71 16 172/81 H 99 08/19/23 08:15 08/19/23 08:15 08/19/23 08:15 08/19/23 08:15 08/19/23 08:15 General: In no apparent distress, oriented to person, place, time, situation. Thin, frail. HEENT: Atraumatic, Normocephalic. Poor dentition. Respiratory: Diminished. Unlabored respirations on room air. Cardiovascular: Regular rate and rhythm. No edema. Gastrointestinal: Abdomen flat, non-tender, non-distended. Normal bowel sounds. Integumentary: Ecchymosis scattered bilateral upper and lower extremities. Skin warm and dry. No rashes. Neurological: Normal speech, Normal tone, Normal affect Laboratory Data - Reviewed Microbiology data -Reviewed Imagings Data: -Reviewed - TTE 08/15: "1. NORMAL LEFT VENTRICULAR EJECTION FRACTION 50-55%. 2. MILD CONCENTRIC LEFT VENTRICULAR HYPERTROPHY. 3. AORTIC VALVE BIOPROSTHESIS IS PRESENT FUNCTIONING WELL. 4. NO CLEAR VEGETATION IS SEEN, RECOMMEND TRASNESOPHAGEAL ECHOCARDIOGRAM, IF CLINICALLY INDICATED. 5. TRACE PERICARDIAL EFFUSION" Medications List: Reviewed Assessment and Plan Problem list NSTEMI MRSA bacteremia Hypokalemia Anemia Severe protein calorie malnutrition bladder prolapse History of recurrent UTI History of ESBL UTI MRSA Bacteremia - Blood cultures from [facility] growing MRSA - Negative blood culture obtained 08/11 - s/p mitral valve repair March 2023 - TTE 08/15: no clear vegetation seen - On Vancomycin (started 08/14) - bactroban nasal ointment BID x 5 days Leukocytosis improving. Afebrile. Urinary Tract Infection - reported UTI from [facility] - Completed 7 days Rocephin IV (08/11-08/18) Recommendations -MRSA Bacteremia: Continue vancomycin for 2 weeks following negative blood culture (08/11-08/24). Bactroban nasal ointment x 5 days. -Monitor WBC and fever trends -Nutritional supplementation -Continue supportive care - Physical Therapy Pending inpatient rehab approval. CM/SS following. Case discussed with Roseanne Lin
[2023-08-19] MEDS: HYDROCORTISONE SUC 100 MG INJ IV ONE (13:29)
[2023-08-20 05:08] LABS: Potassium 3.2 mEq/L (3.5-5.1)
[2023-08-20] MEDS: POTASSIUM CL SA 10 MEQ TAB PO ONE ×2 (06:07→15:45)
--- NOTE | 2023-08-20 08:58 | P.PN ---
Subjective Date of Service: 08/20/23 Chief Complaint: Urinary tract infection, NSTEMI, hypokalemia. no overnight complaints, Blood cultures positive for MRSA, echo ordered, IV antibiotics vancomycin Disposition discharge planning to inpatient rehab versus swing bed - Physical Exam General: Alert, In no apparent distress, Oriented x3 emaciated HEENT: Atraumatic, Normocephalic, PERRLA Neck: Supple, 2+ carotid pulse no bruit Respiratory: Clear to auscultation bilaterally, Normal air movement Cardiovascular: No edema, Normal pulses, Regular rate/rhythm, Normal S1 S2 Capillary refill: <2 Seconds Gastrointestinal: Normal bowel sounds, Soft and benign, Non-distended Musculoskeletal: No clubbing, No swelling Integumentary: No rashes, No breakdown Neurological: Normal speech, Normal strength at 5/5 x4 extr, Normal tone, Sensation intact, Cranial nerves 3-12 intact Lymphatics: No axilla or inguinal lymphadenopathy Review of Systems per HPI Physical Examination - Vital Signs Temperature: 97.3 F Blood Pressure: 186/91 Pulse: 75 Respirations: 16 Pulse Ox (%): 99 - Studies Laboratory Data (last 24 hrs) 08/20/23 08/19/23 08/19/23 04:44 16:00 14:02 Sodium 142 Potassium 3.2 L D 3.8 D Cancelled BUN 15 Creatinine 0.84 Glucose 84 Assessment And Plan - Plan Assessment plan NSTEMI Telemetry Cardiology consult Echo TTE 08/15: "1. NORMAL LEFT VENTRICULAR EJECTION FRACTION 50-55%. 2. MILD CONCENTRIC LEFT VENTRICULAR HYPERTROPHY. 3. AORTIC VALVE BIOPROSTHESIS IS PRESENT FUNCTIONING WELL. 4. NO CLEAR VEGETATION IS SEEN, RECOMMEND TRASNESOPHAGEAL ECHOCARDIOGRAM, IF CLINICALLY INDICATED. 5. TRACE PERICARDIAL EFFUSION" MRSA bacteremia Leukocytosis improving Blood cultures from [facility] growing MRSA - Negative blood culture obtained 08/11 - s/p mitral valve repair March 2023 - TTE 08/15: no clear vegetation seen - On Vancomycin (started 08/14) -Infectious disease consult recommendation Continue vancomycin for 2 weeks following negative blood culture (08/11-08/24). -UTI: Continue Rocephin x 7 days (08/11-08/17). On day 7/7. Hypokalemia Trend electrolytes replace as needed Severe protein calorie malnutrition Ensure shakes with meals History of recurrent UTI History of ESBL of the urine -reported UTI from [facility] - on [facility] (started 08/11) Anemia Trend H&H, trend hemoglobin, transfuse <7 Full code DVT SCDs Diet regular Disposition inpatient rehab versus swing the swing bed Discharge Plan: Other (Swing bed versus inpatient rehab)
[2023-08-20 09:50] LABS: Potassium 3.3 mEq/L (3.5-5.1)
[2023-08-20] MEDS: METOPROLOL XL 25 MG TAB PO SCH (16:51)
[2023-08-20] MEDS: SPIRONOLACTONE 25 MG TABLET PO SCH (20:25)
[2023-08-20] MEDS: LOSARTAN POTASSIUM 50 MG TABLET PO SCH (20:26)
[2023-08-20] MEDS: AMLODIPINE 5 MG TAB PO SCH (20:26)
[2023-08-20] MEDS: KCL 20 MEQ/100 mL IVPB 20 MEQ/100 ML BAG IV SCH (23:59)
[2023-08-21 00:31] LABS: Specific Gravity 1.006 (1.005-1.030); Urine Bacteria <20 /HPF (<20); Urine Bilirubin NEGATIVE (Negative); Urine Blood Negative (Negative); Urine Clarity Clear (Clear); Urine Color Colorless (Yellow); Urine Glucose NEGATIVE (Negative); Urine Protein TRACE (Negative); Urine RBC <5 /HPF (None Seen); Urine Urobilinogen Normal (Normal)
[2023-08-21 06:16] LABS: Urine 24HR Volume Metan 1350 mL
[2023-08-21 06:32] LABS: Absolute Lymphocytes (CBC) 0.8 K/uL (0.7-4.9); Hematocrit 26.5 % (36.0-45.0); Lymphocytes % 6.1 % (15.3-44.8); MCV 84.3 fL (80-100); MPV 6.9 fL (7.6-11.3); Platelets 461 thou/uL (152-406); RBC Red Blood Cell Count 3.14 M/uL (3.86-4.86)
[2023-08-21 06:49] LABS: Albumin 2.2 g/dL (3.4-5.0); Bilirubin Total 0.2 mg/dL (0.2-1.0); Magnesium 1.7 mg/dL (1.6-2.4); Potassium 4.3 mEq/L (3.5-5.1); Protein, Total 6.2 g/dL (6.4-8.2)
--- NOTE | 2023-08-21 08:27 | P.PN ---
Subjective Date of Service: 08/21/23 Chief Complaint: Urinary tract infection, NSTEMI, hypokalemia. poor apptetite, no overnight complaints, Blood cultures positive for MRSA, echo ordered, IV antibiotics vancomycin Disposition discharge planning to inpatient rehab versus swing bed - Physical Exam General: Alert, In no apparent distress, Oriented x3 emaciated HEENT: Atraumatic, Normocephalic, PERRLA Neck: Supple, 2+ carotid pulse no bruit Respiratory: Clear to auscultation bilaterally, Normal air movement Cardiovascular: No edema, Normal pulses, Regular rate/rhythm, Normal S1 S2 Capillary refill: <2 Seconds Gastrointestinal: Normal bowel sounds, Soft and benign, Non-distended Musculoskeletal: No clubbing, No swelling Integumentary: No rashes, No breakdown Neurological: Normal speech, Normal strength at 5/5 x4 extr, Normal tone, Sensation intact, Cranial nerves 3-12 intact Lymphatics: No axilla or inguinal lymphadenopathy Review of Systems per HPI Physical Examination - Vital Signs Temperature: 97.3 F Blood Pressure: 159/83 Pulse: 66 Respirations: 16 Pulse Ox (%): 98 - Studies Laboratory Data (last 24 hrs) 08/21/23 08/21/23 08/21/23 06:16 06:16 05:00 WBC 12.60 H Hgb 8.8 L Hct 26.5 L Plt Count 461 H Sodium 139 Cancelled Potassium 4.3 D Cancelled BUN 11 Cancelled Creatinine 0.87 Cancelled Glucose 95 Cancelled Magnesium 1.7 Cancelled Total Bilirubin 0.2 AST 11 L ALT 12 L Alkaline Phosphatase 73 08/21/23 08/20/23 08/20/23 05:00 22:57 12:00 WBC Cancelled Hgb Cancelled Hct Cancelled Plt Count Cancelled Sodium Potassium 3.6 3.3 L BUN Creatinine Glucose Magnesium Total Bilirubin AST ALT Alkaline Phosphatase 08/20/23 09:23 WBC Hgb Hct Plt Count Sodium 142 Potassium 3.3 L BUN 14 Creatinine 0.94 Glucose 103 Magnesium Total Bilirubin AST ALT Alkaline Phosphatase Assessment And Plan - Plan Assessment plan NSTEMI improved Telemetry Cardiology consult Echo TTE 08/15: "1. NORMAL LEFT VENTRICULAR EJECTION FRACTION 50-55%. 2. MILD CONCENTRIC LEFT VENTRICULAR HYPERTROPHY. 3. AORTIC VALVE BIOPROSTHESIS IS PRESENT FUNCTIONING WELL. 4. NO CLEAR VEGETATION IS SEEN, RECOMMEND [facility], IF CLINICALLY INDICATED. 5. TRACE PERICARDIAL EFFUSION" MRSA bacteremia Leukocytosis improving Blood cultures from [facility] growing MRSA - Negative blood culture obtained 08/11 - s/p mitral valve repair March 2023 - TTE 08/15: no clear vegetation seen - On Vancomycin (started 08/14) -Infectious disease consult recommendation Continue vancomycin for 2 weeks following negative blood culture (08/11-08/24). -UTI: Continue Rocephin x 7 days (08/11-08/17). On day 7. Hypokalemia improved Trend electrolytes replace as needed Severe protein calorie malnutrition Anorexia BMI 16 Ensure shakes with meals poor appetite History of recurrent UTI improved History of ESBL of the urine -reported UTI from [facility] - on Rocephin (started 08/11) Anemia Trend H&H, trend hemoglobin, transfuse <7 Full code DVT SCDs Diet regular Disposition inpatient rehab versus swing the swing bed Time Spent Managing PTS Care (In Minutes): 35
[2023-08-21] MEDS: MAGNESIUM SULFATE 1 gm IVPB 1 GM/100 ML BAG IV ONE (08:35)
[2023-08-21] MEDS ORDERED: FUROSEMIDE 20 MG TABLET PO PRN (17:35)
--- NOTE | 2023-08-22 09:20 | P.PN ---
Date of Service: 08/22/23 Chief Complaint: Urinary tract infection, NSTEMI, hypokalemia. Subjective: Improving. In no apparent distress. Denies any new or worsening complaints at this time. No acute events overnight. Physical Examination Temp Pulse Resp BP Pulse Ox 98.4 F 63 16 151/73 H 98 08/22/23 04:00 08/22/23 06:14 08/22/23 04:00 08/22/23 06:14 08/22/23 04:00 General: In no apparent distress, oriented to person, place, time, situation. Thin, frail. HEENT: Atraumatic, Normocephalic. Poor dentition. Respiratory: Diminished. Unlabored respirations on room air. Cardiovascular: Regular rate and rhythm. No edema. Gastrointestinal: Abdomen flat, non-tender, non-distended. Normal bowel sounds. Integumentary: Ecchymosis scattered bilateral upper and lower extremities. Skin warm and dry. No rashes. Laboratory Data - Reviewed Microbiology data -Reviewed Imagings Data: -Reviewed - TTE 08/15: "1. NORMAL LEFT VENTRICULAR EJECTION FRACTION 50-55%. 2. MILD CONCENTRIC LEFT VENTRICULAR HYPERTROPHY. 3. AORTIC VALVE BIOPROSTHESIS IS PRESENT FUNCTIONING WELL. 4. NO CLEAR VEGETATION IS SEEN, RECOMMEND TRASNESOPHAGEAL ECHOCARDIOGRAM, IF CLINICALLY INDICATED. 5. TRACE PERICARDIAL EFFUSION" Medications List: Reviewed Assessment and Plan Problem list NSTEMI MRSA bacteremia Hypokalemia Anemia Severe protein calorie malnutrition bladder prolapse History of recurrent UTI History of ESBL UTI MRSA Bacteremia - Blood cultures from [facility] growing MRSA - Negative blood culture obtained 08/11 - s/p mitral valve repair March 2023 - TTE 08/15: no clear vegetation seen - On Vancomycin (started 08/14) and Rifampin (started 08/16) - completed bactroban nasal ointment BID x 5 days Leukocytosis improving. Afebrile. Urinary Tract Infection - reported UTI from [facility] - Completed 7 days Rocephin IV (08/11-08/18) WBC from 9.5 to 12.6- urinalysis obtained, not suggestive of UTI. Recommendations -MRSA Bacteremia: Continue vancomycin and Rifampin for 2 weeks following negative blood culture (08/11-08/24). - currently on day 12 . -Monitor WBC and fever trends -Nutritional supplementation -Continue supportive care - Physical Therapy Pending rehab/SNF placement. CM/SS following. Case discussed with Roseanne Lin
--- NOTE | 2023-08-22 09:21 | P.PN ---
Subjective Date of Service: 08/22/23 Chief Complaint: Urinary tract infection, NSTEMI, hypokalemia. Subjective: No new changes, No C/O voiced <Olimpia Cotto - Last Filed: 08/22/23 12:33> Date of Service: 08/22/23 <Jaime Maxwell - Last Filed: 08/22/23 15:34> Review of Systems 10-point ROS is otherwise unremarkable General: Weakness, Malaise ENT: Unremarkable Respiratory: Unremarkable Cardiovascular: Unremarkable Gastrointestinal: Unremarkable Integumentary: Unremarkable Neurological: Weakness <Olimpia Cotto - Last Filed: 08/22/23 12:33> Physical Examination - Vital Signs Temperature: 98.4 F Blood Pressure: 151/73 Pulse: 63 Respirations: 16 Pulse Ox (%): 98 - Physical Exam General: Cachectic, Other (sedate) HEENT: Atraumatic Neck: Supple Respiratory: Diminished Cardiovascular: No edema Capillary refill: <2 Seconds Gastrointestinal: Normal bowel sounds Musculoskeletal: No clubbing Integumentary: No warmth Neurological: Other (mild increase in tone) Lymphatics: No axilla or inguinal lymphadenopathy External genitalia: Deferred Rectal: Deferred - Studies Laboratory Data (last 24 hrs) 08/22/23 04:35 Sodium 140 Potassium 4.0 BUN 14 Creatinine 1.05 H Glucose 86 Magnesium 2.0 <Olimpia Cotto - Last Filed: 08/22/23 12:33> - Studies Laboratory Data (last 24 hrs) 08/22/23 04:35 Sodium 140 Potassium 4.0 BUN 14 Creatinine 1.05 H Glucose 86 Magnesium 2.0 Microbiology Data (last 24 hrs): 08/17/23 11:30 Blood - Blood Aerobic Blood Culture - Final No growth in 5 days. 08/17/23 11:30 Blood - Blood Anaerobic Blood Culture - Final No growth in 5 days. <Jc Maxwellberry Aneesh - Last Filed: 08/22/23 15:34> Assessment And Plan - Current Problems (Diagnosis) (1) Non-ST elevated myocardial infarction (non-STEMI) Current Visit: Yes Status: Acute Plan: Echo per Dr. Sandra "1. NORMAL LEFT VENTRICULAR EJECTION FRACTION 50-55% 2. MILD CONCENTRIC LEFT VENTRICULAR HYPERTROPHY 3. AORTIC VALVE BIOPROSTHESIS IS PRESENT FUNCTIONING WELL 4. NO CLEAR VEGETATION IS SEEN, RECOMMEND TRASNESOPHAGEAL ECHOCARDIOGRAM, IF CLINICALLY INDICATED. 5. TRACE PERICARDIAL EFFUSION" (2) Hypokalemia Onset Date: 10/07/16 Current Visit: Yes Status: Acute Plan: Continue to monitor I&O, Adjust lasix prn, replete potassium (3) Failure to thrive in adult Current Visit: Yes Status: Acute Plan: [facility] swing bed to assess/encouraged dietary intake and supplementation (4) DENNY (acute kidney injury) Current Visit: Yes Status: Acute Plan: Hold lasix, avoid nephrotoxic drugs, stop Vanc post day 14 (today 06/23), Blood cultures negative for growth Discharge Plan: Other ([facility] swing bed) <Olimpia Cotto - Last Filed: 08/22/23 12:33> Physician Review Additional Text: 08/22/23 15:33 Pt seen an examined. I agree with the note by the FILM DEVELOPING MACHINE OPERATOR. Her insurance denied the rehab placement. Her daughter is appealing the denial. <Jaime Maxwell - Last Filed: 08/22/23 15:34>
[2023-08-23 05:25] LABS: Magnesium 1.9 mg/dL (1.6-2.4); Potassium 3.6 mEq/L (3.5-5.1)
[2023-08-23] MEDS: NA CHLORIDE 0.9% 500 ML IV SCH (06:13)
--- NOTE | 2023-08-23 08:05 | P.PN ---
Subjective Date of Service: 08/23/23 Chief Complaint: Urinary tract infection, NSTEMI, hypokalemia. Subjective: Tolerating diet, Other (awake, alert, requested SCDs replaced to lower extremities. States did not do well with PT yest, ready to try again today "after 9am") <Cecile Cottoy - Last Filed: 08/23/23 08:00> Date of Service: 08/23/23 <Jaime Maxwell - Last Filed: 08/23/23 21:32> Review of Systems 10-point ROS is otherwise unremarkable General: Weakness, Malaise Eyes: Unremarkable ENT: Unremarkable Respiratory: Unremarkable Cardiovascular: Unremarkable Gastrointestinal: Unremarkable Genitourinary: Unremarkable Musculoskeletal: Unremarkable Integumentary: Unremarkable Neurological: Unremarkable Lymphatics: Unremarkable <Olimpia Cotto - Last Filed: 08/23/23 08:00> Physical Examination - Vital Signs Temperature: 98.4 F Blood Pressure: 141/73 Pulse: 67 Respirations: 15 Pulse Ox (%): 99 - Physical Exam General: Alert, In no apparent distress, Oriented x3 HEENT: Other (dry mucous membranes) Neck: Supple, 2+ carotid pulse no bruit Respiratory: Clear to auscultation bilaterally Cardiovascular: No edema, Normal pulses, Regular rate/rhythm Capillary refill: <2 Seconds Gastrointestinal: Soft and benign Musculoskeletal: No clubbing, No swelling Integumentary: No rashes, No breakdown Neurological: Normal speech, Normal tone Lymphatics: No axilla or inguinal lymphadenopathy External genitalia: Deferred Rectal: Deferred - Studies Laboratory Data (last 24 hrs) 08/23/23 04:45 Sodium 140 Potassium 3.6 BUN 19 H Creatinine 1.24 H Glucose 100 Magnesium 1.9 Microbiology Data (last 24 hrs): 08/17/23 11:30 Blood - Blood Aerobic Blood Culture - Final No growth in 5 days. 08/17/23 11:30 Blood - Blood Anaerobic Blood Culture - Final No growth in 5 days. <Olimpia Cotot - Last Filed: 08/23/23 08:00> - Studies Laboratory Data (last 24 hrs) 08/23/23 04:45 Sodium 140 Potassium 3.6 BUN 19 H Creatinine 1.24 H Glucose 100 Magnesium 1.9 <Jaime Maxwell - Last Filed: 08/23/23 21:32> Assessment And Plan - Current Problems (Diagnosis) (1) Non-ST elevated myocardial infarction (non-STEMI) Current Visit: Yes Status: Acute Plan: Echo per Dr. Sandra "1. NORMAL LEFT VENTRICULAR EJECTION FRACTION 50-55% 2. MILD CONCENTRIC LEFT VENTRICULAR HYPERTROPHY 3. AORTIC VALVE BIOPROSTHESIS IS PRESENT FUNCTIONING WELL 4. NO CLEAR VEGETATION IS SEEN, RECOMMEND TRASNESOPHAGEAL ECHOCARDIOGRAM, IF CLINICALLY INDICATED. 5. TRACE PERICARDIAL EFFUSION" Pt is pain free. s/p valve replacement as noted above (2) Hypokalemia Onset Date: 10/07/16 Current Visit: Yes Status: Acute Plan: Continue to monitor I&O, Adjust lasix prn, replete potassium (3) Failure to thrive in adult Current Visit: Yes Status: Acute Plan: [facility] swing bed to assess/encouraged dietary intake and supplementation Pt requests "a pastry", states she cannot look at another egg. (4) DENNY (acute kidney injury) Current Visit: Yes Status: Acute Plan: Hold lasix, avoid nephrotoxic drugs, stop Vanc post day 14 (today 06/23), Blood cultures negative for growth Creatinine worsening, stop lasix, stop ARB, stop Vancomycin. 500ml NS bolus. Recheck labs in am Discharge Plan: Other ([facility] swing bed) Plan to discharge in: 24 Hours <Olimpia Cotto - Last Filed: 08/23/23 08:00> Physician Review Additional Text: 08/23/23 21:31 Pt seen and examined. I agree with the note by the APPRENTICE PHOTOGRAPHER. Pt is appealing the refusal of inpatient rehab placement. <Jaime Maxwell - Last Filed: 08/23/23 21:32>
--- NOTE | 2023-08-23 09:18 | P.PN ---
Date of Service: 08/23/23 Chief Complaint: Urinary tract infection, NSTEMI, hypokalemia. Subjective: Patient seen and examined in room. In no apparent distress. No acute events overnight. She denies any new or worsening complaints at this time. Improving. Physical Examination Temp Pulse Resp BP Pulse Ox 98.4 F 67 15 141/73 H 99 08/23/23 08:05 08/23/23 08:05 08/23/23 08:05 08/23/23 08:05 08/23/23 08:05 General: In no apparent distress. Oriented x3. Thin, frail. HEENT: Atraumatic, Normocephalic. Poor dentition. Respiratory: Clear to auscultation. Unlabored respirations on room air. Cardiovascular: Regular rate and rhythm. No edema. Gastrointestinal: Abdomen flat, non-tender, non-distended. Normal bowel sounds. Integumentary: Ecchymosis scattered bilateral upper and lower extremities. Skin warm and dry. No rashes. Laboratory Data - Reviewed Microbiology data -Reviewed Imagings Data: -Reviewed - TTE 08/15: "1. NORMAL LEFT VENTRICULAR EJECTION FRACTION 50-55%. 2. MILD CONCENTRIC LEFT VENTRICULAR HYPERTROPHY. 3. AORTIC VALVE BIOPROSTHESIS IS PRESENT FUNCTIONING WELL. 4. NO CLEAR VEGETATION IS SEEN, RECOMMEND TRASNESOPHAGEAL ECHOCARDIOGRAM, IF CLINICALLY INDICATED. 5. TRACE PERICARDIAL EFFUSION" Medications List: Reviewed Assessment and Plan Problem list NSTEMI MRSA bacteremia Hypokalemia Anemia Severe protein calorie malnutrition bladder prolapse History of recurrent UTI History of ESBL UTI MRSA Bacteremia - Blood cultures from [facility] growing MRSA - Negative blood culture obtained 08/11 - s/p mitral valve repair March 2023 - TTE 08/15: no clear vegetation seen - On Vancomycin (started 08/14) and Rifampin (started 08/16) - completed bactroban nasal ointment BID x 5 days - blood cultures 08/17: no growth to date Leukocytosis improving. Afebrile. Urinary Tract Infection - reported UTI from [facility] - Completed 7 days Rocephin IV (08/11-08/18) WBC from 9.5 to 12.6- urinalysis obtained, not suggestive of UTI. Recommendations -MRSA Bacteremia: Continue vancomycin and Rifampin for 2 weeks following negative blood culture (08/11-2/14). - currently on day 13 of 14. -Monitor WBC and fever trends -Nutritional supplementation -Continue supportive care - Physical Therapy Pending rehab/SNF placement. CM/SS following. Case discussed with Roseanne Lin
[2023-08-23] MEDS: POTASSIUM CL SA 10 MEQ TAB PO ONE (09:32)
[2023-08-23 23:01] VITALS: O2SAT 97
[2023-08-24 03:15] LABS: Absolute Lymphocytes (CBC) 0.8 K/uL (0.7-4.9); Hematocrit 25.9 % (36.0-45.0); Lymphocytes % 7.6 % (15.3-44.8); MCV 84.3 fL (80-100); Platelets 497 thou/uL (152-406); RBC Red Blood Cell Count 3.08 M/uL (3.86-4.86)
[2023-08-24 03:20] LABS: Magnesium 1.7 mg/dL (1.6-2.4); Potassium 3.5 mEq/L (3.5-5.1)
[2023-08-24] MEDS: MAGNESIUM SULFATE 1 gm IVPB 1 GM/100 ML BAG IV ONE (05:59)
[2023-08-24] MEDS: POTASSIUM CL SA 10 MEQ TAB PO ONE (06:02)
--- NOTE | 2023-08-24 08:36 | P.PN ---
Date of Service: 08/24/23 Chief Complaint: Urinary tract infection, NSTEMI, hypokalemia. Subjective: Patient sitting in chair, working with physical therapy. In no apparent distress. Denies any new or worsening complaints. Physical Examination Temp Pulse Resp BP Pulse Ox 97.8 F 70 20 160/84 H 100 08/24/23 08:00 08/24/23 08:00 08/24/23 08:00 08/24/23 08:00 08/24/23 08:00 General: In no apparent distress. Oriented x3. Thin, frail. HEENT: Atraumatic, Normocephalic. Poor dentition. Respiratory: Clear to auscultation bilaterally. Unlabored respirations on room air. Cardiovascular: Regular rate and rhythm. No edema. Gastrointestinal: Normoactive bowel sounds. Abdomen flat. Nontender. Nondistended. Integumentary: Skin warm and dry. No rashes. Ecchymosis scattered bilateral upper extremities. Laboratory Data - Reviewed Microbiology data -Reviewed Imagings Data: -Reviewed - TTE 08/15: "1. NORMAL LEFT VENTRICULAR EJECTION FRACTION 50-55%. 2. MILD CONCENTRIC LEFT VENTRICULAR HYPERTROPHY. 3. AORTIC VALVE BIOPROSTHESIS IS PRESENT FUNCTIONING WELL. 4. NO CLEAR VEGETATION IS SEEN, RECOMMEND TRASNESOPHAGEAL ECHOCARDIOGRAM, IF CLINICALLY INDICATED. 5. TRACE PERICARDIAL EFFUSION" Medications List: Acetaminophen (Acetaminophen 325 Mg Tablet) 650 mg PO Q4HP PRN PRN Reason: Pain scale 2-4 (Mild) Last Admin: 08/22/23 21:05 Dose: 650 mg Amlodipine Besylate (Amlodipine 5 Mg Tab) 5 mg PO BID [facility] Last Admin: 08/24/23 08:15 Dose: 5 mg Aspirin (Aspirin Ec 81 Mg Tab) 81 mg PO DAILY [facility] Last Admin: 08/24/23 08:15 Dose: 81 mg Clopidogrel Bisulfate (Clopidogrel 75 Mg Tablet) 75 mg PO DAILY [facility] Last Admin: 08/24/23 08:16 Dose: 75 mg Enteral Nutritional Formula (Ensure Clear 200 Ml Can) 237 ml PO TID [facility] Last Admin: 08/24/23 08:16 Dose: 237 ml Ferrous Gluconate (Ferrous Gluconate 324 Mg Tab) 324 mg PO DAILY [facility] Last Admin: 08/24/23 08:15 Dose: 324 mg Furosemide (Furosemide 20 Mg Tablet) 20 mg PO DAILY PRN PRN Reason: Swelling Vancomycin HCl 1 gm/ Sodium (Chloride) 250 mls @ 166.667 mls/hr IVPB Q36H [facility] Last Admin: 08/22/23 00:49 Dose: 250 mls Labetalol HCl (Labetalol 20 Mg/4ml Syringe) 20 mg IV Q4H PRN PRN Reason: Goal to achieve SBP in comment Last Admin: 08/23/23 12:30 Dose: 20 mg Lactobacillus Acidoph/Bulgaricus (Lactobacillus/Acidophilus Tab) 1 tab PO BID [facility] Last Admin: 08/24/23 08:15 Dose: 1 tab Losartan Potassium (Losartan Potassium 50 Mg Tablet) 50 mg PO BID [facility] Last Admin: 08/22/23 21:06 Dose: 50 mg Metoprolol Succinate (Metoprolol Xl 25 Mg Tab) 25 mg PO BID 6AM 6PM [facility] Last Admin: 08/24/23 06:01 Dose: 25 mg Ondansetron HCl (Ondansetron 4 Mg/2 Ml Vial) 4 mg IV Q6HP PRN PRN Reason: NAUSEA / VOMITING Last Admin: 08/15/23 04:55 Dose: 4 mg Pantoprazole Sodium (Pantoprazole 40mg Tablet) 40 mg PO ACB [facility]; Protocol Last Admin: 08/24/23 08:16 Dose: 40 mg Rifampin (Rifampin 150 Mg Cap) 300 mg PO DAILY [facility] Last Admin: 08/24/23 08:16 Dose: 300 mg Spironolactone (Spironolactone 25 Mg Tablet) 25 mg PO BID [facility] Last Admin: 08/24/23 08:15 Dose: 25 mg Sucralfate (Sucralfate 1gm/10ml Ucup) 1 gm FT ACHS [facility] Last Admin: 08/24/23 08:16 Dose: 1 gm Assessment and Plan Problem list NSTEMI MRSA bacteremia Hypokalemia Anemia Severe protein calorie malnutrition bladder prolapse History of recurrent UTI History of ESBL UTI MRSA Bacteremia - Blood cultures from [facility] growing MRSA - Negative blood culture obtained 08/11 - s/p mitral valve repair March 2023 - TTE 08/15: no clear vegetation seen - On Vancomycin (started 08/14) and Rifampin (started 08/16) - completed bactroban nasal ointment BID x 5 days - blood cultures 08/17: no growth to date Leukocytosis resolved. Afebrile. Urinary Tract Infection - reported UTI from [facility] - Completed 7 days Rocephin IV (08/11-08/18) Recommendations -MRSA Bacteremia: Continue vancomycin and Rifampin for 2 weeks following negative blood culture (08/11-08/24). - On day 14 of 14. Discontinue after today's dose. -Monitor WBC and fever trends -Nutritional supplementation -Continue supportive care - Physical Therapy Pending rehab/SNF placement. CM/SS following. Case discussed with Roseanne Lin
[2023-08-24 12:10] VITALS: BP 134/69; TEMP 97.4
--- NOTE | 2023-08-24 14:00 | P.DS ---
Admission Date: 08/11/23 Discharge Date: 08/24/23 Primary Care Provider: Roseanne White NP Reason for Admission: Urinary tract infection, NSTEMI, hypokalemia. Consultations: Dr. Trejo/Salma Power NP - Problems (1) Non-ST elevated myocardial infarction (non-STEMI) Status: Acute (2) Hypokalemia Onset Date: 10/07/16 Status: Acute (3) Failure to thrive in adult Status: Acute (4) DENNY (acute kidney injury) Status: Acute Brief History of Present Illness: 83-year-old female patient was medical history significant for hypertension, chronic hypokalemia on oral replacement, failure to thrive and recently had issues with burning micturition or frequency of urination. She reported that you decided to smell funny and she began to go to the bathroom more frequently and her urine has changed color. She denied overt episode of fever, chills, night sweats. She denied, diarrhea. She was evaluated at emergency room and [facility] found to have a low potassium of 2.9 with elevated troponin and UA was very concerning for urinary tract infection. She was transferred to [facility] for higher level of cardiac secondary to abnormal cardiac enzyme. She denies chest pain, shortness of breath episode. Hospital Course: Subjective Date of Service: 08/24/23 Chief Complaint: Urinary tract infection, NSTEMI, hypokalemia. Subjective: Tolerating diet, Other (awake, alert, requested SCDs replaced to lower extremities. States she is ready to move to rehab. Review of Systems 10-point ROS is otherwise unremarkable General: Weakness, Malaise Eyes: Unremarkable ENT: Unremarkable Respiratory: Unremarkable Cardiovascular: Unremarkable Gastrointestinal: Unremarkable Genitourinary: Unremarkable Musculoskeletal: Unremarkable Integumentary: Unremarkable Neurological: Unremarkable Lymphatics: Unremarkable Physical Examination - Vital Signs Temperature: 97.4F Blood Pressure: 134/67 Pulse: 66 Respirations: 20 Pulse Ox (%): 98 - Physical Exam General: Alert, In no apparent distress, Oriented x3 HEENT: Other (dry mucous membranes) Neck: Supple, 2+ carotid pulse no bruit Respiratory: Clear to auscultation bilaterally Cardiovascular: No edema, Normal pulses, Regular rate/rhythm Capillary refill: <2 Seconds Gastrointestinal: Soft and benign Musculoskeletal: No clubbing, No swelling Integumentary: No rashes, No breakdown Neurological: Normal speech, Normal tone Lymphatics: No axilla or inguinal lymphadenopathy External genitalia: Deferred Rectal: Deferred - Studies Laboratory Data (last 24 hrs) 08/23/23 04:45 Sodium 140 Potassium 3.6 BUN 19 H Creatinine 1.24 H Glucose 100 Magnesium 1.9 Microbiology Data (last 24 hrs): 08/17/23 11:30 Blood - Blood Aerobic Blood Culture - Final No growth in 5 days. 08/17/23 11:30 Blood - Blood Anaerobic Blood Culture - Final No growth in 5 days. - Studies Laboratory Data (last 24 hrs) 08/23/23 04:45 Sodium 140 Potassium 3.6 BUN 19 H Creatinine 1.24 H Glucose 100 Magnesium 1.9 Assessment And Plan - Current Problems (Diagnosis) (1) Non-ST elevated myocardial infarction (non-STEMI) Current Visit: Yes Status: Acute Plan: Echo per Dr. Sandra "1. NORMAL LEFT VENTRICULAR EJECTION FRACTION 50-55% 2. MILD CONCENTRIC LEFT VENTRICULAR HYPERTROPHY 3. AORTIC VALVE BIOPROSTHESIS IS PRESENT FUNCTIONING WELL 4. NO CLEAR VEGETATION IS SEEN, RECOMMEND TRASNESOPHAGEAL ECHOCARDIOGRAM, IF CLINICALLY INDICATED. 5. TRACE PERICARDIAL EFFUSION" Pt is pain free. s/p valve replacement as noted above (2) Hypokalemia Onset Date: Current Visit: Yes Status: Acute Plan: Continue to monitor I&O, Adjust lasix prn, replete potassium Electrolytes improved (3) Failure to thrive in adult Current Visit: Yes Status: Acute Plan: [facility] swing bed to assess/encouraged dietary intake and supplementation Pt requests "a pastry", states she cannot look at another egg. Ready for inpatient rehab (4) DENNY (acute kidney injury) Current Visit: Yes Status: Acute Plan: Hold lasix, avoid nephrotoxic drugs, stop Vanc post day 14 (today 06/23), Blood cultures negative for growth Creatinine worsening, stop lasix, stop ARB, stop Vancomycin. 500ml NS bolus. Recheck labs in am. Creatinine recovered nicely. Pt without complaint Discharge Plan: Inpatient rehab Plan to discharge in: today Physician Review Additional Text: 08/23/23 21:31 Pt seen and examined. I agree with the note by the OCCUPATIONAL HEALTH COORDINATOR. Pt is ready for inpatient rehab placement. <Jaime Maxwell - Last Filed: 08/23/23 21:32> <Olimpia Cotto - Last Filed: 08/24/23 14:12> Admission Date: 08/11/23 Discharge Date: 08/24/23 Hospital Course: Pt seen and examined. I agree with the note by the OCCUPATIONAL HEALTH COORDINATOR. Ok to transfer pt to inpatient rehab. <Jaime Maxwell Aneesh - Last Filed: 08/24/23 15:58> Disposition: TRANSFER TO INPATIENT REHAB Discharge Condition: GOOD Vital Signs/Physical Exam: Temp Pulse Resp BP Pulse Ox 97.4 F 66 20 134/69 98 08/24/23 12:00 08/24/23 12:00 08/24/23 12:00 08/24/23 12:00 08/24/23 12:00 General: Alert, In no apparent distress, Oriented x3 HEENT: Atraumatic, Normocephalic, PERRLA Neck: Supple, 2+ carotid pulse no bruit Respiratory: Clear to auscultation bilaterally, Normal air movement Cardiovascular: No edema, Normal pulses Capillary refill: <2 Seconds Gastrointestinal: Normal bowel sounds Musculoskeletal: No clubbing, No swelling Integumentary: No rashes, No breakdown Neurological: Normal speech, Normal tone Lymphatics: No axilla or inguinal lymphadenopathy External genitalia: Deferred Rectal: Deferred Laboratory Data at Discharge: WBC 10.10 thou/uL (4.3-10.9) 08/24/23 02:30 Hgb 8.5 g/dL (12.0-15.0) L 08/24/23 02:30 Hct 25.9 % (36.0-45.0) L 08/24/23 02:30 Plt Count 497 thou/uL (152-406) H 08/24/23 02:30 Sodium 141 mEq/L (136-145) 08/24/23 02:30 Potassium 3.5 mEq/L (3.5-5.1) 08/24/23 02:30 BUN 16 mg/dL (7-18) 08/24/23 02:30 Creatinine 0.99 mg/dL (0.55-1.02) 08/24/23 02:30 Glucose 94 mg/dL (74-106) 08/24/23 02:30 Magnesium 1.7 mg/dL (1.6-2.4) 08/24/23 02:30 Total Bilirubin 0.2 mg/dL (0.2-1.0) 08/21/23 06:16 AST 11 U/L (15-37) L 08/21/23 06:16 ALT 12 U/L (13-56) L 08/21/23 06:16 Alkaline Phosphatase 73 U/L (45-117) 08/21/23 06:16 Triglycerides 129 mg/dL (<150) 08/12/23 04:35 Cholesterol 154 mg/dL (<200) 08/12/23 04:35 HDL Cholesterol 32 mg/dL (40-60) L 08/12/23 04:35 Cholesterol/HDL Ratio 4.81 08/12/23 04:35 <Olimpia Cotto - Last Filed: 08/24/23 14:12> Vital Signs/Physical Exam: Temp Pulse Resp BP Pulse Ox 97.4 F 66 20 134/69 98 08/24/23 12:00 08/24/23 12:00 08/24/23 12:00 08/24/23 12:00 08/24/23 12:00 Laboratory Data at Discharge: WBC 10.10 thou/uL (4.3-10.9) 08/24/23 02:30 Hgb 8.5 g/dL (12.0-15.0) L 08/24/23 02:30 Hct 25.9 % (36.0-45.0) L 08/24/23 02:30 Plt Count 497 thou/uL (152-406) H 08/24/23 02:30 Sodium 141 mEq/L (136-145) 08/24/23 02:30 Potassium 3.5 mEq/L (3.5-5.1) 08/24/23 02:30 BUN 16 mg/dL (7-18) 08/24/23 02:30 Creatinine 0.99 mg/dL (0.55-1.02) 08/24/23 02:30 Glucose 94 mg/dL (74-106) 08/24/23 02:30 Magnesium 1.7 mg/dL (1.6-2.4) 08/24/23 02:30 Total Bilirubin 0.2 mg/dL (0.2-1.0) 08/21/23 06:16 AST 11 U/L (15-37) L 08/21/23 06:16 ALT 12 U/L (13-56) L 08/21/23 06:16 Alkaline Phosphatase 73 U/L (45-117) 08/21/23 06:16 Triglycerides 129 mg/dL (<150) 08/12/23 04:35 Cholesterol 154 mg/dL (<200) 08/12/23 04:35 HDL Cholesterol 32 mg/dL (40-60) L 08/12/23 04:35 Cholesterol/HDL Ratio 4.81 08/12/23 04:35 <Jaime Maxwell - Last Filed: 08/24/23 15:58> Diet: AHA Activity: Ad anjelica <Cotto,Olimpia - Last Filed: 08/24/23 14:12> <Jaime Maxwell - Last Filed: 08/24/23 15:58> Home Medications: Aspirin [Aspirin EC] 81 mg PO DAILY 08/11/23 Clopidogrel Bisulfate [Plavix*] 75 mg PO DAILY 08/11/23 Ferrous Gluconate 324 mg PO DAILY 08/11/23 Furosemide 20 mg PO DAILY PRN 08/11/23 Mv-Mn/Om3/Dha/Epa/Fish/Lut/Ronni [Ocuvite Adult 50 Plus Softgel] 1 pill PO DAILY 08/11/23 Nebivolol HCl 5 mg PO DAILY 08/11/23 Potassium Citrate [Potassium] 99 mg PO DAILY 08/11/23 Amlodipine [Norvasc*] 5 mg PO BID #60 tab 08/24/23 Losartan Potassium [Cozaar*] 50 mg PO BID 30 Days #60 tablet 08/24/23 Metoprolol Succinate [Toprol Xl] 25 mg PO BID #60 tab 08/24/23 Pantoprazole [Protonix Tab] 40 mg PO AC #30 tab 08/24/23 Spironolactone [Aldactone] 25 mg PO BID 30 Days #60 tab 08/24/23 rifAMPin [Rifadin*] 300 mg PO DAILY #30 cap 08/24/23 New Medications: Spironolactone [Aldactone] 25 mg PO BID 30 Days #60 tab Losartan Potassium [Cozaar*] 50 mg PO BID 30 Days #60 tablet Amlodipine [Norvasc*] 5 mg PO BID #60 tab Pantoprazole [Protonix Tab] 40 mg PO AC #30 tab rifAMPin [Rifadin*] 300 mg PO DAILY #30 cap Metoprolol Succinate [Toprol Xl] 25 mg PO BID #60 tab Physician Discharge Instructions: [id number]-old female patient presented with past medical history of hypertension, chronic hypokalemia, failure to thrive, was noted to have urinary tract infection, elevated troponins, hypokalemia, bacteremia. She was treated with IV antibiotics, received an echo, no clear vegetation seen on valves. Was treated with IV vancomycin for bacteremia, Rocephin for urinary tract infection. Condition improved with IV antibiotics, electrolyte replacement, supplemental nutrition Patient tolerating diet, stable for discharge to home with follow-up appointment with primary care physician.. Stable to discharge to Inpatient rehab for IV antibiotics for bacteremia. PROBLEM: Bacteremia s/p mitral valve repair March 2023 Recurrent cystitis Hypokalemia Failure to thrive Protein calorie malnutrition Per infectious disease plan to continue vancomycin Continue vancomycin for 2 weeks following negative blood culture (08/11-08/24). Vancomycin 1 g every 36 hours bactroban nasal ointment BID x 5 days Routine blood work Echo TTE 08/15: "1. NORMAL LEFT VENTRICULAR EJECTION FRACTION 50-55%. 2. MILD CONCENTRIC LEFT VENTRICULAR HYPERTROPHY. 3. AORTIC VALVE BIOPROSTHESIS IS PRESENT FUNCTIONING WELL. 4. NO CLEAR VEGETATION IS SEEN, RECOMMEND TRASNESOPHAGEAL ECHOCARDIOGRAM, IF CLINICALLY INDICATED. 5. TRACE PERICARDIAL EFFUSION" Continue home medicines as previously prescribed GOAL: Clear understanding of disease process INSTRUCTIONS: Physician Discharge Instructions: -DC IV and DC home -Follow-up with PCP in 1 to 2 weeks -Please call Dr. Gottlieb at [phone] if any questions regarding hospital stay -Please call nursing station at [phone] if any nursing or medication questions -Return to the emergency room if symptoms worsen Followup: Aspen White [Primary Care Provider] -
== END 2023-08-24 15:22 | DRG 871 ==
LOC: 3RD-ICU 01:36 → 2ND 08-15 15:45
PROVIDERS: ADMIT Internal Medicine Nephrology; ATTEND Hospitalist
PROC: 02HV33Z Insertion of Infusion Device into Superior Vena Cava, Percutaneous Approach (ICD-10-PCS; principal; 2023-08-18)
DX: A41.02 Sepsis due to Methicillin resistant Staphylococcus aureus (principal); E43 Unspecified severe protein-calorie malnutrition; I21.A1 Myocardial infarction type 2; Z68.1 Body mass index [BMI] 19.9 or less, adult; R64 Cachexia; N17.9 Acute kidney failure, unspecified; A41.51 Sepsis due to Escherichia coli [E. coli]; N30.90 Cystitis, unspecified without hematuria; I10 Essential (primary) hypertension; I16.0 Hypertensive urgency; D50.9 Iron deficiency anemia, unspecified; N81.10 Cystocele, unspecified; E87.6 Hypokalemia; R62.7 Adult failure to thrive; Z79.82 Long term (current) use of aspirin; Z79.02 Long term (current) use of antithrombotics/antiplatelets; Z79.899 Other long term (current) drug therapy
CPT/HCPCS: 36415; 36569; 70551; 71045; 80048; 80053; 80061; 80202; 81001; 82088; 82533; 82607; 83735; 83835; 84132; 84244; 84425; 84443; 84484; 85025; 86140; 87040; 93306; 93975; 97110; 97116; 97161; 97165; 97530; J0360; J0696; J1100; J1650; J1720; J2405; J3475; J3480; J7030; J7050